=== PATIENT | male | born 1955 | race Hispanic/Latino ===

== ENCOUNTER 2018-05-14 12:26 | Inpatient (IN) | payer OTHER ==
[2018-05-14 12:27] VITALS: PULSE 67
[2018-05-14 12:39] VITALS: BMI 27.2
--- NOTE | 2018-05-14 12:46 | ED PDOC ---
Arrival/HPI - General Time Seen by Provider: 05/14/18 12:32 Historian: Patient - Critical Care Critical Care Minutes: 45 minutes - History of Present Illness Narrative History of Present Illness (Text): 05/14/18 12:46 62 y/o M w/ h/o of schizophrenia, anxiety, GI bleed, diabetes, and esophageal ulcer, presents to the emergency department s/p fall from earlier this morning. He reports his leg gave out and was unable to arise unassisted or ambulate afterwards. He denies head injury, LOC, or neck pain during the incident & denies urinary/bowel incontinence as a result of the incident. He reports his sister calling EMS who found the patient lying on the ground, but is unsure of how long he remained on the ground. Patient denies any fever, chills, shortness of breath, chest pain, diarrhea, nausea, vomiting, urinary symptoms, back pain, neck pain, headache, dizziness, or any other complaints. 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,fall as per pt) Hx Difficulty Chewing: No Hx Epistaxis: No Hx Glaucoma: No Hx Macular Degeneration: No - Renal Hx Renal Disorder: No Hx Kidney Stones: No - Endocrine/Metabolic Hx Hyperthyroidism: No Hx Hypothyroidism: No - Hematological/Oncological Hx Anemia: Yes (07-02-16) - Integumentary Hx Dermatological Disorder: No - Musculoskeletal/Rheumatological Hx Arthritis: No Hx Fractures: No Hx Osteoporosis: No - Gastrointestinal Hx Gastritis: Yes - Genitourinary/Gynecological Hx Sexually Transmitted Diseases: No - Psychiatric Hx Anxiety: Yes Hx Bipolar Disorder: Yes Hx Depression: Yes Hx Paranoia: Yes Hx Schizophrenia: Yes Hx Substance Use: No - Past Surgical History Past Surgical History: Unable to Obtain - Surgical History Hx Coronary Artery Bypass Graft: Yes - Anesthesia Hx Anesthesia: Yes Hx Anesthesia Reactions: No Hx Malignant Hyperthermia: No - Suicidal Assessment Feels Threatened In Home Enviroment: No Family/Social History - Physician Review Nursing Documentation Reviewed: Yes Family/Social History: No Known Family HX Smoking Status: Former Smoker Hx Alcohol Use: No Hx Substance Use: No Hx Substance Use Treatment: No Allergies/Home Meds Allergies/Adverse Reactions: Allergies zoloft Allergy (Uncoded 05/14/18 13:00) RASH Home Medications: Home Meds Medication Instructions Recorded Confirmed Losartan [Cozaar] 50 mg PO DAILY 05/19/18 05/19/18 RX: Metoprolol Succinate [Toprol 25 mg PO DAILY 05/19/18 05/19/18 Xl] metFORMIN [glucOPHAGE] 500 mg PO DAILY 05/19/18 05/19/18 Review of Systems - Review of Systems Constitutional: absent: Fevers, Night Sweats Respiratory: absent: SOB Cardiovascular: absent: Chest Pain Gastrointestinal: Abdominal Pain. absent: Diarrhea, Nausea, Vomiting Genitourinary Male: absent: Urinary Output Changes Musculoskeletal: Other (leg weakness). absent: Back Pain, Neck Pain Neurological: absent: Headache, Dizziness Physical Exam Vital Signs Reviewed: Yes Vital Signs Temp Pulse Resp BP Pulse Ox 05/14/18 12:39 98.4 F 109 H 18 97/54 L 95 Temperature: Afebrile Blood Pressure: Hypertensive Pulse: Tachycardic Appearance: Positive for: Comfortable, Unkept, Other (malodorous scent noted) - Systems Exam Head: Present: Atraumatic, Normocephalic Pupils: Present: PERRL Extroacular Muscles: Present: EOMI Conjunctiva: Present: Normal Mouth: Present: Dry Nose (External): Present: Abrasion (+abrasion to nasal bridge) Respiratory/Chest: Present: Clear to Auscultation, Other (+old healed sternotomy scar noted to midline ) Cardiovascular: Present: Tachycardic Abdomen: Present: Distention (+distended belly soft non-tender) Lower Extremity: Present: NORMAL PULSES, Other (ecchymoses noted to lower extremities with abrasions noted to b/L knees) Neurological: Present: GCS=15, CN II-XII Intact, Speech Normal Skin: Present: Diaphoretic (slightly diaphoretic), Abrasion (+abrasion noted to lower extremities bilaterally on feet) Psychiatric: Present: Alert, Oriented x 3, Normal Insight Medical Decision Making ED Course and Treatment: 05/14/18 12:46 Impression: 62 y/o M presenting to the emergency department s/p fall. Differential Diagnosis included but are not limited to: --Sepsis --Rhabdomyolysis --UTI --pneumonia Plan: -- VBG -- CT of abdomen and pelvis w/o contrast -- CT of cervical spine without contrast -- Head CT without contrast -- Labs --Vancomycin -- Zosyn -- Lactated Ringers -- Chest X-ray -- IV fluids -- Blood culture -- Urine culture -- Urinalysis -- Reassess and disposition Prior Visits: Notes and results from previous visits were reviewed. Progress Notes: 05/14/18 14:00 Labs reviewed with leukocytosis of 23 noted, HONG of 2.2 and lactate of 3.1 noted. Vancomycin and Zosyn ordered. Code SEPSIS activated. 05/14/18 14:26 Elevated troponin of 0.7. ASA ordered. CT imaging pending. Profound elevated CK noted. 05/14/18 15:41 CTH negative for acute intracranial bleeding. CT c-spine negative for fracture and dislocation. Discussed case with Dr. Isabelle Garcia(boat engine mechanic) who will come down and evaluate the patient. Call placed to Dr. Corbin(covering for Dr. Carpenter). 05/14/18 16:[address] Garcia who evaluated patient and accepts onto the ICU service. Spoke to Dr. Corbin who requests hospitalist admission. Spoke to Dr. Perez(hospitalist) who accepts patient onto his service. Will consult Dr. Salcedo(cardiology) & Dr. Elizabeth(nephrology). - RAD Interpretation Narrative RAD Interpretations (Text): 05/14/18 15:40 Procedure: CT of cervical spine without contrast Impression: Unremarkable CT of the cervical spine. Dictator: Jordan Garvin MD Procedure: Head CT without contrast Impression: No acute intracranial findings Dictator: Jordan Garvin MD Procedure: Chest X-ray Impression: No active disease. Dictator: Jordan Garvin MD 05/14/18 16:16 Procedure: CT of abdomen and pelvis with contrast Impression: No acute intra-abdominal findings. Dictator: Jordan Garvin MD Option Trader: Radiologist - EKG Interpretation EKG Interpretation (Text): 05/14/18 12:46 EKG: Ordered, reviewed, and independently interpreted the EKG. Rate : 109 BPM Rhythm : Sinus Tachycardia Interpretation : LVH, No ST-segment elevations or depressions, no T-wave inversions. Interpreted by ED Physician: Yes - Scribe Statement The provider has reviewed the documentation as recorded by the Haseeb Beverly All medical record entries made by the Haseeb were at my direction and personally dictated by me. I have reviewed the chart and agree that the record accurately reflects my personal performance of the history, physical exam, medical decision making, and the department course for this patient. I have also personally directed, reviewed, and agree with the discharge instructions and disposition. Disposition/Present on Arrival - Present on Arrival Any Indicators Present on Arrival: No History of DVT/PE: No History of Uncontrolled Diabetes: No Urinary Catheter: No History Surgical Site Infection Following: None - Disposition Have Diagnosis and Disposition been Completed?: Yes Diagnosis: Sepsis, HONG (acute kidney injury), Rhabdomyolysis Disposition: HOSPITALIZED Disposition Time: 16:00 Patient Plan: Admission Patient Problems: Current Active Problems Problem Status Onset HONG (acute kidney injury) Acute Rhabdomyolysis Acute Sepsis Acute Condition: STABLE
[2018-05-14] MEDS ORDERED: Sodium Chloride 0.9% 1,000 ML IV STA (12:48)
[2018-05-14] MEDS ORDERED: Iohexol 350 MG/100 ML VIAL ONE (13:01)
[2018-05-14] MEDS ORDERED: TDAP Vaccine 0.5 mL Syr IM ONE (13:28)
[2018-05-14 13:54] LABS: BASO # 0.02 K/mm3 (0.0-2.0); BASO % 0.1 % (0.0-3.0); GRAN # 20.86 (1.4-6.5); GRAN % 90.3 % (50.0-68.0); HEMOGLOBIN 10.4 g/dL (14.0-18.0); LYMPH # 0.8 (1.2-3.4); LYMPH % 3.2 % (22.0-35.0); MEAN CORPUSCULAR HEMOGLOBIN 18.6 pg (25.0-35.0); MEAN CORPUSCULAR HGB CONC 29.1 g/dl (31.0-37.0); MEAN PLATELET VOLUME 7.9 fl (7.0-11.0); MONO # 1.5 (0.1-0.6); MONO % 6.4 % (1.0-6.0); PLATELET COUNT 207 10^3/uL (120.0-450.0); RBC 5.59 10^6/uL (3.5-6.1); RED CELL DISTRIBUTION WIDTH 18.7 % (11.5-14.5); WHITE BLOOD COUNT 23.1 10^3/uL (4.5-11.0)
[2018-05-14 13:56] LABS: INR 1.09; PROTHROMBIN TIME 12.6 SECONDS (9.4-12.5); VENOUS BLOOD GAS BASE EXCESS -6.2 mmol/L (0.0-2.0); VENOUS BLOOD GAS PO2 40 mm/Hg (30-55); VENOUS BLOOD PH 7.27 (7.32-7.43)
[2018-05-14 13:58] LABS: ALB/GLOB RATIO 1.2 (1.1-1.8); ALBUMIN 4.2 g/dL (3.0-4.8); CALCIUM 11.2 mg/dL (8.4-10.5)
[2018-05-14] MEDS ORDERED: Piperacill/Tazo 4.5gm in NS 4.5 GM/100 ML BAG IVPB STA (14:01)
[2018-05-14] MEDS ORDERED: Vancomycin 1gm in NS 250ml 1 GM/250 ML BAG IVPB STA (14:01)
[2018-05-14 14:13] LABS: TROPONIN I 0.74 ng/mL
--- NOTE | 2018-05-14 14:13 | RAD ---
Date of service: 05/14/2018 HISTORY: altered mental status COMPARISON: 07/02/2016 FINDINGS: LUNGS: No active pulmonary disease. PLEURA: No significant pleural effusion identified, no pneumothorax apparent. CARDIOVASCULAR: No aortic atherosclerotic calcification present. Normal cardiac size. No pulmonary vascular congestion. OSSEOUS STRUCTURES: Sternal wires VISUALIZED UPPER ABDOMEN: Normal. OTHER FINDINGS: None. IMPRESSION: No active disease.
[2018-05-14 14:40] LABS: BAND 4 % (0-2); LYMPHOCYTE 5 % (22.0-35.0); MONOCYTE 3 % (1.0-6.0); NEUTROPHIL 88 % (50.0-70.0)
[2018-05-14 14:43] LABS: ANISOCYTOSIS SLIGHT; HYPOCHROMIA SLIGHT; MICROCYTOSIS 2+; OVALOCYTES SLIGHT; POIKILOCYTOSIS SLIGHT; POLYCHROMASIA SLIGHT
[2018-05-14 14:44] LABS: SCHISTOCYTES SLIGHT
[2018-05-14 14:55] LABS: CK MB% 0.1 % (2.5-3.0); CK-MB 18.7 ng/mL (0.0-3.6)
[2018-05-14 15:04] LABS: ERYTHROCYTE SEDIMENTATION RATE 16 mm/hr (0.00-15.0)
--- NOTE | 2018-05-14 15:28 | CT ---
Date of service: 05/14/2018 PROCEDURE: CT HEAD WITHOUT CONTRAST. HISTORY: ams COMPARISON: 01/03/2016 TECHNIQUE: Axial computed tomography images were obtained through the head/brain without intravenous contrast. Radiation dose: Total exam DLP = 897.9 mGy-cm. This CT exam was performed using one or more of the following dose reduction techniques: Automated exposure control, adjustment of the mA and/or kV according to patient size, and/or use of iterative reconstruction technique. FINDINGS: HEMORRHAGE: No intracranial hemorrhage. BRAIN: No mass effect or edema. Mild atrophy. No acute intracranial findings VENTRICLES: Unremarkable. No hydrocephalus. CALVARIUM: Unremarkable. PARANASAL SINUSES: Unremarkable as visualized. No significant inflammatory changes. MASTOID AIR CELLS: Unremarkable as visualized. No inflammatory changes. OTHER FINDINGS: None. IMPRESSION: No acute intracranial findings
--- NOTE | 2018-05-14 15:30 | CT ---
Date of service: 05/14/2018 PROCEDURE: CT Cervical Spine without contrast HISTORY: fall COMPARISON: None available. TECHNIQUE: Axial computed tomography images were obtained of the cervical spine without the use of intravenous contrast. Coronal and sagittal reformatted images were created and reviewed. Radiation dose: Total exam DLP = 566.72 mGy-cm. This CT exam was performed using one or more of the following dose reduction techniques: Automated exposure control, adjustment of the mA and/or kV according to patient size, and/or use of iterative reconstruction technique. FINDINGS: VERTEBRAE: No fracture. Normal alignment. No destructive bony lesion. DISCS/SPINAL CANAL/NEURAL FORAMINA: No significant central canal or neural foraminal stenosis. Discs heights are grossly preserved. PARASPINAL SOFT TISSUES: The carotid bifurcations are heavily calcified. OTHER FINDINGS: None. IMPRESSION: Unremarkable CT of the cervical spine.
--- NOTE | 2018-05-14 15:37 | CT ---
Date of service: 05/14/2018 PROCEDURE: CT Abdomen and Pelvis without intravenous contrast HISTORY: fall COMPARISON: 11/19/2015 TECHNIQUE: Without contrast.. Contrast dose: Radiation dose: Total exam DLP = 824.38 mGy-cm. This CT exam was performed using one or more of the following dose reduction techniques: Automated exposure control, adjustment of the mA and/or kV according to patient size, and/or use of iterative reconstruction technique. FINDINGS: LOWER THORAX: There is a small nodule at the left lung base which is unchanged. This measures 10 mm in diameter. LIVER: Unremarkable. No gross lesion or ductal dilatation. GALLBLADDER AND BILE DUCTS: 13 mm gallstone. PANCREAS: Unremarkable. No gross lesion or ductal dilatation. SPLEEN: Unremarkable. ADRENALS: Unremarkable. No mass. KIDNEYS AND URETERS: Unremarkable. No hydronephrosis. No solid mass. VASCULATURE: Unremarkable. No aortic aneurysm. Extensive aortic calcification BOWEL: Unremarkable. No obstruction. No gross mural thickening. APPENDIX: Unremarkable. Normal appendix. PERITONEUM: Unremarkable. No free fluid. No free air. LYMPH NODES: Unremarkable. No enlarged lymph nodes. BLADDER: Unremarkable. REPRODUCTIVE: Unremarkable. BONES: No acute fracture. OTHER FINDINGS: None. IMPRESSION: No acute intra-abdominal findings.
[2018-05-14 15:52] LABS: URINE BILIRUBIN NEGATIVE (NEGATIVE); URINE BLOOD LARGE (NEGATIVE); URINE GLUCOSE (UA) 250 mg/dL (NEGATIVE); URINE LEUKOCYTE ESTERASE NEGATIVE Leu/uL (NEGATIVE); URINE PROTEIN 100 mg/dL (<30 mg/dL); URINE UROBILINOGEN 0.2 E.U./dL (<1 E.U./dL)
[2018-05-14 15:53] LABS: URINE APPEARANCE CLEAR (CLEAR); URINE COLOR YELLOW (YELLOW)
[2018-05-14 16:02] LABS: URINE BACTERIA FEW (NEG); URINE WBC 0 - 2 /hpf (0-6)
--- NOTE | 2018-05-14 16:16 | CARD ---
APPROVED REPORT Date of service: 05/14/2018 EKG Measurement Heart [id number] <Conclusion> Sinus tachycardia Inferior infarct, age undetermined Abnormal ECG
[2018-05-14] MEDS ORDERED: Alum-Mag Hydrox-Simethicone Susp (30 mL) PO STA (16:31)
[2018-05-14] MEDS ORDERED: Atrop/Hyosc/Scopal/PB Elixir (120 ml) PO STA (16:31)
[2018-05-14 17:10] LABS: BARBITURATES, UR NEGATIVE (NEGATIVE); BENZODIAZEPINES, UR NEGATIVE (NEGATIVE); OPIATES, UR NEGATIVE (NEGATIVE); PHENCYCLIDINE, UR NEGATIVE (NEGATIVE)
--- NOTE | 2018-05-14 17:22 | CP.CCUPN ---
CCU Objective - Vital Signs / Intake & Output Vital Signs (Last 4 hours): Vital Signs Temp Pulse Resp BP Pulse Ox 05/14/18 16:54 98.6 F 86 16 112/86 98 05/14/18 16:09 98.6 F 98 H 16 112/76 98 Intake and Output (Last 8hrs): Intake & Output 05/14/18 05/14/18 05/14/18 06:59 14:59 22:59 Weight 86.183 kg - Physical Exam Head: Positive for: Atraumatic, Normocephalic Pupils: Positive for: PERRL Extroacular Muscles: Positive for: EOMI Conjunctiva: Positive for: Normal Mouth: Positive for: Dry Nose (External): Positive for: Abrasion (+abrasion to nasal bridge) Respiratory/Chest: Positive for: Clear to Auscultation, Other (+old healed sternotomy scar noted to midline ) Cardiovascular: Positive for: Tachycardic Abdomen: Positive for: Distention (+distended belly soft non-tender) Lower Extremity: Positive for: NORMAL PULSES, Other (ecchymoses noted to lower extremities with abrasions noted to b/L knees) Neurological: Positive for: GCS=15, CN II-XII Intact, Speech Normal Skin: Positive for: Diaphoretic (slightly diaphoretic), Abrasion (+abrasion noted to lower extremities bilaterally on feet) Psychiatric: Positive for: Alert, Oriented x 3, Normal Insight - Medications Active Medications: Active Medications Generic Name Dose Route Start Last Admin Trade Name Freq PRN Reason Stop Dose Admin Potassium Chloride 10 meq in 100 mls @ 50 mls/hr 05/14/18 16:30 Potassium Chloride 10 Meq/100 Ml IVPB 05/14/18 20:29 Q2H CHANEL Sodium Bicarbonate 150 meq/ 1,150 mls @ 250 mls/hr 05/14/18 16:45 Dextrose IV [id number] CHANEL - Patient Studies Lab Studies: Lab Studies 05/14/18 05/14/18 05/14/18 Range/Units 16:30 16:10 16:00 WBC (4.5-11.0) 10^3/uL RBC (3.5-6.1) 10^6/uL Hgb (14.0-18.0) g/dL Hct (42.0-52.0) % MCV (80.0-105.0) fl MCH (25.0-35.0) pg MCHC (31.0-37.0) g/dl RDW (11.5-14.5) % Plt Count (120.0-450.0) 10^3/uL MPV (7.0-11.0) fl Gran % (50.0-68.0) % Lymph % (Auto) (22.0-35.0) % Evans % (Auto) (1.0-6.0) % Eos % (Auto) (1.5-5.0) % Baso % (Auto) (0.0-3.0) % Gran # (1.4-6.5) Lymph # (Auto) (1.2-3.4) Evans # (Auto) (0.1-0.6) Eos # (Auto) (0.0-0.7) Baso # (Auto) (0.0-2.0) K/mm3 Neutrophils % (Manual) (50.0-70.0) % Band Neutrophils % (0-2) % Lymphocytes % (Manual) (22.0-35.0) % Monocytes % (Manual) (1.0-6.0) % Polychromasia Hypochromasia Poikilocytosis (manual Anisocytosis (manual) Microcytosis (manual) Ovalocytes Schistocytes ESR (0.00-15.0) mm/hr PT (9.4-12.5) SECONDS INR APTT (25.1-36.5) Seconds pO2 (30-55) mm/Hg VBG pH (7.32-7.43) VBG pCO2 (40-60) VBG HCO3 (21-28) mmol/l VBG Total CO2 (22-28) mmol.L VBG O2 Sat (Calc) (40-65) % VBG Base Excess (0.0-2.0) mmol/L VBG Potassium (3.6-5.2) mmol/L Sodium (132-148) mmol/L Chloride (98-107) mmol/L Glucose (75-110) mg/dl Lactate (0.7-2.1) mmol/L FiO2 % Potassium (3.6-5.0) mmol/L Carbon Dioxide (21-33) mmol/L Anion Gap (10-20) BUN (7-21) mg/dL Creatinine (0.8-1.5) mg/dl Est GFR ( Amer) Est GFR (Non-Af Amer) POC Glucose (mg/dL) (65-110) mg/dL Random Glucose (70-110) mg/dL Lactic Acid 1.6 (0.7-2.1) mmol/L Calcium (8.4-10.5) mg/dL Phosphorus (2.5-4.5) mg/dL Magnesium (1.7-2.2) mg/dL Total Bilirubin (0.2-1.3) mg/dL AST (17-59) U/L ALT (7-56) U/L Alkaline Phosphatase (38-126) U/L Ammonia (9-33) umol/L Total Creatine Kinase (35-230) U/L CK-MB (CK-2) (0.0-3.6) ng/mL CK-MB (CK-2) % (2.5-3.0) % Troponin I ng/mL Total Protein (5.8-8.3) g/dL Albumin (3.0-4.8) g/dL Globulin gm/dL Albumin/Globulin Ratio (1.1-1.8) Venous Blood Potassium (3.6-5.2) mmol/L Urine Color (YELLOW) Urine Appearance (CLEAR) Urine pH (4.7-8.0) Ur Specific [place] (1.005-1.035) Urine Protein (<30 mg/dL) mg/dL Urine Glucose (UA) (NEGATIVE) mg/dL Urine Ketones (NEGATIVE) mg/dL Urine Blood (NEGATIVE) Urine Nitrate (NEGATIVE) Urine Bilirubin (NEGATIVE) Urine Urobilinogen (<1 E.U./dL) E.U./dL Ur Leukocyte Esterase (NEGATIVE) Irvin/uL Urine RBC (0-2) /hpf Urine WBC (0-6) /hpf Ur Epithelial Cells (0-5) /hpf Urine Bacteria (NEG) Urine Opiates Screen Negative (NEGATIVE) Urine Methadone Screen Negative (NEGATIVE) Ur Barbiturates Screen Negative (NEGATIVE) Ur Phencyclidine Scrn Negative (NEGATIVE) Ur Amphetamines Screen Negative (NEGATIVE) U Benzodiazepines Scrn Negative (NEGATIVE) U Oth Cocaine Metabols Negative (NEGATIVE) U Cannabinoids Screen Negative (NEGATIVE) Alcohol, Quantitative < 10 (0-10) mg/dL 05/14/18 05/14/18 05/14/18 Range/Units 15:30 13:30 13:30 WBC (4.5-11.0) 10^3/uL RBC (3.5-6.1) 10^6/uL Hgb (14.0-18.0) g/dL Hct (42.0-52.0) % MCV (80.0-105.0) fl MCH (25.0-35.0) pg MCHC (31.0-37.0) g/dl RDW (11.5-14.5) % Plt Count (120.0-450.0) 10^3/uL MPV (7.0-11.0) fl Gran % (50.0-68.0) % Lymph % (Auto) (22.0-35.0) % Evans % (Auto) (1.0-6.0) % Eos % (Auto) (1.5-5.0) % Baso % (Auto) (0.0-3.0) % Gran # (1.4-6.5) Lymph # (Auto) (1.2-3.4) Evans # (Auto) (0.1-0.6) Eos # (Auto) (0.0-0.7) Baso # (Auto) (0.0-2.0) K/mm3 Neutrophils % (Manual) (50.0-70.0) % Band Neutrophils % (0-2) % Lymphocytes % (Manual) (22.0-35.0) % Monocytes % (Manual) (1.0-6.0) % Polychromasia Hypochromasia Poikilocytosis (manual Anisocytosis (manual) Microcytosis (manual) Ovalocytes Schistocytes ESR (0.00-15.0) mm/hr PT (9.4-12.5) SECONDS INR APTT (25.1-36.5) Seconds pO2 40 (30-55) mm/Hg VBG pH 7.27 L (7.32-7.43) VBG pCO2 45.0 (40-60) VBG HCO3 20.7 L (21-28) mmol/l VBG Total CO2 22.1 (22-28) mmol.L VBG O2 Sat (Calc) 72.9 H (40-65) % VBG Base Excess -6.2 L (0.0-2.0) mmol/L VBG Potassium 3.4 L (3.6-5.2) mmol/L Sodium 138.0 (132-148) mmol/L Chloride 101.0 (98-107) mmol/L Glucose 287 H (75-110) mg/dl Lactate 3.1 H (0.7-2.1) mmol/L FiO2 21.0 % Potassium (3.6-5.0) mmol/L Carbon Dioxide (21-33) mmol/L Anion Gap (10-20) BUN (7-21) mg/dL Creatinine (0.8-1.5) mg/dl Est GFR ( Amer) Est GFR (Non-Af Amer) POC Glucose (mg/dL) (65-110) mg/dL Random Glucose (70-110) mg/dL Lactic Acid (0.7-2.1) mmol/L Calcium (8.4-10.5) mg/dL Phosphorus (2.5-4.5) mg/dL Magnesium (1.7-2.2) mg/dL Total Bilirubin (0.2-1.3) mg/dL AST (17-59) U/L ALT (7-56) U/L Alkaline Phosphatase (38-126) U/L Ammonia 44 H (9-33) umol/L Total Creatine Kinase (35-230) U/L CK-MB (CK-2) (0.0-3.6) ng/mL CK-MB (CK-2) % (2.5-3.0) % Troponin I ng/mL Total Protein (5.8-8.3) g/dL Albumin (3.0-4.8) g/dL Globulin gm/dL Albumin/Globulin Ratio (1.1-1.8) Venous Blood Potassium 3.4 L (3.6-5.2) mmol/L Urine Color Yellow (YELLOW) Urine Appearance Clear (CLEAR) Urine pH 6.0 (4.7-8.0) Ur Specific [place] >= 1.030 (1.005-1.035) Urine Protein 100 H (<30 mg/dL) mg/dL Urine Glucose (UA) 250 H (NEGATIVE) mg/dL Urine Ketones Negative (NEGATIVE) mg/dL Urine Blood Large H (NEGATIVE) Urine Nitrate Negative (NEGATIVE) Urine Bilirubin Negative (NEGATIVE) Urine Urobilinogen 0.2 (<1 E.U./dL) E.U./dL Ur Leukocyte Esterase Negative (NEGATIVE) Irvin/uL Urine RBC 2 - 5 (0-2) /hpf Urine WBC 0 - 2 (0-6) /hpf Ur Epithelial Cells None (0-5) /hpf Urine Bacteria Few (NEG) Urine Opiates Screen (NEGATIVE) Urine Methadone Screen (NEGATIVE) Ur Barbiturates Screen (NEGATIVE) Ur Phencyclidine Scrn (NEGATIVE) Ur Amphetamines Screen (NEGATIVE) U Benzodiazepines Scrn (NEGATIVE) U Oth Cocaine Metabols (NEGATIVE) U Cannabinoids Screen (NEGATIVE) Alcohol, Quantitative (0-10) mg/dL 05/14/18 05/14/18 05/14/18 Range/Units 13:30 13:30 13:30 WBC 23.1 H (4.5-11.0) 10^3/uL RBC 5.59 (3.5-6.1) 10^6/uL Hgb 10.4 L (14.0-18.0) g/dL Hct 35.8 L (42.0-52.0) % MCV 64.0 L (80.0-105.0) fl MCH 18.6 L (25.0-35.0) pg MCHC 29.1 L (31.0-37.0) g/dl RDW 18.7 H (11.5-14.5) % Plt Count 207 (120.0-450.0) 10^3/uL MPV 7.9 (7.0-11.0) fl Gran % 90.3 H (50.0-68.0) % Lymph % (Auto) 3.2 L (22.0-35.0) % Evans % (Auto) 6.4 H (1.0-6.0) % Eos % (Auto) 0.0 L (1.5-5.0) % Baso % (Auto) 0.1 (0.0-3.0) % Gran # 20.86 H (1.4-6.5) Lymph # (Auto) 0.8 L (1.2-3.4) Evans # (Auto) 1.5 H (0.1-0.6) Eos # (Auto) 0.0 (0.0-0.7) Baso # (Auto) 0.02 (0.0-2.0) K/mm3 Neutrophils % (Manual) 88 H (50.0-70.0) % Band Neutrophils % 4 H (0-2) % Lymphocytes % (Manual) 5 L (22.0-35.0) % Monocytes % (Manual) 3 (1.0-6.0) % Polychromasia Slight Hypochromasia Slight Poikilocytosis (manual Slight Anisocytosis (manual) Slight Microcytosis (manual) 2+ Ovalocytes Slight Schistocytes Slight ESR 16 H (0.00-15.0) mm/hr PT 12.6 H (9.4-12.5) SECONDS INR 1.09 APTT 27.0 (25.1-36.5) Seconds pO2 (30-55) mm/Hg VBG pH (7.32-7.43) VBG pCO2 (40-60) VBG HCO3 (21-28) mmol/l VBG Total CO2 (22-28) mmol.L VBG O2 Sat (Calc) (40-65) % VBG Base Excess (0.0-2.0) mmol/L VBG Potassium (3.6-5.2) mmol/L Sodium 138 (132-148) mmol/L Chloride 103 (98-107) mmol/L Glucose (75-110) mg/dl Lactate (0.7-2.1) mmol/L FiO2 % Potassium 3.5 L (3.6-5.0) mmol/L Carbon Dioxide 21 (21-33) mmol/L Anion Gap 18 (10-20) BUN 21 (7-21) mg/dL Creatinine 2.2 H (0.8-1.5) mg/dl Est GFR ( Amer) 37 Est GFR (Non-Af Amer) 31 POC Glucose (mg/dL) (65-110) mg/dL Random Glucose 267 H (70-110) mg/dL Lactic Acid (0.7-2.1) mmol/L Calcium 11.2 H (8.4-10.5) mg/dL Phosphorus 3.6 (2.5-4.5) mg/dL Magnesium 3.2 H (1.7-2.2) mg/dL Total Bilirubin 0.7 (0.2-1.3) mg/dL AST 149 H (17-59) U/L ALT 35 (7-56) U/L Alkaline Phosphatase 142 H (38-126) U/L Ammonia (9-33) umol/L Total Creatine Kinase 98777 H (35-230) U/L CK-MB (CK-2) 18.7 H (0.0-3.6) ng/mL CK-MB (CK-2) % 0.1 L (2.5-3.0) % Troponin I 0.74 H* D ng/mL Total Protein 7.7 (5.8-8.3) g/dL Albumin 4.2 (3.0-4.8) g/dL Globulin 3.5 gm/dL Albumin/Globulin Ratio 1.2 (1.1-1.8) Venous Blood Potassium (3.6-5.2) mmol/L Urine Color (YELLOW) Urine Appearance (CLEAR) Urine pH (4.7-8.0) Ur Specific [place] (1.005-1.035) Urine Protein (<30 mg/dL) mg/dL Urine Glucose (UA) (NEGATIVE) mg/dL Urine Ketones (NEGATIVE) mg/dL Urine Blood (NEGATIVE) Urine Nitrate (NEGATIVE) Urine Bilirubin (NEGATIVE) Urine Urobilinogen (<1 E.U./dL) E.U./dL Ur Leukocyte Esterase (NEGATIVE) Irvin/uL Urine RBC (0-2) /hpf Urine WBC (0-6) /hpf Ur Epithelial Cells (0-5) /hpf Urine Bacteria (NEG) Urine Opiates Screen (NEGATIVE) Urine Methadone Screen (NEGATIVE) Ur Barbiturates Screen (NEGATIVE) Ur Phencyclidine Scrn (NEGATIVE) Ur Amphetamines Screen (NEGATIVE) U Benzodiazepines Scrn (NEGATIVE) U Oth Cocaine Metabols (NEGATIVE) U Cannabinoids Screen (NEGATIVE) Alcohol, Quantitative (0-10) mg/dL 05/14/18 Range/Units 12:34 WBC (4.5-11.0) 10^3/uL RBC (3.5-6.1) 10^6/uL Hgb (14.0-18.0) g/dL Hct (42.0-52.0) % MCV (80.0-105.0) fl MCH (25.0-35.0) pg MCHC (31.0-37.0) g/dl RDW (11.5-14.5) % Plt Count (120.0-450.0) 10^3/uL MPV (7.0-11.0) fl Gran % (50.0-68.0) % Lymph % (Auto) (22.0-35.0) % Evans % (Auto) (1.0-6.0) % Eos % (Auto) (1.5-5.0) % Baso % (Auto) (0.0-3.0) % Gran # (1.4-6.5) Lymph # (Auto) (1.2-3.4) Evans # (Auto) (0.1-0.6) Eos # (Auto) (0.0-0.7) Baso # (Auto) (0.0-2.0) K/mm3 Neutrophils % (Manual) (50.0-70.0) % Band Neutrophils % (0-2) % Lymphocytes % (Manual) (22.0-35.0) % Monocytes % (Manual) (1.0-6.0) % Polychromasia Hypochromasia Poikilocytosis (manual Anisocytosis (manual) Microcytosis (manual) Ovalocytes Schistocytes ESR (0.00-15.0) mm/hr PT (9.4-12.5) SECONDS INR APTT (25.1-36.5) Seconds pO2 (30-55) mm/Hg VBG pH (7.32-7.43) VBG pCO2 (40-60) VBG HCO3 (21-28) mmol/l VBG Total CO2 (22-28) mmol.L VBG O2 Sat (Calc) (40-65) % VBG Base Excess (0.0-2.0) mmol/L VBG Potassium (3.6-5.2) mmol/L Sodium (132-148) mmol/L Chloride (98-107) mmol/L Glucose (75-110) mg/dl Lactate (0.7-2.1) mmol/L FiO2 % Potassium (3.6-5.0) mmol/L Carbon Dioxide (21-33) mmol/L Anion Gap (10-20) BUN (7-21) mg/dL Creatinine (0.8-1.5) mg/dl Est GFR ( Amer) Est GFR (Non-Af Amer) POC Glucose (mg/dL) 269 H (65-110) mg/dL Random Glucose (70-110) mg/dL Lactic Acid (0.7-2.1) mmol/L Calcium (8.4-10.5) mg/dL Phosphorus (2.5-4.5) mg/dL Magnesium (1.7-2.2) mg/dL Total Bilirubin (0.2-1.3) mg/dL AST (17-59) U/L ALT (7-56) U/L Alkaline Phosphatase (38-126) U/L Ammonia (9-33) umol/L Total Creatine Kinase (35-230) U/L CK-MB (CK-2) (0.0-3.6) ng/mL CK-MB (CK-2) % (2.5-3.0) % Troponin I ng/mL Total Protein (5.8-8.3) g/dL Albumin (3.0-4.8) g/dL Globulin gm/dL Albumin/Globulin Ratio (1.1-1.8) Venous Blood Potassium (3.6-5.2) mmol/L Urine Color (YELLOW) Urine Appearance (CLEAR) Urine pH (4.7-8.0) Ur Specific [place] (1.005-1.035) Urine Protein (<30 mg/dL) mg/dL Urine Glucose (UA) (NEGATIVE) mg/dL Urine Ketones (NEGATIVE) mg/dL Urine Blood (NEGATIVE) Urine Nitrate (NEGATIVE) Urine Bilirubin (NEGATIVE) Urine Urobilinogen (<1 E.U./dL) E.U./dL Ur Leukocyte Esterase (NEGATIVE) Irvin/uL Urine RBC (0-2) /hpf Urine WBC (0-6) /hpf Ur Epithelial Cells (0-5) /hpf Urine Bacteria (NEG) Urine Opiates Screen (NEGATIVE) Urine Methadone Screen (NEGATIVE) Ur Barbiturates Screen (NEGATIVE) Ur Phencyclidine Scrn (NEGATIVE) Ur Amphetamines Screen (NEGATIVE) U Benzodiazepines Scrn (NEGATIVE) U Oth Cocaine Metabols (NEGATIVE) U Cannabinoids Screen (NEGATIVE) Alcohol, Quantitative (0-10) mg/dL Laboratory Results - last 24 hr 05/14/18 05/14/18 05/14/18 12:34 13:30 13:30 WBC 23.1 H RBC 5.59 Hgb 10.4 L Hct 35.8 L MCV 64.0 L MCH 18.6 L MCHC 29.1 L RDW 18.7 H Plt Count 207 MPV 7.9 Gran % 90.3 H Lymph % (Auto) 3.2 L Evans % (Auto) 6.4 H Eos % (Auto) 0.0 L Baso % (Auto) 0.1 Gran # 20.86 H Lymph # (Auto) 0.8 L Evans # (Auto) 1.5 H Eos # (Auto) 0.0 Baso # (Auto) 0.02 Neutrophils % (Manual) 88 H Band Neutrophils % 4 H Lymphocytes % (Manual) 5 L Monocytes % (Manual) 3 Polychromasia Slight Hypochromasia Slight Poikilocytosis (manual Slight Anisocytosis (manual) Slight Microcytosis (manual) 2+ Ovalocytes Slight Schistocytes Slight ESR 16 H PT 12.6 H INR 1.09 APTT 27.0 pO2 VBG pH VBG pCO2 VBG HCO3 VBG Total CO2 VBG O2 Sat (Calc) VBG Base Excess VBG Potassium Sodium Chloride Glucose Lactate FiO2 Potassium Carbon Dioxide Anion Gap BUN Creatinine Est GFR ( Amer) Est GFR (Non-Af Amer) POC Glucose (mg/dL) 269 H Random Glucose Lactic Acid Calcium Phosphorus Magnesium Total Bilirubin AST ALT Alkaline Phosphatase Ammonia Total Creatine Kinase CK-MB (CK-2) CK-MB (CK-2) % Troponin I Total Protein Albumin Globulin Albumin/Globulin Ratio Venous Blood Potassium Urine Color Urine Appearance Urine pH Ur Specific [place] Urine Protein Urine Glucose (UA) Urine Ketones Urine Blood Urine Nitrate Urine Bilirubin Urine Urobilinogen Ur Leukocyte Esterase Urine RBC Urine WBC Ur Epithelial Cells Urine Bacteria Urine Opiates Screen Urine Methadone Screen Ur Barbiturates Screen Ur Phencyclidine Scrn Ur Amphetamines Screen U Benzodiazepines Scrn U Oth Cocaine Metabols U Cannabinoids Screen Alcohol, Quantitative 05/14/18 05/14/18 05/14/18 13:30 13:30 13:30 WBC RBC Hgb Hct MCV MCH MCHC RDW Plt Count MPV Gran % Lymph % (Auto) Evans % (Auto) Eos % (Auto) Baso % (Auto) Gran # Lymph # (Auto) Evans # (Auto) Eos # (Auto) Baso # (Auto) Neutrophils % (Manual) Band Neutrophils % Lymphocytes % (Manual) Monocytes % (Manual) Polychromasia Hypochromasia Poikilocytosis (manual Anisocytosis (manual) Microcytosis (manual) Ovalocytes Schistocytes ESR PT INR APTT pO2 40 VBG pH 7.27 L VBG pCO2 45.0 VBG HCO3 20.7 L VBG Total CO2 22.1 VBG O2 Sat (Calc) 72.9 H VBG Base Excess -6.2 L VBG Potassium 3.4 L Sodium 138 138.0 Chloride 103 101.0 Glucose 287 H Lactate 3.1 H FiO2 21.0 Potassium 3.5 L Carbon Dioxide 21 Anion Gap 18 BUN 21 Creatinine 2.2 H Est GFR ( Amer) 37 Est GFR (Non-Af Amer) 31 POC Glucose (mg/dL) Random Glucose 267 H Lactic Acid Calcium 11.2 H Phosphorus 3.6 Magnesium 3.2 H Total Bilirubin 0.7 AST 149 H ALT 35 Alkaline Phosphatase 142 H Ammonia 44 H Total Creatine Kinase 04723 H CK-MB (CK-2) 18.7 H CK-MB (CK-2) % 0.1 L Troponin I 0.74 H* D Total Protein 7.7 Albumin 4.2 Globulin 3.5 Albumin/Globulin Ratio 1.2 Venous Blood Potassium 3.4 L Urine Color Urine Appearance Urine pH Ur Specific [place] Urine Protein Urine Glucose (UA) Urine Ketones Urine Blood Urine Nitrate Urine Bilirubin Urine Urobilinogen Ur Leukocyte Esterase Urine RBC Urine WBC Ur Epithelial Cells Urine Bacteria Urine Opiates Screen Urine Methadone Screen Ur Barbiturates Screen Ur Phencyclidine Scrn Ur Amphetamines Screen U Benzodiazepines Scrn U Oth Cocaine Metabols U Cannabinoids Screen Alcohol, Quantitative 05/14/18 05/14/18 05/14/18 15:30 16:00 16:10 WBC RBC Hgb Hct MCV MCH MCHC RDW Plt Count MPV Gran % Lymph % (Auto) Evans % (Auto) Eos % (Auto) Baso % (Auto) Gran # Lymph # (Auto) Evans # (Auto) Eos # (Auto) Baso # (Auto) Neutrophils % (Manual) Band Neutrophils % Lymphocytes % (Manual) Monocytes % (Manual) Polychromasia Hypochromasia Poikilocytosis (manual Anisocytosis (manual) Microcytosis (manual) Ovalocytes Schistocytes ESR PT INR APTT pO2 VBG pH VBG pCO2 VBG HCO3 VBG Total CO2 VBG O2 Sat (Calc) VBG Base Excess VBG Potassium Sodium Chloride Glucose Lactate FiO2 Potassium Carbon Dioxide Anion Gap BUN Creatinine Est GFR ( Amer) Est GFR (Non-Af Amer) POC Glucose (mg/dL) Random Glucose Lactic Acid 1.6 Calcium Phosphorus Magnesium Total Bilirubin AST ALT Alkaline Phosphatase Ammonia Total Creatine Kinase CK-MB (CK-2) CK-MB (CK-2) % Troponin I Total Protein Albumin Globulin Albumin/Globulin Ratio Venous Blood Potassium Urine Color Yellow Urine Appearance Clear Urine pH 6.0 Ur Specific [place] >= 1.030 Urine Protein 100 H Urine Glucose (UA) 250 H Urine Ketones Negative Urine Blood Large H Urine Nitrate Negative Urine Bilirubin Negative Urine Urobilinogen 0.2 Ur Leukocyte Esterase Negative Urine RBC 2 - 5 Urine WBC 0 - 2 Ur Epithelial Cells None Urine Bacteria Few Urine Opiates Screen Urine Methadone Screen Ur Barbiturates Screen Ur Phencyclidine Scrn Ur Amphetamines Screen U Benzodiazepines Scrn U Oth Cocaine Metabols U Cannabinoids Screen Alcohol, Quantitative < 10 05/14/18 16:30 WBC RBC Hgb Hct MCV MCH MCHC RDW Plt Count MPV Gran % Lymph % (Auto) Evans % (Auto) Eos % (Auto) Baso % (Auto) Gran # Lymph # (Auto) Evans # (Auto) Eos # (Auto) Baso # (Auto) Neutrophils % (Manual) Band Neutrophils % Lymphocytes % (Manual) Monocytes % (Manual) Polychromasia Hypochromasia Poikilocytosis (manual Anisocytosis (manual) Microcytosis (manual) Ovalocytes Schistocytes ESR PT INR APTT pO2 VBG pH VBG pCO2 VBG HCO3 VBG Total CO2 VBG O2 Sat (Calc) VBG Base Excess VBG Potassium Sodium Chloride Glucose Lactate FiO2 Potassium Carbon Dioxide Anion Gap BUN Creatinine Est GFR ( Amer) Est GFR (Non-Af Amer) POC Glucose (mg/dL) Random Glucose Lactic Acid Calcium Phosphorus Magnesium Total Bilirubin AST ALT Alkaline Phosphatase Ammonia Total Creatine Kinase CK-MB (CK-2) CK-MB (CK-2) % Troponin I Total Protein Albumin Globulin Albumin/Globulin Ratio Venous Blood Potassium Urine Color Urine Appearance Urine pH Ur Specific [place] Urine Protein Urine Glucose (UA) Urine Ketones Urine Blood Urine Nitrate Urine Bilirubin Urine Urobilinogen Ur Leukocyte Esterase Urine RBC Urine WBC Ur Epithelial Cells Urine Bacteria Urine Opiates Screen Negative Urine Methadone Screen Negative Ur Barbiturates Screen Negative Ur Phencyclidine Scrn Negative Ur Amphetamines Screen Negative U Benzodiazepines Scrn Negative U Oth Cocaine Metabols Negative U Cannabinoids Screen Negative Alcohol, Quantitative EKG/Cardiology Studies: Cardiology / EKG Studies 05/14/18 12:36 EKG [ELECTROCARDIOGRAM] Stat Comment: Reason For Exam: FALL Critical Care Progress Note - Nutrition Nutrition: Nutrition Category Date Time Status Heart Healthy Diet [DIET] Diets 05/14/18 Dinner Active Addendum Addendum: 05/14/18 17:18 MICU Attending Addendum to PGY-1 Jhonny's Consult Note: Patient seen and examined with Dr Barry. Case discussed at bedside rounds. Agree with his note with the following add/exceptions: 62 M with hx of CHF EF 40% (2017) schizophrenia, anxiety, GI bleed, diabetes, and esophageal ulcer being admitted to ICU after presenting for lethargy found to be possibly septic with rhabdo/HONG. CTH negative for acute intracranial bleeding. CT c-spine negative for fracture and dislocation. Exam does not reveal any signs of compartment syndrome. He does have bruises on his knees BL that look fresh with some cuts in his forehead. I suspect his history is questionable and he may have fallen and been down for several hours to days. Will hydrate him with 3-4L for rhabdo including 3 amps biarcb in D5 to alkalanize his urine. Insert reinoso; monitor urine output repeat CMP (also repeating Ca which was elevated and K) Caution for fluids overload given cardiac hx and ef 40% Hold home LEROY-I and statin but will resume BB Given hx of GI B will repeat CBC, check stool guiac doubt cardiac event, trops can be from rhabdo/hong however will trend TNI insulin scale for hyperglycem/DM Broad empiric abx vanc/zosyn repeat Lac Rest of care as per resident note GI ppx: protonix DVT PPX: scds for now until bleeding ruled out Uzma Garcia MD Pulmonary Critical Care and Sleep Medicine Critical Care Time: 33 mins 05/14/18 17:20 05/14/18 17:21
[2018-05-14] MEDS: Sodium Bicarbonate 8.4% 150 MEQ in Dextrose 5% In Water 1,000 ML IV SCH ×2 (17:24→22:52)
--- NOTE | 2018-05-14 17:38 | CP.PCM.CON ---
<Orlin Barry - Last Filed: 05/14/18 18:00> History of Present Illness - History of Present Illness History of Present Illness: Orlin Barry DO, PGY1. ICU consult note for Dr Garcia 62 y/o male with PMHx of HTN, CAD s/p CABG,GI bleed, esophageal ulcer, anemia, schizophrenia, anxiety presents to ED s/p fall this am at home. Patient is mentally challenged and he is a poor historian. He states that his legs gave out. Denied LOC, head trauma, dizziness, visual changes, vertigo, palpitation. Patient also states that he has sharp right sided abdominal pain, chronic, not related to food, no radiation associated with one episode of water diarrhea. Patient denied fever/chills, chest pain, SOB, muscle weakness, hemoptysis, hematemesis ROS reviewed with positives as above In ED, he was found to have HONG with elevated CPK of 20,100 leukocytosis, hypercalcemia and possible sepsis. ICU consulted for evaluation. PMH: as above PSH: CABG Meds: metformin, lopressor, protonix, risperidone, lisinopril, lipitor, magnesium oxide, clonazepam ALL: zoloft SocHx: former smoker, former alcoholic, no drug use. lives alone, has [employer] Fam Hx: non contributory PMD: Dr. 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,fall as per pt) Hx Difficulty Chewing: No Hx Epistaxis: No Hx Glaucoma: No Hx Macular Degeneration: No - RENAL Hx Chronic Kidney Disease: No Hx Kidney Stones: No - ENDOCRINE/METABOLIC Hx Hyperthyroidism: No Hx Hypothyroidism: No - HEMATOLOGICAL/ONCOLOGICAL Hx Anemia: Yes (07-02-16) - INTEGUMENTARY Hx Dermatological Problems: No - MUSCULOSKELETAL/RHEUMATOLOGICAL Hx Arthritis: No Hx Fractures: No Hx Osteoporosis: No - GASTROINTESTINAL Hx Gastritis: Yes - GENITOURINARY/GYNECOLOGICAL Hx Sexually Transmitted Disorders: No - PSYCHIATRIC Hx Anxiety: Yes Hx Bipolar Disorder: Yes Hx Depression: Yes Hx Paranoia: Yes Hx Schizophrenia: Yes Hx Substance Use: No - SURGICAL HISTORY Hx Coronary Artery Bypass Graft: Yes - ANESTHESIA Hx Anesthesia: Yes Hx Anesthesia Reactions: No Hx Malignant Hyperthermia: No Meds Allergies/Adverse Reactions: Allergies Allergy/AdvReac Type Severity Reaction Status Date / Time zoloft Allergy RASH Uncoded 05/14/18 13:00 - Medications Medications: Current Medications Potassium Chloride (Potassium Chloride 10 Meq/100 Ml) 10 meq in 100 mls @ 50 mls/hr IVPB Q2H CHANEL Stop: 05/14/18 20:29 Sodium Bicarbonate 150 meq/ (Dextrose) 1,150 mls @ 250 mls/hr IV .[id number] CHANEL Physical Exam - Constitutional Appears: Well, No Acute Distress, Unkempt - Head Exam Head Exam: NORMOCEPHALIC Additional comments: forehead bruises. no cut wounds, no scalp edema - Eye Exam Eye Exam: EOMI, Normal appearance, PERRL - ENT Exam ENT Exam: Mucous Membranes Dry - Neck Exam Neck exam: Positive for: Full Rom, Normal Inspection - Respiratory Exam Respiratory Exam: Clear to Auscultation Bilateral, NORMAL BREATHING PATTERN. absent: Rales, Rhonchi - Cardiovascular Exam Cardiovascular Exam: Tachycardia, REGULAR RHYTHM, +S1, +S2. absent: JVD - GI/Abdominal Exam GI & Abdominal Exam: Normal Bowel Sounds, Soft, Tenderness (left mid abdomen) - Extremities Exam Extremities exam: Negative for: calf tenderness Additional comments: limited ROM left knee with pain radiating to left hip on ELIEZER test. knee bruises on patella b/l. no open wounds. mild erythema - Back Exam Back exam: NORMAL INSPECTION. absent: CVA tenderness (L), CVA tenderness (R) - Neurological Exam Neurological exam: CN II-XII Intact, Oriented x3 - Psychiatric Exam Psychiatric exam: Anxious - Skin Skin Exam: Abrasion (b/l knee. forehead), Intact, Pallor Results - Vital Signs Recent Vital Signs: Last Vital Signs Temp 98.6 F 05/14/18 16:54 Pulse 86 05/14/18 16:54 Resp 16 05/14/18 16:54 BP 112/86 05/14/18 16:54 Pulse Ox 98 05/14/18 16:54 - Labs Result Diagrams: 05/14/18 13:30 05/14/18 13:30 Labs: Laboratory Results - last 24 hr 05/14/18 05/14/18 05/14/18 12:34 13:30 13:30 WBC 23.1 H RBC 5.59 Hgb 10.4 L Hct 35.8 L MCV 64.0 L MCH 18.6 L MCHC 29.1 L RDW 18.7 H Plt Count 207 MPV 7.9 Gran % 90.3 H Lymph % (Auto) 3.2 L [place] % (Auto) 6.4 H Eos % (Auto) 0.0 L Baso % (Auto) 0.1 Gran # 20.86 H Lymph # (Auto) 0.8 L [place] # (Auto) 1.5 H Eos # (Auto) 0.0 Baso # (Auto) 0.02 Neutrophils % (Manual) 88 H Band Neutrophils % 4 H Lymphocytes % (Manual) 5 L Monocytes % (Manual) 3 Polychromasia Slight Hypochromasia Slight Poikilocytosis (manual Slight Anisocytosis (manual) Slight Microcytosis (manual) 2+ Ovalocytes Slight Schistocytes Slight ESR 16 H PT 12.6 H INR 1.09 APTT 27.0 pO2 VBG pH VBG pCO2 VBG HCO3 VBG Total CO2 VBG O2 Sat (Calc) VBG Base Excess VBG Potassium Sodium Chloride Glucose Lactate FiO2 Potassium Carbon Dioxide Anion Gap BUN Creatinine Est GFR ( Amer) Est GFR (Non-Af Amer) POC Glucose (mg/dL) 269 H Random Glucose Lactic Acid Calcium Phosphorus Magnesium Total Bilirubin AST ALT Alkaline Phosphatase Ammonia Total Creatine Kinase CK-MB (CK-2) CK-MB (CK-2) % Troponin I Total Protein Albumin Globulin Albumin/Globulin Ratio Venous Blood Potassium Urine Color Urine Appearance Urine pH Ur Specific [place] Urine Protein Urine Glucose (UA) Urine Ketones Urine Blood Urine Nitrate Urine Bilirubin Urine Urobilinogen Ur Leukocyte Esterase Urine RBC Urine WBC Ur Epithelial Cells Urine Bacteria Urine Opiates Screen Urine Methadone Screen Ur Barbiturates Screen Ur Phencyclidine Scrn Ur Amphetamines Screen U Benzodiazepines Scrn U Oth Cocaine Metabols U Cannabinoids Screen 05/14/18 05/14/18 05/14/18 13:30 13:30 13:30 WBC RBC Hgb Hct MCV MCH MCHC RDW Plt Count MPV Gran % Lymph % (Auto) [place] % (Auto) Eos % (Auto) Baso % (Auto) Gran # Lymph # (Auto) [place] # (Auto) Eos # (Auto) Baso # (Auto) Neutrophils % (Manual) Band Neutrophils % Lymphocytes % (Manual) Monocytes % (Manual) Polychromasia Hypochromasia Poikilocytosis (manual Anisocytosis (manual) Microcytosis (manual) Ovalocytes Schistocytes ESR PT INR APTT pO2 40 VBG pH 7.27 L VBG pCO2 45.0 VBG HCO3 20.7 L VBG Total CO2 22.1 VBG O2 Sat (Calc) 72.9 H VBG Base Excess -6.2 L VBG Potassium 3.4 L Sodium 138 138.0 Chloride 103 101.0 Glucose 287 H Lactate 3.1 H FiO2 21.0 Potassium 3.5 L Carbon Dioxide 21 Anion Gap 18 BUN 21 Creatinine 2.2 H Est GFR ( Amer) 37 Est GFR (Non-Af Amer) 31 POC Glucose (mg/dL) Random Glucose 267 H Lactic Acid Calcium 11.2 H Phosphorus 3.6 Magnesium 3.2 H Total Bilirubin 0.7 AST 149 H ALT 35 Alkaline Phosphatase 142 H Ammonia 44 H Total Creatine Kinase 95533 H CK-MB (CK-2) 18.7 H CK-MB (CK-2) % 0.1 L Troponin I 0.74 H* D Total Protein 7.7 Albumin 4.2 Globulin 3.5 Albumin/Globulin Ratio 1.2 Venous Blood Potassium 3.4 L Urine Color Urine Appearance Urine pH Ur Specific [place] Urine Protein Urine Glucose (UA) Urine Ketones Urine Blood Urine Nitrate Urine Bilirubin Urine Urobilinogen Ur Leukocyte Esterase Urine RBC Urine WBC Ur Epithelial Cells Urine Bacteria Urine Opiates Screen Urine Methadone Screen Ur Barbiturates Screen Ur Phencyclidine Scrn Ur Amphetamines Screen U Benzodiazepines Scrn U Oth Cocaine Metabols U Cannabinoids Screen 05/14/18 05/14/18 05/14/18 15:30 16:10 16:30 WBC RBC Hgb Hct MCV MCH MCHC RDW Plt Count MPV Gran % Lymph % (Auto) [place] % (Auto) Eos % (Auto) Baso % (Auto) Gran # Lymph # (Auto) [place] # (Auto) Eos # (Auto) Baso # (Auto) Neutrophils % (Manual) Band Neutrophils % Lymphocytes % (Manual) Monocytes % (Manual) Polychromasia Hypochromasia Poikilocytosis (manual Anisocytosis (manual) Microcytosis (manual) Ovalocytes Schistocytes ESR PT INR APTT pO2 VBG pH VBG pCO2 VBG HCO3 VBG Total CO2 VBG O2 Sat (Calc) VBG Base Excess VBG Potassium Sodium Chloride Glucose Lactate FiO2 Potassium Carbon Dioxide Anion Gap BUN Creatinine Est GFR ( Amer) Est GFR (Non-Af Amer) POC Glucose (mg/dL) Random Glucose Lactic Acid 1.6 Calcium Phosphorus Magnesium Total Bilirubin AST ALT Alkaline Phosphatase Ammonia Total Creatine Kinase CK-MB (CK-2) CK-MB (CK-2) % Troponin I Total Protein Albumin Globulin Albumin/Globulin Ratio Venous Blood Potassium Urine Color Yellow Urine Appearance Clear Urine pH 6.0 Ur Specific [place] >= 1.030 Urine Protein 100 H Urine Glucose (UA) 250 H Urine Ketones Negative Urine Blood Large H Urine Nitrate Negative Urine Bilirubin Negative Urine Urobilinogen 0.2 Ur Leukocyte Esterase Negative Urine RBC 2 - 5 Urine WBC 0 - 2 Ur Epithelial Cells None Urine Bacteria Few Urine Opiates Screen Negative Urine Methadone Screen Negative Ur Barbiturates Screen Negative Ur Phencyclidine Scrn Negative Ur Amphetamines Screen Negative U Benzodiazepines Scrn Negative U Oth Cocaine Metabols Negative U Cannabinoids Screen Negative Assessment & Plan - Assessment and Plan (Free Text) Plan: Neuro: -AAOx3. in NAD but poor historian -maintain normothermia -CT head: no ICH CVS: -CAD s/p CABG -cardiac cath (2016) EF 40% -Echo -EKG: sinus tachy @138 -trop 0.74 x1. serial trop q6h x2. likely due to HONG -continue lopressor -hold lipitor, lisinopril for HONG and rhabdo -Maintain MAP>65 Resp: -in NAD -VB.27/45/40/20.7 -maintain O2 sat >90% -O2 NC prn -CXR: no acute finding GI: -CT A/P: no acute finding -h/o GI bleeding -FOBT, repeat CBC -clear liquid diet -AST/ALT 149/35. ALP 142 Renal: -HONG, likely due to rhabdomyolysis -CPK . repeat -BUN/Cr 21/2.1 -hypokalemia. KCL 10meq IVPB x2 given -UA: positive for blood, no RBC (consistent with rhabdo), no WBC, positive for protein and glucose -continue bicarb/D5 @250 cc/hr to alkalinize the urine. -repeat CMP -reinoso placement -monitor UOP ID: -Leukocytosis with bandemia -possible sepsis -afebrile -continue vancomycin, zosyn -panculture: blood, urine -ESR 16, Lactate 3.1 Endo: -hypercalcemia 11.2 -PTH, phos level ordereded -repeat CMP for hypercalcemia -h/o DM2. hold metformin -accucheck q4h -ISS-low -maintain euglycemia Heme: -h/o anemia and GI bleeding -H/H 10.4/35.8. continue monitoring -no signs of bleeding -PT/INR 12.6/1.09 MSK: -s/p fall. bruises on b/l knees, forehead -CT cervical spine: negative for fracture Prophylaxis: -GI ppx: Pantoprazole -DVT ppx SCD Heart healthy diet Dispo: Patient is hemodynamically stable, afebrile. continue IVF,bicarb, abx serial CBC, CMP, calcium, trop. monitor UOP continue ICU monitoring Case reviewed and plan discussed with Dr. Garcia <Uzma Garcia - Last Filed: 05/20/18 15:23> Meds - Medications Medications: Current Medications Acetaminophen (Tylenol 325mg Tab) 325 mg PO Q6H PRN PRN Reason: Fever >100.4 F Last Admin: 05/20/18 09:46 Dose: 325 mg Albuterol/Ipratropium (Duoneb 3 Mg/0.5 Mg (3 Ml) Ud) 3 ml IH [id number] CHANEL Last Admin: 05/20/18 13:10 Dose: 3 ml Calcium Acetate (Phoslo) 667 mg PO WM CHANEL Last Admin: 05/20/18 12:01 Dose: 667 mg Clonazepam (Klonopin) 2 mg PO Q12H CHANEL; Protocol Last Admin: 05/20/18 09:45 Dose: 2 mg Darbepoetin Will (Aranesp) 100 mcg SC QWK CHANEL Last Admin: 05/18/18 09:55 Dose: 100 mcg Diphenhydramine HCl (Benadryl) 25 mg PO HS PRN PRN Reason: Insomnia Last Admin: 05/20/18 01:49 Dose: 25 mg Furosemide (Lasix) 80 mg IVP DAILY [facility] Stop: 05/22/18 10:01 Last Admin: 05/20/18 12:01 Dose: 80 mg Hydralazine HCl (Apresoline) 10 mg PO QID PRN PRN Reason: for sbp >160 Iron Sucrose 200 mg/ Sodium (Chloride) 110 mls @ 110 mls/hr IVPB DAILY [facility] Stop: 05/25/18 14:31 Insulin Detemir (Levemir) 5 unit SC HS [facility] Last Admin: 05/19/18 21:23 Dose: 5 unit Insulin Human Lispro (Humalog) 4 units SC AC [facility] Last Admin: 05/20/18 12:00 Dose: 4 u Insulin Human Regular (Humulin R Low) 0 units SC ACHS [facility]; Protocol Last Admin: 05/20/18 11:56 Dose: Not Given Lorazepam (Ativan) 1 mg IVP Q6H PRN; Protocol PRN Reason: Anxiety Last Admin: 05/19/18 18:22 Dose: 1 mg Metoprolol Tartrate (Lopressor) 50 mg PO BID [facility] Pantoprazole Sodium (Protonix Inj) 40 mg IVP Q12 [facility] Last Admin: 05/20/18 09:47 Dose: 40 mg Vitamin B Complex/Vit C/Folic Acid (Nephro-Lydia) 1 tab PO 0800 [facility] Last Admin: 05/20/18 07:05 Dose: 1 tab Zaleplon (Sonata) 5 mg PO HS PRN PRN Reason: Insomnia Results - Vital Signs Recent Vital Signs: Last Vital Signs Temp 99.0 F 05/20/18 08:49 Pulse 101 H 05/20/18 09:46 Resp 21 05/20/18 08:00 BP 148/64 05/20/18 12:01 Pulse Ox 98 05/20/18 08:49 - Labs Result Diagrams: 05/20/18 05:20 05/20/18 05:20 Labs: Laboratory Results - last 24 hr 05/18/18 05/18/18 05/19/18 22:27 22:27 05:20 WBC RBC Hgb Hct MCV MCH MCHC RDW Plt Count Gran % Lymph % (Auto) [place] % (Auto) Eos % (Auto) Baso % (Auto) Gran # Lymph # (Auto) [place] # (Auto) Eos # (Auto) Baso # (Auto) Sodium Potassium Chloride Carbon Dioxide Anion Gap BUN Creatinine Est GFR ( Amer) Est GFR (Non-Af Amer) Random Glucose Calcium Total Bilirubin AST ALT Alkaline Phosphatase Total Protein Total Protein (PEP) 5.0 L Albumin Globulin Albumin/Globulin Ratio Ur Random Creatinine 39 U Random Total Protein 1359 H Urine Total Volume 2.9 Microalb/Creat Ratio 74 H 05/20/18 05/20/18 05:20 05:20 WBC 4.1 L RBC 4.28 Hgb 7.9 L Hct 27.2 L MCV 63.6 L MCH 18.5 L MCHC 29.0 L RDW 19.4 H Plt Count 124 Gran % 66.9 Lymph % (Auto) 20.6 L [place] % (Auto) 7.1 H Eos % (Auto) 5.2 H Baso % (Auto) 0.2 Gran # 2.72 Lymph # (Auto) 0.8 L [place] # (Auto) 0.3 Eos # (Auto) 0.2 Baso # (Auto) 0.01 Sodium 134 Potassium 3.8 Chloride 101 Carbon Dioxide 22 Anion Gap 15 BUN 61 H Creatinine 8.2 H* Est GFR ( Amer) 8 Est GFR (Non-Af Amer) 7 Random Glucose 133 H Calcium 8.2 L Total Bilirubin 0.5 AST 62 H D ALT 54 Alkaline Phosphatase 80 Total Protein 5.8 Total Protein (PEP) Albumin 3.0 Globulin 2.8 Albumin/Globulin Ratio 1.1 Ur Random Creatinine U Random Total Protein Urine Total Volume Microalb/Creat Ratio Addendum Addendum: 05/20/18 15:22 see my note for ICU attending addendum Uzma Garcia MD
--- NOTE | 2018-05-14 17:48 | PCM.SEPTIC ---
Sepsis Progress Note - Reassessment Type Date of Evaluation: 05/14/18 Time of Evaluation: 17:00 Reassessment Type: Non-invasive reassessment - Non Invasive Reassessment Were the most recent vital sign reviewed: Yes Vital Sign (Latest): Temp Pulse Resp BP Pulse Ox 98.6 F 86 16 112/86 98 05/14/18 16:54 05/14/18 16:54 05/14/18 16:54 05/14/18 16:54 05/14/18 16:54 Cardiovascular: Yes: Regular Rate, Rhythm. No: Bradycardia, Tachycardia Respiratory: Yes: Normal Breath Sounds Capillary Refill: Normal (Less than 2 sec) Skin: Warm, Other (bruises present from fall)
--- NOTE | 2018-05-14 18:20 | CP.PCM.HP ---
<Robin Bernstein - Last Filed: 05/14/18 19:06> History of Present Illness - History of Present Illness History of Present Illness: PGY1 Medicine History and Physical Exam Note for Dr. Becerril Patient is a 62-year-old Male with PMH significant for CAD s/p CABG, EF 40%, Hypertension, Schizophrenia, Anxiety, GI bleed, Diabetes Mellitus Type 2, Esophageal Ulcer, who presents to [facility] ED status-post fall from this AM. Please note: Patient is a poor historian. Patient states that his "leg gave out" and that he was unable to get up after falling. Patient denies hitting his head and/or loss of consciousness. Patient states that his sister called EMS after attempting to reach the Patient over the phone unsuccessfully. Patient was subsequently brought to the ED by EMS. Patient admits to abdominal pain, but otherwise denies lower extremity pain, headache, blurred vision, back pain, dysuria, dizziness, fever, chills, chest pain, and/or shortness of breath. PMH: CAD, Hypertension, Schizophrenia, Anxiety, GI Bleed, Diabetes Mellitus Type 2, Esophageal Ulcer PSH: CABG Allergies: Zoloft (causes rash) Medications: Risperdal 3mg PO HS, Protonix 40mg PO Daily, Lopressor 25mg PO BID, Milk of Magnesia 30mL PO Q24H PRN, Zestril 2.5mg PO Daily, Clonazepam 2mg PO Q12H, Lipitor 80mg PO HS PMD: Russ Carpenter MD Present on Admission - Present on Admission Any Indicators Present on Admission: No History of DVT/PE: No History of Uncontrolled Diabetes: No Urinary Catheter: No Decubitus Ulcer Present: No History Surgical Site Infection Following: None Review of Systems - Review of Systems All systems: reviewed and no additional remarkable complaints except Review of Systems: ROS negative other than mentioned in HPI Past Patient History - Infectious Disease Hx of Infectious Diseases: None - Tetanus Immunizations Tetanus Immunization: Unknown - Past Medical History & Family History Past Medical History?: Yes - Past Social History Smoking Status: Former Smoker - CARDIAC Hx Cardiac Disorders: Yes Hx Hypercholesterolemia: Yes - PULMONARY Hx Pneumonia: Yes - NEUROLOGICAL Hx Dementia: Yes - HEENT Hx HEENT Problems: Yes Hx Blind: No Hx Cataracts: No 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,fall as per pt) Hx Difficulty Chewing: No Hx Epistaxis: No Hx Glaucoma: No Hx Macular Degeneration: No - RENAL Hx Chronic Kidney Disease: No Hx Kidney Stones: No - ENDOCRINE/METABOLIC Hx Hyperthyroidism: No Hx Hypothyroidism: No - HEMATOLOGICAL/ONCOLOGICAL Hx Anemia: Yes (25-17) - INTEGUMENTARY Hx Dermatological Problems: No - MUSCULOSKELETAL/RHEUMATOLOGICAL Hx Arthritis: No Hx Fractures: No Hx Osteoporosis: No - GASTROINTESTINAL Hx Gastritis: Yes - GENITOURINARY/GYNECOLOGICAL Hx Sexually Transmitted Disorders: No - PSYCHIATRIC Hx Anxiety: Yes Hx Bipolar Disorder: Yes Hx Depression: Yes Hx Paranoia: Yes Hx Schizophrenia: Yes Hx Substance Use: No - SURGICAL HISTORY Hx Coronary Artery Bypass Graft: Yes - ANESTHESIA Hx Anesthesia: Yes Hx Anesthesia Reactions: No Hx Malignant Hyperthermia: No Meds Allergies/Adverse Reactions: Allergies Allergy/AdvReac Type Severity Reaction Status Date / Time zoloft Allergy RASH Uncoded 05/14/18 13:00 Physical Exam - Constitutional Appears: No Acute Distress, Unkempt, Confused - Head Exam Head Exam: ATRAUMATIC, NORMAL INSPECTION, NORMOCEPHALIC - Eye Exam Eye Exam: EOMI, Normal appearance, PERRL Pupil Exam: NORMAL ACCOMODATION - ENT Exam ENT Exam: Mucous Membranes Dry - Neck Exam Neck exam: Positive for: Full Rom, Normal Inspection. Negative for: Tenderness, Thyromegaly - Respiratory Exam Respiratory Exam: Clear to Auscultation Bilateral, NORMAL BREATHING PATTERN. absent: Accessory Muscle Use, Chest Wall Tenderness, Rales, Rhonchi, Wheezes, Respiratory Distress, Stridor - Cardiovascular Exam Cardiovascular Exam: REGULAR RHYTHM, RRR, +S1, +S2. absent: Bradycardia, Tachycardia, Clicks, Gallop, JVD, Systolic Murmur - GI/Abdominal Exam GI & Abdominal Exam: Normal Bowel Sounds, Soft. absent: Distended, Firm, Guarding, Tenderness - Extremities Exam Extremities exam: Positive for: full ROM, normal capillary refill. Negative for: calf tenderness, joint swelling, pedal edema, tenderness, pedal pulses present (absent: Left pedal pulse (both to palpation and doppler)) Additional comments: Lower Extremity Skin Exam - bruises on knees bilaterally (reddish) - Patchy sloughed epidermis along knees and toes bilaterally - Back Exam Back exam: NORMAL INSPECTION - Neurological Exam Neurological exam: Alert, Oriented x3, Reflexes Normal Additional comments: Upper extremity muscle strength in abduction and flexion: 3/5 bilaterally Lower extremities: 3/5 bilaterally - Psychiatric Exam Psychiatric exam: Flat Affect - Skin Skin Exam: Warm Results - Vital Signs Recent Vital Signs: Last Vital Signs Temp 98.6 F 05/14/18 16:54 Pulse 86 05/14/18 16:54 Resp 16 05/14/18 16:54 BP 112/86 05/14/18 16:54 Pulse Ox 98 05/14/18 16:54 - Labs Result Diagrams: 05/14/18 13:30 05/14/18 13:30 Labs: Laboratory Results - last 24 hr 05/14/18 05/14/18 05/14/18 12:34 13:30 13:30 WBC 23.1 H RBC 5.59 Hgb 10.4 L Hct 35.8 L MCV 64.0 L MCH 18.6 L MCHC 29.1 L RDW 18.7 H Plt Count 207 MPV 7.9 Gran % 90.3 H Lymph % (Auto) 3.2 L [place] % (Auto) 6.4 H Eos % (Auto) 0.0 L Baso % (Auto) 0.1 Gran # 20.86 H Lymph # (Auto) 0.8 L [place] # (Auto) 1.5 H Eos # (Auto) 0.0 Baso # (Auto) 0.02 Neutrophils % (Manual) 88 H Band Neutrophils % 4 H Lymphocytes % (Manual) 5 L Monocytes % (Manual) 3 Polychromasia Slight Hypochromasia Slight Poikilocytosis (manual Slight Anisocytosis (manual) Slight Microcytosis (manual) 2+ Ovalocytes Slight Schistocytes Slight ESR 16 H PT 12.6 H INR 1.09 APTT 27.0 pO2 VBG pH VBG pCO2 VBG HCO3 VBG Total CO2 VBG O2 Sat (Calc) VBG Base Excess VBG Potassium Sodium Chloride Glucose Lactate FiO2 Potassium Carbon Dioxide Anion Gap BUN Creatinine Est GFR ( Amer) Est GFR (Non-Af Amer) POC Glucose (mg/dL) 269 H Random Glucose Lactic Acid Calcium Phosphorus Magnesium Total Bilirubin AST ALT Alkaline Phosphatase Ammonia Total Creatine Kinase CK-MB (CK-2) CK-MB (CK-2) % Troponin I Total Protein Albumin Globulin Albumin/Globulin Ratio Venous Blood Potassium Urine Color Urine Appearance Urine pH Ur Specific [place] Urine Protein Urine Glucose (UA) Urine Ketones Urine Blood Urine Nitrate Urine Bilirubin Urine Urobilinogen Ur Leukocyte Esterase Urine RBC Urine WBC Ur Epithelial Cells Urine Bacteria Urine Opiates Screen Urine Methadone Screen Ur Barbiturates Screen Ur Phencyclidine Scrn Ur Amphetamines Screen U Benzodiazepines Scrn U Oth Cocaine Metabols U Cannabinoids Screen Alcohol, Quantitative 05/14/18 05/14/18 05/14/18 13:30 13:30 13:30 WBC RBC Hgb Hct MCV MCH MCHC RDW Plt Count MPV Gran % Lymph % (Auto) [place] % (Auto) Eos % (Auto) Baso % (Auto) Gran # Lymph # (Auto) [place] # (Auto) Eos # (Auto) Baso # (Auto) Neutrophils % (Manual) Band Neutrophils % Lymphocytes % (Manual) Monocytes % (Manual) Polychromasia Hypochromasia Poikilocytosis (manual Anisocytosis (manual) Microcytosis (manual) Ovalocytes Schistocytes ESR PT INR APTT pO2 40 VBG pH 7.27 L VBG pCO2 45.0 VBG HCO3 20.7 L VBG Total CO2 22.1 VBG O2 Sat (Calc) 72.9 H VBG Base Excess -6.2 L VBG Potassium 3.4 L Sodium 138 138.0 Chloride 103 101.0 Glucose 287 H Lactate 3.1 H FiO2 21.0 Potassium 3.5 L Carbon Dioxide 21 Anion Gap 18 BUN 21 Creatinine 2.2 H Est GFR ( Amer) 37 Est GFR (Non-Af Amer) 31 POC Glucose (mg/dL) Random Glucose 267 H Lactic Acid Calcium 11.2 H Phosphorus 3.6 Magnesium 3.2 H Total Bilirubin 0.7 AST 149 H ALT 35 Alkaline Phosphatase 142 H Ammonia 44 H Total Creatine Kinase 82194 H CK-MB (CK-2) 18.7 H CK-MB (CK-2) % 0.1 L Troponin I 0.74 H* D Total Protein 7.7 Albumin 4.2 Globulin 3.5 Albumin/Globulin Ratio 1.2 Venous Blood Potassium 3.4 L Urine Color Urine Appearance Urine pH Ur Specific [place] Urine Protein Urine Glucose (UA) Urine Ketones Urine Blood Urine Nitrate Urine Bilirubin Urine Urobilinogen Ur Leukocyte Esterase Urine RBC Urine WBC Ur Epithelial Cells Urine Bacteria Urine Opiates Screen Urine Methadone Screen Ur Barbiturates Screen Ur Phencyclidine Scrn Ur Amphetamines Screen U Benzodiazepines Scrn U Oth Cocaine Metabols U Cannabinoids Screen Alcohol, Quantitative 05/14/18 05/14/18 05/14/18 15:30 16:00 16:10 WBC RBC Hgb Hct MCV MCH MCHC RDW Plt Count MPV Gran % Lymph % (Auto) [place] % (Auto) Eos % (Auto) Baso % (Auto) Gran # Lymph # (Auto) [place] # (Auto) Eos # (Auto) Baso # (Auto) Neutrophils % (Manual) Band Neutrophils % Lymphocytes % (Manual) Monocytes % (Manual) Polychromasia Hypochromasia Poikilocytosis (manual Anisocytosis (manual) Microcytosis (manual) Ovalocytes Schistocytes ESR PT INR APTT pO2 VBG pH VBG pCO2 VBG HCO3 VBG Total CO2 VBG O2 Sat (Calc) VBG Base Excess VBG Potassium Sodium Chloride Glucose Lactate FiO2 Potassium Carbon Dioxide Anion Gap BUN Creatinine Est GFR ( Amer) Est GFR (Non-Af Amer) POC Glucose (mg/dL) Random Glucose Lactic Acid 1.6 Calcium Phosphorus Magnesium Total Bilirubin AST ALT Alkaline Phosphatase Ammonia Total Creatine Kinase CK-MB (CK-2) CK-MB (CK-2) % Troponin I Total Protein Albumin Globulin Albumin/Globulin Ratio Venous Blood Potassium Urine Color Yellow Urine Appearance Clear Urine pH 6.0 Ur Specific [place] >= 1.030 Urine Protein 100 H Urine Glucose (UA) 250 H Urine Ketones Negative Urine Blood Large H Urine Nitrate Negative Urine Bilirubin Negative Urine Urobilinogen 0.2 Ur Leukocyte Esterase Negative Urine RBC 2 - 5 Urine WBC 0 - 2 Ur Epithelial Cells None Urine Bacteria Few Urine Opiates Screen Urine Methadone Screen Ur Barbiturates Screen Ur Phencyclidine Scrn Ur Amphetamines Screen U Benzodiazepines Scrn U Oth Cocaine Metabols U Cannabinoids Screen Alcohol, Quantitative < 10 05/14/18 16:30 WBC RBC Hgb Hct MCV MCH MCHC RDW Plt Count MPV Gran % Lymph % (Auto) [place] % (Auto) Eos % (Auto) Baso % (Auto) Gran # Lymph # (Auto) [place] # (Auto) Eos # (Auto) Baso # (Auto) Neutrophils % (Manual) Band Neutrophils % Lymphocytes % (Manual) Monocytes % (Manual) Polychromasia Hypochromasia Poikilocytosis (manual Anisocytosis (manual) Microcytosis (manual) Ovalocytes Schistocytes ESR PT INR APTT pO2 VBG pH VBG pCO2 VBG HCO3 VBG Total CO2 VBG O2 Sat (Calc) VBG Base Excess VBG Potassium Sodium Chloride Glucose Lactate FiO2 Potassium Carbon Dioxide Anion Gap BUN Creatinine Est GFR ( Amer) Est GFR (Non-Af Amer) POC Glucose (mg/dL) Random Glucose Lactic Acid Calcium Phosphorus Magnesium Total Bilirubin AST ALT Alkaline Phosphatase Ammonia Total Creatine Kinase CK-MB (CK-2) CK-MB (CK-2) % Troponin I Total Protein Albumin Globulin Albumin/Globulin Ratio Venous Blood Potassium Urine Color Urine Appearance Urine pH Ur Specific [place] Urine Protein Urine Glucose (UA) Urine Ketones Urine Blood Urine Nitrate Urine Bilirubin Urine Urobilinogen Ur Leukocyte Esterase Urine RBC Urine WBC Ur Epithelial Cells Urine Bacteria Urine Opiates Screen Negative Urine Methadone Screen Negative Ur Barbiturates Screen Negative Ur Phencyclidine Scrn Negative Ur Amphetamines Screen Negative U Benzodiazepines Scrn Negative U Oth Cocaine Metabols Negative U Cannabinoids Screen Negative Alcohol, Quantitative Assessment & Plan - Assessment and Plan (Free Text) Assessment: Patient is a 62-year-old Male with PMH significant for CAD s/p CABG, EF 40%, Hypertension, Schizophrenia, Anxiety, GI bleed, Diabetes Mellitus Type 2, Esophageal Ulcer, who presents to [facility] ED status-post fall this morning. Please note: Patient is a poor historian. CODE SEPSIS was called in ED for elevated lactic acid and WBC. Patient was subsequently admitted to ICU for evaluation and treatment of Rhabdomyolysis and HONG. Rhabdomyolysis / Elevated Troponins - VBG shock obtained f/u - Troponin x1 elevated @0.74 - F/u Serial troponins Q6H x2 - EKG obtained: Sinus Tachy @ 138 - Repeat EKG f/u - Hold Lipitor for HONG and Rhabdo - Hold Lisinopril for HONG and Rhabdo - Cardiac Cath 2017: EF 40% - Aggressive hydration; Monitor for fluid overload due to decreased EF% - Monitor CMP, Mg, Phos, - Urinalysis consistent with Rhabdo (Positive for blood, protein, glucose; No RBC, No WBC) - Gan ordered - Monitor urine output - PT eval and treat HONG / Hypercalcemia - Likely secondary to rhabdomyolysis - CPK - F/U CPK repeat - BUN/Cr 21/2.1 - Hypokalemia: KCL 10meq IVPB x2 given - Hypercalcemia 11.2: PTH, Phos level ordered - Continue bicarb/D5 @250 cc/hr to alkalinize the urine. - Monitor with repeat CMP - Hold Lipitor for HONG and Rhabdo - Hold Lisinopril for HONG and Rhabdo - Gan placement - Monitor urine output SIRS / Sepsis - SIRS criteria met in ED; CODE SEPSIS was called - Follow-up VBG/Shock - ESR 16, Lactate 3.1, Leukocytosis with bandemia - IVF 30mg/kg/hr (LR) - F/U Panculture (blood, urine) - Patient received 1 dose Vancomycin, Zosyn in ED - Afebrile - ID consulted; Dr. Kendrick; recommendations appreciated History of CAD S/P CABG - EF @ 44% (2017) - Continue home meds: Lopressor - Hold statin, hold ACEI due to rhabdo/HONG - Cardiology consulted; Dr. Esqueda; recommendations appreciated - Serial troponins obtained per above - ASA 324mg given in ED History of Fall - CT Cervical Spine: - CT Head without contrast: no acute intracranial findings - CT Abd/Pelvis: no acute intra-abdominal findings - see full reports for details - X-ray of extremities considered; however will not order at this time, as physical exam of extremities unremarkable for fractures - No pedal pulse (left) palpable on exam, no pedal pulse (left) appreciated with doppler - Arterial duplex ordered History of GI Bleed - F/U occult stool test - No anticoagulation needed at this time - Continue home med: Protonix 40mg PO Daily PPx: GI: Protonix DVT: Contraindicated; SCD Patient seen and case discussed in detail with Dr. Jone Bernstein PGY1 <Alexis Becerril - Last Filed: 05/15/18 07:52> Results - Vital Signs Recent Vital Signs: Last Vital Signs Temp 98 F 05/15/18 07:37 Pulse 91 H 05/15/18 07:37 Resp 20 05/15/18 07:37 BP 133/65 05/15/18 07:37 Pulse Ox 95 05/15/18 07:37 - Labs Result Diagrams: 05/14/18 13:30 05/15/18 06:00 Labs: Laboratory Results - last 24 hr 05/14/18 05/14/18 05/14/18 12:34 13:30 13:30 WBC 23.1 H RBC 5.59 Hgb 10.4 L Hct 35.8 L MCV 64.0 L MCH 18.6 L MCHC 29.1 L RDW 18.7 H Plt Count 207 MPV 7.9 Gran % 90.3 H Lymph % (Auto) 3.2 L [place] % (Auto) 6.4 H Eos % (Auto) 0.0 L Baso % (Auto) 0.1 Gran # 20.86 H Lymph # (Auto) 0.8 L [place] # (Auto) 1.5 H Eos # (Auto) 0.0 Baso # (Auto) 0.02 Neutrophils % (Manual) 88 H Band Neutrophils % 4 H Lymphocytes % (Manual) 5 L Monocytes % (Manual) 3 Polychromasia Slight Hypochromasia Slight Poikilocytosis (manual Slight Anisocytosis (manual) Slight Microcytosis (manual) 2+ Ovalocytes Slight Schistocytes Slight ESR 16 H Retic Count PT 12.6 H INR 1.09 APTT 27.0 pO2 VBG pH VBG pCO2 VBG HCO3 VBG Total CO2 VBG O2 Sat (Calc) VBG Base Excess VBG Potassium Sodium Chloride Glucose Lactate FiO2 Potassium Carbon Dioxide Anion Gap BUN Creatinine Est GFR ( Amer) Est GFR (Non-Af Amer) POC Glucose (mg/dL) 269 H Random Glucose Lactic Acid Calcium Phosphorus Magnesium Iron TIBC % Saturation Total Bilirubin AST ALT Alkaline Phosphatase Ammonia Total Creatine Kinase CK-MB (CK-2) CK-MB (CK-2) % Troponin I Total Protein Albumin Globulin Albumin/Globulin Ratio Venous Blood Potassium Urine Color Urine Appearance Urine pH Ur Specific [place] Urine Protein Urine Glucose (UA) Urine Ketones Urine Blood Urine Nitrate Urine Bilirubin Urine Urobilinogen Ur Leukocyte Esterase Urine RBC Urine WBC Ur Epithelial Cells Urine Bacteria Urine Opiates Screen Urine Methadone Screen Ur Barbiturates Screen Ur Phencyclidine Scrn Ur Amphetamines Screen U Benzodiazepines Scrn U Oth Cocaine Metabols U Cannabinoids Screen Alcohol, Quantitative 05/14/18 05/14/18 05/14/18 13:30 13:30 13:30 WBC RBC Hgb Hct MCV MCH MCHC RDW Plt Count MPV Gran % Lymph % (Auto) [place] % (Auto) Eos % (Auto) Baso % (Auto) Gran # Lymph # (Auto) [place] # (Auto) Eos # (Auto) Baso # (Auto) Neutrophils % (Manual) Band Neutrophils % Lymphocytes % (Manual) Monocytes % (Manual) Polychromasia Hypochromasia Poikilocytosis (manual Anisocytosis (manual) Microcytosis (manual) Ovalocytes Schistocytes ESR Retic Count PT INR APTT pO2 40 VBG pH 7.27 L VBG pCO2 45.0 VBG HCO3 20.7 L VBG Total CO2 22.1 VBG O2 Sat (Calc) 72.9 H VBG Base Excess -6.2 L VBG Potassium 3.4 L Sodium 138 138.0 Chloride 103 101.0 Glucose 287 H Lactate 3.1 H FiO2 21.0 Potassium 3.5 L Carbon Dioxide 21 Anion Gap 18 BUN 21 Creatinine 2.2 H Est GFR ( Amer) 37 Est GFR (Non-Af Amer) 31 POC Glucose (mg/dL) Random Glucose 267 H Lactic Acid Calcium 11.2 H Phosphorus 3.6 Magnesium 3.2 H Iron TIBC % Saturation Total Bilirubin 0.7 AST 149 H ALT 35 Alkaline Phosphatase 142 H Ammonia 44 H Total Creatine Kinase 87576 H CK-MB (CK-2) 18.7 H CK-MB (CK-2) % 0.1 L Troponin I 0.74 H* D Total Protein 7.7 Albumin 4.2 Globulin 3.5 Albumin/Globulin Ratio 1.2 Venous Blood Potassium 3.4 L Urine Color Urine Appearance Urine pH Ur Specific [place] Urine Protein Urine Glucose (UA) Urine Ketones Urine Blood Urine Nitrate Urine Bilirubin Urine Urobilinogen Ur Leukocyte Esterase Urine RBC Urine WBC Ur Epithelial Cells Urine Bacteria Urine Opiates Screen Urine Methadone Screen Ur Barbiturates Screen Ur Phencyclidine Scrn Ur Amphetamines Screen U Benzodiazepines Scrn U Oth Cocaine Metabols U Cannabinoids Screen Alcohol, Quantitative 05/14/18 05/14/18 05/14/18 15:30 16:00 16:10 WBC RBC Hgb Hct MCV MCH MCHC RDW Plt Count MPV Gran % Lymph % (Auto) [place] % (Auto) Eos % (Auto) Baso % (Auto) Gran # Lymph # (Auto) [place] # (Auto) Eos # (Auto) Baso # (Auto) Neutrophils % (Manual) Band Neutrophils % Lymphocytes % (Manual) Monocytes % (Manual) Polychromasia Hypochromasia Poikilocytosis (manual Anisocytosis (manual) Microcytosis (manual) Ovalocytes Schistocytes ESR Retic Count PT INR APTT pO2 VBG pH VBG pCO2 VBG HCO3 VBG Total CO2 VBG O2 Sat (Calc) VBG Base Excess VBG Potassium Sodium Chloride Glucose Lactate FiO2 Potassium Carbon Dioxide Anion Gap BUN Creatinine Est GFR ( Amer) Est GFR (Non-Af Amer) POC Glucose (mg/dL) Random Glucose Lactic Acid 1.6 Calcium Phosphorus Magnesium Iron TIBC % Saturation Total Bilirubin AST ALT Alkaline Phosphatase Ammonia Total Creatine Kinase CK-MB (CK-2) CK-MB (CK-2) % Troponin I Total Protein Albumin Globulin Albumin/Globulin Ratio Venous Blood Potassium Urine Color Yellow Urine Appearance Clear Urine pH 6.0 Ur Specific [place] >= 1.030 Urine Protein 100 H Urine Glucose (UA) 250 H Urine Ketones Negative Urine Blood Large H Urine Nitrate Negative Urine Bilirubin Negative Urine Urobilinogen 0.2 Ur Leukocyte Esterase Negative Urine RBC 2 - 5 Urine WBC 0 - 2 Ur Epithelial Cells None Urine Bacteria Few Urine Opiates Screen Urine Methadone Screen Ur Barbiturates Screen Ur Phencyclidine Scrn Ur Amphetamines Screen U Benzodiazepines Scrn U Oth Cocaine Metabols U Cannabinoids Screen Alcohol, Quantitative < 10 05/14/18 05/14/18 05/14/18 16:30 19:00 19:00 WBC RBC Hgb Hct MCV MCH MCHC RDW Plt Count MPV Gran % Lymph % (Auto) [place] % (Auto) Eos % (Auto) Baso % (Auto) Gran # Lymph # (Auto) [place] # (Auto) Eos # (Auto) Baso # (Auto) Neutrophils % (Manual) Band Neutrophils % Lymphocytes % (Manual) Monocytes % (Manual) Polychromasia Hypochromasia Poikilocytosis (manual Anisocytosis (manual) Microcytosis (manual) Ovalocytes Schistocytes ESR Retic Count PT INR APTT pO2 56 H VBG pH 7.34 VBG pCO2 41.0 VBG HCO3 22.1 VBG Total CO2 23.4 VBG O2 Sat (Calc) 90.1 H VBG Base Excess -3.5 L VBG Potassium 3.2 L Sodium 139.0 Chloride 105.0 Glucose 218 H Lactate 1.9 FiO2 21.0 Potassium Carbon Dioxide Anion Gap BUN Creatinine Est GFR ( Amer) Est GFR (Non-Af Amer) POC Glucose (mg/dL) Random Glucose Lactic Acid Calcium Phosphorus 5.7 H Magnesium 3.0 H Iron TIBC % Saturation Total Bilirubin AST ALT Alkaline Phosphatase Ammonia Total Creatine Kinase CK-MB (CK-2) CK-MB (CK-2) % Troponin I 2.11 H* D Total Protein Albumin Globulin Albumin/Globulin Ratio Venous Blood Potassium 3.2 L Urine Color Urine Appearance Urine pH Ur Specific [place] Urine Protein Urine Glucose (UA) Urine Ketones Urine Blood Urine Nitrate Urine Bilirubin Urine Urobilinogen Ur Leukocyte Esterase Urine RBC Urine WBC Ur Epithelial Cells Urine Bacteria Urine Opiates Screen Negative Urine Methadone Screen Negative Ur Barbiturates Screen Negative Ur Phencyclidine Scrn Negative Ur Amphetamines Screen Negative U Benzodiazepines Scrn Negative U Oth Cocaine Metabols Negative U Cannabinoids Screen Negative Alcohol, Quantitative 05/14/18 05/14/18 05/14/18 19:00 19:00 19:00 WBC RBC Hgb Hct MCV MCH MCHC RDW Plt Count MPV Gran % Lymph % (Auto) [place] % (Auto) Eos % (Auto) Baso % (Auto) Gran # Lymph # (Auto) [place] # (Auto) Eos # (Auto) Baso # (Auto) Neutrophils % (Manual) Band Neutrophils % Lymphocytes % (Manual) Monocytes % (Manual) Polychromasia Hypochromasia Poikilocytosis (manual Anisocytosis (manual) Microcytosis (manual) Ovalocytes Schistocytes ESR Retic Count 2.04 H PT INR APTT pO2 VBG pH VBG pCO2 VBG HCO3 VBG Total CO2 VBG O2 Sat (Calc) VBG Base Excess VBG Potassium Sodium Chloride Glucose Lactate FiO2 Potassium Carbon Dioxide Anion Gap BUN Creatinine Est GFR ( Amer) Est GFR (Non-Af Amer) POC Glucose (mg/dL) Random Glucose Lactic Acid 1.7 Calcium Phosphorus Magnesium Iron 12 L TIBC 380 % Saturation 3 L Total Bilirubin AST ALT Alkaline Phosphatase Ammonia Total Creatine Kinase CK-MB (CK-2) CK-MB (CK-2) % Troponin I Total Protein Albumin Globulin Albumin/Globulin Ratio Venous Blood Potassium Urine Color Urine Appearance Urine pH Ur Specific [place] Urine Protein Urine Glucose (UA) Urine Ketones Urine Blood Urine Nitrate Urine Bilirubin Urine Urobilinogen Ur Leukocyte Esterase Urine RBC Urine WBC Ur Epithelial Cells Urine Bacteria Urine Opiates Screen Urine Methadone Screen Ur Barbiturates Screen Ur Phencyclidine Scrn Ur Amphetamines Screen U Benzodiazepines Scrn U Oth Cocaine Metabols U Cannabinoids Screen Alcohol, Quantitative 05/14/18 05/14/18 05/15/18 21:36 22:09 01:30 WBC RBC Hgb Hct MCV MCH MCHC RDW Plt Count MPV Gran % Lymph % (Auto) [place] % (Auto) Eos % (Auto) Baso % (Auto) Gran # Lymph # (Auto) [place] # (Auto) Eos # (Auto) Baso # (Auto) Neutrophils % (Manual) Band Neutrophils % Lymphocytes % (Manual) Monocytes % (Manual) Polychromasia Hypochromasia Poikilocytosis (manual Anisocytosis (manual) Microcytosis (manual) Ovalocytes Schistocytes ESR Retic Count PT 12.8 H INR 1.11 APTT pO2 VBG pH VBG pCO2 VBG HCO3 VBG Total CO2 VBG O2 Sat (Calc) VBG Base Excess VBG Potassium Sodium 138 Chloride 105 Glucose Lactate FiO2 Potassium 3.2 L Carbon Dioxide 23 Anion Gap 14 BUN 24 H Creatinine 2.2 H Est GFR ( Amer) 37 Est GFR (Non-Af Amer) 31 POC Glucose (mg/dL) 275 H Random Glucose 202 H Lactic Acid Calcium 9.8 Phosphorus Magnesium Iron TIBC % Saturation Total Bilirubin 0.5 AST 367 H D ALT 56 Alkaline Phosphatase 110 Ammonia Total Creatine Kinase CK-MB (CK-2) CK-MB (CK-2) % Troponin I Total Protein 6.6 Albumin 3.5 Globulin 3.1 Albumin/Globulin Ratio 1.1 Venous Blood Potassium Urine Color Urine Appearance Urine pH Ur Specific [place] Urine Protein Urine Glucose (UA) Urine Ketones Urine Blood Urine Nitrate Urine Bilirubin Urine Urobilinogen Ur Leukocyte Esterase Urine RBC Urine WBC Ur Epithelial Cells Urine Bacteria Urine Opiates Screen Urine Methadone Screen Ur Barbiturates Screen Ur Phencyclidine Scrn Ur Amphetamines Screen U Benzodiazepines Scrn U Oth Cocaine Metabols U Cannabinoids Screen Alcohol, Quantitative 05/15/18 05/15/18 05/15/18 01:30 06:00 07:26 WBC RBC Hgb Hct MCV MCH MCHC RDW Plt Count MPV Gran % Lymph % (Auto) [place] % (Auto) Eos % (Auto) Baso % (Auto) Gran # Lymph # (Auto) [place] # (Auto) Eos # (Auto) Baso # (Auto) Neutrophils % (Manual) Band Neutrophils % Lymphocytes % (Manual) Monocytes % (Manual) Polychromasia Hypochromasia Poikilocytosis (manual Anisocytosis (manual) Microcytosis (manual) Ovalocytes Schistocytes ESR Retic Count PT INR APTT pO2 VBG pH VBG pCO2 VBG HCO3 VBG Total CO2 VBG O2 Sat (Calc) VBG Base Excess VBG Potassium Sodium 135 136 Chloride 100 97 L Glucose Lactate FiO2 Potassium 3.5 L 3.2 L Carbon Dioxide 26 31 Anion Gap 12 12 BUN 26 H 27 H Creatinine 2.4 H 2.7 H Est GFR ( Amer) 33 29 Est GFR (Non-Af Amer) 28 24 POC Glucose (mg/dL) 300 H Random Glucose 353 H* D 290 H Lactic Acid Calcium 8.7 8.2 L Phosphorus Magnesium Iron TIBC % Saturation Total Bilirubin 0.6 0.5 AST 474 H D 429 H ALT 64 H 67 H Alkaline Phosphatase 94 91 Ammonia Total Creatine Kinase 32106 H CK-MB (CK-2) CK-MB (CK-2) % Troponin I 1.62 H* D Total Protein 6.1 5.8 Albumin 3.2 3.0 Globulin 2.9 2.8 Albumin/Globulin Ratio 1.1 1.1 Venous Blood Potassium Urine Color Urine Appearance Urine pH Ur Specific [place] Urine Protein Urine Glucose (UA) Urine Ketones Urine Blood Urine Nitrate Urine Bilirubin Urine Urobilinogen Ur Leukocyte Esterase Urine RBC Urine WBC Ur Epithelial Cells Urine Bacteria Urine Opiates Screen Urine Methadone Screen Ur Barbiturates Screen Ur Phencyclidine Scrn Ur Amphetamines Screen U Benzodiazepines Scrn U Oth Cocaine Metabols U Cannabinoids Screen Alcohol, Quantitative Attending/Attestation - Attestation I have personally seen and examined this patient.: Yes I have fully participated in the care of the patient.: Yes I have reviewed all pertinent clinical information: Yes Notes (Text): 05/14/18 62 year old male with past medical history of CAD s/p CABG, hypertension, schizophrenia, anxiety, GIB and diabetes who presents s/p fall this morning at h ome. Reported downtime was 2 hours without loss of consciousness, however patient is overall poor historian. He was found to have significant rhabdomyolysis, leukocytosis, lactic acidosis and HONG with elevated troponin likely in the setting of rhabdo/HONG. CT scans were negative acute findings. He is admitted to the ICU. Continue with aggressive IVF. Repeat CPK in AM. Monitor creatinine, LFTs and electrolytes. Consider nephrology evaluation if renal function does not improve with iv fluids. Trend troponins. He received aspirin and beta dorita but not statin secondary to rhabdo or anticoagulation secondary to recent GIB. FOBT ordered. Will follow up with cardiology recommendations. Continue with broad spectrum antibiotics while awaiting cultures. ID evaluation was requested. Patient will also need PT evaluation. Pulses were faint in left lower extremity so doppler is ordered. Alexis Becerril MD Hospitalist.
[2018-05-14 19:29] LABS: VENOUS BLOOD GAS BASE EXCESS -3.5 mmol/L (0.0-2.0); VENOUS BLOOD GAS PO2 56 mm/Hg (30-55); VENOUS BLOOD PH 7.34 (7.32-7.43)
[2018-05-14 19:42] LABS: IRON 12 ug/dL (45-180)
[2018-05-14 19:51] LABS: % IRON SATURATION 3 % (20-55); TOTAL IRON BINDING CAPACITY 380 ug/dL (261-462)
[2018-05-14 20:15] LABS: TROPONIN I 2.11 ng/mL
[2018-05-14] MEDS: Insulin Reg-LOW-Coverage SC SCH (22:00)
[2018-05-14 22:04] LABS: ALB/GLOB RATIO 1.1 (1.1-1.8); ALBUMIN 3.5 g/dL (3.0-4.8); CALCIUM 9.8 mg/dL (8.4-10.5)
[2018-05-14] MEDS ORDERED: DiphenhydrAMINE 50 mg/ml Inj IVP STA (22:05)
--- NOTE | 2018-05-14 22:29 | CON ---
DATE: 05/14/2018 LOCATION: The patient is in ICU 128, bed 2. REASON FOR CONSULTATION: Elevation of troponin, history of coronary artery disease, history of CABG, cardiomyopathy with ejection fraction of 40%, hypertension, schizophrenia. HISTORY OF PRESENT ILLNESS: The patient is a 62-year-old male, states that he felt weak, especially his legs felt very weak, and he fell down. He denies syncope, and the patient says he could not get up; he was lying on the floor several hours. He has multiple bruises on the head and on the legs including the knees. The patient denied any chest pain, shortness of breath, palpitations associated with this episode. He denies any exertional chest pain. The patient is a known case of coronary artery disease, coronary artery bypass surgery, hypertension, schizophrenia, anxiety, GI bleed, diabetes mellitus, esophageal ulcer. The patient is now lying flat in bed without any chest pain, shortness of breath, or palpitation. PAST MEDICAL HISTORY: Positive for coronary artery disease, history of coronary artery bypass surgery. The patient was in the hospital in 06/2016 and was found to have troponin elevated, suggestive of non-ST elevation myocardial infarction. Following that incident, the patient had a cardiac catheterization. Medical therapy was suggested. The patient also with known hypertension, schizophrenia, anxiety, GI bleeding, diabetes mellitus, esophageal ulcer, coronary artery bypass surgery. PERSONAL HISTORY: The patient denies smoking or drinking. ALLERGIES: THE PATIENT IS ALLERGIC TO ZOLOFT, WHICH CAUSES HIM RASH. HOME MEDICATIONS: Included Risperdal 3 mg at bedtime, Protonix ER 40 mg daily, metoprolol 25 b.i.d., lisinopril 2.5 mg daily, clonazepam 2 mg every 12 hourly, Lipitor 80 mg daily. REVIEW OF SYSTEMS: All the systems reviewed, positive mentioned in the history, others were negative. PHYSICAL EXAMINATION VITAL SIGNS: Blood pressure 112/86, respirations 16, pulse 86, temperature 98.6. HEENT: Head is normocephalic. Eyes, pupils normal. Conjunctivae, slightly pale. NECK: JVP low. Carotid equal. THORAX: AP diameter normal. LUNGS: Clear. CARDIOVASCULAR: S1, S2. ABDOMEN: Soft, nontender. No organomegaly. EXTREMITIES: No clubbing. No cyanosis. SKIN: The patient has multiple bruises on the legs including the knees and also on the face. LABORATORY DATA: WBC 23.1, hemoglobin 10.4, hematocrit 35.8, platelets 207. Sodium 138, potassium 3.5, BUN 21, creatinine 2.2, random glucose 269, another random glucose 267. Lactic acid 1.6. Calcium 11.2. Phosphorus 3.6, magnesium 3.2. AST 149, ALT 35. Total bilirubin 0.7. CPK , MB 18.7. Troponin 0.74, second troponin 2.11. Total protein 7.7, albumin 4.2. Chest x-ray, clear. EKG showed sinus tachycardia, old inferior wall VA. CAT scan of the head, no acute intracranial pathology seen. The patient had echocardiogram on 07/05/2016, which shows LV sizes are normal, LV systolic function mildly decreased with ejection fraction of 40%, mild mitral regurg, moderate tricuspid regurg, RVSP 50, consistent with moderate pulmonary hypertension. The patient had cardiac catheterization on 07/07/2016; it showed patent HDEZ to LAD, patent SVG to RCA with 2 borderline lesions in RCA, subtotally occluded small obtuse marginal branch, which probably caused non-STEMI in 06/2016, LV ejection fraction of 40%. DIAGNOSES: Rhabdomyolysis related to fall due to weakness in the legs, which may be related to sepsis. WBC count is high. Troponin elevation, probably related to marked elevation of CPK and creatinine also elevated. The patient denies any chest pain. Cardiomyopathy with left ventricular ejection fraction of 40%, on previous catheterization and echocardiogram as mentioned above, hypertension, diabetes mellitus type 2, schizophrenia, anxiety, history of gastrointestinal bleeding, esophageal ulcer, anemia, renal dysfunction, hypokalemia. PLAN: The patient is getting metoprolol 25 b.i.d., Protonix 40 daily, dextrose with sodium bicarbonate 150 mEq. The patient is running fluid at 250 mL an hour. The patient will have followup labs, and we will continue present therapy, and we will monitor with you and follow with you. Maurice Stephen MD
[2018-05-14] MEDS: Cefepime 1gm in NS 100ml 1 GM/100 ML BAG IVPB SCH (22:50)
[2018-05-14] MEDS ORDERED: Potassium Chloride 20 mEq ER Tab PO STA (23:19)
[2018-05-15 02:18] LABS: ALB/GLOB RATIO 1.1 (1.1-1.8); ALBUMIN 3.2 g/dL (3.0-4.8); CALCIUM 8.7 mg/dL (8.4-10.5); TROPONIN I 1.62 ng/mL
[2018-05-15 02:20] LABS: INR 1.11; PROTHROMBIN TIME 12.8 SECONDS (9.4-12.5)
[2018-05-15] MEDS ORDERED: Insulin Regular 1 UNITS/0.01 ML ML SC ONE (02:26)
[2018-05-15] MEDS ORDERED: Alum-Mag Hydrox-Simethicone Susp (30 mL) PO STA (02:36)
[2018-05-15] MEDS: Sodium Bicarbonate 8.4% 150 MEQ in Dextrose 5% In Water 1,000 ML IV SCH (03:00)
[2018-05-15] MEDS: Pantoprazole 40 mg EC Tab PO SCH (05:45)
[2018-05-15 06:29] LABS: ALB/GLOB RATIO 1.1 (1.1-1.8); CALCIUM 8.2 mg/dL (8.4-10.5)
[2018-05-15] MEDS ORDERED: POTASSIUM CHL IV SCH ×2 (07:45→08:46)
[2018-05-15] MEDS ORDERED: NS IV SCH ×2 (07:45→08:46)
[2018-05-15] MEDS ORDERED: SODIUM CHLORIDE 0.9% IV SCH ×2 (07:45→08:46)
[2018-05-15 07:51] LABS: CK MB% 0.1 % (2.5-3.0); CK-MB 29.3 ng/mL (0.0-3.6)
[2018-05-15] MEDS: Insulin Reg-LOW-Coverage SC SCH ×4 (08:00→22:09)
[2018-05-15] MEDS ORDERED: Potassium Chloride 40 mEq/30 ml LIQ UD PO ONE (08:02)
[2018-05-15] MEDS: Cefepime 1gm in NS 100ml 1 GM/100 ML BAG IVPB SCH ×3 (08:44→22:45)
--- NOTE | 2018-05-15 10:40 | PN ---
DATE: 05/15/2018 SUBJECTIVE: The patient is awake and alert. Answers questions appropriately. The patient states that he is weak in his legs and cannot stand. Note that the patient has been found at home and had fallen presented to the emergency room with rhabdomyolysis. At this time, he is comfortable in bed with O2 via nasal cannula. No complaints of cough or chest pain, but does seem to have a little congestion and a little wheeze as far as respirations are concerned. No fever, chills, no nausea or vomiting. PHYSICAL EXAMINATION: VITAL SIGNS: His temperature is 98, his pulse is 91, respirations are 20 and BP is 133/65. SKIN: Warm and dry. HEENT: Head is atraumatic, normocephalic. Eyes reactive to light. Ears, nose, and throat seemed to be within normal limits. NECK: Supple. No JVD. No thyroid enlargement or lymph nodes. HEART: Has regular rate and rhythm. Normal S1, S2. LUNGS: Reveal mild rhonchi bilaterally. ABDOMEN: Soft. Decreased bowel sounds. GENITALIA: Deferred. RECTAL: Deferred. MUSCULOSKELETAL: No joint deformities. EXTREMITIES: Reveal ecchymotic areas on both knees and in the lower part of the left lower extremity near the foot. NEUROLOGIC: He seemed to be grossly intact. LABORATORY DATA: As far as his laboratories are concerned; his white count is 23.1, hemoglobin is 10.4, hematocrit 35.8 with platelets of 207,000. The patient's sodium is 138, potassium 3.2, chloride 97, CO2 of 31 with a BUN of 27, creatinine of 2.7 and glucose of 300. The patient does have increased troponins, latest one being 1.62. X-RAY: As far as chest x-ray, reveals no active disease. IMPRESSION: This patient presents with history of falling at home, unable to stand or walk and presents with rhabdomyolysis. He has increased white count and there may be a component of sepsis. The patient also is noted to have increased troponins. Cardiology is case and rule out myocardial infarction. The troponins may be elevated secondary to the rhabdo. He has a history of coronary artery disease, gastrointestinal bleed, diabetes, hypertension, status post coronary artery bypass graft, schizophrenia as well as anemia. PLAN: Note that as far as our plan is concerned, we will continue with bronchodilators of DuoNeb. The patient is getting IV fluids of normal saline with the 20 of K at 150 mL an hour. Note, we are correcting the hypokalemia. The patient is scheduled to get 2 runs of K rider as well. The patient is on Lopressor for his blood pressure as well as cefepime and Protonix. We will continue to follow closely with the other consultants and the primary care doctor and also continue to treat aggressively. Jamal Bruno MD
--- NOTE | 2018-05-15 10:41 | US ---
Date of service: 05/15/2018 HISTORY: elevated LFT COMPARISON: None. TECHNIQUE: Sonographic evaluation of the right upper quadrant of the abdomen. FINDINGS: LIVER: Measures 19.2 cm in length. Normal echogenicity of the liver parenchyma. No mass. No intrahepatic bile duct dilatation. GALLBLADDER: 1.3 cm gallstone. No evidence of cholecystitis COMMON BILE DUCT: Measures 6.4 mm. No stones. No dilatation. PANCREAS: Not visualized due to bowel gas RIGHT KIDNEY: Measures 11.6 x 5.9 x 6.0 cm in length. Normal echogenicity. No calculus, mass, or hydronephrosis. AORTA: Not visualized IVC: Unremarkable. OTHER FINDINGS: None . IMPRESSION: 1.3 cm gallstone. No evidence of cholecystitis
[2018-05-15 10:45] LABS: BASO # 0.01 K/mm3 (0.0-2.0); BASO % 0.1 % (0.0-3.0); EOS # 0.1 (0.0-0.7); EOS % 1.4 % (1.5-5.0); GRAN # 8.52 (1.4-6.5); GRAN % 91.5 % (50.0-68.0); HEMOGLOBIN 8.8 g/dL (14.0-18.0); LYMPH # 0.3 (1.2-3.4); LYMPH % 2.7 % (22.0-35.0); MEAN CELL VOLUME 64.2 fl (80.0-105.0); MEAN CORPUSCULAR HEMOGLOBIN 18.6 pg (25.0-35.0); MEAN PLATELET VOLUME 8.1 fl (7.0-11.0); MONO # 0.4 (0.1-0.6); MONO % 4.3 % (1.0-6.0); RBC 4.72 10^6/uL (3.5-6.1); RED CELL DISTRIBUTION WIDTH 18.8 % (11.5-14.5); WHITE BLOOD COUNT 9.3 10^3/uL (4.5-11.0)
--- NOTE | 2018-05-15 10:55 | RAD ---
Date of service: 05/15/2018 HISTORY: fluid overload COMPARISON: 05/14/2018 FINDINGS: LUNGS: No active pulmonary disease. PLEURA: No significant pleural effusion identified, no pneumothorax apparent. CARDIOVASCULAR: Mild aortic calcification Mild cardiomegaly no pulmonary vascular congestion. OSSEOUS STRUCTURES: Sternal wires VISUALIZED UPPER ABDOMEN: Normal. OTHER FINDINGS: None. IMPRESSION: No active disease.
--- NOTE | 2018-05-15 11:03 | RAD ---
Date of service: 05/15/2018 PROCEDURE: Left Knee Radiographs. HISTORY: Pain. COMPARISON: None. FINDINGS: BONES: Normal. No fracture. JOINTS: Normal. No osteoarthritis. JOINT EFFUSION: None. OTHER FINDINGS: None. IMPRESSION: Normal radiographs of the left knee.
--- NOTE | 2018-05-15 11:03 | RAD ---
Date of service: 05/15/2018 PROCEDURE: Right Knee Radiographs. HISTORY: s/p fall COMPARISON: None. FINDINGS: BONES: Normal. No fracture. JOINTS: Normal. No osteoarthritis. JOINT EFFUSION: None. OTHER FINDINGS: None. IMPRESSION: Normal radiographs of the right knee.
[2018-05-15] MEDS: Sucralfate 1 gm/10 ml Oral Susp UD PO SCH ×2 (11:40→16:18)
--- NOTE | 2018-05-15 11:53 | CON ---
DATE OF CONSULTATION: 05/15/2018 CHIEF COMPLAINT: Weakness from several days. HISTORY OF PRESENT ILLNESS: This is a 62-year-old male with history of schizophrenia, anxiety, dementia, coronary artery disease, GI bleed, history of mentally challenged, diabetes mellitus, history of esophageal ulcer, deafness, and anemia, who was found on the floor and admitted to the hospital with diagnosis of sepsis. The patient found to have white count of 23,000. Infectious disease consultation was requested. The patient denies any fevers, any chills. He overall is a poor historian. PAST MEDICAL HISTORY: Coronary artery disease, mentally challenged, diabetes mellitus, schizophrenia, anxiety, GI bleed, esophageal ulcers, deafness and anemia. PAST SURGICAL HISTORY: Significant for coronary artery bypass graft. MEDICATIONS: Medications at home includes the patient to be on Risperdal, pantoprazole, metoprolol, magnesium, Zestril, and Lipitor. ALLERGIC: THE PATIENT IS ALLERGIC TO ZOLOFT AND DEVELOPS A RASH. REVIEW OF SYSTEMS: A 14-point review of systems is reviewed. PHYSICAL EXAMINATION: GENERAL: The patient is in bed, in no acute distress. VITAL SIGNS: Temperature of 98.4; heart rate of 91, it was up to 96 and in the emergency room was 101 heart rate; blood pressure is 130/60, it was down to 97/54; respiratory rate of 20 and it was up to 40 in the emergency room as stated; and the patient's saturation at O2 saturation of 74% initially. HEENT: Unremarkable. NECK: Supple. LUNGS: Decreased breath sounds. HEART: Normal S1, S2. ABDOMEN: Soft, nontender. No organomegaly. No rebound or guarding. No masses. LABORATORY EXAMINATION: The patient's white count of 23,100, hemoglobin of 10, platelets of 207, and 90% granulocytosis. Sed rate of 16. Count number is noted. The patient's creatinine is 2.2, it was 0.8 in the past in 07/2016. Glucose of 353. Troponin is 1.62. CPK is elevated at 37,000. CK and urinalysis is noted, 0-2 wbc's. Toxicology is negative. Microbiology is pending. The patient had a chest x-ray, which was negative; CAT scan of the abdomen, which was negative; CAT scan of the head, which was negative. He had an ultrasound of gallbladder, the results are pending. ASSESSMENT/PLAN: This is a 62-year-old male with schizophrenia, coronary artery disease, diabetes mellitus, anxiety, GI bleed, mentally challenged, esophageal ulcer, anemia with #1 is rhabdomyolysis with systemic inflammatory response syndrome and acute kidney injury with creatinine that has changed from 0.8 to 2.2. The patient was given a dose of vancomycin and started on Maxipime, pending blood cultures and urine cultures. We will order an HIV, procalcitonin and nasal MRSA screen. X-rays of the knee were ordered. We will make further recommendations upon availability of initial results. Syd Robin MD
[2018-05-15] MEDS: Albuterol-Ipratrop 3 mg / 0.5 (3 ml) UD IH SCH ×3 (13:08→21:00)
--- NOTE | 2018-05-15 15:07 | CP.PCM.PN ---
<LauernWilner - Last Filed: 05/15/18 15:01> Subjective - Date & Time of Evaluation Date of Evaluation: 05/15/18 Time of Evaluation: 15:01 - Subjective Subjective: Medicine progress note: Lauren PGY - 2 Patient seen and examined at bedside. No new complaints, no acute overnight issues. Patient denies LE pain, denies chest pain, shortness of breath. Objective - Vital Signs/Intake and Output Vital Signs (last 24 hours): Temp Pulse Resp BP Pulse Ox 100.3 F H 96 H 39 H 131/68 94 L 05/15/18 11:42 05/15/18 14:10 05/15/18 14:10 05/15/18 14:00 05/15/18 14:10 Intake and Output: 05/15/18 05/15/18 06:59 18:59 Intake Total 4370 Output Total 110 Balance 4260 - Medications Medications: Current Medications Albuterol/Ipratropium (Duoneb 3 Mg/0.5 Mg (3 Ml) Ud) 3 ml IH [id number] [facility] Last Admin: 05/15/18 13:08 Dose: 3 ml Cefepime HCl (Maxipime 1gm) 1 gm in 100 mls @ 25 mls/hr IVPB Q12 [facility]; Protocol Last Admin: 05/15/18 09:35 Dose: Not Given Potassium Chloride 20 meq/ (Sodium Chloride) 1,010 mls @ 150 mls/hr IV .[id number] [facility] Insulin Human Regular (Humulin R Low) 0 units SC ACHS [facility]; Protocol Last Admin: 05/15/18 11:39 Dose: 2 units Metoprolol Tartrate (Lopressor) 25 mg PO BID [facility] Last Admin: 05/15/18 09:35 Dose: Not Given Pantoprazole Sodium (Protonix Ec Tab) 40 mg PO 0600 [facility] Last Admin: 05/15/18 05:45 Dose: 40 mg Sucralfate (Carafate Oral Susp) 1 gm PO 0600,1600 [facility] Last Admin: 05/15/18 11:40 Dose: 1 gm - Labs Labs: 05/15/18 10:41 05/15/18 06:00 PT 12.8 SECONDS (9.4-12.5) H 05/15/18 01:30 INR 1.11 05/15/18 01:30 APTT 27.0 Seconds (25.1-36.5) 05/14/18 13:30 - Constitutional Appears: Well - Head Exam Head Exam: ATRAUMATIC, NORMAL INSPECTION, NORMOCEPHALIC - Eye Exam Eye Exam: EOMI, Normal appearance, PERRL Pupil Exam: NORMAL ACCOMODATION, PERRL - ENT Exam ENT Exam: Mucous Membranes Moist, Normal Exam - Neck Exam Neck Exam: Full ROM, Normal Inspection. absent: Lymphadenopathy - Respiratory Exam Respiratory Exam: Clear to Ausculation Bilateral, NORMAL BREATHING PATTERN - Cardiovascular Exam Cardiovascular Exam: REGULAR RHYTHM, +S1, +S2. absent: Murmur - GI/Abdominal Exam GI & Abdominal Exam: Soft, Normal Bowel Sounds. absent: Tenderness - Extremities Exam Extremities Exam: Full ROM, Normal Capillary Refill, Normal Inspection. absent: Joint Swelling, Pedal Edema - Back Exam Back Exam: NORMAL INSPECTION - Neurological Exam Neurological Exam: Alert, Awake, CN II-XII Intact, Normal Gait, Oriented x3 - Psychiatric Exam Psychiatric exam: Normal Affect, Normal Mood - Skin Skin Exam: Dry, Intact, Normal Color, Warm Assessment and Plan - Assessment and Plan (Free Text) Assessment: Patient is a 62-year-old Male with PMH significant for CAD s/p CABG, EF 40%, Hyp ertension, Schizophrenia, Anxiety, GI bleed, Diabetes Mellitus Type 2, Esophageal Ulcer, who presents to [facility] ED status-post fall this morning. Please note: Patient is a poor historian. CODE SEPSIS was called in ED for elevated lactic acid and WBC. Patient was subsequently admitted to ICU for evaluation and treatment of Rhabdomyolysis and HONG. Plan Rhabdomyolysis - EKG obtained: Sinus Tachy @ 138 - Repeat EKG f/u - Hold Lipitor for HONG and Rhabdo - Hold Lisinopril for HONG and Rhabdo - Aggressive hydration; Monitor for fluid overload due to decreased EF - obtained CXR today - Monitor CMP, Mg, Phos - replete as necessary - Urinalysis consistent with Rhabdo (Positive for blood, protein, glucose; No RBC, No WBC) - Gan ordered - Monitor urine output - PT eval and treat Elevated Troponins, likely 2/2 HONG/Rhabdo - Cardio on consult; trending down HONG, Likely secondary to rhabdomyolysis - CPK continues trending upward - F/U CPK repeat - BUN/Cr 21/2.1 - Continue IVF with potassium at 150/hr (conservative fluid management given low EF) - Monitor with repeat CMP - Hold Lipitor for HONG and Rhabdo - Hold Lisinopril for HONG and Rhabdo - Gan placement - Monitor urine output SIRS Criteria - SIRS criteria met in ED; CODE SEPSIS was called - ESR 16, Lactate 3.1, Leukocytosis with bandemia - IVF 30mg/kg/hr (LR) - F/U Panculture (blood, urine) - Patient received 1 dose Vancomycin, Zosyn in ED - Afebrile - ID consulted; Dr. Kendrick; recommendations appreciated History of CAD S/P CABG - EF @ 44% (2017); no need for ECHO at this time - Continue home meds: Lopressor - Hold statin, hold ACEI due to rhabdo/HONG - Cardiology consulted; Dr. Esqueda; recommendations appreciated - Serial troponins obtained per above - ASA 324mg given in ED History of Fall - CT Cervical Spine: negative - CT Head without contrast: no acute intracranial findings - CT Abd/Pelvis: no acute intra-abdominal findings - see full reports for details - LE Knee XRs ordered today History of GI Bleed - F/U occult stool test - No anticoagulation needed at this time - Continue home med: Protonix 40mg PO Daily PPx: GI: Protonix DVT: Chemical PPX Contraindicated; SCD <Lou Serrano R - Last Filed: 05/15/18 18:52> Objective - Vital Signs/Intake and Output Vital Signs (last 24 hours): Temp Pulse Resp BP Pulse Ox 102.2 F H 97 H 36 H 164/67 H 87 L 05/15/18 16:13 05/15/18 18:22 05/15/18 18:00 05/15/18 18:22 05/15/18 18:00 Intake and Output: 05/15/18 05/15/18 06:59 18:59 Intake Total 5604 Output Total 210 Balance 5394 - Medications Medications: Current Medications Albuterol/Ipratropium (Duoneb 3 Mg/0.5 Mg (3 Ml) Ud) 3 ml IH [id number] [facility] Last Admin: 05/15/18 15:00 Dose: Not Given Cefepime HCl (Maxipime 1gm) 1 gm in 100 mls @ 25 mls/hr IVPB Q12 [facility]; Protocol Last Admin: 05/15/18 09:35 Dose: Not Given Potassium Chloride 20 meq/ (Sodium Chloride) 1,010 mls @ 150 mls/hr IV .[id number] [facility] Last Admin: 05/15/18 10:00 Dose: 150 mls/hr Dexmedetomidine HCl (Precedex 400mcg/100ml) 400 mcg in 100 mls @ 4.309 mls/hr IV .[id number] PRN; Protocol PRN Reason: Anxiety Last Titration: 05/15/18 16:10 Dose: 0 mcg/kg/hr, 0 mls/hr Insulin Detemir (Levemir) 5 unit SC HS [facility] Insulin Human Lispro (Humalog) 4 units SC AC [facility] Insulin Human Regular (Humulin R Low) 0 units SC ACHS [facility]; Protocol Last Admin: 05/15/18 16:18 Dose: 3 units Metoprolol Tartrate (Lopressor) 25 mg PO BID [facility] Last Admin: 05/15/18 18:22 Dose: 25 mg Pantoprazole Sodium (Protonix Ec Tab) 40 mg PO 0600 [facility] Last Admin: 05/15/18 05:45 Dose: 40 mg Sucralfate (Carafate Oral Susp) 1 gm PO 0600,1600 [facility] Last Admin: 05/15/18 16:18 Dose: 1 gm - Labs Labs: 05/15/18 10:41 05/15/18 16:20 PT 12.8 SECONDS (9.4-12.5) H 05/15/18 01:30 INR 1.11 05/15/18 01:30 APTT 27.0 Seconds (25.1-36.5) 05/14/18 13:30 Attending/Attestation - Attestation I have personally seen and examined this patient.: Yes I have fully participated in the care of the patient.: Yes I have reviewed all pertinent clinical information, including history, physical exam and plan: Yes Notes (Text): Patient seen and examined by me with resident at 8:30 AM on 05/15/18. Case including HPI, physical exam, and assessment and plan discussed with resident. Agree with above with following additions/corrections. Patient is a 62-year-old male with past medical history significant for artery disease status post CABG, systolic CHF, hypertension, schizophrenia, anxiety, GI bleed, esophageal ulcer, and type 2 diabetes that presented to the emergency room status post a fall. Patient states that he is feeling a little better today. States he was unable to walk at home and had to "crawl up the stairs." Patient states he hit his head on a tv and is unsure when that happened. Patient denies any chest pain or shortness of breath. No fevers or chills. No headaches or dizziness. No nausea, vomiting, or abdominal pain. No dysuria. Gan catheter in place. No diarrhea or constipation. Physical exam: General: Awake and alert sitting up in bed in no acute distress HEENT: Normocephalic, atraumatic. Extraocular muscles intact, pupils equal and reactive, no scleral icterus. Oropharynx is pink and moist. Neck is supple. Cardiovascular: Regular rhythm. Normal S1 and S2. No murmurs, rubs, or gallops appreciated Pulmonary: Normal respiratory effort. Mild wheezing throughout. No rales or rhonchi appreciated. Gastrointestinal: Soft, nondistended. Nontender. Positive bowel sounds all 4 quadrants. No guarding. Positive globular abdomen Musculoskeletal: Moves all extremities. No calf tenderness. Bilateral lower knee ecchymosis and mild erythema. Central nervous system: Awake and alert Dermatologic: Skin warm and dry. Positive ecchymosis on forehead. Assessment and plan: Patient is a 62-year-old male with past medical history significant for artery disease status post CABG, systolic CHF, hypertension, schizophrenia, anxiety, GI bleed, esophageal ulcer, and type 2 diabetes that presented to the emergency room status post a fall. 1. Sepsis. Patient febrile. Leukocytosis resolved. Patient also tachycardic. Pro-calcitonin elevated at 6.35. Lactic acid was 3.1 improved to 1.9. One blood culture positive for gram-positive cocci. Second blood culture with no growth. Urine culture with no growth. ID following, recommendations appreciated. Continue Maxipime. Continue IV fluids. CT abdomen and pelvis per radiologist showed no acute intra-abdominal findings. Gallbladder ultrasound radiologist showed 1.3 cm gallstone, no evidence of cholecystitis. Chest x-ray per radiologist showed no active disease. 2. Acute renal failure. Likely secondary to rhabdomyolysis and dehydration. Creatinine is up trending. Nephrology consulted, follow-up recommendations. Continue with Gan catheter. Monitor urine output. Continue IV fluids. Follow up renal ultrasound. 3. Rhabdomyolysis. CPK up trended and now downtrending. Continue with IV fluids, was seeing discussed with cardiology. Continue to monitor CPK. 4. Elevated troponins and the patient with a history of coronary artery disease. Patient with no chest pain. Elevated troponins likely secondary to rhabdomyolysis and acute renal failure. Downtrending. Cardiology following, recommendations appreciated. LEROY inhibitor held secondary to acute renal failure. Continue Lopressor. No aspirin secondary to anemia and stool for occult blood being positive. Statin held secondary to transaminitis. 5. Chronic systolic CHF. Not in acute exacerbation. Monitor closely as patient is on IV fluids. LEROY inhibitor held for now secondary to acute renal failure. Continue with Lopressor. Cardiology following, recommendations appreciated. 6. Transaminitis. Secondary to rhabdomyolysis. Downtrending. Continue to monitor. 7. Anemia. History of GI bleed. Stool for occult blood positive. GI consulted, follow-up recommendations. Continue to monitor H&H. Continue Carafate. Continue Protonix. 8. Type 2 diabetes with hyperglycemia. Hyperglycemia may be secondary to infection. Continue with insulin sliding scale. Levemir 5 units subcutaneous at bedtime added. Humalog 4 units before meals added. Continue to monitor Accu- Cheks. 9. Status post fall. Bilateral knee x-rays per radiologist showed normal radiographs of the right and left knee. CT cervical spine per radiologist was unremarkable. Head CT per radiologist showed no acute intracranial findings. Continue fall precautions. PT eval and treat. 10. GI prophylaxis. Continue protonix. 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
[2018-05-15] MEDS: Dexmedetomidine 400mcg/100mL 400 MCG/100 ML BOTTLE IV PRN (15:10)
[2018-05-15 17:10] LABS: ALBUMIN 3.2 g/dL (3.0-4.8); CALCIUM 8.2 mg/dL (8.4-10.5)
[2018-05-15 18:07] LABS: CK-MB 7.4 ng/mL (0.0-3.6)
--- NOTE | 2018-05-15 21:24 | PN ---
DATE: 05/15/2018 LOCATION: The patient is in ICU 128, bed 2. REASON FOR CONSULTATION: Coronary artery disease, history of CABG, elevated troponin, elevated CPK, rhabdomyolysis, cardiomyopathy, ejection fraction 40%, hypertension, schizophrenia, diabetes mellitus, history of GI bleeding, status post fall. HISTORY OF PRESENT ILLNESS: The patient felt weak in the legs and fell on the floor, could not get up. He was lying on the floor for several hours. Denies any chest pain, shortness of breath or palpitation. Brought to the emergency room and was found to have rhabdomyolysis. He has a markedly elevated troponin, also creatinine was elevated, troponin was also elevated. The patient is lying flat in bed without chest pain, shortness of breath or palpitation. PHYSICAL EXAMINATION VITAL SIGNS: Blood pressure 92/75, respirations 20, pulse 97. HEENT: Head is normocephalic. Eyes, pupils normal. Conjunctivae slightly pale. NECK: JVP low. Carotid equal. THORAX: AP diameter normal. LUNGS: Clear. CARDIOVASCULAR: S1 and S2. ABDOMEN: Soft, nontender. No organomegaly. Bowel sounds normal. EXTREMITIES: No clubbing. No cyanosis. LABORATORY DATA: WBC 9.3, hemoglobin 8.8, hematocrit 30.3, platelets 114. Sodium 136, potassium 3.2, BUN 27, creatinine 2.7, random sugar 234. Troponin first one 0.74, second one 2.11, third one 1.62. CPK today is 37,047. DIAGNOSES: Rhabdomyolysis, related to the fall; severe elevation of creatine phosphokinase; troponin elevation, probably related to creatine phosphokinase elevation. Currently, there is no chest pain. Cardiomyopathy with a left ventricular ejection fraction of 40%. Chest x-ray done today is clear. Hypertension, diabetes mellitus, cardiomyopathy with an ejection fraction of 40%, schizophrenia, anxiety, history of gastrointestinal bleeding, esophageal ulcer, anemia, renal dysfunction, hypokalemia, stool occult blood positive. PLAN: The patient is on Carafate 1 g p.o. b.i.d., DuoNeb nebulizer therapy, insulin as ordered, metoprolol tartarate 25 mg b.i.d. The patient is on cefepime 1 g IV every 12 hours, Protonix 40 mg daily, sodium chloride potassium therapy 150 mL an hour. We will repeat blood work in the morning. We will follow with you. Maurice Stephen MD
[2018-05-15] MEDS: Insulin Detemir 100 units/ml Vial (Levemir) SC SCH (22:45)
[2018-05-16] MEDS: Albuterol-Ipratrop 3 mg / 0.5 (3 ml) UD IH SCH ×6 (00:30→20:00)
--- NOTE | 2018-05-16 03:29 | CP.PCM.PN ---
Subjective - Date & Time of Evaluation Date of Evaluation: 05/16/18 Time of Evaluation: 03:29 - Subjective Subjective: # 22 angiocath was inserted in right distal forearm. Objective - Vital Signs/Intake and Output Vital Signs (last 24 hours): Temp Pulse Resp BP Pulse Ox 103.3 F H 69 36 H 164/67 H 87 L 05/15/18 20:20 05/15/18 22:00 05/15/18 18:00 05/15/18 18:22 05/15/18 18:00 Intake and Output: 05/15/18 05/16/18 18:59 06:59 Intake Total 5604 Output Total 210 Balance 5394 - Medications Medications: Current Medications Albuterol/Ipratropium (Duoneb 3 Mg/0.5 Mg (3 Ml) Ud) 3 ml IH [id number] [facility] Last Admin: 05/15/18 21:00 Dose: 3 ml Cefepime HCl (Maxipime 1gm) 1 gm in 100 mls @ 25 mls/hr IVPB Q12 [facility]; Protocol Last Admin: 05/15/18 22:45 Dose: 25 mls/hr Potassium Chloride 20 meq/ (Sodium Chloride) 1,010 mls @ 150 mls/hr IV .[id number] [facility] Last Admin: 05/15/18 10:00 Dose: 150 mls/hr Dexmedetomidine HCl (Precedex 400mcg/100ml) 400 mcg in 100 mls @ 4.309 mls/hr IV .[id number] PRN; Protocol PRN Reason: Anxiety Last Titration: 05/15/18 16:10 Dose: 0 mcg/kg/hr, 0 mls/hr Insulin Detemir (Levemir) 5 unit SC [facility] Last Admin: 05/15/18 22:45 Dose: 5 unit Insulin Human Lispro (Humalog) 4 units SC AC [facility] Insulin Human Regular (Humulin R Low) 0 units SC ACHS [facility]; Protocol Last Admin: 05/15/18 22:09 Dose: Not Given Metoprolol Tartrate (Lopressor) 25 mg PO BID [facility] Last Admin: 05/15/18 18:22 Dose: 25 mg Pantoprazole Sodium (Protonix Ec Tab) 40 mg PO 0600 [facility] Last Admin: 05/15/18 05:45 Dose: 40 mg Sucralfate (Carafate Oral Susp) 1 gm PO 0600,1600 [facility] Last Admin: 05/15/18 16:18 Dose: 1 gm - Labs Labs: 05/15/18 10:41 05/15/18 16:20 PT 12.8 SECONDS (9.4-12.5) H 05/15/18 01:30 INR 1.11 05/15/18 01:30 APTT 27.0 Seconds (25.1-36.5) 05/14/18 13:30
[2018-05-16] MEDS: Pantoprazole 40 mg EC Tab PO SCH (06:07)
[2018-05-16] MEDS: Sucralfate 1 gm/10 ml Oral Susp UD PO SCH ×2 (06:09→16:58)
[2018-05-16 06:24] LABS: EOS # 0.2 (0.0-0.7); EOS % 2.3 % (1.5-5.0); GRAN # 6.45 (1.4-6.5); GRAN % 87.8 % (50.0-68.0); HEMOGLOBIN 7.9 g/dL (14.0-18.0); LYMPH # 0.4 (1.2-3.4); LYMPH % 5.3 % (22.0-35.0); MEAN CELL VOLUME 65.3 fl (80.0-105.0); MEAN CORPUSCULAR HGB CONC 27.6 g/dl (31.0-37.0); MEAN PLATELET VOLUME 8.1 fl (7.0-11.0); MONO # 0.3 (0.1-0.6); MONO % 4.6 % (1.0-6.0); RBC 4.38 10^6/uL (3.5-6.1); RED CELL DISTRIBUTION WIDTH 19.1 % (11.5-14.5); WHITE BLOOD COUNT 7.4 10^3/uL (4.5-11.0)
[2018-05-16 06:50] LABS: ALBUMIN 2.7 g/dL (3.0-4.8); CALCIUM 7.5 mg/dL (8.4-10.5)
[2018-05-16 08:12] LABS: CK-MB 3.3 ng/mL (0.0-3.6)
--- NOTE | 2018-05-16 08:44 | PN ---
DATE: 05/16/2018 SUBJECTIVE: The patient is resting in bed at this time, he is on Precedex and IV fluids. They are being given. The patient does require wrist restraints. O2 via nasal cannula and O2 saturation is stable hemodynamically he is stable as well. PHYSICAL EXAMINATION: VITAL SIGNS: His temperature is 103.3, pulse is 80, BP is 164/67 and respiratory rate is 36. HEENT: As far as his head is atraumatic, normocephalic. Eyes; reactive to light. Ears, nose and throat seemed to be within normal limits. NECK: Supple. No JVD. No thyroid enlargement. No lymph nodes. HEART: Has a regular rate and rhythm. Normal S1, S2. LUNGS: Reveal fairly good breath sounds bilaterally. Mild decrease at the bases. ABDOMEN: Soft. Decreased bowel sounds. GENITALIA: Deferred. RECTAL: Deferred. MUSCULOSKELETAL: No joint deformities. EXTREMITIES: Reveal 1+ lower extremity edema. NEUROLOGIC: The patient is seemed to be intact. Moving all extremities and responds appropriately. LABORATORY DATA: As far as his laboratories; white count is 7.4, hemoglobin is 7.9, hematocrit 28.6 with platelets of 108,000. Sodium is 135, potassium 4.1, chloride 100, CO2 of 28 with a BUN of 37, creatinine of 5.0 and a glucose of 181. The patient's LFTs are improving. AST is 236 and ALT is 65. The patient's total creatinine kinase is improving as well. It is 14,817. IMPRESSION: The patient has a history of falling at home and unable to stand with the diagnosis at this time of rhabdomyolysis. The patient has a fever and white count, there is a component of sepsis and note that the patient's troponins are elevated and there is being evaluated for myocardial infarction. The patient has a history of coronary artery disease, gastrointestinal bleeding, and diabetes as well as hypertension and coronary artery bypass as well as schizophrenia and anemia. Note that the patient's renal failure is worsening, nephrology has been consulted and we are evaluating the etiology of anemia. PLAN: We will continue with Carafate and the Precedex. We will continue with bronchodilators of DuoNeb and the patient is getting cefepime as for antibiotics and Protonix. We will continue with the IV fluids. Continue to monitor the chemistries closely and work closely with the consultants and the primary care doctor. Jamal Bruno MD
[2018-05-16] MEDS ORDERED: Vancomycin 1gm in NS 250ml 1 GM/250 ML BAG IVPB STA (09:04)
[2018-05-16] MEDS: Insulin Lispro 1 UNITS/0.01 ML SC SCH ×3 (09:07→16:58)
[2018-05-16] MEDS: Insulin Reg-LOW-Coverage SC SCH ×4 (09:08→21:41)
[2018-05-16] MEDS: Cefepime 1gm in NS 100ml 1 GM/100 ML BAG IVPB SCH ×2 (09:45→21:40)
--- NOTE | 2018-05-16 09:46 | RAD ---
Date of service: 05/16/2018 HISTORY: monitor fluid ovl COMPARISON: 05/15/2018 FINDINGS: LUNGS: No active pulmonary disease. PLEURA: No significant pleural effusion identified, no pneumothorax apparent. CARDIOVASCULAR: No aortic atherosclerotic calcification present. Moderate cardiomegaly no pulmonary vascular congestion. OSSEOUS STRUCTURES: Sternal wires VISUALIZED UPPER ABDOMEN: Normal. OTHER FINDINGS: None. IMPRESSION: No active disease.
--- NOTE | 2018-05-16 10:34 | CP.PCM.PN ---
Subjective - Date & Time of Evaluation Date of Evaluation: 05/16/18 Time of Evaluation: 10:28 - Subjective Subjective: RENAL HPI Patient is a 62-year-old M w/ pmh of CAD, htn, schizo, dm that presented to ER w/ fall. Unable to get much hx as pt is on mild sedation and unable to answer questions. Per the ICU/Hospitalists - legs gave out and had fall unable to get up. No clear how long he was down. He was admitted to ICU - course complicated by fevers overnight started on abx and HONG w/ oliguric. ros: limited as pt s/p sedation unable to give further hx PMH: CAD, Hypertension, Schizophrenia, Anxiety, GI Bleed, Diabetes Mellitus Type 2, Esophageal Ulcer PSH: CABG Allergies: Zoloft (causes rash) Medications: Risperdal 3mg PO HS, Protonix 40mg PO Daily, Lopressor 25mg PO BID, Milk of Magnesia 30mL PO Q24H PRN, Zestril 2.5mg PO Daily, Clonazepam 2mg PO Q12H, Lipitor 80mg PO HS famhx: no esrd reported sochx: as below pe: vs as below gen: nad sclera: anicteric op: clear, poor dentition neck supple no thyromegaly cv: +S1+s2 no rub abd: soft nt nd no organomegaly lungs wheezing at the b/l bases ext: no edema neuro: mild sedation was give psych: flat skin bruising on b/l knees anad head labs and imaging reviewed: Imp: ARF/ Rhabdomylosis/ Anemia/ ? sepsis/ plan: HONG - likely from combination of rhabdo +/ - developing sirs / sepsis. COntinue supportive care - can continue IVF - can trial a dose of IV lasix to try and convert from oliguria to nonoliguria. if starts developing volume overload d/c IVF. 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 f/u cultures - abx per primary team - dose for reduced eGFR Objective - Vital Signs/Intake and Output Vital Signs (last 24 hours): Temp Pulse Resp BP Pulse Ox 102.4 F H 70 20 107/49 L 100 05/16/18 06:00 05/16/18 10:09 05/16/18 09:40 05/16/18 10:09 05/16/18 09:40 - Medications Medications: Current Medications Acetaminophen (Tylenol 325mg Tab) 325 mg PO Q6H PRN PRN Reason: Fever >100.4 F Albuterol/Ipratropium (Duoneb 3 Mg/0.5 Mg (3 Ml) Ud) 3 ml IH [id number] [facility] Last Admin: 05/16/18 07:22 Dose: 3 ml Cefepime HCl (Maxipime 1gm) 1 gm in 100 mls @ 25 mls/hr IVPB Q12 [facility]; Protocol Last Admin: 05/16/18 09:45 Dose: 25 mls/hr Dexmedetomidine HCl (Precedex 400mcg/100ml) 400 mcg in 100 mls @ 4.309 mls/hr IV .[id number] PRN; Protocol PRN Reason: Anxiety Last Titration: 05/15/18 16:10 Dose: 0 mcg/kg/hr, 0 mls/hr Vancomycin HCl (Vancomycin 1gm) 1 gm in 250 mls @ 167 mls/hr IVPB [facility]; Protocol Stop: 05/16/18 10:33 Last Admin: 05/16/18 09:47 Dose: 167 mls/hr Insulin Detemir (Levemir) 5 unit SC HS [facility] Last Admin: 05/15/18 22:45 Dose: 5 unit Insulin Human Lispro (Humalog) 4 units SC AC [facility] Last Admin: 05/16/18 09:07 Dose: Not Given Insulin Human Regular (Humulin R Low) 0 units SC ACHS [facility]; Protocol Last Admin: 05/16/18 09:08 Dose: Not Given Metoprolol Tartrate (Lopressor) 25 mg PO BID [facility] Last Admin: 05/16/18 10:09 Dose: 25 mg Pantoprazole Sodium (Protonix Inj) 40 mg IVP Q12 [facility] Last Admin: 05/16/18 09:45 Dose: 40 mg Sucralfate (Carafate Oral Susp) 1 gm PO 0600,1600 [facility] Last Admin: 05/16/18 06:09 Dose: 1 gm - Labs Labs: 05/16/18 06:05 05/16/18 06:05 PT 12.8 SECONDS (9.4-12.5) H 05/15/18 01:30 INR 1.11 05/15/18 01:30 APTT 27.0 Seconds (25.1-36.5) 05/14/18 13:30
--- NOTE | 2018-05-16 12:45 | CP.PCM.PN ---
<Jagdeep Porras - Last Filed: 05/16/18 12:41> Subjective - Date & Time of Evaluation Date of Evaluation: 05/16/18 Time of Evaluation: 12:41 - Subjective Subjective: Internal Medicine Progress Note (Hospitalist's Service) Patient seen and assessed at bedside in ICU. Patient was noted to have fevers overnight with a Tmax of 103.3. Patient currently able to answer some ROS questions and reports that he would like his family to be notified of his condition. He also endorses that he is feeling more weak than usual. At this time he denies any further complaints and 12 point ROS is unremarkable outside of what was mentioned above. Objective - Vital Signs/Intake and Output Vital Signs (last 24 hours): Temp Pulse Resp BP Pulse Ox 102.4 F H 70 20 107/49 L 100 05/16/18 06:00 05/16/18 10:09 05/16/18 09:40 05/16/18 10:09 05/16/18 09:40 - Medications Medications: Current Medications Acetaminophen (Tylenol 325mg Tab) 325 mg PO Q6H PRN PRN Reason: Fever >100.4 F Albuterol/Ipratropium (Duoneb 3 Mg/0.5 Mg (3 Ml) Ud) 3 ml IH [id number] [facility]ANEL Last Admin: 05/16/18 11:05 Dose: 3 ml Cefepime HCl (Maxipime 1gm) 1 gm in 100 mls @ 25 mls/hr IVPB Q12 [facility]; Protocol Last Admin: 05/16/18 09:45 Dose: 25 mls/hr Dexmedetomidine HCl (Precedex 400mcg/100ml) 400 mcg in 100 mls @ 4.309 mls/hr IV .[id number] PRN; Protocol PRN Reason: Anxiety Last Titration: 05/15/18 16:10 Dose: 0 mcg/kg/hr, 0 mls/hr Insulin Detemir (Levemir) 5 unit SC HS [facility] Last Admin: 05/15/18 22:45 Dose: 5 unit Insulin Human Lispro (Humalog) 4 units SC AC [facility] Last Admin: 05/16/18 12:27 Dose: 4 u Insulin Human Regular (Humulin R Low) 0 units SC ACHS [facility]; Protocol Last Admin: 05/16/18 12:22 Dose: 2 units Metoprolol Tartrate (Lopressor) 25 mg PO BID [facility] Last Admin: 05/16/18 10:09 Dose: 25 mg Pantoprazole Sodium (Protonix Inj) 40 mg IVP Q12 [facility] Last Admin: 05/16/18 09:45 Dose: 40 mg Sucralfate (Carafate Oral Susp) 1 gm PO 0600,1600 [facility] Last Admin: 05/16/18 06:09 Dose: 1 gm - Labs Labs: 05/16/18 06:05 05/16/18 06:05 PT 12.8 SECONDS (9.4-12.5) H 05/15/18 01:30 INR 1.11 05/15/18 01:30 APTT 27.0 Seconds (25.1-36.5) 05/14/18 13:30 - Constitutional Appears: Non-toxic, No Acute Distress - Head Exam Head Exam: ATRAUMATIC, NORMOCEPHALIC - Eye Exam Eye Exam: EOMI, Normal appearance, PERRL. absent: Periorbital swelling, Periorbital tenderness, Scleral icterus Pupil Exam: NORMAL ACCOMODATION - ENT Exam ENT Exam: Normal Exam - Neck Exam Neck Exam: Full ROM, Normal Inspection. absent: Tenderness - Respiratory Exam Respiratory Exam: Wheezes (Mild expiratory wheezing diffusely), NORMAL BREATHING PATTERN. absent: Accessory Muscle Use, Chest Wall Tenderness, Decreased Breath Sounds, Clear to Ausculation Bilateral, Prolonged Expiratory Phase, Rales, Rhonchi, Respiratory Distress, Stridor - Cardiovascular Exam Cardiovascular Exam: REGULAR RHYTHM, RRR, +S1, +S2. absent: Bradycardia, Tachycardia, Clicks, Diastolic murmur, Gallop, Irregular Rhythm, JVD, Rubs, +S4, Murmur - GI/Abdominal Exam GI & Abdominal Exam: Soft, Normal Bowel Sounds. absent: Tenderness - Extremities Exam Extremities Exam: absent: Calf Tenderness - Neurological Exam Neurological Exam: Alert, Awake - Psychiatric Exam Psychiatric exam: Normal Affect, Normal Mood - Skin Skin Exam: Dry, Intact, Warm Assessment and Plan - Assessment and Plan (Free Text) Assessment: 62 year old male with a past medical history significant for CAD s/p CABG, systolic CHF, HTN, DM2, esophageal ulcer with esophagitis, gastritis, duodenitis, schizophrenia and anxiety who presented after a fall. Plan: 1. Sepsis -Currently unidentified source -Febrile, with tachycardia, without tachypnea and with resolving leukocytosis/lactic acidosis -CT Abdomen/Pelvis, Chest X-Ray and UA negative for sources of infection -1/2 blood cultures positive for gram positive cocci in clusters; Repeat blood cultures s/p fever pending -Urine cultures negative for growth -Procalcitonin elevated at 6.35 -CRP, ESR and Influenza pending -Continue Cefepime (Day 2) -Continue IVF as ordered -Low dose Tylenol Q6 PRN for fevers -2D Echocardiogram pending to r/o vegetations -ID consulted, all recommendations appreciated 2. Acute Renal Failure -Likely secondary to rhabdomyolysis and/or developing sepsis -BUN/Creatinine still uptrending to 37/5.0 (05/16) -s/p Lasix 40mg IVP once -Continue IVF as ordered -Continue Gan with UOP monitoring -Renal US pending -Nephrology consulted, all recommendations appreciated 3. [place] [id number] -Continue Normal Saline at 150mls/hr with -Continue to monitor CPK 4. CAD s/p CABG with Elevated Troponin -Likely secondary to rhabdomyolysis and ARF -Downtrended -Continue Lopressor -Holding ASA (anemia and +FOBT), LEROY inhibitor (ARF) and Statin (elevated LFT's) -Cardiology consulted, all recommendations appreciated 5. Chronic Systolic CHF -2D Echocardiogram pending -Most recent echocardiogram reviewed -Chest X-Ray (05/16) showed no PVC -Continue Lopressor -Continue daily Chest X-Ray's -Holding ASA (anemia and +FOBT), LEROY inhibitor (ARF) and Statin (elevated LFT's) -Cardiology consulted, all recommendations appreciated 6. Elevated LFT's -Continuing to downtrend -Continue to trend with daily CMP's 7. Microcytic Anemia -H/H stable at 8.1/28.3 on most recent CBC -+FOBT -Protonix increased to 40mg IVP Q12 -Continue Carafate as ordered -Continue to monitor with daily CBC's -GI consulted, all recommendations appreciated 8. History of DM2 -Continue SSI-Low and Accuchecks ACHS -Continue Levemir 5u HS -Continue Humalog 4u AC -A1c: 11.2 -Carbohydrate consistent diet 9. s/p Fall -Bilateral Knee X-Ray were unremarkable -CT Head and CT Cervical Spine were unremarkable except showing heavily calcified carotid bifurcation -Continue fall precautions -PT/OT when appropriate 10. Carotid Calcification -See CT Cervical Spine -Carotid/Vertebral Doppler US pending 11. Cholelithiasis -See GB US and CT Abdomen/Pelvis reports -Will recommend general surgery follow up as an outpatient 12. Claudication -Mildly abnormal resting MATTI's and bilateral popliteal, trifurcation and/or tibial disease -Continue to monitor for signs of necrosis GI Prophylaxis: Protonix and Carafate DVT Prophylaxis: SCD's Diet: Heart Healthy Moderate Carbohydrate Consistency Access: PIV with PICC placement pending Disposition: Patient currently on Precedex for agitation and will remain in the ICU until more medically appropriate to transfer to lower acuity level of care. Patient seen and case discussed with attending, Dr. Lou Serrano. Jagdeep Porras, PGY2 <Lou Serrano R - Last Filed: 05/17/18 21:33> Objective - Vital Signs/Intake and Output Vital Signs (last 24 hours): Temp Pulse Resp BP Pulse Ox 100.9 F H 80 43 H 117/50 L 95 05/17/18 20:24 05/17/18 19:20 05/17/18 19:00 05/17/18 19:20 05/17/18 19:00 Intake and Output: 05/17/18 05/18/18 18:59 06:59 Intake Total 1970 Output Total 225 Balance 1745 - Medications Medications: Current Medications Acetaminophen (Tylenol 325mg Tab) 325 mg PO Q6H PRN PRN Reason: Fever >100.4 F Last Admin: 05/17/18 20:24 Dose: 325 mg Albuterol/Ipratropium (Duoneb 3 Mg/0.5 Mg (3 Ml) Ud) 3 ml IH [id number] [facility]ANEL Last Admin: 05/17/18 15:02 Dose: 3 ml Benzonatate (Tessalon Perles) 100 mg PO TID [facility] Last Admin: 05/17/18 19:25 Dose: 100 mg Clonazepam (Klonopin) 2 mg PO Q12H [facility]; Protocol Last Admin: 05/17/18 10:00 Dose: 2 mg Diphenhydramine HCl (Benadryl) 25 mg PO HS PRN PRN Reason: Insomnia Last Admin: 05/17/18 20:25 Dose: 25 mg Guaifenesin/Dextromethorphan (Mucinex-Dm 600-30 Mg) 1 tab PO BID [facility] Last Admin: 05/17/18 19:25 Dose: 1 tab Cefepime HCl (Maxipime 1gm) 1 gm in 100 mls @ 25 mls/hr IVPB Q12 [facility]; Protocol Last Admin: 05/17/18 09:13 Dose: 25 mls/hr Insulin Detemir (Levemir) 5 unit SC HS [facility] Last Admin: 05/16/18 21:40 Dose: 5 unit Insulin Human Lispro (Humalog) 4 units SC AC [facility] Last Admin: 05/17/18 17:22 Dose: Not Given Insulin Human Regular (Humulin R Low) 0 units SC ACHS [facility]; Protocol Last Admin: 05/17/18 17:26 Dose: Not Given Metoprolol Tartrate (Lopressor) 25 mg PO BID [facility] Last Admin: 05/17/18 19:20 Dose: Not Given Pantoprazole Sodium (Protonix Inj) 40 mg IVP Q12 [facility] Last Admin: 05/17/18 09:50 Dose: 40 mg Sucralfate (Carafate Oral Susp) 1 gm PO 0600,1600 [facility] Last Admin: 05/17/18 16:50 Dose: 1 gm - Labs Labs: 05/17/18 05:20 05/17/18 05:20 PT 12.8 SECONDS (9.4-12.5) H 05/15/18 01:30 INR 1.11 05/15/18 01:30 APTT 27.0 Seconds (25.1-36.5) 05/14/18 13:30 Attending/Attestation - Attestation I have personally seen and examined this patient.: Yes I have fully participated in the care of the patient.: Yes I have reviewed all pertinent clinical information, including history, physical exam and plan: Yes Notes (Text): Patient seen and examined by me with resident at 8:40 AM on 05/16/18. Case including HPI, physical exam, and assessment and plan discussed with resident. Agree with above with following additions/corrections. Patient is a 62-year-old male with past medical history significant for artery disease status post CABG, systolic CHF, hypertension, schizophrenia, anxiety, GI bleed, esophageal ulcer, and type 2 diabetes that presented to the emergency room status post a fall. Patient states that he is not feeling well today. However, he cannot explain why he doesnt feel well. Patient denies any chest pain or shortness of breath. Patient is on cooling blanket and denies any chills. Patient has been febrile. No headaches or dizziness. No nausea, vomiting, or abdominal pain. No dysuria. Gan catheter in place. Physical exam: General: Awake and alert sitting up in bed in no acute distress HEENT: Normocephalic, atraumatic. Extraocular muscles intact, pupils equal and reactive, no scleral icterus. Oropharynx is pink and moist. Neck is supple. Cardiovascular: Regular rhythm. Normal S1 and S2. No murmurs, rubs, or gallops appreciated Pulmonary: Normal respiratory effort. No rales, rhonchi, or wheezing appreciated. Gastrointestinal: Soft, nondistended. Nontender. Positive bowel sounds all 4 quadrants. No guarding. Positive globular abdomen Musculoskeletal: Moves all extremities. No calf tenderness. Bilateral knee improving ecchymosis and mild erythema. Central nervous system: AAOx3 Dermatologic: Skin warm and dry. Positive improving ecchymosis on forehead. Assessment and plan: Patient is a 62-year-old male with past medical history significant for artery disease status post CABG, systolic CHF, hypertension, schizophrenia, anxiety, GI bleed, esophageal ulcer, and type 2 diabetes that presented to the emergency room status post a fall. 1. Sepsis. Patient continues to be febrile. Leukocytosis resolved. Tachycardia resolved. On cooling blanket. Pro-calcitonin elevated at 6.35. Lactic acid was 3.1 improved to 1.9. One blood culture positive for coag negative staph, likely contaminant. Second blood culture with no growth. Urine culture with no growth. Rapid flu pending. ID following, recommendations appreciated. Continue Maxipime. One dose of vancomycin given this morning. Continue IV fluids. CT abdomen and pelvis per radiologist showed no acute intra-abdominal findings. Gallbladder ultrasound radiologist showed 1.3 cm gallstone, no evidence of cholecystitis. Chest x-ray per radiologist showed no active disease. 2. Acute renal failure. Likely secondary to rhabdomyolysis and dehydration. Creatinine continues to trend up. Poor urine output. 1 dose of Lasix given this morning. Nephrology following, recommendations appreciated. Continue with Gan catheter. Continue to monitor urine output. Continue IV fluids. Follow up renal ultrasound. 3. Rhabdomyolysis. CPK downtrending. Continue with IV fluids. Monitor for fluid overload.Continue to monitor CPK. 4. Elevated troponins in a patient with a history of coronary artery disease. Patient with no chest pain. Elevated troponins likely secondary to rhabdomyolysis and acute renal failure. Troponins down trended. Cardiology following, recommendations appreciated. LEROY inhibitor held secondary to acute renal failure. Continue Lopressor. No aspirin secondary to anemia and stool for occult blood being positive. Statin held secondary to transaminitis. 5. Chronic systolic CHF. Not in acute exacerbation. Continue to monitor closely as patient is on IV fluids. Follow up chest xray in AM. LEROY inhibitor held for now secondary to acute renal failure. Continue with Lopressor. Cardiology following, recommendations appreciated. 6. Transaminitis. Secondary to rhabdomyolysis. Downtrending. Continue to monitor. 7. Anemia. History of GI bleed. Stool for occult blood positive. Rectal exam today did not show bleeding. H&H stable. GI following, recommendations appreciated. Continue to monitor H&H. Continue Carafate. Continue Protonix. 8. Type 2 diabetes with hyperglycemia. Hyperglycemia may be secondary to infection. Continue with insulin sliding scale. Continue Levemir5 units subcutaneous at bedtime and Humalog 4 units before meals. Continue to monitor Accu-Cheks. HgbA1c 11.2 9. Status post fall. Bilateral knee x-rays per radiologist showed normal radiographs of the right and left knee. CT cervical spine per radiologist was unremarkable. Head CT per radiologist showed no acute intracranial findings. Continue fall precautions. PT eval and treat. 10. GI prophylaxis. Continue protonix. Case was discussed in detail with the patient and insurance sales associate regarding current diagnosis and treatment plan.All questions answered.
--- NOTE | 2018-05-16 12:57 | US ---
PROCEDURE: Lower extremity MATTI exam HISTORY: Peripheral vascular disease with pain and claudication. Diabetes. Previous smoker. PHYSICIAN(S): Guido Hwang MD. FINDINGS: The resting MATTI's are mildly abnormal: Right, 0.71 and left, 0.71 The brachial systolic pressures are symmetric. The high thigh pressures and waveforms are relatively normal. The calf PVR waveforms augment normally. No significant gradients are noted across the thighs. There is a 24 mm gradient across the right knee and a 20 mm gradient across the left knee. The ankle and metatarsal waveforms are mildly blunted, greater on the right than the left. Findings are consistent with bilateral popliteal, trifurcation, and/or tibial disease. IMPRESSION: 1. Mildly abnormal resting ABIs. 2. Bilateral popliteal, trifurcation, and/or tibial disease.
[2018-05-16 13:22] LABS: HEMOGLOBIN 8.1 g/dL (14.0-18.0); MEAN CELL VOLUME 64.6 fl (80.0-105.0); MEAN CORPUSCULAR HEMOGLOBIN 18.5 pg (25.0-35.0); MEAN CORPUSCULAR HGB CONC 28.6 g/dl (31.0-37.0); MEAN PLATELET VOLUME 8.5 fl (7.0-11.0); RBC 4.38 10^6/uL (3.5-6.1); RED CELL DISTRIBUTION WIDTH 19.1 % (11.5-14.5); WHITE BLOOD COUNT 6.7 10^3/uL (4.5-11.0)
--- NOTE | 2018-05-16 14:24 | CP.PCM.CON ---
<Priyanka Curiel - Last Filed: 05/16/18 14:26> History of Present Illness - History of Present Illness History of Present Illness: GI Fellow PGY5 Consult Note This is a 62-year-old Male with PMH significant for CAD s/p CABG, EF 40%, Hypertension, Schizophrenia, Anxiety, GI bleed, Diabetes Mellitus Type 2, Esophageal Ulcer, LAGD esophagitis who presents to ED status-post fall. Patient states that he fell and that he was unable to get up after falling. GI was consulted for anemia and FOBT+. Pt had an EGD 2015 with LAGC esophagitis and esophageal ulcer. Repeat EGD 2016 showed LAGD esphoagtion. Pt was told to take PPI and followup but never did. Pt denies any rectal bleeding at home. 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,fall as per pt) Hx Difficulty Chewing: No Hx Epistaxis: No Hx Glaucoma: No Hx Macular Degeneration: No - RENAL Hx Chronic Kidney Disease: No Hx Kidney Stones: No - ENDOCRINE/METABOLIC Hx Hyperthyroidism: No Hx Hypothyroidism: No - HEMATOLOGICAL/ONCOLOGICAL Hx Anemia: Yes (1-25-17) - INTEGUMENTARY Hx Dermatological Problems: No - MUSCULOSKELETAL/RHEUMATOLOGICAL Hx Arthritis: No Hx Fractures: No Hx Osteoporosis: No - GASTROINTESTINAL Hx Gastritis: Yes - GENITOURINARY/GYNECOLOGICAL Hx Sexually Transmitted Disorders: No - PSYCHIATRIC Hx Anxiety: Yes Hx Bipolar Disorder: Yes Hx Depression: Yes Hx Paranoia: Yes Hx Schizophrenia: Yes Hx Substance Use: No - SURGICAL HISTORY Hx Coronary Artery Bypass Graft: Yes - ANESTHESIA Hx Anesthesia: Yes Hx Anesthesia Reactions: No Hx Malignant Hyperthermia: No Meds Allergies/Adverse Reactions: Allergies Allergy/AdvReac Type Severity Reaction Status Date / Time zoloft Allergy RASH Uncoded 05/14/18 13:00 - Medications Medications: Current Medications Acetaminophen (Tylenol 325mg Tab) 325 mg PO Q6H PRN PRN Reason: Fever >100.4 F Albuterol/Ipratropium (Duoneb 3 Mg/0.5 Mg (3 Ml) Ud) 3 ml IH [id number] [facility] Last Admin: 05/16/18 11:05 Dose: 3 ml Cefepime HCl (Maxipime 1gm) 1 gm in 100 mls @ 25 mls/hr IVPB Q12 [facility]; Protocol Last Admin: 05/16/18 09:45 Dose: 25 mls/hr Dexmedetomidine HCl (Precedex 400mcg/100ml) 400 mcg in 100 mls @ 4.309 mls/hr IV .[id number] PRN; Protocol PRN Reason: Anxiety Last Titration: 05/15/18 16:10 Dose: 0 mcg/kg/hr, 0 mls/hr Potassium Chloride 20 meq/ (Sodium Chloride) 1,010 mls @ 150 mls/hr IV .[id number] [facility] Insulin Detemir (Levemir) 5 unit SC HS [facility] Last Admin: 05/15/18 22:45 Dose: 5 unit Insulin Human Lispro (Humalog) 4 units SC AC [facility] Last Admin: 05/16/18 12:27 Dose: 4 u Insulin Human Regular (Humulin R Low) 0 units SC ACHS [facility]; Protocol Last Admin: 05/16/18 12:22 Dose: 2 units Metoprolol Tartrate (Lopressor) 25 mg PO BID [facility] Last Admin: 05/16/18 10:09 Dose: 25 mg Pantoprazole Sodium (Protonix Inj) 40 mg IVP Q12 [facility] Last Admin: 05/16/18 09:45 Dose: 40 mg Sucralfate (Carafate Oral Susp) 1 gm PO 0600,1600 [facility] Last Admin: 05/16/18 06:09 Dose: 1 gm Physical Exam - Constitutional Appears: Non-toxic, No Acute Distress - Head Exam Head Exam: ATRAUMATIC, NORMAL INSPECTION, NORMOCEPHALIC - Eye Exam Eye Exam: EOMI, Normal appearance, PERRL - ENT Exam ENT Exam: Mucous Membranes Moist - Neck Exam Neck exam: Positive for: Normal Inspection - Respiratory Exam Respiratory Exam: Clear to Auscultation Bilateral, NORMAL BREATHING PATTERN - Cardiovascular Exam Cardiovascular Exam: REGULAR RHYTHM, RRR, +S1, +S2 - GI/Abdominal Exam GI & Abdominal Exam: Normal Bowel Sounds, Soft. absent: Distended, Tenderness - Rectal Exam Rectal Exam: absent: Black Stool, Bloody Stool Additional comments: brown stool - Neurological Exam Neurological exam: Alert - Psychiatric Exam Psychiatric exam: Flat Affect - Skin Skin Exam: Dry, Intact, Normal Color, Warm Results - Vital Signs Recent Vital Signs: Last Vital Signs Temp 102.4 F H 05/16/18 06:00 Pulse 70 05/16/18 10:09 Resp 20 05/16/18 09:40 BP 107/49 L 05/16/18 10:09 Pulse Ox 100 05/16/18 09:40 - Labs Result Diagrams: 05/16/18 13:14 05/16/18 06:05 Labs: Laboratory Results - last 24 hr 05/15/18 05/15/18 05/15/18 06:00 10:33 15:55 WBC RBC Hgb Hct MCV MCH MCHC RDW Plt Count MPV Gran % Lymph % (Auto) [place] % (Auto) Eos % (Auto) Baso % (Auto) Gran # Lymph # (Auto) [place] # (Auto) Eos # (Auto) Baso # (Auto) Sodium Potassium Chloride Carbon Dioxide Anion Gap BUN Creatinine Est GFR ( Amer) Est GFR (Non-Af Amer) POC Glucose (mg/dL) 290 H Random Glucose Hemoglobin A1c 11.2 H D Calcium Phosphorus Magnesium Total Bilirubin AST ALT Alkaline Phosphatase Total Creatine Kinase CK-MB (CK-2) CK-MB (CK-2) % Total Protein Albumin Globulin Albumin/Globulin Ratio Procalcitonin 6.35 H Blood Type Antibody Screen BBK History Checked 05/15/18 05/15/18 05/16/18 16:20 21:54 06:05 WBC RBC Hgb Hct MCV MCH MCHC RDW Plt Count MPV Gran % Lymph % (Auto) [place] % (Auto) Eos % (Auto) Baso % (Auto) Gran # Lymph # (Auto) [place] # (Auto) Eos # (Auto) Baso # (Auto) Sodium 135 135 Potassium 3.9 4.1 Chloride 96 L 100 Carbon Dioxide 30 28 Anion Gap 12 12 BUN 32 H 37 H Creatinine 3.5 H 5.0 H Est GFR ( Amer) 22 14 Est GFR (Non-Af Amer) 18 12 POC Glucose (mg/dL) 229 H Random Glucose 255 H 181 H Hemoglobin A1c Calcium 8.2 L 7.5 L Phosphorus 4.1 Magnesium 2.3 H Total Bilirubin 0.6 0.6 AST 367 H 236 H D ALT 74 H 65 H Alkaline Phosphatase 98 81 Total Creatine Kinase 86254 H [address]50 H CK-MB (CK-2) 7.4 H 3.3 CK-MB (CK-2) % 0.0 L Cancelled Total Protein 6.3 5.6 L Albumin 3.2 2.7 L Globulin 3.1 2.8 Albumin/Globulin Ratio 1.0 L 1.0 L Procalcitonin Blood Type Antibody Screen BBK History Checked 05/16/18 05/16/18 05/16/18 06:05 06:05 07:40 WBC 7.4 D RBC 4.38 Hgb 7.9 L Hct 28.6 L MCV 65.3 L MCH 18.0 L MCHC 27.6 L RDW 19.1 H Plt Count 108 L MPV 8.1 Gran % 87.8 H Lymph % (Auto) 5.3 L [place] % (Auto) 4.6 Eos % (Auto) 2.3 Baso % (Auto) 0.0 Gran # 6.45 Lymph # (Auto) 0.4 L [place] # (Auto) 0.3 Eos # (Auto) 0.2 Baso # (Auto) 0.00 Sodium Potassium Chloride Carbon Dioxide Anion Gap BUN Creatinine Est GFR ( Amer) Est GFR (Non-Af Amer) POC Glucose (mg/dL) 195 H Random Glucose Hemoglobin A1c Calcium Phosphorus Magnesium Total Bilirubin AST ALT Alkaline Phosphatase Total Creatine Kinase CK-MB (CK-2) CK-MB (CK-2) % Total Protein Albumin Globulin Albumin/Globulin Ratio Procalcitonin Blood Type O POSITIVE Antibody Screen Negative BBK History Checked Patient has bt 05/16/18 05/16/18 11:41 13:14 WBC 6.7 RBC 4.38 Hgb 8.1 L Hct 28.3 L MCV 64.6 L MCH 18.5 L MCHC 28.6 L RDW 19.1 H Plt Count 112 L MPV 8.5 Gran % Lymph % (Auto) [place] % (Auto) Eos % (Auto) Baso % (Auto) Gran # Lymph # (Auto) [place] # (Auto) Eos # (Auto) Baso # (Auto) Sodium Potassium Chloride Carbon Dioxide Anion Gap BUN Creatinine Est GFR ( Amer) Est GFR (Non-Af Amer) POC Glucose (mg/dL) 229 H Random Glucose Hemoglobin A1c Calcium Phosphorus Magnesium Total Bilirubin AST ALT Alkaline Phosphatase Total Creatine Kinase CK-MB (CK-2) CK-MB (CK-2) % Total Protein Albumin Globulin Albumin/Globulin Ratio Procalcitonin Blood Type Antibody Screen BBK History Checked Assessment & Plan - Assessment and Plan (Free Text) Assessment: This is a 62 year old male with a past medical history significant for CAD s/p CABG, systolic CHF, HTN, DM2, esophageal ulcer with esophagitis, gastritis, duodenitis, schizophrenia and anxiety who presented after a fall. Anemia LAGD esophagitis 2017 Sepsis Acute Renal Failure Rhabdomyolysis Elevated LFT's CAD s/p CABG with Elevated Troponin Chronic Systolic CHF Cholelithiasis -Continue supportive -H/H stable at 8.1/28.3 on most recent CBC -+FOBT, rectal exam with brown stool, no active GI bleeding -Protonix 40mg IVP Q12 -Continue Carafate as ordered -Will keep NPO in am for possible EGD if GI bleeding -LFTs likely from rhabdomyolysis, continue to monitor -IVF hydration -Abx per ID -Further management by ICU team <Janes Nieves V - Last Filed: 05/16/18 22:35> Meds - Medications Medications: Current Medications Acetaminophen (Tylenol 325mg Tab) 325 mg PO Q6H PRN PRN Reason: Fever >100.4 F Last Admin: 05/16/18 16:59 Dose: 325 mg Albuterol/Ipratropium (Duoneb 3 Mg/0.5 Mg (3 Ml) Ud) 3 ml IH [id number] [facility] Last Admin: 05/16/18 20:00 Dose: 3 ml Diphenhydramine HCl (Benadryl) 25 mg PO HS PRN PRN Reason: Insomnia Last Admin: 05/16/18 20:04 Dose: 25 mg Cefepime HCl (Maxipime 1gm) 1 gm in 100 mls @ 25 mls/hr IVPB Q12 [facility]; Protocol Last Admin: 05/16/18 21:40 Dose: 25 mls/hr Dexmedetomidine HCl (Precedex 400mcg/100ml) 400 mcg in 100 mls @ 4.309 mls/hr IV .[id number] PRN; Protocol PRN Reason: Anxiety Last Admin: 05/16/18 21:49 Dose: 0.2 mcg/kg/hr, 4.309 mls/hr Potassium Chloride 20 meq/ (Sodium Chloride) 1,010 mls @ 150 mls/hr IV .Q6H44M [facility] Last Admin: 05/16/18 21:33 Dose: Not Given Insulin Detemir (Levemir) 5 unit SC HS [facility] Last Admin: 05/16/18 21:40 Dose: 5 unit Insulin Human Lispro (Humalog) 4 units SC AC [facility] Last Admin: 05/16/18 16:58 Dose: 4 u Insulin Human Regular (Humulin R Low) 0 units SC ACHS [facility]; Protocol Last Admin: 05/16/18 21:41 Dose: 1 units Metoprolol Tartrate (Lopressor) 25 mg PO BID [facility] Last Admin: 05/16/18 17:00 Dose: 25 mg Pantoprazole Sodium (Protonix Inj) 40 mg IVP Q12 [facility] Last Admin: 05/16/18 21:40 Dose: 40 mg Sucralfate (Carafate Oral Susp) 1 gm PO 0600,1600 [facility] Last Admin: 05/16/18 16:58 Dose: 1 gm Results - Vital Signs Recent Vital Signs: Last Vital Signs Temp 97.7 F 05/16/18 22:07 Pulse 77 05/16/18 20:21 Resp 26 H 05/16/18 19:30 BP 102/54 L 05/16/18 19:00 Pulse Ox 52 L 05/16/18 19:30 - Labs Result Diagrams: 05/16/18 13:14 05/16/18 06:05 Labs: Laboratory Results - last 24 hr 05/15/18 05/15/18 05/16/18 10:33 21:54 06:05 WBC RBC Hgb Hct MCV MCH MCHC RDW Plt Count MPV Gran % Lymph % (Auto) [place] % (Auto) Eos % (Auto) Baso % (Auto) Gran # Lymph # (Auto) [place] # (Auto) Eos # (Auto) Baso # (Auto) ESR Sodium 135 Potassium 4.1 Chloride 100 Carbon Dioxide 28 Anion Gap 12 BUN 37 H Creatinine 5.0 H Est GFR ( Amer) 14 Est GFR (Non-Af Amer) 12 POC Glucose (mg/dL) 229 H Random Glucose 181 H Hemoglobin A1c 11.2 H D Calcium 7.5 L Phosphorus 4.1 Magnesium 2.3 H Total Bilirubin 0.6 AST 236 H D ALT 65 H Alkaline Phosphatase 81 Total Creatine Kinase 34169 H CK-MB (CK-2) 3.3 CK-MB (CK-2) % Cancelled Total Protein 5.6 L Albumin 2.7 L Globulin 2.8 Albumin/Globulin Ratio 1.0 L Blood Type Antibody Screen BBK History Checked 05/16/18 05/16/18 05/16/18 06:05 06:05 07:40 WBC 7.4 D RBC 4.38 Hgb 7.9 L Hct 28.6 L MCV 65.3 L MCH 18.0 L MCHC 27.6 L RDW 19.1 H Plt Count 108 L MPV 8.1 Gran % 87.8 H Lymph % (Auto) 5.3 L [place] % (Auto) 4.6 Eos % (Auto) 2.3 Baso % (Auto) 0.0 Gran # 6.45 Lymph # (Auto) 0.4 L [place] # (Auto) 0.3 Eos # (Auto) 0.2 Baso # (Auto) 0.00 ESR Sodium Potassium Chloride Carbon Dioxide Anion Gap BUN Creatinine Est GFR ( Amer) Est GFR (Non-Af Amer) POC Glucose (mg/dL) 195 H Random Glucose Hemoglobin A1c Calcium Phosphorus Magnesium Total Bilirubin AST ALT Alkaline Phosphatase Total Creatine Kinase CK-MB (CK-2) CK-MB (CK-2) % Total Protein Albumin Globulin Albumin/Globulin Ratio Blood Type O POSITIVE Antibody Screen Negative BBK History Checked Patient has bt 05/16/18 05/16/18 05/16/18 11:41 13:14 16:38 WBC 6.7 RBC 4.38 Hgb 8.1 L Hct 28.3 L MCV 64.6 L MCH 18.5 L MCHC 28.6 L RDW 19.1 H Plt Count 112 L MPV 8.5 Gran % Lymph % (Auto) [place] % (Auto) Eos % (Auto) Baso % (Auto) Gran # Lymph # (Auto) [place] # (Auto) Eos # (Auto) Baso # (Auto) ESR 39 H Sodium Potassium Chloride Carbon Dioxide Anion Gap BUN Creatinine Est GFR ( Amer) Est GFR (Non-Af Amer) POC Glucose (mg/dL) 229 H 175 H Random Glucose Hemoglobin A1c Calcium Phosphorus Magnesium Total Bilirubin AST ALT Alkaline Phosphatase Total Creatine Kinase CK-MB (CK-2) CK-MB (CK-2) % Total Protein Albumin Globulin Albumin/Globulin Ratio Blood Type Antibody Screen BBK History Checked 05/16/18 21:25 WBC RBC Hgb Hct MCV MCH MCHC RDW Plt Count MPV Gran % Lymph % (Auto) [place] % (Auto) Eos % (Auto) Baso % (Auto) Gran # Lymph # (Auto) [place] # (Auto) Eos # (Auto) Baso # (Auto) ESR Sodium Potassium Chloride Carbon Dioxide Anion Gap BUN Creatinine Est GFR ( Amer) Est GFR (Non-Af Amer) POC Glucose (mg/dL) 183 H Random Glucose Hemoglobin A1c Calcium Phosphorus Magnesium Total Bilirubin AST ALT Alkaline Phosphatase Total Creatine Kinase CK-MB (CK-2) CK-MB (CK-2) % Total Protein Albumin Globulin Albumin/Globulin Ratio Blood Type Antibody Screen BBK History Checked Attending/Attestation - Attestation I have personally seen and examined this patient.: Yes I have fully participated in the care of the patient.: Yes I have reviewed all pertinent clinical information: Yes Notes (Text): This is an addendum to GI consult report dictated by the GI Fellow.The patient was seen and examined earlier. Medical records, lab studies, imagings were reviewed. Last 24 hours events reviewed. Agreed with the above treatment plan as outlined in GI Fellow 's notes with the addition of the following this 62-year-old patient with coronary artery disease admitted with the rhabdomyolysis< acute kidney injury patient was also found to be anemic with a stool for occult blood positive. GI consult was requested to evaluate for anemia This patient's history of esophageal ulcerations in the past. Patient had a colonoscopy in 2016 and had no polyps only diverticulosis and internal hemorrhoids. On exam abdomen was soft nontender recommend to Continue PPI Follow-up hemoglobin EGD to further evaluate. in view of history of esophageal ulcerations Will discuss with the patient's sister regarding this 05/16/18 22:31
--- NOTE | 2018-05-16 14:40 | PN ---
DATE: 05/16/2018 SUBJECTIVE: The patient is in bed, in no acute distress. The patient did have a fever yesterday and appears to be comfortable. PHYSICAL EXAMINATION: VITAL SIGNS: Temperature was 103.3 yesterday. This morning's temperature not recorded at this time and with blood pressure 160/60, respiratory rate of 18, heart rate of 97. HEENT: Unremarkable. NECK: Supple. LUNGS: Have decreased breath sounds. HEART: Normal S1, S2. ABDOMEN: Soft, nontender. LABORATORY DATA: Laboratory examination reveals a white count of 7.4, hemoglobin of 7.9, platelets of 108. BUN of 37, creatinine is 5. Urinalysis is noted and stool for occult blood is positive and microbiology reveals a gram-positive cocci in the blood which is a coag-negative staph by one bottle and urine cultures negative. The other blood culture is no growth. The patient had a chest x-ray today, the results are pending. ASSESSMENT AND PLAN: Is a 62-year-old male who was seen earlier this morning who has a history of schizophrenia, anxiety, dementia, coronary artery disease, gastrointestinal bleed, mentally challenged, diabetes mellitus, history of esophageal ulcers, deafness and an anemia who was found to be at home, admitted, found to have leukocytosis and rhabdomyolysis. 1. Rhabdomyolysis with systemic inflammatory response syndrome with acute kidney injury and a coag-negative staph in one blood culture bacteremia most consistent with contamination. The patient has no intravascular devices. Currently on vancomycin and Maxipime day #2. Awaiting further identification of the gram-positive cocci and we will repeat blood cultures x2. The patient is on intermittent vancomycin and the and we will give another dose of vancomycin and order a sed rate and C-reactive protein and order a vanco random level for a.m... We will also check on the echo. The patient is a poor historian. I do not believe there is any intravascular devices. He did have a open heart surgery but no valves were placed according to the patient. Check on the HIV, echo, repeat blood cultures, identification of gram-positive cocci, sed rate and C-reactive protein. The patient is not behaving like endocarditis, although always in the differential diagnosis.. We will check on the echo results. Syd Robin MD
--- NOTE | 2018-05-16 18:29 | PN ---
DATE: 05/16/2018 LOCATION: The patient in ICU 128, bed 2. REASON FOR CONSULTATION: Followup, coronary artery disease, history of COPD, elevated troponin, elevated CPK, rhabdomyolysis, cardiomyopathy with ejection fraction of 40%, hypertension, schizophrenia, diabetes mellitus, history of GI bleeding, and status post fall. HISTORY OF PRESENT ILLNESS: The patient felt weak in the legs and fell down on the floor, could not get up. He denied any chest pain, shortness of breath, or palpitation, brought to the emergency room where he was found to have rhabdomyolysis with markedly elevated CPK and abnormal renal function. PHYSICAL EXAMINATION: GENERAL: The patient is lying flat in bed without chest pain, shortness of breath, or palpitation. VITAL SIGNS: Blood pressure 107/49, respiratory rate 20, and pulse 70. The patient is afebrile. HEENT: Head is normocephalic. Eyes, pupils normal. Conjunctivae, slightly pale. NECK: JVP low. Carotid equal. THORAX: AP diameter normal. LUNGS: Clear. CARDIOVASCULAR: S1, S2. ABDOMEN: Soft and nontender. No organomegaly. Bowel sounds are normal. EXTREMITIES: No clubbing. No cyanosis. LABORATORY DATA: WBC 7.4, hemoglobin 7.9, hematocrit 28.6, platelets 108. Sodium 135, potassium 4.1, BUN 37, creatinine 5.0, random sugar 229, calcium 7.5, phosphorus 4.1, magnesium 2.3, AST 236, ALT 65. Total CPK now coming down to 14,817, it went up to 26,045. Initial troponin was 0.74, second one was 2.11, and third was 1.62. DIAGNOSES: Rhabdomyolysis related to fall, severe elevation of creatine phosphokinase, troponin elevation is probably reflection of the markedly elevated creatine phosphokinase, also abnormal kidney function, history of coronary artery disease with coronary artery bypass graft in the past, cardiomyopathy with left ventricular ejection fraction of 40%, schizophrenia, anxiety, history of gastrointestinal bleeding, esophageal ulcer, anemia, and stool occult blood positive. PLAN: The patient on sucralfate 1 g p.o. b.i.d. The patient on dexmedetomidine ____. Insulin as ordered. Metoprolol 25 b.i.d., cefepime 1 g IV every 12 hours, and Protonix 40 IV every 12 hours. The patient is to have repeat labs. Chemistry already requested for tomorrow. We will add CBC to be repeated tomorrow. We will follow with you. The patient has already been seen by sheet ironworker. Maurice Stephen MD
[2018-05-16] MEDS: Insulin Detemir 100 units/ml Vial (Levemir) SC SCH (21:40)
[2018-05-16] MEDS: Dexmedetomidine 400mcg/100mL 400 MCG/100 ML BOTTLE IV PRN (21:49)
[2018-05-17] MEDS: Albuterol-Ipratrop 3 mg / 0.5 (3 ml) UD IH SCH ×5 (00:45→15:02)
[2018-05-17] MEDS: Sucralfate 1 gm/10 ml Oral Susp UD PO SCH ×2 (05:20→16:50)
[2018-05-17 06:18] LABS: BASO # 0.01 K/mm3 (0.0-2.0); BASO % 0.2 % (0.0-3.0); EOS # 0.2 (0.0-0.7); EOS % 3.8 % (1.5-5.0); GRAN # 4.63 (1.4-6.5); GRAN % 83.1 % (50.0-68.0); HEMOGLOBIN 8.6 g/dL (14.0-18.0); LYMPH # 0.4 (1.2-3.4); LYMPH % 7.2 % (22.0-35.0); MEAN CELL VOLUME 65.2 fl (80.0-105.0); MEAN CORPUSCULAR HEMOGLOBIN 18.3 pg (25.0-35.0); MEAN CORPUSCULAR HGB CONC 28.1 g/dl (31.0-37.0); MEAN PLATELET VOLUME 8.9 fl (7.0-11.0); MONO # 0.3 (0.1-0.6); MONO % 5.7 % (1.0-6.0); RBC 4.69 10^6/uL (3.5-6.1); RED CELL DISTRIBUTION WIDTH 19.3 % (11.5-14.5); WHITE BLOOD COUNT 5.6 10^3/uL (4.5-11.0)
[2018-05-17 06:42] LABS: ALB/GLOB RATIO 0.9 (1.1-1.8); ALBUMIN 2.7 g/dL (3.0-4.8); CALCIUM 7.2 mg/dL (8.4-10.5)
--- NOTE | 2018-05-17 07:33 | CP.CCUPN ---
<Orlin Barry - Last Filed: 05/17/18 14:49> CCU Subjective - Physician Review Subjective (Free Text): Orlin Barry DO, PGY1. ICU progress note for Dr Miranda Patient seen and examined at bedside. He is AAOx3, in NAD. He reports SOB and chest congestion and inability to expel sputum out. He is anxious and frequently asks for his home med clonezapam but he is is n precedex No acute events overnight. Patient denied CP, fever, palpitations, N/V CCU Objective - Vital Signs / Intake & Output Vital Signs (Last 4 hours): Vital Signs Temp Pulse Resp BP Pulse Ox 05/17/18 06:00 87 05/17/18 04:39 99.4 F 05/17/18 04:30 90 28 H 72 L 05/17/18 04:20 87 22 96 05/17/18 04:10 88 25 H 100 05/17/18 04:09 89 23 05/17/18 04:08 89 25 H 05/17/18 04:07 90 25 H 05/17/18 04:06 90 24 05/17/18 04:05 92 H 24 05/17/18 04:04 94 H 05/17/18 04:03 94 H 05/17/18 04:00 86 25 H 150/65 60 L 05/17/18 03:50 85 23 77 L 05/17/18 03:40 86 24 88 L Intake and Output (Last 8hrs): Intake & Output 05/16/18 05/17/18 05/17/18 22:59 06:59 14:59 Intake Total 2982 1888 Output Total 135 250 Balance 2847 1638 Weight 280 lb Intake: IV 2282 1348 Right Hand 2186 1348 Oral 700 540 Output: Urine 135 250 Urethral (Reinoso) 135 250 Other: # Bowel Movements 1 1 - Physical Exam Head: Positive for: Atraumatic, Normocephalic Pupils: Positive for: PERRL Extroacular Muscles: Positive for: EOMI Conjunctiva: Positive for: Normal Mouth: Positive for: Dry Nose (External): Positive for: Abrasion (+abrasion to nasal bridge) Respiratory/Chest: Positive for: Wheezes (diffuse throughout both lungs), Other (+old healed sternotomy scar noted to midline ). Negative for: Accessory Muscle Use, Rales, Rhonchi Cardiovascular: Positive for: Normal S1, S2, Tachycardic Abdomen: Positive for: Distention (+distended belly soft non-tender), Normal Bowel Sounds Lower Extremity: Positive for: NORMAL PULSES, Other (ecchymoses noted to lower extremities with abrasions noted to b/L knees) Neurological: Positive for: GCS=15, CN II-XII Intact, Speech Normal Skin: Positive for: Abrasion (b/l knee) Psychiatric: Positive for: Alert, Oriented x 3, Normal Insight, Anxious - Medications Active Medications: Active Medications Generic Name Dose Route Start Last Admin Trade Name Freq PRN Reason Stop Dose Admin Acetaminophen 325 mg 05/16/18 07:57 05/16/18 16:59 Tylenol 325mg Tab PO 325 mg Q6H PRN Administration Fever >100.4 F Albuterol/Ipratropium 3 ml 05/15/18 11:30 05/17/18 04:30 Duoneb 3 Mg/0.5 Mg (3 Ml) Ud IH 3 ml [id number] CHANEL Administration Diphenhydramine HCl 25 mg 05/16/18 19:54 05/16/18 20:04 Benadryl PO 25 mg HS PRN Administration Insomnia Cefepime HCl 1 gm in 100 mls @ 25 mls/hr 05/14/18 22:45 05/16/18 21:40 Maxipime 1gm IVPB 25 mls/hr Q12 CHANEL Administration Protocol Dexmedetomidine HCl 400 mcg in 100 mls @ 4.309 mls/hr 05/15/18 15:07 05/16/18 21:49 Precedex 400mcg/100ml IV 0.2 mcg/kg/hr .[id number] PRN 4.309 mls/hr Anxiety Administration Protocol 0.2 MCG/KG/HR Potassium Chloride 20 meq/ 1,010 mls @ 150 mls/hr 05/16/18 14:00 05/17/18 05:18 Sodium Chloride IV Not Given .[id number] CHANEL Insulin Detemir 5 unit 05/15/18 22:00 05/16/18 21:40 Levemir SC 5 unit HS CHANEL Administration Insulin Human Lispro 4 units 05/16/18 07:30 05/16/18 16:58 Humalog SC 4 u AC CHANEL Administration Insulin Human Regular 0 units 12/07/18 22:00 05/16/18 21:41 Humulin R Low SC 1 units ACHS CHANEL Administration Protocol Metoprolol Tartrate 25 mg 05/14/18 18:45 05/16/18 17:00 Lopressor PO 25 mg BID CHANEL Administration Pantoprazole Sodium 40 mg 05/16/18 10:00 05/16/18 21:40 Protonix Inj IVP 40 mg Q12 CHANEL Administration Sucralfate 1 gm 05/15/18 11:15 05/17/18 05:20 Carafate Oral Susp PO 1 gm 0600,1600 CHANEL Administration - Patient Studies Lab Studies: Microbiology Studies 05/14/18 14:00 Blood Culture - Preliminary Blood NO GROWTH AFTER 48 HOURS 05/14/18 19:54 MRSA Culture (Admit) - Final Nose MRSA NOT DETECTED 05/14/18 13:20 S.aureus & Coag-Neg Staph PNA FISH - Final Blood Blood Culture - Preliminary Coagulase Neg Staphylococcus Gram Stain - Final Lab Studies 05/17/18 05/17/18 05/17/18 Range/Units 07:17 05:20 05:20 WBC (4.5-11.0) 10^3/uL RBC (3.5-6.1) 10^6/uL Hgb (14.0-18.0) g/dL Hct (42.0-52.0) % MCV (80.0-105.0) fl MCH (25.0-35.0) pg MCHC (31.0-37.0) g/dl RDW (11.5-14.5) % Plt Count (120.0-450.0) 10^3/uL MPV (7.0-11.0) fl Gran % (50.0-68.0) % Lymph % (Auto) (22.0-35.0) % [place] % (Auto) (1.0-6.0) % Eos % (Auto) (1.5-5.0) % Baso % (Auto) (0.0-3.0) % Gran # (1.4-6.5) Lymph # (Auto) (1.2-3.4) [place] # (Auto) (0.1-0.6) Eos # (Auto) (0.0-0.7) Baso # (Auto) (0.0-2.0) K/mm3 ESR (0.00-15.0) mm/hr Sodium 135 (132-148) mmol/L Potassium 4.5 (3.6-5.0) mmol/L Chloride 103 (98-107) mmol/L Carbon Dioxide 22 (21-33) mmol/L Anion Gap 14 (10-20) BUN 48 H (7-21) mg/dL Creatinine 6.3 H (0.8-1.5) mg/dl Est GFR ( Amer) 11 Est GFR (Non-Af Amer) 9 POC Glucose (mg/dL) 130 H (65-110) mg/dL Random Glucose 136 H (70-110) mg/dL Hemoglobin A1c (4.2-6.5) % Calcium 7.2 L (8.4-10.5) mg/dL Total Bilirubin 0.5 (0.2-1.3) mg/dL AST 142 H D (17-59) U/L ALT 60 H (7-56) U/L Alkaline Phosphatase 85 (38-126) U/L Ammonia (9-33) umol/L CK-MB (CK-2) (0.0-3.6) ng/mL CK-MB (CK-2) % Total Protein 5.8 (5.8-8.3) g/dL Albumin 2.7 L (3.0-4.8) g/dL Globulin 3.1 gm/dL Albumin/Globulin Ratio 0.9 L (1.1-1.8) Random Vancomycin 16.7 L (20-40) ug/mL Blood Type Antibody Screen 05/17/18 05/17/18 05/16/18 Range/Units 05:20 05:20 21:25 WBC 5.6 (4.5-11.0) 10^3/uL RBC 4.69 (3.5-6.1) 10^6/uL Hgb 8.6 L (14.0-18.0) g/dL Hct 30.6 L (42.0-52.0) % MCV 65.2 L (80.0-105.0) fl MCH 18.3 L (25.0-35.0) pg MCHC 28.1 L (31.0-37.0) g/dl RDW 19.3 H (11.5-14.5) % Plt Count 121 (120.0-450.0) 10^3/uL MPV 8.9 (7.0-11.0) fl Gran % 83.1 H (50.0-68.0) % Lymph % (Auto) 7.2 L (22.0-35.0) % [place] % (Auto) 5.7 (1.0-6.0) % Eos % (Auto) 3.8 (1.5-5.0) % Baso % (Auto) 0.2 (0.0-3.0) % Gran # 4.63 (1.4-6.5) Lymph # (Auto) 0.4 L (1.2-3.4) [place] # (Auto) 0.3 (0.1-0.6) Eos # (Auto) 0.2 (0.0-0.7) Baso # (Auto) 0.01 (0.0-2.0) K/mm3 ESR (0.00-15.0) mm/hr Sodium (132-148) mmol/L Potassium (3.6-5.0) mmol/L Chloride (98-107) mmol/L Carbon Dioxide (21-33) mmol/L Anion Gap (10-20) BUN (7-21) mg/dL Creatinine (0.8-1.5) mg/dl Est GFR ( Amer) Est GFR (Non-Af Amer) POC Glucose (mg/dL) 183 H (65-110) mg/dL Random Glucose (70-110) mg/dL Hemoglobin A1c (4.2-6.5) % Calcium (8.4-10.5) mg/dL Total Bilirubin (0.2-1.3) mg/dL AST (17-59) U/L ALT (7-56) U/L Alkaline Phosphatase (38-126) U/L Ammonia < 9 L (9-33) umol/L CK-MB (CK-2) (0.0-3.6) ng/mL CK-MB (CK-2) % Total Protein (5.8-8.3) g/dL Albumin (3.0-4.8) g/dL Globulin gm/dL Albumin/Globulin Ratio (1.1-1.8) Random Vancomycin (20-40) ug/mL Blood Type Antibody Screen 05/16/18 05/16/18 05/16/18 Range/Units 16:38 13:14 11:41 WBC 6.7 (4.5-11.0) 10^3/uL RBC 4.38 (3.5-6.1) 10^6/uL Hgb 8.1 L (14.0-18.0) g/dL Hct 28.3 L (42.0-52.0) % MCV 64.6 L (80.0-105.0) fl MCH 18.5 L (25.0-35.0) pg MCHC 28.6 L (31.0-37.0) g/dl RDW 19.1 H (11.5-14.5) % Plt Count 112 L (120.0-450.0) 10^3/uL MPV 8.5 (7.0-11.0) fl Gran % (50.0-68.0) % Lymph % (Auto) (22.0-35.0) % [place] % (Auto) (1.0-6.0) % Eos % (Auto) (1.5-5.0) % Baso % (Auto) (0.0-3.0) % Gran # (1.4-6.5) Lymph # (Auto) (1.2-3.4) [place] # (Auto) (0.1-0.6) Eos # (Auto) (0.0-0.7) Baso # (Auto) (0.0-2.0) K/mm3 ESR 39 H (0.00-15.0) mm/hr Sodium (132-148) mmol/L Potassium (3.6-5.0) mmol/L Chloride (98-107) mmol/L Carbon Dioxide (21-33) mmol/L Anion Gap (10-20) BUN (7-21) mg/dL Creatinine (0.8-1.5) mg/dl Est GFR ( Amer) Est GFR (Non-Af Amer) POC Glucose (mg/dL) 175 H 229 H (65-110) mg/dL Random Glucose (70-110) mg/dL Hemoglobin A1c (4.2-6.5) % Calcium (8.4-10.5) mg/dL Total Bilirubin (0.2-1.3) mg/dL AST (17-59) U/L ALT (7-56) U/L Alkaline Phosphatase (38-126) U/L Ammonia (9-33) umol/L CK-MB (CK-2) (0.0-3.6) ng/mL CK-MB (CK-2) % Total Protein (5.8-8.3) g/dL Albumin (3.0-4.8) g/dL Globulin gm/dL Albumin/Globulin Ratio (1.1-1.8) Random Vancomycin (20-40) ug/mL Blood Type Antibody Screen 05/16/18 05/16/18 05/16/18 Range/Units 07:40 06:05 06:05 WBC (4.5-11.0) 10^3/uL RBC (3.5-6.1) 10^6/uL Hgb (14.0-18.0) g/dL Hct (42.0-52.0) % MCV (80.0-105.0) fl MCH (25.0-35.0) pg MCHC (31.0-37.0) g/dl RDW (11.5-14.5) % Plt Count (120.0-450.0) 10^3/uL MPV (7.0-11.0) fl Gran % (50.0-68.0) % Lymph % (Auto) (22.0-35.0) % [place] % (Auto) (1.0-6.0) % Eos % (Auto) (1.5-5.0) % Baso % (Auto) (0.0-3.0) % Gran # (1.4-6.5) Lymph # (Auto) (1.2-3.4) [place] # (Auto) (0.1-0.6) Eos # (Auto) (0.0-0.7) Baso # (Auto) (0.0-2.0) K/mm3 ESR (0.00-15.0) mm/hr Sodium (132-148) mmol/L Potassium (3.6-5.0) mmol/L Chloride (98-107) mmol/L Carbon Dioxide (21-33) mmol/L Anion Gap (10-20) BUN (7-21) mg/dL Creatinine (0.8-1.5) mg/dl Est GFR ( Amer) Est GFR (Non-Af Amer) POC Glucose (mg/dL) 195 H (65-110) mg/dL Random Glucose (70-110) mg/dL Hemoglobin A1c (4.2-6.5) % Calcium (8.4-10.5) mg/dL Total Bilirubin (0.2-1.3) mg/dL AST (17-59) U/L ALT (7-56) U/L Alkaline Phosphatase (38-126) U/L Ammonia (9-33) umol/L CK-MB (CK-2) 3.3 (0.0-3.6) ng/mL CK-MB (CK-2) % Cancelled Total Protein (5.8-8.3) g/dL Albumin (3.0-4.8) g/dL Globulin gm/dL Albumin/Globulin Ratio (1.1-1.8) Random Vancomycin (20-40) ug/mL Blood Type O POSITIVE Antibody Screen Negative 05/15/18 Range/Units 10:33 WBC (4.5-11.0) 10^3/uL RBC (3.5-6.1) 10^6/uL Hgb (14.0-18.0) g/dL Hct (42.0-52.0) % MCV (80.0-105.0) fl MCH (25.0-35.0) pg MCHC (31.0-37.0) g/dl RDW (11.5-14.5) % Plt Count (120.0-450.0) 10^3/uL MPV (7.0-11.0) fl Gran % (50.0-68.0) % Lymph % (Auto) (22.0-35.0) % [place] % (Auto) (1.0-6.0) % Eos % (Auto) (1.5-5.0) % Baso % (Auto) (0.0-3.0) % Gran # (1.4-6.5) Lymph # (Auto) (1.2-3.4) [place] # (Auto) (0.1-0.6) Eos # (Auto) (0.0-0.7) Baso # (Auto) (0.0-2.0) K/mm3 ESR (0.00-15.0) mm/hr Sodium (132-148) mmol/L Potassium (3.6-5.0) mmol/L Chloride (98-107) mmol/L Carbon Dioxide (21-33) mmol/L Anion Gap (10-20) BUN (7-21) mg/dL Creatinine (0.8-1.5) mg/dl Est GFR ( Amer) Est GFR (Non-Af Amer) POC Glucose (mg/dL) (65-110) mg/dL Random Glucose (70-110) mg/dL Hemoglobin A1c 11.2 H D (4.2-6.5) % Calcium (8.4-10.5) mg/dL Total Bilirubin (0.2-1.3) mg/dL AST (17-59) U/L ALT (7-56) U/L Alkaline Phosphatase (38-126) U/L Ammonia (9-33) umol/L CK-MB (CK-2) (0.0-3.6) ng/mL CK-MB (CK-2) % Total Protein (5.8-8.3) g/dL Albumin (3.0-4.8) g/dL Globulin gm/dL Albumin/Globulin Ratio (1.1-1.8) Random Vancomycin (20-40) ug/mL Blood Type Antibody Screen Laboratory Results - last 24 hr 05/15/18 05/16/18 05/16/18 10:33 06:05 06:05 WBC RBC Hgb Hct MCV MCH MCHC RDW Plt Count MPV Gran % Lymph % (Auto) [place] % (Auto) Eos % (Auto) Baso % (Auto) Gran # Lymph # (Auto) [place] # (Auto) Eos # (Auto) Baso # (Auto) ESR Sodium Potassium Chloride Carbon Dioxide Anion Gap BUN Creatinine Est GFR ( Amer) Est GFR (Non-Af Amer) POC Glucose (mg/dL) Random Glucose Hemoglobin A1c 11.2 H D Calcium Total Bilirubin AST ALT Alkaline Phosphatase Ammonia CK-MB (CK-2) 3.3 CK-MB (CK-2) % Cancelled Total Protein Albumin Globulin Albumin/Globulin Ratio Random Vancomycin Blood Type O POSITIVE Antibody Screen Negative 05/16/18 05/16/18 05/16/18 07:40 11:41 13:14 WBC 6.7 RBC 4.38 Hgb 8.1 L Hct 28.3 L MCV 64.6 L MCH 18.5 L MCHC 28.6 L RDW 19.1 H Plt Count 112 L MPV 8.5 Gran % Lymph % (Auto) [place] % (Auto) Eos % (Auto) Baso % (Auto) Gran # Lymph # (Auto) [place] # (Auto) Eos # (Auto) Baso # (Auto) ESR 39 H Sodium Potassium Chloride Carbon Dioxide Anion Gap BUN Creatinine Est GFR ( Amer) Est GFR (Non-Af Amer) POC Glucose (mg/dL) 195 H 229 H Random Glucose Hemoglobin A1c Calcium Total Bilirubin AST ALT Alkaline Phosphatase Ammonia CK-MB (CK-2) CK-MB (CK-2) % Total Protein Albumin Globulin Albumin/Globulin Ratio Random Vancomycin Blood Type Antibody Screen 05/16/18 05/16/18 05/17/18 16:38 21:25 05:20 WBC RBC Hgb Hct MCV MCH MCHC RDW Plt Count MPV Gran % Lymph % (Auto) [place] % (Auto) Eos % (Auto) Baso % (Auto) Gran # Lymph # (Auto) [place] # (Auto) Eos # (Auto) Baso # (Auto) ESR Sodium Potassium Chloride Carbon Dioxide Anion Gap BUN Creatinine Est GFR ( Amer) Est GFR (Non-Af Amer) POC Glucose (mg/dL) 175 H 183 H Random Glucose Hemoglobin A1c Calcium Total Bilirubin AST ALT Alkaline Phosphatase Ammonia < 9 L CK-MB (CK-2) CK-MB (CK-2) % Total Protein Albumin Globulin Albumin/Globulin Ratio Random Vancomycin Blood Type Antibody Screen 05/17/18 05/17/18 05/17/18 05:20 05:20 05:20 WBC 5.6 RBC 4.69 Hgb 8.6 L Hct 30.6 L MCV 65.2 L MCH 18.3 L MCHC 28.1 L RDW 19.3 H Plt Count 121 MPV 8.9 Gran % 83.1 H Lymph % (Auto) 7.2 L [place] % (Auto) 5.7 Eos % (Auto) 3.8 Baso % (Auto) 0.2 Gran # 4.63 Lymph # (Auto) 0.4 L [place] # (Auto) 0.3 Eos # (Auto) 0.2 Baso # (Auto) 0.01 ESR Sodium 135 Potassium 4.5 Chloride 103 Carbon Dioxide 22 Anion Gap 14 BUN 48 H Creatinine 6.3 H Est GFR ( Amer) 11 Est GFR (Non-Af Amer) 9 POC Glucose (mg/dL) Random Glucose 136 H Hemoglobin A1c Calcium 7.2 L Total Bilirubin 0.5 AST 142 H D ALT 60 H Alkaline Phosphatase 85 Ammonia CK-MB (CK-2) CK-MB (CK-2) % Total Protein 5.8 Albumin 2.7 L Globulin 3.1 Albumin/Globulin Ratio 0.9 L Random Vancomycin 16.7 L Blood Type Antibody Screen 05/17/18 07:17 WBC RBC Hgb Hct MCV MCH MCHC RDW Plt Count MPV Gran % Lymph % (Auto) [place] % (Auto) Eos % (Auto) Baso % (Auto) Gran # Lymph # (Auto) [place] # (Auto) Eos # (Auto) Baso # (Auto) ESR Sodium Potassium Chloride Carbon Dioxide Anion Gap BUN Creatinine Est GFR ( Amer) Est GFR (Non-Af Amer) POC Glucose (mg/dL) 130 H Random Glucose Hemoglobin A1c Calcium Total Bilirubin AST ALT Alkaline Phosphatase Ammonia CK-MB (CK-2) CK-MB (CK-2) % Total Protein Albumin Globulin Albumin/Globulin Ratio Random Vancomycin Blood Type Antibody Screen Fingerstick Blood Sugar Results: 183 Critical Care Progress Note - Nutrition Nutrition: Nutrition Category Date Time Status NPO Diet [DIET] Diets 05/17/18 Breakfast Ordered Assessment/Plan - Assessment and Plan (Free Text) Assessment: 62 y/o male with PMHx of HTN, CAD s/p CABG,GI bleed, esophageal ulcer, anemia, schizophrenia, anxiety presents to ED s/p fall. He was admitted to ICU for HONG in the setting of rhabdomyolysis . He is improving and hemodynamically stable Plan: Neuro/psych: -AAOx3. in NAD. looks anxious and uncooperative sometimes -resume home med clonazepam. d/c precedex -h/o schezihrenia. not on meds, PCP d/c Respiredone, as per patient and family member -psych consulted, recs appreciated -maintain normothermia CVS: -continue lopressor -hold lipitor, lisinopril for HONG and rhabdo -hold asa for +FOBT -patient receiving IVF, monitor for volume overload -elevated trop likely due to HNOG. now trending down -Echo ordered -CAD s/p CABG. cardiac cath (2017) EF 40% -Maintain MAP>65 Resp: -in NAD -maintain O2 sat >90% -O2 NC prn -duoneb prn -incentive spirometry -mucinex, tessalon perles -CXR: bibasilar atelectasis, vasclar congestion, no acute finding -flu A/B ordered GI: -CT A/P: no acute finding -FOBT positive. no acitve GI bleeding -continue carafate bid, protonix IVP bid -monitor CBC -elevated AST likely due to rhabdomyolysis, trending down -U/S gallbladder: 1.3 gallbladder stone.no cholecystitis -h/o GI bleeding, esophagitis -NPO for possible EGD -ID following (Dr Nieves) Renal: -HONG, likely due to rhabdomyolysis -CPK trending down -BUN/Cr 48/6.3 trending up -midline placed -IVF LR@150 cc/hr -monitor CMP -I/O 4870/385 -monitor UOP, reinoso in place -UA: positive for blood, no RBC (consistent with rhabdo), no WBC, + protein and glucose ID: -improved leukocytosis, afebrile -tylenol prn for fever -continue cefepime -urine cx negative -ESR, procal elevated -blood cx: + coagulase negative staph -repeat blood cx ordered Endo: -accucheck q4h -ISS-low -maintain euglycemia Heme: -H/H 8.6/30.6 continue monitoring -asymptomatic. no signs of bleeding -PT/INR 12.6/1.09 -h/o anemia and GI bleeding MSK: -s/p fall. bruises on b/l knees, forehead -CT cervical spine: negative for fracture -knee XR: negative -PT eval/treat Prophylaxis: -GI ppx: Pantoprazole -DVT ppx SCD NPO Dispo: continue IVF, abx serial CBC, CMP. monitor UOP continue ICU monitoring Case reviewed and plan discussed with Dr. My Barry, DO, PGY1 <Goyo Pepe - Last Filed: 05/17/18 17:40> CCU Objective - Vital Signs / Intake & Output Vital Signs (Last 4 hours): Vital Signs BP Pulse Ox 05/17/18 16:37 117/50 L 05/17/18 15:39 98 Intake and Output (Last 8hrs): Intake & Output 05/17/18 05/17/18 05/17/18 06:59 14:59 22:59 Intake Total 1888 Output Total 250 Balance 1638 Weight 280 lb Intake: IV 1348 Right Hand 1348 Oral 540 Output: Urine 250 Urethral (Reinoso) 250 Other: # Bowel Movements 1 - Medications Active Medications: Active Medications Generic Name Dose Route Start Last Admin Trade Name Freq PRN Reason Stop Dose Admin Acetaminophen 325 mg 05/16/18 07:57 05/17/18 12:29 Tylenol 325mg Tab PO 325 mg Q6H PRN Administration Fever >100.4 F Albuterol/Ipratropium 3 ml 05/15/18 11:30 05/17/18 15:02 Duoneb 3 Mg/0.5 Mg (3 Ml) Ud IH 3 ml [id number] CHANEL Administration Benzonatate 100 mg 05/17/18 10:00 05/17/18 09:13 Tessalon Perles PO 100 mg TID CHANEL Administration Clonazepam 2 mg 05/17/18 09:45 05/17/18 10:00 Klonopin PO 2 mg Q12H CHANEL Administration Protocol Diphenhydramine HCl 25 mg 05/16/18 19:54 05/16/18 20:04 Benadryl PO 25 mg HS PRN Administration Insomnia Guaifenesin/Dextromethorphan 1 tab 05/17/18 10:00 05/17/18 09:13 Mucinex-Dm 600-30 Mg PO 1 tab BID CHANEL Administration Cefepime HCl 1 gm in 100 mls @ 25 mls/hr 05/14/18 22:45 05/17/18 09:13 Maxipime 1gm IVPB 25 mls/hr Q12 CHANEL Administration Protocol Insulin Detemir 5 unit 05/15/18 22:00 05/16/18 21:40 Levemir SC 5 unit HS CHANEL Administration Insulin Human Lispro 4 units 05/16/18 07:30 05/17/18 17:22 Humalog SC Not Given AC CHANEL Insulin Human Regular 0 units 05/14/18 22:00 12/10/18 17:26 Humulin R Low SC Not Given ACHS [facility] Protocol Metoprolol Tartrate 25 mg 05/14/18 18:45 05/17/18 09:13 Lopressor PO 25 mg BID CHANEL Administration Pantoprazole Sodium 40 mg 05/16/18 10:00 05/17/18 09:50 Protonix Inj IVP 40 mg Q12 CHANEL Administration Sucralfate 1 gm 05/15/18 11:15 05/17/18 16:50 Carafate Oral Susp PO 1 gm 0600,1600 CHANEL Administration - Patient Studies Lab Studies: Microbiology Studies 05/14/18 14:00 Blood Culture - Preliminary Blood NO GROWTH AFTER 3 DAYS 05/14/18 13:20 S.aureus & Coag-Neg Staph PNA FISH - Final Blood Blood Culture - Final Coagulase Neg Staphylococcus Gram Stain - Final Lab Studies 05/17/18 05/17/18 05/17/18 Range/Units 16:09 11:23 07:17 WBC (4.5-11.0) 10^3/uL RBC (3.5-6.1) 10^6/uL Hgb (14.0-18.0) g/dL Hct (42.0-52.0) % MCV (80.0-105.0) fl MCH (25.0-35.0) pg MCHC (31.0-37.0) g/dl RDW (11.5-14.5) % Plt Count (120.0-450.0) 10^3/uL MPV (7.0-11.0) fl Gran % (50.0-68.0) % Lymph % (Auto) (22.0-35.0) % [place] % (Auto) (1.0-6.0) % Eos % (Auto) (1.5-5.0) % Baso % (Auto) (0.0-3.0) % Gran # (1.4-6.5) Lymph # (Auto) (1.2-3.4) [place] # (Auto) (0.1-0.6) Eos # (Auto) (0.0-0.7) Baso # (Auto) (0.0-2.0) K/mm3 Sodium (132-148) mmol/L Potassium (3.6-5.0) mmol/L Chloride (98-107) mmol/L Carbon Dioxide (21-33) mmol/L Anion Gap (10-20) BUN (7-21) mg/dL Creatinine (0.8-1.5) mg/dl Est GFR ( Amer) Est GFR (Non-Af Amer) POC Glucose (mg/dL) 159 H 150 H 130 H (65-110) mg/dL Random Glucose (70-110) mg/dL Calcium (8.4-10.5) mg/dL Total Bilirubin (0.2-1.3) mg/dL AST (17-59) U/L ALT (7-56) U/L Alkaline Phosphatase (38-126) U/L Ammonia (9-33) umol/L Total Creatine Kinase (35-230) U/L CK-MB (CK-2) (0.0-3.6) ng/mL CK-MB (CK-2) % Troponin I ng/mL C-React Prot High Sens (1.00-3.00) mg/L Total Protein (5.8-8.3) g/dL Albumin (3.0-4.8) g/dL Globulin gm/dL Albumin/Globulin Ratio (1.1-1.8) PTH Intact Whole Molec (14-64) pg/mL Random Vancomycin (20-40) ug/mL HIV 1&2 Ag/Ab, 4th Gen (Nonreactive) 05/17/18 05/17/18 05/17/18 Range/Units 05:20 05:20 05:20 WBC (4.5-11.0) 10^3/uL RBC (3.5-6.1) 10^6/uL Hgb (14.0-18.0) g/dL Hct (42.0-52.0) % MCV (80.0-105.0) fl MCH (25.0-35.0) pg MCHC (31.0-37.0) g/dl RDW (11.5-14.5) % Plt Count (120.0-450.0) 10^3/uL MPV (7.0-11.0) fl Gran % (50.0-68.0) % Lymph % (Auto) (22.0-35.0) % [place] % (Auto) (1.0-6.0) % Eos % (Auto) (1.5-5.0) % Baso % (Auto) (0.0-3.0) % Gran # (1.4-6.5) Lymph # (Auto) (1.2-3.4) [place] # (Auto) (0.1-0.6) Eos # (Auto) (0.0-0.7) Baso # (Auto) (0.0-2.0) K/mm3 Sodium 135 (132-148) mmol/L Potassium 4.5 (3.6-5.0) mmol/L Chloride 103 (98-107) mmol/L Carbon Dioxide 22 (21-33) mmol/L Anion Gap 14 (10-20) BUN 48 H (7-21) mg/dL Creatinine 6.3 H (0.8-1.5) mg/dl Est GFR ( Amer) 11 Est GFR (Non-Af Amer) 9 POC Glucose (mg/dL) (65-110) mg/dL Random Glucose 136 H (70-110) mg/dL Calcium 7.2 L (8.4-10.5) mg/dL Total Bilirubin 0.5 (0.2-1.3) mg/dL AST 142 H D (17-59) U/L ALT 60 H (7-56) U/L Alkaline Phosphatase 85 (38-126) U/L Ammonia (9-33) umol/L Total Creatine Kinase 7778 H (35-230) U/L CK-MB (CK-2) 2.7 (0.0-3.6) ng/mL CK-MB (CK-2) % Cancelled Troponin I 0.41 H* D ng/mL C-React Prot High Sens (1.00-3.00) mg/L Total Protein 5.8 (5.8-8.3) g/dL Albumin 2.7 L (3.0-4.8) g/dL Globulin 3.1 gm/dL Albumin/Globulin Ratio 0.9 L (1.1-1.8) PTH Intact Whole Molec (14-64) pg/mL Random Vancomycin 16.7 L (20-40) ug/mL HIV 1&2 Ag/Ab, 4th Gen (Nonreactive) 05/17/18 05/17/18 05/16/18 Range/Units 05:20 05:20 21:25 WBC 5.6 (4.5-11.0) 10^3/uL RBC 4.69 (3.5-6.1) 10^6/uL Hgb 8.6 L (14.0-18.0) g/dL Hct 30.6 L (42.0-52.0) % MCV 65.2 L (80.0-105.0) fl MCH 18.3 L (25.0-35.0) pg MCHC 28.1 L (31.0-37.0) g/dl RDW 19.3 H (11.5-14.5) % Plt Count 121 (120.0-450.0) 10^3/uL MPV 8.9 (7.0-11.0) fl Gran % 83.1 H (50.0-68.0) % Lymph % (Auto) 7.2 L (22.0-35.0) % [place] % (Auto) 5.7 (1.0-6.0) % Eos % (Auto) 3.8 (1.5-5.0) % Baso % (Auto) 0.2 (0.0-3.0) % Gran # 4.63 (1.4-6.5) Lymph # (Auto) 0.4 L (1.2-3.4) [place] # (Auto) 0.3 (0.1-0.6) Eos # (Auto) 0.2 (0.0-0.7) Baso # (Auto) 0.01 (0.0-2.0) K/mm3 Sodium (132-148) mmol/L Potassium (3.6-5.0) mmol/L Chloride (98-107) mmol/L Carbon Dioxide (21-33) mmol/L Anion Gap (10-20) BUN (7-21) mg/dL Creatinine (0.8-1.5) mg/dl Est GFR ( Amer) Est GFR (Non-Af Amer) POC Glucose (mg/dL) 183 H (65-110) mg/dL Random Glucose (70-110) mg/dL Calcium (8.4-10.5) mg/dL Total Bilirubin (0.2-1.3) mg/dL AST (17-59) U/L ALT (7-56) U/L Alkaline Phosphatase (38-126) U/L Ammonia < 9 L (9-33) umol/L Total Creatine Kinase (35-230) U/L CK-MB (CK-2) (0.0-3.6) ng/mL CK-MB (CK-2) % Troponin I ng/mL C-React Prot High Sens (1.00-3.00) mg/L Total Protein (5.8-8.3) g/dL Albumin (3.0-4.8) g/dL Globulin gm/dL Albumin/Globulin Ratio (1.1-1.8) PTH Intact Whole Molec (14-64) pg/mL Random Vancomycin (20-40) ug/mL HIV 1&2 Ag/Ab, 4th Gen (Nonreactive) 05/16/18 05/15/18 05/14/18 Range/Units 13:14 12:00 19:00 WBC (4.5-11.0) 10^3/uL RBC (3.5-6.1) 10^6/uL Hgb (14.0-18.0) g/dL Hct (42.0-52.0) % MCV (80.0-105.0) fl MCH (25.0-35.0) pg MCHC (31.0-37.0) g/dl RDW (11.5-14.5) % Plt Count (120.0-450.0) 10^3/uL MPV (7.0-11.0) fl Gran % (50.0-68.0) % Lymph % (Auto) (22.0-35.0) % [place] % (Auto) (1.0-6.0) % Eos % (Auto) (1.5-5.0) % Baso % (Auto) (0.0-3.0) % Gran # (1.4-6.5) Lymph # (Auto) (1.2-3.4) [place] # (Auto) (0.1-0.6) Eos # (Auto) (0.0-0.7) Baso # (Auto) (0.0-2.0) K/mm3 Sodium (132-148) mmol/L Potassium (3.6-5.0) mmol/L Chloride (98-107) mmol/L Carbon Dioxide (21-33) mmol/L Anion Gap (10-20) BUN (7-21) mg/dL Creatinine (0.8-1.5) mg/dl Est GFR ( Amer) Est GFR (Non-Af Amer) POC Glucose (mg/dL) (65-110) mg/dL Random Glucose (70-110) mg/dL Calcium (8.4-10.5) mg/dL Total Bilirubin (0.2-1.3) mg/dL AST (17-59) U/L ALT (7-56) U/L Alkaline Phosphatase (38-126) U/L Ammonia (9-33) umol/L Total Creatine Kinase (35-230) U/L CK-MB (CK-2) (0.0-3.6) ng/mL CK-MB (CK-2) % Troponin I ng/mL C-React Prot High Sens > 15.00 H (1.00-3.00) mg/L Total Protein (5.8-8.3) g/dL Albumin (3.0-4.8) g/dL Globulin gm/dL Albumin/Globulin Ratio (1.1-1.8) PTH Intact Whole Molec 15 (14-64) pg/mL Random Vancomycin (20-40) ug/mL HIV 1&2 Ag/Ab, 4th Gen Nonreactive (Nonreactive) Laboratory Results - last 24 hr 05/14/18 05/15/18 05/16/18 19:00 12:00 13:14 WBC RBC Hgb Hct MCV MCH MCHC RDW Plt Count MPV Gran % Lymph % (Auto) [place] % (Auto) Eos % (Auto) Baso % (Auto) Gran # Lymph # (Auto) [place] # (Auto) Eos # (Auto) Baso # (Auto) Sodium Potassium Chloride Carbon Dioxide Anion Gap BUN Creatinine Est GFR ( Amer) Est GFR (Non-Af Amer) POC Glucose (mg/dL) Random Glucose Calcium Total Bilirubin AST ALT Alkaline Phosphatase Ammonia Total Creatine Kinase CK-MB (CK-2) CK-MB (CK-2) % Troponin I C-React Prot High Sens > 15.00 H Total Protein Albumin Globulin Albumin/Globulin Ratio PTH Intact Whole Molec 15 Random Vancomycin HIV 1&2 Ag/Ab, 4th Gen Nonreactive 05/16/18 05/17/18 05/17/18 21:25 05:20 05:20 WBC 5.6 RBC 4.69 Hgb 8.6 L Hct 30.6 L MCV 65.2 L MCH 18.3 L MCHC 28.1 L RDW 19.3 H Plt Count 121 MPV 8.9 Gran % 83.1 H Lymph % (Auto) 7.2 L [place] % (Auto) 5.7 Eos % (Auto) 3.8 Baso % (Auto) 0.2 Gran # 4.63 Lymph # (Auto) 0.4 L [place] # (Auto) 0.3 Eos # (Auto) 0.2 Baso # (Auto) 0.01 Sodium Potassium Chloride Carbon Dioxide Anion Gap BUN Creatinine Est GFR ( Amer) Est GFR (Non-Af Amer) POC Glucose (mg/dL) 183 H Random Glucose Calcium Total Bilirubin AST ALT Alkaline Phosphatase Ammonia < 9 L Total Creatine Kinase CK-MB (CK-2) CK-MB (CK-2) % Troponin I C-React Prot High Sens Total Protein Albumin Globulin Albumin/Globulin Ratio PTH Intact Whole Molec Random Vancomycin HIV 1&2 Ag/Ab, 4th Gen 05/17/18 05/17/18 05/17/18 05:20 05:20 05:20 WBC RBC Hgb Hct MCV MCH MCHC RDW Plt Count MPV Gran % Lymph % (Auto) Cid[place] % (Auto) Eos % (Auto) Baso % (Auto) Gran # Lymph # (Auto) [place]id[place] # (Auto) Eos # (Auto) Baso # (Auto) Sodium 135 Potassium 4.5 Chloride 103 Carbon Dioxide 22 Anion Gap 14 BUN 48 H Creatinine 6.3 H Est GFR ( Amer) 11 Est GFR (Non-Af Amer) 9 POC Glucose (mg/dL) Random Glucose 136 H Calcium 7.2 L Total Bilirubin 0.5 AST 142 H D ALT 60 H Alkaline Phosphatase 85 Ammonia Total Creatine Kinase 7778 H CK-MB (CK-2) 2.7 CK-MB (CK-2) % Cancelled Troponin I 0.41 H* D C-React Prot High Sens Total Protein 5.8 Albumin 2.7 L Globulin 3.1 Albumin/Globulin Ratio 0.9 L PTH Intact Whole Molec Random Vancomycin 16.7 L HIV 1&2 Ag/Ab, 4th Gen 05/17/18 05/17/18 05/17/18 07:17 11:23 16:09 WBC RBC Hgb Hct MCV MCH MCHC RDW Plt Count MPV Gran % Lymph % (Auto) [place] % (Auto) Eos % (Auto) Baso % (Auto) Gran # Lymph # (Auto) [place] # (Auto) Eos # (Auto) Baso # (Auto) Sodium Potassium Chloride Carbon Dioxide Anion Gap BUN Creatinine Est GFR ( Amer) Est GFR (Non-Af Amer) POC Glucose (mg/dL) 130 H 150 H 159 H Random Glucose Calcium Total Bilirubin AST ALT Alkaline Phosphatase Ammonia Total Creatine Kinase CK-MB (CK-2) CK-MB (CK-2) % Troponin I C-React Prot High Sens Total Protein Albumin Globulin Albumin/Globulin Ratio PTH Intact Whole Molec Random Vancomycin HIV 1&2 Ag/Ab, 4th Gen Critical Care Progress Note - Nutrition Nutrition: Nutrition Category Date Time Status Liquid Diet [DIET] Diets 05/17/18 Dinner Ordered Attending/Attestation - Attestation I have personally seen and examined this patient.: Yes I have fully participated in the care of the patient.: Yes I have reviewed all pertinent clinical information: Yes Notes (Text): 05/17/18 17:[address] pepe note
[2018-05-17] MEDS: Insulin Lispro 1 UNITS/0.01 ML SC SCH ×3 (09:08→17:22)
[2018-05-17] MEDS: Insulin Reg-LOW-Coverage SC SCH ×4 (09:08→23:18)
[2018-05-17] MEDS: guaiFENesin-DM 600-30 mg ER Tab PO SCH ×2 (09:13→19:25)
[2018-05-17] MEDS: Cefepime 1gm in NS 100ml 1 GM/100 ML BAG IVPB SCH ×2 (09:13→23:16)
--- NOTE | 2018-05-17 09:35 | CP.PCM.PN ---
<Robin Bernstein - Last Filed: 05/17/18 16:29> Subjective - Date & Time of Evaluation Date of Evaluation: 05/17/18 Time of Evaluation: 07:50 - Subjective Subjective: PGY1 Medicine Progress Note for Dr. Caruso Patient was seen and evaluated at bedside this morning. Patient A&Ox3. Patient complains of cough, and he states that he cannot cough anything up, however feels as though he is very congested. No new events overnight. Patient reports difficulty sleeping. Patient continues to have dysphagia. Patient admits to headache (unchanged from admission), but otherwise denies fever, chills, chest pain, nausea, vomiting, abdominal pain, rash, blurred vision, diarrhea and/or constipation. Objective - Vital Signs/Intake and Output Vital Signs (last 24 hours): Temp Pulse Resp BP Pulse Ox 99.4 F 98 H 24 125/61 100 05/17/18 04:39 05/17/18 09:13 05/17/18 08:10 05/17/18 09:13 05/17/18 08:10 Intake and Output: 05/17/18 05/17/18 06:59 18:59 Intake Total 1984 Output Total 250 Balance 1734 - Medications Medications: Current Medications Acetaminophen (Tylenol 325mg Tab) 325 mg PO Q6H PRN PRN Reason: Fever >100.4 F Last Admin: 05/16/18 16:59 Dose: 325 mg Albuterol/Ipratropium (Duoneb 3 Mg/0.5 Mg (3 Ml) Ud) 3 ml IH [id number] CHANEL Last Admin: 05/17/18 08:04 Dose: 3 ml Benzonatate (Tessalon Perles) 100 mg PO TID [facility] Last Admin: 05/17/18 09:13 Dose: 100 mg Diphenhydramine HCl (Benadryl) 25 mg PO HS PRN PRN Reason: Insomnia Last Admin: 05/16/18 20:04 Dose: 25 mg Guaifenesin/Dextromethorphan (Mucinex-Dm 600-30 Mg) 1 tab PO BID [facility]ANEL Last Admin: 05/17/18 09:13 Dose: 1 tab Cefepime HCl (Maxipime 1gm) 1 gm in 100 mls @ 25 mls/hr IVPB Q12 [facility]ANEL; Protocol Last Admin: 05/17/18 09:13 Dose: 25 mls/hr Dexmedetomidine HCl (Precedex 400mcg/100ml) 400 mcg in 100 mls @ 4.309 mls/hr IV .[id number] PRN; Protocol PRN Reason: Anxiety Last Admin: 05/16/18 21:49 Dose: 0.2 mcg/kg/hr, 4.309 mls/hr Potassium Chloride 20 meq/ (Sodium Chloride) 1,010 mls @ 200 mls/hr IV .Q5H3M [facility] Insulin Detemir (Levemir) 5 unit SC HS [facility] Last Admin: 05/16/18 21:40 Dose: 5 unit Insulin Human Lispro (Humalog) 4 units SC AC [facility] Last Admin: 05/17/18 09:08 Dose: Not Given Insulin Human Regular (Humulin R Low) 0 units SC ACHS [facility]; Protocol Last Admin: 05/17/18 09:08 Dose: Not Given Metoprolol Tartrate (Lopressor) 25 mg PO BID [facility] Last Admin: 05/17/18 09:13 Dose: 25 mg Pantoprazole Sodium (Protonix Inj) 40 mg IVP Q12 [facility] Last Admin: 05/16/18 21:40 Dose: 40 mg Sucralfate (Carafate Oral Susp) 1 gm PO 0600,1600 [facility] Last Admin: 05/17/18 05:20 Dose: 1 gm - Labs Labs: 05/17/18 05:20 05/17/18 05:20 PT 12.8 SECONDS (9.4-12.5) H 05/15/18 01:30 INR 1.11 05/15/18 01:30 APTT 27.0 Seconds (25.1-36.5) 05/14/18 13:30 - Additional Findings Additional findings: - Constitutional Appears: Non-toxic, No Acute Distress - Head Exam Head Exam: ATRAUMATIC, NORMOCEPHALIC - Eye Exam Eye Exam: EOMI, Normal appearance, PERRL. absent: Periorbital swelling, Periorbital tenderness, Scleral icterus Pupil Exam: NORMAL ACCOMODATION - ENT Exam ENT Exam: Normal Exam - Neck Exam Neck Exam: Full ROM, Normal Inspection. absent: Tenderness - Respiratory Exam Respiratory Exam: Wheezes (Mild expiratory wheezing diffusely), NORMAL BREATHING PATTERN. absent: Accessory Muscle Use, Chest Wall Tenderness, Decreased Breath Sounds, Clear to Ausculation Bilateral, Prolonged Expiratory Phase, Rales, Rhonchi, Respiratory Distress, Stridor - Cardiovascular Exam Cardiovascular Exam: REGULAR RHYTHM, RRR, +S1, +S2. absent: Bradycardia, Tachycardia, Clicks, Diastolic murmur, Gallop, Irregular Rhythm, JVD, Rubs, +S4, Murmur - GI/Abdominal Exam GI & Abdominal Exam: Soft, Normal Bowel Sounds. absent: Tenderness - Extremities Exam Extremities Exam: absent: Calf Tenderness - Neurological Exam Neurological Exam: Alert, Awake - Psychiatric Exam Psychiatric exam: Normal Affect, Normal Mood - Skin Skin Exam: Dry, Intact, Warm Assessment and Plan - Assessment and Plan (Free Text) Assessment: 62 year old male with a past medical history significant for CAD s/p CABG, systolic CHF, HTN, DM2, esophageal ulcer with esophagitis, gastritis, duodenitis, schizophrenia and anxiety who presented after a fall. Patient was admitted to ICU for closer monitoring and for further evaluation. Plan: Sepsis - Patient met SIRS criteria in ED: - Today: Patient with low-grade fever at 99.4, without tachycardia, without tachypnea and with resolving leukocytosis/lactic acidosis - Currently unidentified source - CT Abdomen/Pelvis, Chest X-Ray and UA negative for sources of infection - 1/2 blood cultures positive for gram positive cocci in clusters; Repeat blood cultures s/p fever pending - Urine cultures negative for growth - Procalcitonin elevated at 6.35 - CRP, ESR and Influenza pending - Continue Cefepime (Day 3) - Continue IVF as ordered - Low dose Tylenol Q6 PRN for fevers - Echocardiogram 05/17: LV normal size, borderline to mild concentric LVH, systolic function mildly impaired, LV diastolic function is normal. Mitral regurgitation is mild. Mild tricuspid regurg. There is mild pulmonary HTN. No vegetation seen. (Please see complete report for details). - ID consulted, all recommendations appreciated Dysphagia - GI (Dr. Nieves) consulted; recommendations appreciated - Endoscopy planned for today Acute Renal Failure, Improving - Likely secondary to rhabdomyolysis - BUN/Creatinine still up-trending to 48/6.3 (05/17) - Patient was administered Lasix 40mg IVP once 05/16, however Patient did not respond. - Lasix 60mg IVP once administered today 05/17 - Continue IVF as ordered - Continue Gan with urine output monitoring: improved from yesterday (350cc output in past 12 hours) - Renal US pending - Nephrology consulted; (Dr. Elizabeth) Recommendations appreciated Rhabdomyolysis, [place] [id number] - Continue Normal Saline at 150mls/hr with - Continue to monitor CPK Hypoalbuminemia - Albumin= - Nephrology consulted (Dr. Elizabeth); recommends 25% albumin if albumin < 3 - Lasix 60mg IVP given ONCE - Monitor daily CMP CAD s/p CABG with Elevated Troponin - Likely secondary to rhabdomyolysis and ARF - Downtrended - Continue Lopressor - Holding ASA (anemia and +FOBT), LEROY inhibitor (ARF) and Statin (elevated LFT's) - Cardiology consulted, all recommendations appreciated Chronic Systolic CHF - Echocardiogram 05/17: LV normal size, borderline to mild concentric LVH, systolic function mildly impaired, LV diastolic function is normal. Mitral regurgitation is mild. Mild tricuspid regurg. There is mild pulmonary HTN. No vegetation seen. (Please see complete report for details). - Chest X-Ray (05/16) showed no PVC - Continue Lopressor - Continue daily Chest X-Ray's - Holding ASA (anemia and +FOBT), LEROY inhibitor (ARF) and Statin (elevated LFT's) - Cardiology consulted (Dr. King); Recommendations appreciated Transaminitis, improved - Continuing to downtrend - Continue to trend with daily CMP's Microcytic Anemia - H/H stable at 8.1/28.3 on most recent CBC - +FOBT - Protonix increased to 40mg IVP Q12 - Continue Carafate as ordered - Continue to monitor with daily CBC's - GI consulted, all recommendations appreciated History of DM2 - Continue SSI-Low and Accuchecks ACHS - Continue Levemir 5u HS - Continue Humalog 4u AC - A1c: 11.2 - Carbohydrate consistent diet Status-Post Fall - Bilateral Knee X-Ray were unremarkable - CT Head and CT Cervical Spine were unremarkable except showing heavily calcified carotid bifurcation - Continue fall precautions - PT/OT when appropriate Carotid Calcification - See CT Cervical Spine - Carotid/Vertebral Doppler US pending Cholelithiasis - See GB US and CT Abdomen/Pelvis reports - Will recommend general surgery follow up as an outpatient Claudication - Mildly abnormal resting MATTI's and bilateral popliteal, trifurcation and/or tibial disease - Continue to monitor for signs of necrosis PPx: - GI: Protonix 40IVP Q12 and Carafate - DVT: SCD's Diet: Heart Healthy Moderate Carbohydrate Consistency Access: PIV with PICC placement pending Disposition: Patient will remain in the ICU until more medically appropriate to transfer to lower acuity level of care. Patient seen and case discussed with Attending Physician Dr. Zuly Bernstein PGY1 <Merlyn Caruso - Last Filed: 05/18/18 15:54> Objective - Vital Signs/Intake and Output Vital Signs (last 24 hours): Temp Pulse Resp BP Pulse Ox 98.8 F 103 H 20 148/61 98 05/18/18 09:20 05/18/18 09:53 05/18/18 09:20 05/18/18 13:01 05/18/18 09:20 Intake and Output: 05/18/18 05/18/18 06:59 18:59 Intake Total 2310 Output Total 625 Balance 1685 - Medications Medications: Current Medications Acetaminophen (Tylenol 325mg Tab) 325 mg PO Q6H PRN PRN Reason: Fever >100.4 F Last Admin: 05/18/18 09:52 Dose: 325 mg Albuterol/Ipratropium (Duoneb 3 Mg/0.5 Mg (3 Ml) Ud) 3 ml IH [id number] [facility] Last Admin: 05/18/18 14:00 Dose: 3 ml Benzonatate (Tessalon Perles) 100 mg PO TID [facility] Last Admin: 05/18/18 13:01 Dose: 100 mg Calcium Acetate (Phoslo) 667 mg PO WM [facility] Last Admin: 05/18/18 13:01 Dose: 667 mg Clonazepam (Klonopin) 2 mg PO Q12H [facility]; Protocol Last Admin: 05/18/18 09:53 Dose: 2 mg Darbepoetin Will (Aranesp) 100 mcg SC QWK [facility] Last Admin: 05/18/18 09:55 Dose: 100 mcg Diphenhydramine HCl (Benadryl) 25 mg PO HS PRN PRN Reason: Insomnia Last Admin: 05/17/18 20:25 Dose: 25 mg Ferrous Gluconate (Fergon) 324 mg PO TID [facility] Last Admin: 05/18/18 13:01 Dose: 324 mg Guaifenesin/Dextromethorphan (Mucinex-Dm 600-30 Mg) 1 tab PO BID [facility] Last Admin: 05/18/18 09:49 Dose: 1 tab Insulin Detemir (Levemir) 5 unit SC HS [facility] Last Admin: 05/17/18 23:17 Dose: 5 unit Insulin Human Lispro (Humalog) 4 units SC AC [facility] Last Admin: 05/18/18 12:56 Dose: 4 u Insulin Human Regular (Humulin R Low) 0 units SC ACHS [facility]; Protocol Last Admin: 05/18/18 12:57 Dose: 1 units Lorazepam (Ativan) 1 mg IVP Q6H PRN; Protocol PRN Reason: Anxiety Metoprolol Tartrate (Lopressor) 25 mg PO BID [facility] Last Admin: 05/18/18 09:53 Dose: 25 mg Pantoprazole Sodium (Protonix Inj) 40 mg IVP Q12 [facility] Last Admin: 05/18/18 10:01 Dose: 40 mg Vitamin B Complex/Vit C/Folic Acid (Nephro-Lydia) 1 tab PO 0800 [facility] - Labs Labs: 05/18/18 06:25 05/18/18 08:00 PT 12.8 SECONDS (9.4-12.5) H 05/15/18 01:30 INR 1.11 05/15/18 01:30 APTT 27.0 Seconds (25.1-36.5) 05/14/18 13:30 Attending/Attestation - Attestation I have personally seen and examined this patient.: Yes I have fully participated in the care of the patient.: Yes I have reviewed all pertinent clinical information, including history, physical exam and plan: Yes Notes (Text): 05/18/18 15:37 Attending note; Patient seen and examined with the resident in ICU. Patient is alert and awake. Denies any chest pain, shortness of breath. Denies any nausea, vomiting. Patient is nothing by mouth for EGD today. Patient is a 62-year-old male with past medical history significant for artery disease status post CABG, systolic CHF, hypertension, schizophrenia, anxiety, GI bleed, esophageal ulcer, and type 2 diabetes that presented to the emergency room status post a fall. 1. Sepsis. resolved. Patient is currently afebrile and nontoxic. Leukocytosis resolved. Tachycardia resolved. One blood culture positive for coag negative staph, likely contaminant. Second blood culture with no growth. Urine culture with no growth. ID evaluation appreciated. Continue Maxipime. Continue IV fluids. CT abdomen and pelvis showed no acute intra-abdominal findings. Gallbladder ultrasound radiologist showed 1.3 cm gallstone, no evidence of cholecystitis. 2. Acute renal failure. Likely secondary to rhabdomyolysis and dehydration. Creatinine continues to trend up. Poor urine output. Continue IV fluids and Lasix. Case discussed with sign painter in detail. Give IV albumen. 3. Rhabdomyolysis. CPK down trending. 4. Elevated troponins; mostly secondary to rhabdomyolysis. Patient with no chest pain. Cardiology recommendations appreciated. LEROY inhibitor held secondary to acute renal failure. Continue Lopressor. No aspirin secondary to anemia and stool for occult blood being positive. Statin held secondary to transaminitis. 5. Chronic systolic CHF. Chest x-ray did not show any sign of heart failure today. Continue with Lopressor. Cardiology following, recommendations appreciat ed. 6. Transaminitis. Secondary to rhabdomyolysis. Down trending. Continue to monitor. 7. Anemia. History of GI bleed. Stool for occult blood positive. Plan for endoscopy today. Continue Carafate. Continue Protonix. 8. Type 2 diabetes; Continue with insulin sliding scale. Continue Levemir5 units subcutaneous at bedtime and Humalog 4 units before meals. Monitor urine output closely. Upon discharge the patient will follow up with PMD Dr. Carpenter. 05/18/18 15:54
[2018-05-17] MEDS ORDERED: Lactated Ringer's 1,000 ML IV SCH ×2 (10:00→14:45)
--- NOTE | 2018-05-17 10:01 | RAD ---
Date of service: 05/17/2018 HISTORY: history of CHF, rule out pleural effusion COMPARISON: Comparison is made with 05/16/2018 FINDINGS: LUNGS: Small bibasilar opacities are noted likely represent atelectasis. Mild pulmonary vascular congestion is noted. PLEURA: No significant pleural effusion identified, no pneumothorax apparent. CARDIOVASCULAR: No aortic atherosclerotic calcification present. Normal cardiac size. No pulmonary vascular congestion. OSSEOUS STRUCTURES: No significant abnormalities. Status post sternotomy. VISUALIZED UPPER ABDOMEN: Normal. OTHER FINDINGS: None. IMPRESSION: No significant interval changes noted
[2018-05-17 10:08] LABS: TROPONIN I 0.41 ng/mL
[2018-05-17 10:18] LABS: CK-MB 2.7 ng/mL (0.0-3.6)
--- NOTE | 2018-05-17 10:59 | PN ---
DATE: 05/17/2018 SUBJECTIVE: The patient is seen and examined at bedside. He is comfortable. He talks full sentences. He is not in respiratory or otherwise distress. He is protecting his airways. PHYSICAL EXAMINATION: VITAL SIGNS: Blood pressure 125/61, oxygen saturation 99 percent on 2 liters nasal cannula, heart rate 95, respiratory rate 20. ENT: Head and neck atraumatic. LUNGS: Clear to auscultation bilaterally. HEART: Regular rate and rhythm. S1, S2 normal. ABDOMEN: Soft, nontender, nondistended. MUSCULOSKELETAL: No C/C/E. NEUROLOGIC: The patient moves all extremities spontaneously. SKIN: Moist. PSYCHIATRIC: The patient is alert, awake and oriented x3. Of note, the patient does carry a diagnosis of schizophrenia for which he is on risperidone and Klonopin. Consult for psychiatrist was put on to evaluate safety of restarting risperidone in the setting of rhabdomiolysis.. Meanwhile, the patient was restarted on Klonopin 2 mg orally every 12 hours and Precedex will be stopped. LABORATORY DATA: WBC 5.6, hemoglobin 8.6 (relatively stable), platelet count 121. Sodium 135, potassium 4.5, chloride 103, carbon dioxide 22, BUN 48, creatinine 6.3 (the patient made 350 mL of urine over the last 12 hours, overnight). Over the last 2 hours, the patient made about 25 mL of urine. IV fluids were switched from D5 half normal saline with potassium unit to lactated Ringer's 200 mL/hour. Glucose 130. Total bilirubin 0.5, AST 142, ALT is 16. Ammonia less than 9. MEDICATIONS: Tylenol as needed, DuoNeb every 4 hours, Tessalon, Klonopin, Mucinex, Levemir 5 units subcutaneously at bedtime and lispro 4 units subcutaneously before meals, lactated Ringer's 200 mL/hour, cefepime, Lopressor, Protonix 40 mg IV every 12, sucralfate and vancomycin. ASSESSMENT AND PLAN: This is a 62-year-old gentleman who presented with acute kidney injury and rhabdomyolysis after fall. His rhabdomyolysis substantially improved with aggressive IV fluid resuscitation. He was also febrile and initially had leukocytosis which gave rise to concern for severe sepsis as a source of rhabdomyolysis. The patient was started on broad-spectrum antibiotics and septic workup was initiated. Of note, chest x-ray was negative for infiltrate and urine negative for nitrites and leukocyte esterase as well. His leukocytosis by now resolved. ID service is following him and will make decision whether to stop empiric antibiotics. At present time, the patient is hemodynamically and respiratory winters stable. His IV fluids were switched from D5 half normal saline with potassium to lactated Ringer's. Nephrology service is on board as well, as of yesterday no need for renal replacement therapy. He definitely does not appear fluid overloaded. He maintains his gas exchange adequately, he does not have significant acidosis and electrolyte abnormalities. I would agree with Nephrology service that there is no need for a renal replacement therapy at present time. I would continue with aggressive IV fluids and monitor creatinine level as well. Initial drop of hemoglobin level most likely attributed to aggressive fluid resuscitation and is dilutional in nature; however, cannot rule out occult gastrointestinal bleed, especially in the setting of positive FOBT. Whether or not to take the patient to upper endoscopy now will be up to GI service. I would hold insulin therapy until n.p.o. status lifted. Would continue with DVT and GI prophylaxis. We would would maintain euvolemia, euglycemia, normothermia and oxygen saturation more than 90 percent. Addendum: later in a day, patient appeared a bit more labored breathing, with some crackles on lung ausculttion, even though maintain adequate gas exchange and CXR didnt show worsened congestion, while hourly urine output remained suboptimal. spoke with Dr. Mccabe-->will hold LR, will give lasix and hyperoncotic albumin. Addendum: patient tolerated upper endoscopy well, however procedure did not reveal active bleeding. ccm time 40 min Goyo Pepe MD SAVANA[facility]
[2018-05-17] MEDS ORDERED: Albumin Human 25% (25 gm/100 ml) IV ONE (14:13)
[2018-05-17] MEDS ORDERED: Albumin Human 25% (12.5 gm/50 ml) IV ONE (15:29)
[2018-05-17] MEDS ORDERED: Propofol 10 mg/ml Inj (20 ML) ONE (15:31)
--- NOTE | 2018-05-17 15:46 | CARD ---
APPROVED REPORT Date of service: 05/17/2018 EXAM: Two-dimensional and M-mode echocardiogram with Doppler and color Doppler. INDICATION Infection:Rule out subacute bacterial endocarditis 2D DIMENSIONS Left Atrium (2D)4.0 (1.6-4.0cm)IVSd1.3 (0.7-1.1cm) LVDd5.7 (3.9-5.9cm)PWd0.9 (0.7-1.1cm) LVDs4.5 (2.5-4.0cm)FS (%) 21.1 % LVEF (%)42.5 (>50%) M-Mode DIMENSIONS Aortic Root2.90 (2.2-3.7cm)Aortic Cusp Exc.1.80 (1.5-2.0cm) Aortic Valve AoV Peak Ioqivyru578.0cm/Emily Peak GR.8mmHg Mitral Valve E/A ratio0.0 TDI E/Lateral E'0.0E/Medial E'0.0 Tricuspid Valve TR Peak [id number] [id number] Peak Gr.32mmHg [id number] LEFT VENTRICLE The left ventricle is normal size. There is borderline to mild concentric left ventricular hypertrophy. The systolic function is mildly impaired. The left ventricular diastolic function is normal. RIGHT VENTRICLE The right ventricle is normal size. There is normal right ventricular wall thickness. The right ventricular systolic function is normal. ATRIA The left atrium size is normal. The right atrium size is normal. AORTIC VALVE The aortic valve is mildly thickened. There is trace aortic regurgitation. MITRAL VALVE The mitral valve is mildly thickened. Mitral regurgitation is mild. There is no mitral valve stenosis. TRICUSPID VALVE There is mild tricuspid regurgitation. There is mild pulmonary hypertension. GREAT VESSELS The aortic root is normal in size. <Conclusion> The left ventricle is normal size. There is borderline to mild concentric left ventricular hypertrophy. The systolic function is mildly impaired. The left ventricular diastolic function is normal. Mitral regurgitation is mild. There is mild tricuspid regurgitation. There is mild pulmonary hypertension. No vegitation seen
--- NOTE | 2018-05-17 17:07 | RAD ---
Date of service: 05/17/2018 HISTORY: SOB COMPARISON: May 17, 2018 study performed 05:52 FINDINGS: LUNGS: No active pulmonary disease. PLEURA: No significant pleural effusion identified, no pneumothorax apparent. CARDIOVASCULAR: No atherosclerotic calcification present No radiographic findings to suggest acute or significant cardiovascular disease. Incidental Finding(s): Postoperative changes related to sternotomy. OSSEOUS STRUCTURES: No significant abnormalities. VISUALIZED UPPER ABDOMEN: Normal. OTHER FINDINGS: None. IMPRESSION: No active disease. No significant interval change compared to the prior examination(s).
--- NOTE | 2018-05-17 19:22 | PN ---
DATE: 05/17/2018 REASON FOR CONSULTATION: Followup, history of coronary artery disease, COPD, elevated troponin, elevated CPK, rhabdomyolysis, cardiomyopathy, cardiac evaluation, diabetes, history of GI bleed, status post fall. SUBJECTIVE: The patient denies any chest pain, shortness of breath, or any palpitation. PHYSICAL EXAMINATION: As follows: VITAL SIGNS: He is afebrile, temperature 101, heart rate 78, blood pressure 122/52. HEENT: PERRLA. Extraocular muscles intact. NECK: Supple. No carotid bruit or thyromegaly. CHEST: Clear to auscultation. HEART: S1 and S2, regular. ABDOMEN: Soft. EXTREMITIES: Clubbing and cyanosis negative. LABORATORY DATA: Blood workup as follows: WBC 5.6, hemoglobin 8.6, hematocrit 30.6, and platelet count 121. Chemistry shows sodium 135, potassium 4.1, chloride 103, carbon dioxide 25, anion gap of 14, BUN 48, creatinine 6.3. Total CPK 26,045, MB fraction 0.1%, troponin 2.11. IMPRESSION AND PLAN: A 62-year-old male with past medical history significant for schizophrenia, cardiomyopathy, chronic obstructive pulmonary disease, admitted after a fall, acute kidney injury and chronic renal insufficiency, chronic kidney disease, admitted with acute kidney injury, after a fall, and rhabdomyolysis. Troponin is positive, most likely secondary to rhabdomyolysis because MB fraction was low. The patient had a cardiac catheterization in 2017 and medical treatment was recommended. The patient had a prior bypass and at that time the cardiac picture revealed left internal mammary artery to left anterior descending artery was patent. Good flow left anterior descending artery distally. Saphenous venous graft to right coronary artery, two borderline lesions. Ejection fraction was 40%. Medical treatment recommended. The patient is also not a candidate to go for cath because the patient has an acute kidney injury with ____, so we will treat medically. Continue hydration, monitor electrolyte. Continue beta dorita. We will follow with you. Continue antibiotic. Thank you Dr. Serrano for providing us the opportunity in taking care of the patient, Jose Carty. Maurice King MD [facility] # [id number]
--- NOTE | 2018-05-17 20:03 | CP.PCM.PN ---
Subjective - Date & Time of Evaluation Date of Evaluation: 05/17/18 Time of Evaluation: 11:20 - Subjective Subjective: Comfortable in bed, no fevers. Objective - Vital Signs/Intake and Output Vital Signs (last 24 hours): Temp Pulse Resp BP Pulse Ox 100.8 F H 77 26 H 102/54 L 52 L 05/16/18 09:19 05/16/18 19:30 05/16/18 19:30 05/16/18 19:00 05/16/18 19:30 Intake and Output: 05/16/18 05/17/18 18:59 06:59 Intake Total 2886 Output Total 135 Balance 2751 - Medications Medications: Current Medications Acetaminophen (Tylenol 325mg Tab) 325 mg PO Q6H PRN PRN Reason: Fever >100.4 F Last Admin: 05/16/18 16:59 Dose: 325 mg Albuterol/Ipratropium (Duoneb 3 Mg/0.5 Mg (3 Ml) Ud) 3 ml IH [id number] [facility] Last Admin: 05/16/18 14:31 Dose: 3 ml Diphenhydramine HCl (Benadryl) 25 mg PO HS PRN PRN Reason: Insomnia Last Admin: 05/16/18 20:04 Dose: 25 mg Cefepime HCl (Maxipime 1gm) 1 gm in 100 mls @ 25 mls/hr IVPB Q12 [facility]; Protocol Last Admin: 05/16/18 09:45 Dose: 25 mls/hr Dexmedetomidine HCl (Precedex 400mcg/100ml) 400 mcg in 100 mls @ 4.309 mls/hr IV .[id number] PRN; Protocol PRN Reason: Anxiety Last Titration: 05/15/18 16:10 Dose: 0 mcg/kg/hr, 0 mls/hr Potassium Chloride 20 meq/ (Sodium Chloride) 1,010 mls @ 150 mls/hr IV .[id number] [facility] Last Admin: 05/16/18 17:59 Dose: 150 mls/hr Insulin Detemir (Levemir) 5 unit SC HS [facility] Last Admin: 05/15/18 22:45 Dose: 5 unit Insulin Human Lispro (Humalog) 4 units SC AC [facility] Last Admin: 05/16/18 16:58 Dose: 4 u Insulin Human Regular (Humulin R Low) 0 units SC ACHS [facility]; Protocol Last Admin: 05/16/18 16:59 Dose: 1 units Metoprolol Tartrate (Lopressor) 25 mg PO BID [facility] Last Admin: 05/16/18 17:00 Dose: 25 mg Pantoprazole Sodium (Protonix Inj) 40 mg IVP Q12 [facility] Last Admin: 05/16/18 09:45 Dose: 40 mg Sucralfate (Carafate Oral Susp) 1 gm PO 0600,1600 [facility] Last Admin: 05/16/18 16:58 Dose: 1 gm - Labs Labs: 05/16/18 13:14 05/16/18 06:05 PT 12.8 SECONDS (9.4-12.5) H 05/15/18 01:30 INR 1.11 05/15/18 01:30 APTT 27.0 Seconds (25.1-36.5) 05/14/18 13:30 - Constitutional Appears: Chronically Ill - Head Exam Head Exam: NORMAL INSPECTION - Respiratory Exam Respiratory Exam: Decreased Breath Sounds - Cardiovascular Exam Cardiovascular Exam: +S1, +S2 - GI/Abdominal Exam GI & Abdominal Exam: Soft. absent: Tenderness Assessment and Plan - Assessment and Plan (Free Text) Plan: Assessment systemic inflammatory response syndrome with rhabdomyolysis on top of coagulase negative staph in blood cx, R/O contamination, R/O endocarditis schizophrenia anxiety dementia CAD DM history of esophageal ulcers chronic anemia deafness mental disability Plan Continue Vancomycin and Cefepime pending final cx results; follow up repeat blood cx results, 2D echo results will monitor clinically
--- NOTE | 2018-05-17 21:09 | CP.PCM.PN ---
Subjective - Date & Time of Evaluation Date of Evaluation: 05/17/18 Time of Evaluation: 21:14 - Subjective Subjective: UOP borderline pe: vs reviewed gen: nad sclera: anicteric op: clear, poor dentition neck supple no thyromegaly cv: +S1+s2 no rub abd: soft nt nd no organomegaly lungs wbilateral air entry equal ext: no edema neuro: AO times 3 psych: flat skin bruising on b/l knees labs and imaging reviewed Imp: ARF/ Rhabdomylosis/ Anemia/ ? sepsis plan: HONG - likely from combination of rhabdo +/ - developing sirs / sepsis. UOP slightly better but still not good, recommend stopping iv fluids can attempt to use lasix iv 40-60 with salt poor albumin for diuresis trend CPK - trending down electrolytes are ok at this point no emergent indications for [employer]ISH[employer] will monitor closely for any developments. f/u cultures - abx per primary team - dose for reduced eGFR d/w team Objective - Vital Signs/Intake and Output Vital Signs (last 24 hours): Temp Pulse Resp BP Pulse Ox 100.9 F H 80 43 H 117/50 L 95 05/17/18 20:24 05/17/18 19:20 05/17/18 19:00 05/17/18 19:20 05/17/18 19:00 Intake and Output: 05/17/18 05/18/18 18:59 06:59 Intake Total 1970 Output Total 225 Balance 1745 - Medications Medications: Current Medications Acetaminophen (Tylenol 325mg Tab) 325 mg PO Q6H PRN PRN Reason: Fever >100.4 F Last Admin: 05/17/18 20:24 Dose: 325 mg Albuterol/Ipratropium (Duoneb 3 Mg/0.5 Mg (3 Ml) Ud) 3 ml IH [id number] [facility] Last Admin: 05/17/18 15:02 Dose: 3 ml Benzonatate (Tessalon Perles) 100 mg PO TID [facility] Last Admin: 05/17/18 19:25 Dose: 100 mg Clonazepam (Klonopin) 2 mg PO Q12H [facility]; Protocol Last Admin: 05/17/18 10:00 Dose: 2 mg Diphenhydramine HCl (Benadryl) 25 mg PO HS PRN PRN Reason: Insomnia Last Admin: 05/17/18 20:25 Dose: 25 mg Guaifenesin/Dextromethorphan (Mucinex-Dm 600-30 Mg) 1 tab PO BID [facility] Last Admin: 05/17/18 19:25 Dose: 1 tab Cefepime HCl (Maxipime 1gm) 1 gm in 100 mls @ 25 mls/hr IVPB Q12 [facility]; Protocol Last Admin: 05/17/18 09:13 Dose: 25 mls/hr Insulin Detemir (Levemir) 5 unit SC HS [facility] Last Admin: 05/16/18 21:40 Dose: 5 unit Insulin Human Lispro (Humalog) 4 units SC AC [facility] Last Admin: 05/17/18 17:22 Dose: Not Given Insulin Human Regular (Humulin R Low) 0 units SC ACHS [facility]; Protocol Last Admin: 05/17/18 17:26 Dose: Not Given Metoprolol Tartrate (Lopressor) 25 mg PO BID [facility] Last Admin: 05/17/18 19:20 Dose: Not Given Pantoprazole Sodium (Protonix Inj) 40 mg IVP Q12 [facility] Last Admin: 05/17/18 09:50 Dose: 40 mg Sucralfate (Carafate Oral Susp) 1 gm PO 0600,1600 [facility] Last Admin: 05/17/18 16:50 Dose: 1 gm - Labs Labs: 05/17/18 05:20 05/17/18 05:20 PT 12.8 SECONDS (9.4-12.5) H 05/15/18 01:30 INR 1.11 05/15/18 01:30 APTT 27.0 Seconds (25.1-36.5) 05/14/18 13:30
[2018-05-17] MEDS: Insulin Detemir 100 units/ml Vial (Levemir) SC SCH (23:17)
[2018-05-18] MEDS: Albuterol-Ipratrop 3 mg / 0.5 (3 ml) UD IH SCH ×5 (00:40→23:32)
[2018-05-18] MEDS: Sucralfate 1 gm/10 ml Oral Susp UD PO SCH (06:40)
[2018-05-18 07:03] LABS: BASO # 0.01 K/mm3 (0.0-2.0); BASO % 0.2 % (0.0-3.0); EOS # 0.2 (0.0-0.7); EOS % 4.7 % (1.5-5.0); GRAN # 3.46 (1.4-6.5); GRAN % 78.2 % (50.0-68.0); HEMOGLOBIN 7.9 g/dL (14.0-18.0); LYMPH # 0.5 (1.2-3.4); LYMPH % 11.3 % (22.0-35.0); MEAN CELL VOLUME 64.3 fl (80.0-105.0); MEAN CORPUSCULAR HEMOGLOBIN 18.5 pg (25.0-35.0); MEAN CORPUSCULAR HGB CONC 28.8 g/dl (31.0-37.0); MONO # 0.3 (0.1-0.6); MONO % 5.6 % (1.0-6.0); PLATELET COUNT 120 10^3/uL (120.0-450.0); RBC 4.26 10^6/uL (3.5-6.1); RED CELL DISTRIBUTION WIDTH 19.5 % (11.5-14.5); WHITE BLOOD COUNT 4.4 10^3/uL (4.5-11.0)
[2018-05-18 08:26] LABS: ALB/GLOB RATIO 0.9 (1.1-1.8); ALBUMIN 2.7 g/dL (3.0-4.8); CALCIUM 7.1 mg/dL (8.4-10.5)
[2018-05-18] MEDS ORDERED: Albumin Human 5% (12.5 gm/250 ml) IV ONE ×3 (09:01→09:13)
--- NOTE | 2018-05-18 09:21 | CP.CCUPN ---
<Orlin Barry - Last Filed: 05/18/18 11:48> CCU Subjective - Physician Review Subjective (Free Text): Orlin Barry DO, PGY1. ICU progress note for Dr Miranda Patient seen and examined at bedside. He is AAOx3, in NAD. He reported not sleeping well. He is off precedex and on clonazepam. No acute events overnight. Patient denied CP,SOB, fever, palpitations, N/V CCU Objective - Vital Signs / Intake & Output Intake and Output (Last 8hrs): Intake & Output 05/17/18 05/18/18 05/18/18 22:59 06:59 14:59 Intake Total 1970 340 Output Total 225 400 Balance 1745 -60 Weight 216 lb 12.8 oz Intake: IV 1650 100 Right Wrist 1650 100 Oral 320 240 Output: Urine 225 400 Urethral (Gan) 225 400 Other: # Bowel Movements 0 1 - Physical Exam Head: Positive for: Atraumatic, Normocephalic Pupils: Positive for: PERRL Extroacular Muscles: Positive for: EOMI Conjunctiva: Positive for: Normal Mouth: Positive for: Dry Nose (External): Positive for: Abrasion (+abrasion to nasal bridge) Respiratory/Chest: Positive for: Wheezes (diffuse throughout both lungs), Other (+old healed sternotomy scar noted to midline ). Negative for: Accessory Muscle Use, Rales, Rhonchi Cardiovascular: Positive for: Normal S1, S2, Tachycardic Abdomen: Positive for: Distention (+distended belly soft non-tender), Normal Bowel Sounds Lower Extremity: Positive for: Other (ecchymoses noted to lower extremities with abrasions noted to b/L knees. decreased LL pulses) Neurological: Positive for: GCS=15, CN II-XII Intact, Speech Normal Skin: Positive for: Abrasion (b/l knee) Psychiatric: Positive for: Alert, Oriented x 3, Anxious, Depressed Mood - Medications Active Medications: Active Medications Generic Name Dose Route Start Last Admin Trade Name Freq PRN Reason Stop Dose Admin Acetaminophen 325 mg 05/16/18 07:57 05/17/18 20:24 Tylenol 325mg Tab PO 325 mg Q6H PRN Administration Fever >100.4 F Albumin Human 12.5 gm 05/18/18 09:13 Albumin Human 5% (12.5 Gm/250 Ml) IV 05/18/18 09:14 ONCE ONE Albuterol/Ipratropium 3 ml 05/15/18 11:30 05/18/18 07:31 Duoneb 3 Mg/0.5 Mg (3 Ml) Ud IH 3 ml [id number] CHANEL Administration Benzonatate 100 mg 05/17/18 10:00 05/17/18 19:25 Tessalon Perles PO 100 mg TID CHANEL Administration Clonazepam 2 mg 05/17/18 09:45 05/17/18 23:16 Klonopin PO 2 mg Q12H CHANEL Administration Protocol Diphenhydramine HCl 25 mg 05/16/18 19:54 05/17/18 20:25 Benadryl PO 25 mg HS PRN Administration Insomnia Guaifenesin/Dextromethorphan 1 tab 05/17/18 10:00 05/17/18 19:25 Mucinex-Dm 600-30 Mg PO 1 tab BID CHANEL Administration Insulin Detemir 5 unit 05/15/18 22:00 05/17/18 23:17 Levemir SC 5 unit HS CHANEL Administration Insulin Human Lispro 4 units 05/16/18 07:30 05/17/18 17:22 Humalog SC Not Given AC CHANEL Insulin Human Regular 0 units 05/14/18 22:00 05/17/18 23:18 Humulin R Low SC Not Given ACHS [facility] Protocol Metoprolol Tartrate 25 mg 05/14/18 18:45 05/17/18 19:20 Lopressor PO Not Given BID CHANEL Pantoprazole Sodium 40 mg 05/16/18 10:00 05/17/18 23:17 Protonix Inj IVP 40 mg Q12 CHANEL Administration Sucralfate 1 gm 05/15/18 11:15 05/18/18 06:40 Carafate Oral Susp PO 1 gm 0600,1600 [facility] Administration - Patient Studies Lab Studies: Microbiology Studies 05/17/18 05:40 Blood Culture - Preliminary Blood NO GROWTH AFTER 24 HOURS 05/17/18 05:20 Blood Culture - Preliminary Blood NO GROWTH AFTER 24 HOURS 05/14/18 14:00 Blood Culture - Preliminary Blood NO GROWTH AFTER 3 DAYS 05/14/18 13:20 S.aureus & Coag-Neg Staph PNA FISH - Final Blood Blood Culture - Final Coagulase Neg Staphylococcus Gram Stain - Final Lab Studies 05/18/18 05/18/18 05/17/18 Range/Units 08:00 06:25 16:09 WBC 4.4 L D (4.5-11.0) 10^3/uL RBC 4.26 (3.5-6.1) 10^6/uL Hgb 7.9 L (14.0-18.0) g/dL Hct 27.4 L (42.0-52.0) % MCV 64.3 L (80.0-105.0) fl MCH 18.5 L (25.0-35.0) pg MCHC 28.8 L (31.0-37.0) g/dl RDW 19.5 H (11.5-14.5) % Plt Count 120 (120.0-450.0) 10^3/uL Gran % 78.2 H (50.0-68.0) % Lymph % (Auto) 11.3 L (22.0-35.0) % Jack % (Auto) 5.6 (1.0-6.0) % Eos % (Auto) 4.7 (1.5-5.0) % Baso % (Auto) 0.2 (0.0-3.0) % Gran # 3.46 (1.4-6.5) Lymph # (Auto) 0.5 L (1.2-3.4) Jack # (Auto) 0.3 (0.1-0.6) Eos # (Auto) 0.2 (0.0-0.7) Baso # (Auto) 0.01 (0.0-2.0) K/mm3 Sodium 134 (132-148) mmol/L Potassium 4.1 (3.6-5.0) mmol/L Chloride 101 (98-107) mmol/L Carbon Dioxide 21 (21-33) mmol/L Anion Gap 16 (10-20) BUN 56 H (7-21) mg/dL Creatinine 7.7 H* D (0.8-1.5) mg/dl Est GFR ( Amer) 9 Est GFR (Non-Af Amer) 7 POC Glucose (mg/dL) 159 H (65-110) mg/dL Random Glucose 162 H (70-110) mg/dL Calcium 7.1 L (8.4-10.5) mg/dL Phosphorus 6.0 H (2.5-4.5) mg/dL Magnesium 1.8 (1.7-2.2) mg/dL Total Bilirubin 0.8 (0.2-1.3) mg/dL AST 91 H D (17-59) U/L ALT 54 (7-56) U/L Alkaline Phosphatase 76 (38-126) U/L Total Creatine Kinase 2934 H (35-230) U/L CK-MB (CK-2) (0.0-3.6) ng/mL CK-MB (CK-2) % Troponin I ng/mL Total Protein 5.6 L (5.8-8.3) g/dL Albumin 2.7 L (3.0-4.8) g/dL Globulin 2.9 gm/dL Albumin/Globulin Ratio 0.9 L (1.1-1.8) 25-OH Vitamin D Total (30-100) ng/mL PTH Intact Whole Molec (14-64) pg/mL HIV 1&2 Ag/Ab, 4th Gen (Nonreactive) 05/17/18 05/17/18 05/17/18 Range/Units 11:23 05:20 05:20 WBC (4.5-11.0) 10^3/uL RBC (3.5-6.1) 10^6/uL Hgb (14.0-18.0) g/dL Hct (42.0-52.0) % MCV (80.0-105.0) fl MCH (25.0-35.0) pg MCHC (31.0-37.0) g/dl RDW (11.5-14.5) % Plt Count (120.0-450.0) 10^3/uL Gran % (50.0-68.0) % Lymph % (Auto) (22.0-35.0) % Jack % (Auto) (1.0-6.0) % Eos % (Auto) (1.5-5.0) % Baso % (Auto) (0.0-3.0) % Gran # (1.4-6.5) Lymph # (Auto) (1.2-3.4) Jack # (Auto) (0.1-0.6) Eos # (Auto) (0.0-0.7) Baso # (Auto) (0.0-2.0) K/mm3 Sodium (132-148) mmol/L Potassium (3.6-5.0) mmol/L Chloride (98-107) mmol/L Carbon Dioxide (21-33) mmol/L Anion Gap (10-20) BUN (7-21) mg/dL Creatinine (0.8-1.5) mg/dl Est GFR ( Amer) Est GFR (Non-Af Amer) POC Glucose (mg/dL) 150 H (65-110) mg/dL Random Glucose (70-110) mg/dL Calcium (8.4-10.5) mg/dL Phosphorus (2.5-4.5) mg/dL Magnesium (1.7-2.2) mg/dL Total Bilirubin (0.2-1.3) mg/dL AST (17-59) U/L ALT (7-56) U/L Alkaline Phosphatase (38-126) U/L Total Creatine Kinase 7778 H (35-230) U/L CK-MB (CK-2) 2.7 (0.0-3.6) ng/mL CK-MB (CK-2) % Cancelled Troponin I 0.41 H* D ng/mL Total Protein (5.8-8.3) g/dL Albumin (3.0-4.8) g/dL Globulin gm/dL Albumin/Globulin Ratio (1.1-1.8) 25-OH Vitamin D Total 30 (30-100) ng/mL PTH Intact Whole Molec (14-64) pg/mL HIV 1&2 Ag/Ab, 4th Gen (Nonreactive) 05/15/18 05/14/18 Range/Units 12:00 19:00 WBC (4.5-11.0) 10^3/uL RBC (3.5-6.1) 10^6/uL Hgb (14.0-18.0) g/dL Hct (42.0-52.0) % MCV (80.0-105.0) fl MCH (25.0-35.0) pg MCHC (31.0-37.0) g/dl RDW (11.5-14.5) % Plt Count (120.0-450.0) 10^3/uL Gran % (50.0-68.0) % Lymph % (Auto) (22.0-35.0) % Jack % (Auto) (1.0-6.0) % Eos % (Auto) (1.5-5.0) % Baso % (Auto) (0.0-3.0) % Gran # (1.4-6.5) Lymph # (Auto) (1.2-3.4) Jack # (Auto) (0.1-0.6) Eos # (Auto) (0.0-0.7) Baso # (Auto) (0.0-2.0) K/mm3 Sodium (132-148) mmol/L Potassium (3.6-5.0) mmol/L Chloride (98-107) mmol/L Carbon Dioxide (21-33) mmol/L Anion Gap (10-20) BUN (7-21) mg/dL Creatinine (0.8-1.5) mg/dl Est GFR ( Amer) Est GFR (Non-Af Amer) POC Glucose (mg/dL) (65-110) mg/dL Random Glucose (70-110) mg/dL Calcium (8.4-10.5) mg/dL Phosphorus (2.5-4.5) mg/dL Magnesium (1.7-2.2) mg/dL Total Bilirubin (0.2-1.3) mg/dL AST (17-59) U/L ALT (7-56) U/L Alkaline Phosphatase (38-126) U/L Total Creatine Kinase (35-230) U/L CK-MB (CK-2) (0.0-3.6) ng/mL CK-MB (CK-2) % Troponin I ng/mL Total Protein (5.8-8.3) g/dL Albumin (3.0-4.8) g/dL Globulin gm/dL Albumin/Globulin Ratio (1.1-1.8) 25-OH Vitamin D Total (30-100) ng/mL PTH Intact Whole Molec 15 (14-64) pg/mL HIV 1&2 Ag/Ab, 4th Gen Nonreactive (Nonreactive) Laboratory Results - last 24 hr 05/14/18 05/15/18 05/17/18 19:00 12:00 05:20 WBC RBC Hgb Hct MCV MCH MCHC RDW Plt Count Gran % Lymph % (Auto) Jack % (Auto) Eos % (Auto) Baso % (Auto) Gran # Lymph # (Auto) Jack # (Auto) Eos # (Auto) Baso # (Auto) Sodium Potassium Chloride Carbon Dioxide Anion Gap BUN Creatinine Est GFR ( Amer) Est GFR (Non-Af Amer) POC Glucose (mg/dL) Random Glucose Calcium Phosphorus Magnesium Total Bilirubin AST ALT Alkaline Phosphatase Total Creatine Kinase CK-MB (CK-2) CK-MB (CK-2) % Troponin I Total Protein Albumin Globulin Albumin/Globulin Ratio 25-OH Vitamin D Total 30 PTH Intact Whole Molec 15 HIV 1&2 Ag/Ab, 4th Gen Nonreactive 05/17/18 05/17/18 05/17/18 05:20 11:23 16:09 WBC RBC Hgb Hct MCV MCH MCHC RDW Plt Count Gran % Lymph % (Auto) Jack % (Auto) Eos % (Auto) Baso % (Auto) Gran # Lymph # (Auto) Jack # (Auto) Eos # (Auto) Baso # (Auto) Sodium Potassium Chloride Carbon Dioxide Anion Gap BUN Creatinine Est GFR ( Amer) Est GFR (Non-Af Amer) POC Glucose (mg/dL) 150 H 159 H Random Glucose Calcium Phosphorus Magnesium Total Bilirubin AST ALT Alkaline Phosphatase Total Creatine Kinase 7778 H CK-MB (CK-2) 2.7 CK-MB (CK-2) % Cancelled Troponin I 0.41 H* D Total Protein Albumin Globulin Albumin/Globulin Ratio 25-OH Vitamin D Total PTH Intact Whole Molec HIV 1&2 Ag/Ab, 4th Gen 05/18/18 05/18/18 06:25 08:00 WBC 4.4 L D RBC 4.26 Hgb 7.9 L Hct 27.4 L MCV 64.3 L MCH 18.5 L MCHC 28.8 L RDW 19.5 H Plt Count 120 Gran % 78.2 H Lymph % (Auto) 11.3 L Jack % (Auto) 5.6 Eos % (Auto) 4.7 Baso % (Auto) 0.2 Gran # 3.46 Lymph # (Auto) 0.5 L Jack # (Auto) 0.3 Eos # (Auto) 0.2 Baso # (Auto) 0.01 Sodium 134 Potassium 4.1 Chloride 101 Carbon Dioxide 21 Anion Gap 16 BUN 56 H Creatinine 7.7 H* D Est GFR ( Amer) 9 Est GFR (Non-Af Amer) 7 POC Glucose (mg/dL) Random Glucose 162 H Calcium 7.1 L Phosphorus 6.0 H Magnesium 1.8 Total Bilirubin 0.8 AST 91 H D ALT 54 Alkaline Phosphatase 76 Total Creatine Kinase 2934 H CK-MB (CK-2) CK-MB (CK-2) % Troponin I Total Protein 5.6 L Albumin 2.7 L Globulin 2.9 Albumin/Globulin Ratio 0.9 L 25-OH Vitamin D Total PTH Intact Whole Molec HIV 1&2 Ag/Ab, 4th Gen Fingerstick Blood Sugar Results: 180 Critical Care Progress Note - Nutrition Nutrition: Nutrition Category Date Time Status Heart Healthy Diet [DIET] Diets 05/18/18 Breakfast Active Assessment/Plan - Assessment and Plan (Free Text) Assessment: 62 y/o male with PMHx of HTN, CAD s/p CABG,GI bleed, esophageal ulcer, anemia, schizophrenia, anxiety presents to ED s/p fall. He was admitted to ICU for HONG in the setting of rhabdomyolysis . He is improving and hemodynamically stable Plan: Neuro/psych: -AAOx3. in NAD. looks anxious and uncooperative sometimes -resume home med clonazepam. d/c precedex -h/o schezihrenia. not on meds, PCP d/c Respiredone, as per patient and family member -psych consulted, recs appreciated -maintain normothermia CVS: -continue lopressor -hold lipitor, lisinopril for HONG and rhabdo -hold asa for +FOBT -elevated trop likely due to HONG. now trending down -Echo ordered -CAD s/p CABG. cardiac cath (2017) EF 40% -Maintain MAP>65 Resp: -in NAD -maintain O2 sat >90% -O2 NC prn -duoneb prn -incentive spirometry -mucinex, tessalon perles -CXR: bibasilar atelectasis, vascular congestion, no acute finding -flu A/B ordered GI: -s/p EGD (05/17): easophagitis, gastritis -FOBT positive. no acitve GI bleeding -continue protonix IVP bid -monitor CBC -CT A/P: no acute finding -elevated AST likely due to rhabdomyolysis, trending down -U/S gallbladder: 1.3 gallbladder stone. no cholecystitis -h/o GI bleeding, esophagitis -ID following (Dr Nieves) Renal: -HONG, likely due to rhabdomyolysis -CPK trending down -BUN/Cr 56/7.7 trending up -d/c IVF -one dose of lasix 60mg IVP and albumin 25% given yesterday as per Nephro. UOP was 25cc/hr after lasix administration -2 bolus doses of albumin 5% given today -UOP 50cc/hr today -1 dose of lasix 60mg IVP will be given and continue monitoring UOP -patient might go for dialysis if kidney function continues to deteriorate. -consent for dialysis obtained from sister on the phone by fast food services manager Dr Pearce -monitor CMP -I/O 2310/625 -UA: positive for blood, no RBC (consistent with rhabdo), no WBC, + protein and glucose ID: -improved leukocytosis, afebrile -tylenol prn for fever -continue cefepime -ESR, procal elevated -blood cx: + coagulase negative staph. repeat blood cx negative -urine cx negative Endo: -accucheck q4h -ISS-low -maintain euglycemia Heme: -H/H 7.9// continue monitoring -asymptomatic. no signs of bleeding -PT/INR 12.6/1.09 -h/o anemia and GI bleeding MSK: -s/p fall. bruises on b/l knees, forehead -CT cervical spine: negative for fracture -knee XR: negative -PT eval: RAUL Prophylaxis: -GI ppx: Pantoprazole -DVT ppx SCD Heart healthy diet Dispo: monitor UOP, BUN/Cr after lasix trial. d/c IVF, BP control, maintain euvolemia Case reviewed and plan discussed with Dr. My Barry, DO, PGY1 <Goyo Pepe - Last Filed: 05/18/18 16:07> CCU Objective - Vital Signs / Intake & Output Vital Signs (Last 4 hours): Vital Signs BP 05/18/18 13:01 148/61 Intake and Output (Last 8hrs): Intake & Output 05/18/18 05/18/18 05/18/18 06:59 14:59 22:59 Intake Total 340 Output Total 400 Balance -60 Weight 216 lb 12.8 oz Intake: IV 100 Right Wrist 100 Oral 240 Output: Urine 400 Urethral (Gan) 400 Other: # Bowel Movements 1 - Medications Active Medications: Active Medications Generic Name Dose Route Start Last Admin Trade Name Freq PRN Reason Stop Dose Admin Acetaminophen 325 mg 05/16/18 07:57 05/18/18 09:52 Tylenol 325mg Tab PO 325 mg Q6H PRN Administration Fever >100.4 F Albuterol/Ipratropium 3 ml 05/15/18 11:30 05/18/18 14:00 Duoneb 3 Mg/0.5 Mg (3 Ml) Ud IH 3 ml [id number] CHANEL Administration Benzonatate 100 mg 05/17/18 10:00 05/18/18 13:01 Tessalon Perles PO 100 mg TID CHANEL Administration Calcium Acetate 667 mg 05/18/18 12:00 05/18/18 13:01 Phoslo PO 667 mg WM CHANEL Administration Clonazepam 2 mg 05/17/18 09:45 05/18/18 09:53 Klonopin PO 2 mg Q12H CHANEL Administration Protocol Darbepoetin Will 100 mcg 05/18/18 10:00 05/18/18 09:55 Aranesp SC 100 mcg QWK CHANEL Administration Diphenhydramine HCl 25 mg 05/16/18 19:54 05/17/18 20:25 Benadryl PO 25 mg HS PRN Administration Insomnia Ferrous Gluconate 324 mg 05/18/18 10:00 05/18/18 13:01 Fergon PO 324 mg TID CHANEL Administration Guaifenesin/Dextromethorphan 1 tab 05/17/18 10:00 05/18/18 09:49 Mucinex-Dm 600-30 Mg PO 1 tab BID CHANEL Administration Insulin Detemir 5 unit 05/15/18 22:00 05/17/18 23:17 Levemir SC 5 unit HS CHANEL Administration Insulin Human Lispro 4 units 05/16/18 07:30 05/18/18 12:56 Humalog SC 4 u AC CHANEL Administration Insulin Human Regular 0 units 05/14/18 22:00 05/18/18 12:57 Humulin R Low SC 1 units ACHS CHANEL Administration Protocol Lorazepam 1 mg 05/18/18 13:51 Ativan IVP Q6H PRN Anxiety Protocol Metoprolol Tartrate 25 mg 05/14/18 18:45 05/18/18 09:53 Lopressor PO 25 mg BID CHANEL Administration Pantoprazole Sodium 40 mg 05/16/18 10:00 05/18/18 10:01 Protonix Inj IVP 40 mg Q12 CHANEL Administration Vitamin B Complex/Vit C/Folic Acid 1 tab 05/19/18 08:00 Nephro-Lydia PO 0800 CHANEL - Patient Studies Lab Studies: Microbiology Studies 05/14/18 14:00 Blood Culture - Preliminary Blood NO GROWTH AFTER 4 DAYS 05/17/18 05:40 Blood Culture - Preliminary Blood NO GROWTH AFTER 24 HOURS 05/17/18 05:20 Blood Culture - Preliminary Blood NO GROWTH AFTER 24 HOURS Lab Studies 05/18/18 05/18/18 05/18/18 Range/Units 11:04 08:00 06:25 WBC 4.4 L D (4.5-11.0) 10^3/uL RBC 4.26 (3.5-6.1) 10^6/uL Hgb 7.9 L (14.0-18.0) g/dL Hct 27.4 L (42.0-52.0) % MCV 64.3 L (80.0-105.0) fl MCH 18.5 L (25.0-35.0) pg MCHC 28.8 L (31.0-37.0) g/dl RDW 19.5 H (11.5-14.5) % Plt Count 120 (120.0-450.0) 10^3/uL Gran % 78.2 H (50.0-68.0) % Lymph % (Auto) 11.3 L (22.0-35.0) % Jack % (Auto) 5.6 (1.0-6.0) % Eos % (Auto) 4.7 (1.5-5.0) % Baso % (Auto) 0.2 (0.0-3.0) % Gran # 3.46 (1.4-6.5) Lymph # (Auto) 0.5 L (1.2-3.4) Jack # (Auto) 0.3 (0.1-0.6) Eos # (Auto) 0.2 (0.0-0.7) Baso # (Auto) 0.01 (0.0-2.0) K/mm3 pO2 44 (30-55) mm/Hg VBG pH 7.34 (7.32-7.43) VBG pCO2 39.0 L (40-60) VBG HCO3 21.0 (21-28) mmol/l VBG Total CO2 22.2 (22-28) mmol.L VBG O2 Sat (Calc) 81.8 H (40-65) % VBG Base Excess -4.4 L (0.0-2.0) mmol/L VBG Potassium 4.2 (3.6-5.2) mmol/L Glucose 216 H (75-110) mg/dl Lactate 1.7 (0.7-2.1) mmol/L FiO2 21.0 % Sodium 131.0 L 134 (132-148) mmol/L Potassium 4.1 (3.6-5.0) mmol/L Chloride 101.0 101 (98-107) mmol/L Carbon Dioxide 21 (21-33) mmol/L Anion Gap 16 (10-20) BUN 56 H (7-21) mg/dL Creatinine 7.7 H* D (0.8-1.5) mg/dl Est GFR ( Amer) 9 Est GFR (Non-Af Amer) 7 POC Glucose (mg/dL) (65-110) mg/dL Random Glucose 162 H (70-110) mg/dL Calcium 7.1 L (8.4-10.5) mg/dL Phosphorus 6.0 H (2.5-4.5) mg/dL Magnesium 1.8 (1.7-2.2) mg/dL Total Bilirubin 0.8 (0.2-1.3) mg/dL AST 91 H D (17-59) U/L ALT 54 (7-56) U/L Alkaline Phosphatase 76 (38-126) U/L Total Creatine Kinase 2934 H (35-230) U/L CK-MB (CK-2) 2.2 (0.0-3.6) ng/mL CK-MB (CK-2) % Cancelled Troponin I 0.20 H* D ng/mL Total Protein 5.6 L (5.8-8.3) g/dL Albumin 2.7 L (3.0-4.8) g/dL Globulin 2.9 gm/dL Albumin/Globulin Ratio 0.9 L (1.1-1.8) 25-OH Vitamin D Total (30-100) ng/mL PTH Intact Whole Molec (14-64) pg/mL Venous Blood Potassium 4.2 (3.6-5.2) mmol/L 05/17/18 05/17/18 05/14/18 Range/Units 16:09 05:20 19:00 WBC (4.5-11.0) 10^3/uL RBC (3.5-6.1) 10^6/uL Hgb (14.0-18.0) g/dL Hct (42.0-52.0) % MCV (80.0-105.0) fl MCH (25.0-35.0) pg MCHC (31.0-37.0) g/dl RDW (11.5-14.5) % Plt Count (120.0-450.0) 10^3/uL Gran % (50.0-68.0) % Lymph % (Auto) (22.0-35.0) % Jack % (Auto) (1.0-6.0) % Eos % (Auto) (1.5-5.0) % Baso % (Auto) (0.0-3.0) % Gran # (1.4-6.5) Lymph # (Auto) (1.2-3.4) Jack # (Auto) (0.1-0.6) Eos # (Auto) (0.0-0.7) Baso # (Auto) (0.0-2.0) K/mm3 pO2 (30-55) mm/Hg VBG pH (7.32-7.43) VBG pCO2 (40-60) VBG HCO3 (21-28) mmol/l VBG Total CO2 (22-28) mmol.L VBG O2 Sat (Calc) (40-65) % VBG Base Excess (0.0-2.0) mmol/L VBG Potassium (3.6-5.2) mmol/L Glucose (75-110) mg/dl Lactate (0.7-2.1) mmol/L FiO2 % Sodium (132-148) mmol/L Potassium (3.6-5.0) mmol/L Chloride (98-107) mmol/L Carbon Dioxide (21-33) mmol/L Anion Gap (10-20) BUN (7-21) mg/dL Creatinine (0.8-1.5) mg/dl Est GFR ( Amer) Est GFR (Non-Af Amer) POC Glucose (mg/dL) 159 H (65-110) mg/dL Random Glucose (70-110) mg/dL Calcium (8.4-10.5) mg/dL Phosphorus (2.5-4.5) mg/dL Magnesium (1.7-2.2) mg/dL Total Bilirubin (0.2-1.3) mg/dL AST (17-59) U/L ALT (7-56) U/L Alkaline Phosphatase (38-126) U/L Total Creatine Kinase (35-230) U/L CK-MB (CK-2) (0.0-3.6) ng/mL CK-MB (CK-2) % Troponin I ng/mL Total Protein (5.8-8.3) g/dL Albumin (3.0-4.8) g/dL Globulin gm/dL Albumin/Globulin Ratio (1.1-1.8) 25-OH Vitamin D Total 30 (30-100) ng/mL PTH Intact Whole Molec 15 (14-64) pg/mL Venous Blood Potassium (3.6-5.2) mmol/L Laboratory Results - last 24 hr 05/14/18 05/17/18 05/17/18 19:00 05:20 16:09 WBC RBC Hgb Hct MCV MCH MCHC RDW Plt Count Gran % Lymph % (Auto) Jack % (Auto) Eos % (Auto) Baso % (Auto) Gran # Lymph # (Auto) Jack # (Auto) Eos # (Auto) Baso # (Auto) pO2 VBG pH VBG pCO2 VBG HCO3 VBG Total CO2 VBG O2 Sat (Calc) VBG Base Excess VBG Potassium Glucose Lactate FiO2 Sodium Potassium Chloride Carbon Dioxide Anion Gap BUN Creatinine Est GFR ( Amer) Est GFR (Non-Af Amer) POC Glucose (mg/dL) 159 H Random Glucose Calcium Phosphorus Magnesium Total Bilirubin AST ALT Alkaline Phosphatase Total Creatine Kinase CK-MB (CK-2) CK-MB (CK-2) % Troponin I Total Protein Albumin Globulin Albumin/Globulin Ratio 25-OH Vitamin D Total 30 PTH Intact Whole Molec 15 Venous Blood Potassium 05/18/18 05/18/18 05/18/18 06:25 08:00 11:04 WBC 4.4 L D RBC 4.26 Hgb 7.9 L Hct 27.4 L MCV 64.3 L MCH 18.5 L MCHC 28.8 L RDW 19.5 H Plt Count 120 Gran % 78.2 H Lymph % (Auto) 11.3 L Jack % (Auto) 5.6 Eos % (Auto) 4.7 Baso % (Auto) 0.2 Gran # 3.46 Lymph # (Auto) 0.5 L Jack # (Auto) 0.3 Eos # (Auto) 0.2 Baso # (Auto) 0.01 pO2 44 VBG pH 7.34 VBG pCO2 39.0 L VBG HCO3 21.0 VBG Total CO2 22.2 VBG O2 Sat (Calc) 81.8 H VBG Base Excess -4.4 L VBG Potassium 4.2 Glucose 216 H Lactate 1.7 FiO2 21.0 Sodium 134 131.0 L Potassium 4.1 Chloride 101 101.0 Carbon Dioxide 21 Anion Gap 16 BUN 56 H Creatinine 7.7 H* D Est GFR ( Amer) 9 Est GFR (Non-Af Amer) 7 POC Glucose (mg/dL) Random Glucose 162 H Calcium 7.1 L Phosphorus 6.0 H Magnesium 1.8 Total Bilirubin 0.8 AST 91 H D ALT 54 Alkaline Phosphatase 76 Total Creatine Kinase 2934 H CK-MB (CK-2) 2.2 CK-MB (CK-2) % Cancelled Troponin I 0.20 H* D Total Protein 5.6 L Albumin 2.7 L Globulin 2.9 Albumin/Globulin Ratio 0.9 L 25-OH Vitamin D Total PTH Intact Whole [place] Venous Blood Potassium 4.2 Critical Care Progress Note - Nutrition Nutrition: Nutrition Category Date Time Status Heart Healthy Diet [DIET] Diets 05/18/18 Breakfast Active Attending/Attestation - Attestation I have personally seen and examined this patient.: Yes I have fully participated in the care of the patient.: Yes I have reviewed all pertinent clinical information: Yes Notes (Text): 05/18/18 16:[address] Pepe note
[2018-05-18 09:36] LABS: CK-MB 2.2 ng/mL (0.0-3.6)
[2018-05-18 09:37] LABS: TROPONIN I 0.2 ng/mL
[2018-05-18] MEDS: Insulin Reg-LOW-Coverage SC SCH ×4 (09:49→22:17)
[2018-05-18] MEDS: guaiFENesin-DM 600-30 mg ER Tab PO SCH ×2 (09:49→17:07)
[2018-05-18] MEDS: Insulin Lispro 1 UNITS/0.01 ML SC SCH ×3 (09:49→16:56)
[2018-05-18] MEDS: Darbepoetin Alfa 100 mcg/ml Inj SC SCH (09:55)
--- NOTE | 2018-05-18 10:05 | US ---
PROCEDURE: Bilateral carotid artery duplex ultrasound HISTORY: Carotid stenosis PHYSICIAN(S): Guido Hwang MD. TECHNIQUE: Duplex sonography and color-flow Doppler were used to evaluate the carotid bifurcations and limited segments of the vertebral arteries bilaterally. FINDINGS: There is moderate to extensive focal heterogeneous smooth plaque with calcification noted at the carotid bifurcations bilaterally. The peak systolic velocity in the proximal right internal carotid artery is 161 cm/sec. This corresponds to a 60-79 percent proximal right ICA stenosis. Mildly elevated systolic velocities are noted in the proximal right external carotid artery. There is antegrade flow in the right vertebral artery. The peak systolic velocity in the proximal left internal carotid artery is 138 cm/sec. This corresponds to a 40-59 percent proximal left ICA stenosis. Severely elevated systolic velocities are noted in the proximal left external carotid artery. There is antegrade flow in the left vertebral artery. IMPRESSION: 1. 60-79 percent proximal right ICA stenosis 2. 40-59 percent proximal left ICA stenosis 3. Antegrade flow in both vertebral arteries.
--- NOTE | 2018-05-18 11:22 | CP.PCM.PN ---
<Johnie Bryson - Last Filed: 05/18/18 16:18> Subjective - Date & Time of Evaluation Date of Evaluation: 05/18/18 Time of Evaluation: 07:00 - Subjective Subjective: PGY6 GI Fellow Progress Note Patient seen and examined bedside this morning. The patient states that he slept poorly last night. No significant pain in the abdomen reported. No events overnight 12 system ROS performed and negative except where stated Objective - Vital Signs/Intake and Output Vital Signs (last 24 hours): Temp Pulse Resp BP Pulse Ox 98.8 F 103 H 20 155/70 H 98 05/18/18 09:20 05/18/18 09:53 05/18/18 09:20 05/18/18 09:53 05/18/18 09:20 Intake and Output: 05/18/18 05/18/18 06:59 18:59 Intake Total 2310 Output Total 625 Balance 1685 - Medications Medications: Current Medications Acetaminophen (Tylenol 325mg Tab) 325 mg PO Q6H PRN PRN Reason: Fever >100.4 F Last Admin: 05/18/18 09:52 Dose: 325 mg Albuterol/Ipratropium (Duoneb 3 Mg/0.5 Mg (3 Ml) Ud) 3 ml IH [id number] [facility] Last Admin: 05/18/18 07:31 Dose: 3 ml Benzonatate (Tessalon Perles) 100 mg PO TID [facility] Last Admin: 05/18/18 09:52 Dose: 100 mg Calcium Acetate (Phoslo) 667 mg PO WM CHANEL Clonazepam (Klonopin) 2 mg PO Q12H [facility]; Protocol Last Admin: 05/18/18 09:53 Dose: 2 mg Darbepoetin Will (Aranesp) 100 mcg SC QWK [facility] Last Admin: 05/18/18 09:55 Dose: 100 mcg Diphenhydramine HCl (Benadryl) 25 mg PO HS PRN PRN Reason: Insomnia Last Admin: 05/17/18 20:25 Dose: 25 mg Ferrous Gluconate (Fergon) 324 mg PO TID [facility] Last Admin: 05/18/18 09:52 Dose: 324 mg Guaifenesin/Dextromethorphan (Mucinex-Dm 600-30 Mg) 1 tab PO BID [facility] Last Admin: 12/11/18 09:49 Dose: 1 tab Insulin Detemir (Levemir) 5 unit SC HS [facility] Last Admin: 05/17/18 23:17 Dose: 5 unit Insulin Human Lispro (Humalog) 4 units SC AC [facility] Last Admin: 05/18/18 09:49 Dose: 4 u Insulin Human Regular (Humulin R Low) 0 units SC ACHS [facility]; Protocol Last Admin: 05/18/18 09:49 Dose: 1 units Metoprolol Tartrate (Lopressor) 25 mg PO BID [facility] Last Admin: 05/18/18 09:53 Dose: 25 mg Pantoprazole Sodium (Protonix Inj) 40 mg IVP Q12 [facility] Last Admin: 05/18/18 10:01 Dose: 40 mg Sucralfate (Carafate Oral Susp) 1 gm PO 0600,1600 [facility] Last Admin: 05/18/18 06:40 Dose: 1 gm Vitamin B Complex/Vit C/Folic Acid (Nephro-Lydia) 1 tab PO 0800 [facility] - Labs Labs: 05/18/18 06:25 05/18/18 08:00 PT 12.8 SECONDS (9.4-12.5) H 05/15/18 01:30 INR 1.11 05/15/18 01:30 APTT 27.0 Seconds (25.1-36.5) 05/14/18 13:30 - Constitutional Appears: Non-toxic, No Acute Distress - Eye Exam Eye Exam: EOMI, PERRL - ENT Exam ENT Exam: Mucous Membranes Dry - Respiratory Exam Respiratory Exam: Rales, Wheezes. absent: Clear to Ausculation Bilateral, Rhonchi - Cardiovascular Exam Cardiovascular Exam: RRR, +S1, +S2 - GI/Abdominal Exam GI & Abdominal Exam: Soft, Normal Bowel Sounds. absent: Distended, Firm, Guarding, Rigid, Tenderness, Organomegaly - Extremities Exam Extremities Exam: Normal Inspection. absent: Pedal Edema - Neurological Exam Neurological Exam: Alert, Awake, Oriented x3 - Psychiatric Exam Psychiatric exam: Flat Affect - Skin Skin Exam: Dry, Warm Additional comments: multiple abrasions and ecchymoses Assessment and Plan - Assessment and Plan (Free Text) Assessment: Patient is a 62yo male with PMHx significant for CAD s/p CABG, CHF, HTN, DM2 and schizophrenia/anxiety who presented following a fall. Our service was consulted for anemia -Microcytic anemia -Rhabdomyolysis -HONG 2/2 above -Elevated troponin Plan: -S/P EGD yesterday with finding of LA Grade C esophagitis -Colonoscopy performed in 2016 without significant findings - consider repeating electively -No active bleeding noted during endoscopy and no active hematochezia or melena noted per staff -Consider hematology consultation -PPI daily with close monitoring of kidney function <Lizbeth,Kovil V - Last Filed: 05/18/18 22:56> Objective - Vital Signs/Intake and Output Vital Signs (last 24 hours): Temp Pulse Resp BP Pulse Ox 99.7 F H 88 21 154/71 H 99 05/18/18 19:27 05/18/18 18:20 05/18/18 18:20 05/18/18 18:00 05/18/18 18:20 Intake and Output: 05/18/18 05/19/18 18:59 06:59 Intake Total 860 Output Total 800 Balance 60 - Medications Medications: Current Medications Acetaminophen (Tylenol 325mg Tab) 325 mg PO Q6H PRN PRN Reason: Fever >100.4 F Last Admin: 05/18/18 19:27 Dose: 325 mg Albuterol/Ipratropium (Duoneb 3 Mg/0.5 Mg (3 Ml) Ud) 3 ml IH [id number] [facility] Last Admin: 05/18/18 19:24 Dose: 3 ml Benzonatate (Tessalon Perles) 100 mg PO TID [facility] Last Admin: 05/18/18 17:07 Dose: 100 mg Calcium Acetate (Phoslo) 667 mg PO WM [facility] Last Admin: 05/18/18 16:58 Dose: 667 mg Clonazepam (Klonopin) 2 mg PO Q12H [facility]; Protocol Last Admin: 05/18/18 21:03 Dose: 2 mg Darbepoetin Will (Aranesp) 100 mcg SC QWK [facility] Last Admin: 05/18/18 09:55 Dose: 100 mcg Diphenhydramine HCl (Benadryl) 25 mg PO HS PRN PRN Reason: Insomnia Last Admin: 05/18/18 21:03 Dose: 25 mg Ferrous Gluconate (Fergon) 324 mg PO TID [facility] Last Admin: 05/18/18 17:14 Dose: 324 mg Guaifenesin/Dextromethorphan (Mucinex-Dm 600-30 Mg) 1 tab PO BID [facility] Last Admin: 05/18/18 17:07 Dose: 1 tab Cefepime HCl (Maxipime 1gm) 1 gm in 100 mls @ 100 mls/hr IVPB Q24H [facility]; Protocol Insulin Detemir (Levemir) 5 unit SC HS [facility] Last Admin: 05/18/18 22:18 Dose: 5 unit Insulin Human Lispro (Humalog) 4 units SC AC [facility] Last Admin: 05/18/18 16:56 Dose: 4 u Insulin Human Regular (Humulin R Low) 0 units SC ACHS [facility]; Protocol Last Admin: 05/18/18 22:17 Dose: Not Given Lorazepam (Ativan) 1 mg IVP Q6H PRN; Protocol PRN Reason: Anxiety Metoprolol Tartrate (Lopressor) 25 mg PO BID [facility] Last Admin: 05/18/18 17:10 Dose: 25 mg Pantoprazole Sodium (Protonix Inj) 40 mg IVP Q12 [facility] Last Admin: 05/18/18 21:03 Dose: 40 mg Vitamin B Complex/Vit C/Folic Acid (Nephro-Lydia) 1 tab PO 0800 [facility] - Labs Labs: 05/18/18 06:25 05/18/18 08:00 PT 12.8 SECONDS (9.4-12.5) H 05/15/18 01:30 INR 1.11 05/15/18 01:30 APTT 27.0 Seconds (25.1-36.5) 05/14/18 13:30 Attending/Attestation - Attestation I have personally seen and examined this patient.: Yes I have fully participated in the care of the patient.: Yes I have reviewed all pertinent clinical information, including history, physical exam and plan: Yes Notes (Text): This is an addendum to GI progress report dictated by the GI Fellow.The patient was seen and examined earlier. Medical records, lab studies, imagings were reviewed. Last 24 hours events reviewed. Agreed with the above treatment plan as outlined in GI Fellow 's notes with the addition of the following 05/18/18 22:55
[2018-05-18 11:30] LABS: VENOUS BLOOD GAS BASE EXCESS -4.4 mmol/L (0.0-2.0); VENOUS BLOOD GAS PO2 44 mm/Hg (30-55); VENOUS BLOOD PH 7.34 (7.32-7.43)
--- NOTE | 2018-05-18 11:50 | PN ---
DATE: 05/18/2018 SERVICE: Cardiology Service, Dr. King. REASON FOR CONSULTATION: Followup, history of coronary artery disease, COPD, elevated troponin, admitted with rhabdomyolysis, status post fall, cardiac evaluation, history of GI bleed, and elevated troponin. SUBJECTIVE: The patient denied any chest pain or shortness of breath. No palpitations. PHYSICAL EXAMINATION: GENERAL: Not in apparent distress. VITAL SIGNS: Temperature afebrile, heart rate 88, blood pressure 134/56. HEENT: PERRLA. Extraocular muscles intact. NECK: Supple. No carotid bruit or thyromegaly. CHEST: Clear to auscultation. HEART: S1 and S2, regular. ABDOMEN: Soft. EXTREMITIES: Clubbing and cyanosis negative. LABORATORY DATA: Blood workup as follows: WBC 4.4, hemoglobin 7.9, hematocrit 27.4, and platelet count 120. Chemistry showed sodium 134, potassium 4, chloride 101, carbon dioxide 21, anion gap of 16, BUN 56, creatinine 7.7. Chest x-ray: No active disease. No any significant interval change. IMPRESSION: A 62-year-old male with a past medical history significant for schizophrenia, cardiomyopathy, chronic obstructive pulmonary disease, admitted for acute kidney injury, chronic renal insufficiency, chronic kidney disease, rhabdomyolysis, positive troponins most likely secondary to rhabdomyolysis, MB fraction is low. The patient had a cardiac catheterization in 2017. Medical treatment was recommended. The patient has a prior bypass history, recent cardiac catheterization last year after that medical treatment recommended ejection fraction 40%. RECOMMENDATION: Aggressive medical treatment. It looks like that the patient may need dialysis, avoid nephrotoxic medication. Continue Lasix as per supervisor asbestos textile. We will continue low-dose beta-dorita. Continue antibiotic as per ID. Monitor closely renal function possibly. The patient may need dialysis. Follow up with supervisor asbestos textile. The patient did an echo dated 05/17/2018, yesterday, that revealed normal LV size, LV function mildly impaired, diastolic functions are normal, [id number] regurgitation, mild tricuspid regurgitation, mild pulmonary hypertension, no vegetation noted. We will put low dose of beta dorita as blood pressure and heart rate is tolerated. Thank you Dr. Caruso for providing us the opportunity in taking care of Jose Carty. Maurice King MD [facility] # [id number]
--- NOTE | 2018-05-18 12:12 | CP.PCM.PN ---
Subjective - Date & Time of Evaluation Date of Evaluation: 05/18/18 Time of Evaluation: 12:09 - Subjective Subjective: UOP better today pt feels lousy. says breathing better but not normal no nausea/vomittin pe: vs reviewed gen: nad sclera: anicteric op: clear, poor dentition neck supple no thyromegaly cv: +S1+s2 no rub abd: soft nt nd no organomegaly lungs wbilateral air entry equal, few basal rale ext: trace edema neuro: AO times 3 psych: flat. limited insight skin bruising on b/l knees labs and imaging reviewed Imp: ARF/ Rhabdomylosis/ Anemia/ ? sepsis/hyperphos/ATN/PUD plan: HONG - likely from combination of rhabdo +/ - developing sirs / sepsis. lasix 80 mg IV today and monitor UOP. if in oliguric range then will plan for dialysis initiation. d/w sister at pt request and consent for HD obtained. pt close to need for dialysis initiation trend CPK - trending down electrolytes are ok at this point f/u cultures - abx per primary team - dose for reduced eGFR started weekly aransep, iron, MVI and phos binders work up as ordered continue with PPI. but avoid carafate/al and mag based laxatives/antacid. no fleet enemas d/w team Objective - Vital Signs/Intake and Output Vital Signs (last 24 hours): Temp Pulse Resp BP Pulse Ox 98.8 F 103 H 20 155/70 H 98 05/18/18 09:20 05/18/18 09:53 05/18/18 09:20 05/18/18 09:53 05/18/18 09:20 Intake and Output: 05/18/18 05/18/18 06:59 18:59 Intake Total 2310 Output Total 625 Balance 1685 - Medications Medications: Current Medications Acetaminophen (Tylenol 325mg Tab) 325 mg PO Q6H PRN PRN Reason: Fever >100.4 F Last Admin: 05/18/18 09:52 Dose: 325 mg Albuterol/Ipratropium (Duoneb 3 Mg/0.5 Mg (3 Ml) Ud) 3 ml IH [id number] [facility] Last Admin: 05/18/18 07:31 Dose: 3 ml Benzonatate (Tessalon Perles) 100 mg PO TID [facility] Last Admin: 05/18/18 09:52 Dose: 100 mg Calcium Acetate (Phoslo) 667 mg PO WM CHANEL Clonazepam (Klonopin) 2 mg PO Q12H [facility]; Protocol Last Admin: 05/18/18 09:53 Dose: 2 mg Darbepoetin Will (Aranesp) 100 mcg SC QWK [facility] Last Admin: 05/18/18 09:55 Dose: 100 mcg Diphenhydramine HCl (Benadryl) 25 mg PO HS PRN PRN Reason: Insomnia Last Admin: 05/17/18 20:25 Dose: 25 mg Ferrous Gluconate (Fergon) 324 mg PO TID [facility] Last Admin: 05/18/18 09:52 Dose: 324 mg Guaifenesin/Dextromethorphan (Mucinex-Dm 600-30 Mg) 1 tab PO BID [facility] Last Admin: 05/18/18 09:49 Dose: 1 tab Insulin Detemir (Levemir) 5 unit SC HS [facility] Last Admin: 05/17/18 23:17 Dose: 5 unit Insulin Human Lispro (Humalog) 4 units SC AC [facility] Last Admin: 05/18/18 09:49 Dose: 4 u Insulin Human Regular (Humulin R Low) 0 units SC ACHS [facility]; Protocol Last Admin: 05/18/18 09:49 Dose: 1 units Metoprolol Tartrate (Lopressor) 25 mg PO BID [facility] Last Admin: 05/18/18 09:53 Dose: 25 mg Pantoprazole Sodium (Protonix Inj) 40 mg IVP Q12 [facility] Last Admin: 05/18/18 10:01 Dose: 40 mg Vitamin B Complex/Vit C/Folic Acid (Nephro-Lydia) 1 tab PO 0800 [facility] - Labs Labs: 05/18/18 06:25 05/18/18 08:00 PT 12.8 SECONDS (9.4-12.5) H 05/15/18 01:30 INR 1.11 05/15/18 01:30 APTT 27.0 Seconds (25.1-36.5) 05/14/18 13:30
--- NOTE | 2018-05-18 12:49 | CP.PCM.PN ---
<Robin Bernstein - Last Filed: 05/18/18 14:19> Subjective - Date & Time of Evaluation Date of Evaluation: 05/18/18 Time of Evaluation: 09:22 - Subjective Subjective: PGY1 Medicine Progress Note for Dr. Caruso Patient was seen and evaluated at bedside this morning. No acute events overnight. Patient A&Ox3. Patient is status-post Endoscopy on 05/17; tolerated well. Patient admits to headache (unchanged from admission), but otherwise denies fever, chills, chest pain, nausea, vomiting, abdominal pain, rash, blurred vision, diarrhea and/or constipation. Objective - Vital Signs/Intake and Output Vital Signs (last 24 hours): Temp Pulse Resp BP Pulse Ox 98.8 F 103 H 20 155/70 H 98 05/18/18 09:20 05/18/18 09:53 05/18/18 09:20 05/18/18 09:53 05/18/18 09:20 Intake and Output: 05/18/18 05/18/18 06:59 18:59 Intake Total 2310 Output Total 625 Balance 1685 - Medications Medications: Current Medications Acetaminophen (Tylenol 325mg Tab) 325 mg PO Q6H PRN PRN Reason: Fever >100.4 F Last Admin: 05/18/18 09:52 Dose: 325 mg Albuterol/Ipratropium (Duoneb 3 Mg/0.5 Mg (3 Ml) Ud) 3 ml IH [id number] [facility] Last Admin: 05/18/18 07:31 Dose: 3 ml Benzonatate (Tessalon Perles) 100 mg PO TID [facility] Last Admin: 05/18/18 09:52 Dose: 100 mg Calcium Acetate (Phoslo) 667 mg PO WM [facility] Clonazepam (Klonopin) 2 mg PO Q12H [facility]; Protocol Last Admin: 05/18/18 09:53 Dose: 2 mg Darbepoetin Will (Aranesp) 100 mcg SC QWK [facility] Last Admin: 05/18/18 09:55 Dose: 100 mcg Diphenhydramine HCl (Benadryl) 25 mg PO HS PRN PRN Reason: Insomnia Last Admin: 05/17/18 20:25 Dose: 25 mg Ferrous Gluconate (Fergon) 324 mg PO TID [facility] Last Admin: 05/18/18 09:52 Dose: 324 mg Guaifenesin/Dextromethorphan (Mucinex-Dm 600-30 Mg) 1 tab PO BID [facility] Last Admin: 05/18/18 09:49 Dose: 1 tab Insulin Detemir (Levemir) 5 unit SC HS [facility] Last Admin: 05/17/18 23:17 Dose: 5 unit Insulin Human Lispro (Humalog) 4 units SC AC [facility] Last Admin: 05/18/18 09:49 Dose: 4 u Insulin Human Regular (Humulin R Low) 0 units SC ACHS [facility]; Protocol Last Admin: 05/18/18 09:49 Dose: 1 units Metoprolol Tartrate (Lopressor) 25 mg PO BID [facility] Last Admin: 05/18/18 09:53 Dose: 25 mg Pantoprazole Sodium (Protonix Inj) 40 mg IVP Q12 [facility] Last Admin: 05/18/18 10:01 Dose: 40 mg Vitamin B Complex/Vit C/Folic Acid (Nephro-Lydia) 1 tab PO 0800 [facility] - Labs Labs: 05/18/18 06:25 05/18/18 08:00 PT 12.8 SECONDS (9.4-12.5) H 05/15/18 01:30 INR 1.11 05/15/18 01:30 APTT 27.0 Seconds (25.1-36.5) 05/14/18 13:30 - Additional Findings Additional findings: - Constitutional Appears: Non-toxic, No Acute Distress - Head Exam Head Exam: ATRAUMATIC, NORMOCEPHALIC - Eye Exam Eye Exam: EOMI, Normal appearance, PERRL. absent: Periorbital swelling, Periorbital tenderness, Scleral icterus Pupil Exam: NORMAL ACCOMODATION - ENT Exam ENT Exam: Normal Exam - Neck Exam Neck Exam: Full ROM, Normal Inspection. absent: Tenderness - Respiratory Exam Respiratory Exam: Wheezes (Mild expiratory wheezing diffusely), NORMAL BREATHING PATTERN. absent: Accessory Muscle Use, Chest Wall Tenderness, Decreased Breath Sounds, Clear to Ausculation Bilateral, Prolonged Expiratory Phase, Rales, Rhonchi, Respiratory Distress, Stridor - Cardiovascular Exam Cardiovascular Exam: REGULAR RHYTHM, RRR, +S1, +S2. absent: Bradycardia, Tachy cardia, Clicks, Diastolic murmur, Gallop, Irregular Rhythm, JVD, Rubs, +S4, Murmur - GI/Abdominal Exam GI & Abdominal Exam: Soft, Normal Bowel Sounds. absent: Tenderness - Extremities Exam Extremities Exam: absent: Calf Tenderness - Neurological Exam Neurological Exam: Alert, Awake - Psychiatric Exam Psychiatric exam: Normal Affect, Normal Mood - Skin Skin Exam: Dry, Intact, Warm Assessment and Plan - Assessment and Plan (Free Text) Assessment: 62 year old male with a past medical history significant for CAD s/p CABG, systolic CHF, HTN, DM2, esophageal ulcer with esophagitis, gastritis, duodenitis, schizophrenia and anxiety who presented after a fall. Patient was admitted to ICU for closer monitoring and for further evaluation. Plan: Sepsis; with gram negative staph in blood - Patient met SIRS criteria in ED: - Today: Patient with low-grade fever at 99.4, without tachycardia, without tachypnea and with resolving leukocytosis/lactic acidosis - CT Abdomen/Pelvis, Chest X-Ray and UA negative for sources of infection - 1/2 blood cultures positive for gram positive cocci in clusters; Repeat blood cultures s/p fever pending - Urine cultures negative for growth - Procalcitonin elevated at 6.35 - CRP, ESR and Influenza pending - Continue Cefepime (Day 4) - Continue IVF as ordered - Low dose Tylenol Q6 PRN for fevers - Echocardiogram 05/17: LV normal size, borderline to mild concentric LVH, systolic function mildly impaired, LV diastolic function is normal. Mitral regurgitation is mild. Mild tricuspid regurg. There is mild pulmonary HTN. No vegetation seen. (Please see complete report for details). - ID consulted, all recommendations appreciated - Continue Cefepime and Vancomycin - Monitor Dysphagia - GI (Dr. Nieves) consulted; recommendations appreciated - Endoscopy completed 05/17: gastritis and esophagitis (see full report for details) Acute Renal Failure, Improving - Likely secondary to rhabdomyolysis - BUN/Creatinine still up-trending to 48/6.3 (05/17) - Lasix 80mg IVP once administered today 05/17 - Continue IVF as ordered - Monitor urine output - Continue Gan with urine output monitoring: improved from yesterday 400cc output in past 12 hours) - Renal US pending - Nephrology consulted; (Dr. Elizabeth) Recommendations appreciated Rhabdomyolysis, Improving - CPK downtrending at 7778 --> 2934 today - Troponins downtrending at 0.41 --> 0.20 today - Continue Normal Saline at 150mls/hr with - Continue to monitor CPK Hypoalbuminemia - Albumin=2.7 - Nephrology consulted (Dr. Elizabeth); recommends 25% albumin if albumin < 3 - Lasix 60mg IVP given ONCE - Monitor daily CMP CAD s/p CABG with Elevated Troponin - Likely secondary to rhabdomyolysis and ARF - Downtrended - Continue Lopressor - Holding ASA (anemia and +FOBT), LEROY inhibitor (ARF) and Statin (elevated LFT's) - Cardiology consulted, all recommendations appreciated Chronic Systolic CHF - Echocardiogram 05/17: LV normal size, borderline to mild concentric LVH, systolic function mildly impaired, LV diastolic function is normal. Mitral regurgitation is mild. Mild tricuspid regurg. There is mild pulmonary HTN. No vegetation seen. (Please see complete report for details). - Chest X-Ray (05/16) showed no PVC - Continue Lopressor - Continue daily Chest X-Ray's - Holding ASA (anemia and +FOBT), LEROY inhibitor (ARF) and Statin (elevated LFT's) - Cardiology consulted (Dr. King); Recommendations appreciated Transaminitis, improved - Continuing to downtrend - Continue to trend with daily CMP's Microcytic Anemia - H/H stable at 8.1/28.3 on most recent CBC - +FOBT - Protonix increased to 40mg IVP Q12 - Continue Carafate as ordered - Continue to monitor with daily CBC's - GI consulted, all recommendations appreciated History of DM2 - Continue SSI-Low and Accuchecks ACHS - Continue Levemir 5u HS - Continue Humalog 4u AC - A1c: 11.2 - Carbohydrate consistent diet Status-Post Fall - Bilateral Knee X-Ray were unremarkable - CT Head and CT Cervical Spine were unremarkable except showing heavily calc ified carotid bifurcation - Continue fall precautions - PT/OT when appropriate Carotid Calcification - See CT Cervical Spine - Carotid/Vertebral Doppler US: 60-79 % prox R ICA stenosis; 40-59 % prox L ICA stenosis; Antegrade flow in both vertebral arties. Cholelithiasis - See GB US and CT Abdomen/Pelvis reports - Will recommend general surgery follow up as an outpatient Claudication - Mildly abnormal resting MATTI's and bilateral popliteal, trifurcation and/or tibial disease - Continue to monitor for signs of necrosis PPx: - GI: Protonix 40IVP Q12 and Carafate - DVT: SCD's Diet: Heart Healthy Moderate Carbohydrate Consistency Access: PIV with PICC placement pending Disposition: Patient will remain in the ICU until more medically appropriate to transfer to lower acuity level of care. Patient seen and case discussed with Attending Physician Dr. Zuly Bernstein PGY1 <Merlyn Caruso - Last Filed: 05/18/18 16:14> Objective - Vital Signs/Intake and Output Vital Signs (last 24 hours): Temp Pulse Resp BP Pulse Ox 98.8 F 103 H 20 148/61 98 05/18/18 09:20 05/18/18 09:53 05/18/18 09:20 05/18/18 13:01 05/18/18 09:20 Intake and Output: 05/18/18 05/18/18 06:59 18:59 Intake Total 2310 Output Total 625 Balance 1685 - Medications Medications: Current Medications Acetaminophen (Tylenol 325mg Tab) 325 mg PO Q6H PRN PRN Reason: Fever >100.4 F Last Admin: 05/18/18 09:52 Dose: 325 mg Albuterol/Ipratropium (Duoneb 3 Mg/0.5 Mg (3 Ml) Ud) 3 ml IH [id number] [facility] Last Admin: 05/18/18 14:00 Dose: 3 ml Benzonatate (Tessalon Perles) 100 mg PO TID [facility] Last Admin: 05/18/18 13:01 Dose: 100 mg Calcium Acetate (Phoslo) 667 mg PO WM [facility] Last Admin: 05/18/18 13:01 Dose: 667 mg Clonazepam (Klonopin) 2 mg PO Q12H [facility]; Protocol Last Admin: 05/18/18 09:53 Dose: 2 mg Darbepoetin Will (Aranesp) 100 mcg SC QWK [facility] Last Admin: 05/18/18 09:55 Dose: 100 mcg Diphenhydramine HCl (Benadryl) 25 mg PO HS PRN PRN Reason: Insomnia Last Admin: 05/17/18 20:25 Dose: 25 mg Ferrous Gluconate (Fergon) 324 mg PO TID [facility] Last Admin: 05/18/18 13:01 Dose: 324 mg Guaifenesin/Dextromethorphan (Mucinex-Dm 600-30 Mg) 1 tab PO BID [facility] Last Admin: 05/18/18 09:49 Dose: 1 tab Insulin Detemir (Levemir) 5 unit SC HS [facility] Last Admin: 05/17/18 23:17 Dose: 5 unit Insulin Human Lispro (Humalog) 4 units SC AC [facility] Last Admin: 05/18/18 12:56 Dose: 4 u Insulin Human Regular (Humulin R Low) 0 units SC ACHS [facility]; Protocol Last Admin: 05/18/18 12:57 Dose: 1 units Lorazepam (Ativan) 1 mg IVP Q6H PRN; Protocol PRN Reason: Anxiety Metoprolol Tartrate (Lopressor) 25 mg PO BID [facility] Last Admin: 05/18/18 09:53 Dose: 25 mg Pantoprazole Sodium (Protonix Inj) 40 mg IVP Q12 [facility] Last Admin: 05/18/18 10:01 Dose: 40 mg Vitamin B Complex/Vit C/Folic Acid (Nephro-Lydia) 1 tab PO 0800 [facility] - Labs Labs: 05/18/18 06:25 05/18/18 08:00 PT 12.8 SECONDS (9.4-12.5) H 05/15/18 01:30 INR 1.11 05/15/18 01:30 APTT 27.0 Seconds (25.1-36.5) 05/14/18 13:30 Attending/Attestation - Attestation I have personally seen and examined this patient.: Yes I have fully participated in the care of the patient.: Yes I have reviewed all pertinent clinical information, including history, physical exam and plan: Yes Notes (Text): 05/18/18 16:04 Attending note; Patient seen and examined with the resident in ICU. Patient is alert and awake. oriented to place and time. not in any acute distress. Denies any chest pain, shortness of breath. Denies any nausea, vomiting. tolerating liquid diet. Patient is a 62-year-old male with past medical history significant for artery disease status post CABG, systolic CHF, hypertension, schizophrenia, anxiety, GI bleed, esophageal ulcer, and type 2 diabetes that presented to the emergency room status post a fall. 1. Status post fall; CT head is negative. CT cervical spine is negative. Sepsis is resolved. Patient is currently afebrile and nontoxic. Leukocytosis re solved. One blood culture positive for coag negative staph, likely contaminant. Second blood culture with no growth. Urine culture with no growth. ID evaluation appreciated. Echocardiogram is negative for vegetations. CT abdomen and pelvis showed no acute intra-abdominal findings. Gallbladder ultrasound radiologist showed 1.3 cm gallstone, no evidence of cholecystitis. 2. Acute renal failure. Likely secondary to rhabdomyolysis and dehydration. Creatinine is 7.7 today. Urine output is increasing. Continue IV Lasix and albumin. 3. Rhabdomyolysis. CPK down trending. 4. Elevated troponins; mostly secondary to rhabdomyolysis. trending down. Cardiology recommendations appreciated. LEROY inhibitor held secondary to acute renal failure. Continue Lopressor. 5. Chronic systolic CHF. Chest x-ray did not show any congestion. Continue with Lopressor. 6. Transaminitis. Secondary to rhabdomyolysis. Down trending. 7. Anemia. History of GI bleed. Stool for occult blood positive. s/p endoscopy yesterday. Endoscopy showed esophagitis and gastritis. Continue Protonix. 8. Type 2 diabetes; Continue with insulin sliding scale. Continue Levemir5 units subcutaneous at bedtime and Humalog 4 units before meals. 9. Schizophrenia; psychiatric evaluation appreciated. Continue clonazepam. Monitor urine output closely. If urine output and creatinine does not improve possibility of dialysis explained to the patient. Monitor the patient closely in ICU. Upon discharge the patient will follow up with PMD Dr. Carpenter.
--- NOTE | 2018-05-18 14:32 | US ---
Date of service: 05/17/2018 PROCEDURE: Ultrasound of the Kidneys HISTORY: Sepsis, worsening renal function. Rhabdomyolysis. COMPARISON: 05/15/2018 abdominal ultrasound including the right kidney.. TECHNIQUE: Sonogram of the kidneys. FINDINGS: RIGHT KIDNEY: Measures: 6.4 x 6.7 x 11.0 cm. Normal in size, contour and echogenicity. No stone, solid mass lesion or hydronephrosis visualized. LEFT KIDNEY: Measures: 5.8 x 6 x 11.2 cm. Normal in size, contour and echogenicity. No stone, solid mass lesion or hydronephrosis visualized. OTHER FINDINGS: None. IMPRESSION: Unremarkable renal sonogram.
[2018-05-18] MEDS ORDERED: Cefepime 1gm in NS 100ml 1 GM/100 ML BAG IVPB SCH (16:45)
--- NOTE | 2018-05-18 17:07 | CP.PCM.PN ---
Subjective - Date & Time of Evaluation Date of Evaluation: 05/18/18 Time of Evaluation: 09:50 - Subjective Subjective: Comfortable in bed, no fevers. Objective - Vital Signs/Intake and Output Vital Signs (last 24 hours): Temp Pulse Resp BP Pulse Ox 100.8 F H 80 43 H 117/50 L 95 05/17/18 19:00 05/17/18 19:20 05/17/18 19:00 05/17/18 19:20 05/17/18 19:00 Intake and Output: 05/17/18 05/18/18 18:59 06:59 Intake Total 1970 Output Total 225 Balance 1745 - Medications Medications: Current Medications Acetaminophen (Tylenol 325mg Tab) 325 mg PO Q6H PRN PRN Reason: Fever >100.4 F Last Admin: 05/17/18 12:29 Dose: 325 mg Albuterol/Ipratropium (Duoneb 3 Mg/0.5 Mg (3 Ml) Ud) 3 ml IH [id number] [facility] Last Admin: 05/17/18 15:02 Dose: 3 ml Benzonatate (Tessalon Perles) 100 mg PO TID [facility] Last Admin: 05/17/18 19:25 Dose: 100 mg Clonazepam (Klonopin) 2 mg PO Q12H [facility]; Protocol Last Admin: 05/17/18 10:00 Dose: 2 mg Diphenhydramine HCl (Benadryl) 25 mg PO HS PRN PRN Reason: Insomnia Last Admin: 05/16/18 20:04 Dose: 25 mg Guaifenesin/Dextromethorphan (Mucinex-Dm 600-30 Mg) 1 tab PO BID [facility] Last Admin: 05/17/18 19:25 Dose: 1 tab Cefepime HCl (Maxipime 1gm) 1 gm in 100 mls @ 25 mls/hr IVPB Q12 [facility]; Protocol Last Admin: 05/17/18 09:13 Dose: 25 mls/hr Insulin Detemir (Levemir) 5 unit SC HS [facility] Last Admin: 05/16/18 21:40 Dose: 5 unit Insulin Human Lispro (Humalog) 4 units SC AC [facility] Last Admin: 05/17/18 17:22 Dose: Not Given Insulin Human Regular (Humulin R Low) 0 units SC ACHS [facility]; Protocol Last Admin: 05/17/18 17:26 Dose: Not Given Metoprolol Tartrate (Lopressor) 25 mg PO BID [facility] Last Admin: 05/17/18 19:20 Dose: Not Given Pantoprazole Sodium (Protonix Inj) 40 mg IVP Q12 [facility] Last Admin: 05/17/18 09:50 Dose: 40 mg Sucralfate (Carafate Oral Susp) 1 gm PO 0600,1600 [facility] Last Admin: 05/17/18 16:50 Dose: 1 gm - Labs Labs: 05/17/18 05:20 05/17/18 05:20 PT 12.8 SECONDS (9.4-12.5) H 05/15/18 01:30 INR 1.11 05/15/18 01:30 APTT 27.0 Seconds (25.1-36.5) 05/14/18 13:30 - Constitutional Appears: Chronically Ill - Head Exam Head Exam: NORMAL INSPECTION - Respiratory Exam Respiratory Exam: Decreased Breath Sounds - Cardiovascular Exam Cardiovascular Exam: +S1, +S2 - GI/Abdominal Exam GI & Abdominal Exam: Soft. absent: Tenderness Assessment and Plan - Assessment and Plan (Free Text) Plan: Assessment systemic inflammatory response syndrome with rhabdomyolysis o coagulase negative staph in blood cx, probably contamination schizophrenia anxiety dementia CAD DM history of esophageal ulcers chronic anemia deafness mental disability Plan Continue Cefepime pending final cx results; if all negative, may d/c antibiotics will continue to monitor clinically
[2018-05-18 17:54] LABS: HEPATITIS B SURFACE AG Negative (NEGATIVE)
[2018-05-18 17:59] LABS: FERRITIN 50.7 ng/mL; HEPATITIS B CORE AB NEGATIVE (NEGATIVE)
[2018-05-18 18:11] LABS: HEPATITIS C ANTIBODY NEGATIVE (NEGATIVE)
--- NOTE | 2018-05-18 20:16 | PN ---
DATE: 05/18/2018 SUBJECTIVE: The patient is seen and examined at bedside. He appears to be comfortable. He is not in respiratory or otherwise distress. He is on nasal cannula, and his oxygen saturation is 98% to 99%. He is clearly not labored breathing. His blood pressure is stable at 140/60, sometimes it goes to 160/75. Questionable trace bilateral pedal edema if any. PHYSICAL EXAMINATION: VITAL SIGNS: Temperature 98.8, heart rate 103, blood pressure 148/61, respiratory rate 20, oxygen saturation 98% on 2 L nasal cannula. ENT: Head and neck atraumatic. LUNGS: Faint wheezes, right side. Maybe a few crackles bibasilarly, however, no rhonchi, no rales and definitely no diffuse crackles. HEART: Regular rate and rhythm. S1 and S2 are normal. ABDOMEN: Soft, nontender, nondistended. NEUROLOGIC: The patient moves all extremities spontaneously. SKIN: Moist. MUSCULOSKELETAL: Trace if any bilateral pedal and ankle edema. PSYCHIATRIC: The patient is alert, awake, oriented x3, off of Precedex. LABORATORY DATA: WBC 4.4, hemoglobin 7.9, platelet count 120. Sodium 134, potassium 4.1, chloride 101, carbon dioxide 21, BUN 56, creatinine 7.7, glucose 162, calcium 7.1, magnesium 1.8. Troponin 0.2, down from 0.41. CPK is 2934, down from 7778. ABG showed 7.34/44. Lactic acid 1.7. Glucose 216. HIV is negative. Vancomycin level 16.7. MEDICATIONS: Tylenol p.r.n. The patient received 500 mL of 5% albumin, DuoNeb every 4 hours, Tessalon 100 mg p.o. t.i.d., PhosLo, Klonopin 2 mg p.o. every 12 hours, Aranesp 100 mcg subcu every week, Benadryl, Fergon, Mucinex DM, Lasix 80 mg IV once, Levemir 5 units subcu at bedtime, sliding scale low protocol, insulin lispro 4 units subcu before meals, Ativan p.r.n., metoprolol 25 mg p.o. b.i.d., Protonix, and vitamin B and C complex. IMAGING: Chest x-ray as of yesterday did not show any worsening of vascular congestion. ASSESSMENT AND PLAN: This is a 62-year-old gentleman with HONG due to rhabdomyolysis, without signs of significant fluid overload, electrolyte abnormality, acidosis. It appears that his urine output picked up to date and has been about 500-100 mL per hour earlier today. With Lasix, urine output increased to up to 150 mL per hour. Even though creatinine trending up, it may lag behind clinical resolution of the acute kidney injury. The patient's CPK is going down and troponin level trending down as well. The patient is not in respiratory distress subjectively and objectively and doing somewhat better. We are waiting psychiatry input as to restarting/clarification on antipsychotic medication. Dr. Griffin consult will be appreciated. We will continue to target euvolemia, euglycemia, normothermia and saturation more than 90%. Nephrology service followup is appreciated-->c/w with Lasix and albumin. Hopefully, renal function shows further signs of improvement, and the patient would not require dialysis. We will continue ICU monitoring. ccm time 40 min Goyo Pepe MD [facility]
[2018-05-18] MEDS: Insulin Detemir 100 units/ml Vial (Levemir) SC SCH (22:18)
[2018-05-18 22:46] LABS: URINE BILIRUBIN NEGATIVE (NEGATIVE); URINE BLOOD LARGE (NEGATIVE); URINE GLUCOSE (UA) NEGATIVE (NEGATIVE); URINE LEUKOCYTE ESTERASE TRACE Leu/uL (NEGATIVE); URINE PROTEIN TRACE mg/dL (<30 mg/dL); URINE UROBILINOGEN 0.2 E.U./dL (<1 E.U./dL)
[2018-05-18 22:47] LABS: URINE APPEARANCE TURBID (CLEAR); URINE COLOR YELLOW (YELLOW)
[2018-05-18 22:48] LABS: URINE RBC 25 - 30 /hpf (0-2)
--- NOTE | 2018-05-19 00:23 | CON ---
DATE: 05/18/2018 HISTORY OF PRESENT ILLNESS: In short, the patient is a 62-year-old male with reported history of schizophrenia, anxiety, history of GI bleed. The patient presented to the emergency room status post fall earlier this morning. Psych consult was called for evaluation of medications. The patient was seen and examined, discussed with Dr. Pepe as well as Dr. Caruso and medical residents students. The patient presented to be alert. The patient reported that he fell. He reported that he did not have any lightheadedness or dizziness, but his legs gave out, and he fell on the stairs. The patient reported that right now he has back pain. The patient reported that he has a history of mental illness, and currently, he is followed up by [facility] PACT Team, gave permission to contact PACT Team today. I had phone conversation with Teetee nurse from the PACT Team. As per Teetee, the patient was diagnosed with schizophrenia, has a history of state hospitalization, and the patient was followed by PACT Team since 02/2014. The patient has a history of schizophrenia, alcohol use disorder, multiple medical issues. The patient also has a history of abusing pain medication out of counter. The patient was last seen on , 05/13/2018, the patient presented well. The patient is on following medications. The patient is on Klonopin 1 mg twice a day, Haldol decanoate 100 mg monthly. The patient is on Haldol decanoate since 2013, never had any complications for that and the patient is due for medication decanoate is 05/18/2018, which is today. The patient was on Lipitor 40 mg at the nighttime, vitamin D 5000 units daily, amantadine 100 mg twice a day, metformin 500 mg twice a day, Cozaar 50 mg daily. The patient was not agitated or aggressive. The patient did not verbalize any thoughts of killing himself or others on prior admission. PHYSICAL EXAMINATION: VITAL SIGNS: Seemed to be stable. Temperature 98.8, pulse is 90, blood pressure 155/85, respirations 20-22, oxygen saturation is 98. MEDICATIONS: Reviewed. The patient is on Tylenol, DuoNeb, PhosLo, Maxipime, Klonopin 2 mg twice a day, Benadryl, Fergon, Mucinex, Levemir, Humalog, Humulin, Ativan 1 mg IV push q.6 hours as needed, Lopressor, Protonix, vitamin B complex. LABORATORY DATA: Labs reviewed. Most recent was from today. Chemistry reviewed. Troponin was elevated 0.2, creatinine is 7.7. Urinalysis showed blood large. Stool occult, blood is positive. Toxicology, vancomycin 16.7, which is low. Negative for any benzodiazepines. Blood culture was drawn and was positive for coagulase-negative Staphylococcus, and it was on 05/14/2018. Reports reviewed. Discussed with Dr. Caruso as well as with Dr. Pepe. The patient was diagnosed with sepsis, dysphagia, acute renal failure which is improving, rhabdomyolysis is improving, hypoalbuminemia, coronary artery disease, chronic systolic congestive heart failure, transaminitis, microcytic anemia, history of diabetes, status post fall, carotid calcifications, cholelithiasis, claudication. MENTAL STATUS EXAMINATION: The patient presented to be alert, somewhat withdrawn. Poor eye contact. Mood described as okay. Affect was constricted. Thought process concrete, at times disorganized. Thought content, the patient denied visual, auditory or tactile hallucinations. Denied paranoid ideation. The patient denied thoughts of harming himself or others, denied intent or plan. Insight and judgment seemed to be limited but improving. Impulses are well controlled. IMPRESSION: As per history, the patient has schizoaffective disorder versus schizophrenia. The patient was admitted on the medical side status post fall and has multiple medical issues. Please see detailed note from medical team. PLAN: Medication list was confirmed. Please see above. We will hold off on Haldol decanoate, which was due today. We will consider to resume amantadine. Collaterals were obtained from family as well as the patient's sister. We will follow up and advise accordingly. If the patient needs to be medicated or sedated, benzodiazepines seem to be a treatment of choice. We will hold for Haldol decanoate for now. We will follow up and advise accordingly. Thank you very much for letting me participate in the care of your patient. Overall care for that the patient took more than 45 minutes of this publicity writer's time. Rosalva Abduakhadov, MD [facility] # [id number] [email or web address]
[2018-05-19] MEDS: Albuterol-Ipratrop 3 mg / 0.5 (3 ml) UD IH SCH ×6 (04:13→23:34)
[2018-05-19 06:52] LABS: BASO # 0.01 K/mm3 (0.0-2.0); BASO % 0.2 % (0.0-3.0); EOS # 0.3 (0.0-0.7); EOS % 6.9 % (1.5-5.0); GRAN # 2.82 (1.4-6.5); GRAN % 69.5 % (50.0-68.0); HEMOGLOBIN 7.9 g/dL (14.0-18.0); LYMPH # 0.6 (1.2-3.4); LYMPH % 14.8 % (22.0-35.0); MEAN CELL VOLUME 63.7 fl (80.0-105.0); MEAN CORPUSCULAR HEMOGLOBIN 18.4 pg (25.0-35.0); MEAN CORPUSCULAR HGB CONC 28.8 g/dl (31.0-37.0); MONO # 0.4 (0.1-0.6); MONO % 8.6 % (1.0-6.0); PLATELET COUNT 126 10^3/uL (120.0-450.0); RED CELL DISTRIBUTION WIDTH 19.5 % (11.5-14.5); WHITE BLOOD COUNT 4.1 10^3/uL (4.5-11.0)
[2018-05-19 07:04] LABS: ALBUMIN 2.8 g/dL (3.0-4.8); CALCIUM 7.8 mg/dL (8.4-10.5); TROPONIN I 0.14 ng/mL
--- NOTE | 2018-05-19 07:35 | CP.PCM.PN ---
<Robin Bernstein - Last Filed: 05/19/18 11:07> Subjective - Date & Time of Evaluation Date of Evaluation: 05/19/18 Time of Evaluation: 07:35 - Subjective Subjective: PGY1 Medicine Progress Note for Dr. Caruso Patient was seen and evaluated at bedside this morning. No acute events overnight. Patient A&Ox3. Patient is status-post Endoscopy on 05/08. Patient denies fever, chills, chest pain, nausea, vomiting, abdominal pain, rash, blurred vision, diarrhea and/or constipation. Of note, Patient is downgraded to Medical/Surgical floor at this time. Objective - Vital Signs/Intake and Output Vital Signs (last 24 hours): Temp Pulse Resp BP Pulse Ox 98.8 F 84 23 154/71 H 79 L 05/19/18 04:00 05/19/18 05:21 05/19/18 04:00 05/19/18 04:00 05/19/18 04:00 - Medications Medications: Current Medications Acetaminophen (Tylenol 325mg Tab) 325 mg PO Q6H PRN PRN Reason: Fever >100.4 F Last Admin: 05/19/18 07:12 Dose: 325 mg Albuterol/Ipratropium (Duoneb 3 Mg/0.5 Mg (3 Ml) Ud) 3 ml IH [id number] [facility] Last Admin: 05/19/18 04:13 Dose: Not Given Benzonatate (Tessalon Perles) 100 mg PO TID [facility] Last Admin: 05/18/18 17:07 Dose: 100 mg Calcium Acetate (Phoslo) 667 mg PO WM [facility] Last Admin: 05/18/18 16:58 Dose: 667 mg Clonazepam (Klonopin) 2 mg PO Q12H [facility]; Protocol Last Admin: 05/18/18 21:03 Dose: 2 mg Darbepoetin Will (Aranesp) 100 mcg SC QWK [facility] Last Admin: 05/18/18 09:55 Dose: 100 mcg Diphenhydramine HCl (Benadryl) 25 mg PO HS PRN PRN Reason: Insomnia Last Admin: 05/18/18 21:03 Dose: 25 mg Ferrous Gluconate (Fergon) 324 mg PO TID [facility] Last Admin: 05/18/18 17:14 Dose: 324 mg Guaifenesin/Dextromethorphan (Mucinex-Dm 600-30 Mg) 1 tab PO BID [facility] Last Admin: 05/18/18 17:07 Dose: 1 tab Cefepime HCl (Maxipime 1gm) 1 gm in 100 mls @ 100 mls/hr IVPB Q24H [facility]; Protocol Insulin Detemir (Levemir) 5 unit SC HS [facility] Last Admin: 05/18/18 22:18 Dose: 5 unit Insulin Human Lispro (Humalog) 4 units SC AC [facility] Last Admin: 05/18/18 16:56 Dose: 4 u Insulin Human Regular (Humulin R Low) 0 units SC ACHS [facility]; Protocol Last Admin: 05/18/18 22:17 Dose: Not Given Lorazepam (Ativan) 1 mg IVP Q6H PRN; Protocol PRN Reason: Anxiety Metoprolol Tartrate (Lopressor) 25 mg PO BID [facility] Last Admin: 05/18/18 17:10 Dose: 25 mg Pantoprazole Sodium (Protonix Inj) 40 mg IVP Q12 [facility] Last Admin: 05/18/18 21:03 Dose: 40 mg Vitamin B Complex/Vit C/Folic Acid (Nephro-Lydia) 1 tab PO 0800 [facility] - Labs Labs: 05/19/18 05:20 05/19/18 05:20 PT 12.8 SECONDS (9.4-12.5) H 05/15/18 01:30 INR 1.11 05/15/18 01:30 APTT 27.0 Seconds (25.1-36.5) 05/14/18 13:30 - Additional Findings Additional findings: - Constitutional Appears: Non-toxic, No Acute Distress - Head Exam Head Exam: ATRAUMATIC, NORMOCEPHALIC - Eye Exam Eye Exam: EOMI, Normal appearance, PERRL. absent: Periorbital swelling, Perior bital tenderness, Scleral icterus Pupil Exam: NORMAL ACCOMODATION - ENT Exam ENT Exam: Normal Exam - Neck Exam Neck Exam: Full ROM, Normal Inspection. absent: Tenderness - Respiratory Exam Respiratory Exam: Wheezes (Mild expiratory wheezing diffusely), NORMAL BREATHING PATTERN. absent: Accessory Muscle Use, Chest Wall Tenderness, Decreased Breath Sounds, Clear to Ausculation Bilateral, Prolonged Expiratory Phase, Rales, Rhonchi, Respiratory Distress, Stridor - Cardiovascular Exam Cardiovascular Exam: REGULAR RHYTHM, RRR, +S1, +S2. absent: Bradycardia, Tachycardia, Clicks, Diastolic murmur, Gallop, Irregular Rhythm, JVD, Rubs, +S4, Murmur - GI/Abdominal Exam GI & Abdominal Exam: Soft, Normal Bowel Sounds. absent: Tenderness - Extremities Exam Extremities Exam: absent: Calf Tenderness - Neurological Exam Neurological Exam: Alert, Awake - Psychiatric Exam Psychiatric exam: Normal Affect, Normal Mood - Skin Skin Exam: Dry, Intact, Warm Assessment and Plan - Assessment and Plan (Free Text) Assessment: 62 year old male with a past medical history significant for CAD s/p CABG, systolic CHF, HTN, DM2, esophageal ulcer with esophagitis, gastritis, duodenitis, schizophrenia and anxiety who presented after a fall. Patient was originally admitted to ICU for closer monitoring. Today, Patient is hemodynamically stable. Thus, Patient no longer requires ICU level of care, and is currently transferred to Medical/Surgical floor. Plan: Sepsis; with gram negative staph in blood - Patient met SIRS criteria in ED: - Today: Patient afebrile without tachycardia, without tachypnea and with reso lving leukocytosis/lactic acidosis - CT Abdomen/Pelvis, Chest X-Ray and UA negative for sources of infection - 1/2 blood cultures positive for gram positive cocci in clusters; Repeat blood cultures s/p fever pending - Urine cultures negative for growth - Procalcitonin elevated at 6.35 - CRP, ESR and Influenza pending - Continue Cefepime (Day 4) - Continue IVF as ordered - Low dose Tylenol Q6 PRN for fevers - Echocardiogram 05/17: LV normal size, borderline to mild concentric LVH, systolic function mildly impaired, LV diastolic function is normal. Mitral regurgitation is mild. Mild tricuspid regurg. There is mild pulmonary HTN. No vegetation seen. (Please see complete report for details). - ID consulted, all recommendations appreciated - Continue Cefepime - Monitor Dysphagia - GI (Dr. Nieves) consulted; recommendations appreciated - Endoscopy completed 05/17: gastritis and esophagitis (see full report for details) Acute Renal Failure, Improving - Likely secondary to rhabdomyolysis - BUN/Creatinine still up-trending to 59/8.1 (05/19) - Continue IVF as ordered - Monitor urine output - Continue Gan with urine output monitoring: improved from yesterday 1200cc output in past 12 hours) - Renal US pending - Nephrology consulted; (Dr. Elizabeth) Recommendations appreciated Rhabdomyolysis, Improving - CPK downtrending: today 1179 - Troponins downtrending: today 0.14 - Continue Normal Saline - Continue to monitor CPK Hypoalbuminemia, improving - Albumin=2.8 - Nephrology consulted (Dr. Elizabeth); recommends 25% albumin if albumin < 3 - Lasix 60mg IVP given ONCE - Monitor daily CMP History of CAD s/p CABG - Likely secondary to rhabdomyolysis and ARF - Downtrended - Continue Lopressor - Holding ASA (anemia and +FOBT), LEROY inhibitor (ARF) and Statin (elevated LFT's) - Cardiology consulted, all recommendations appreciated Chronic Systolic CHF - Echocardiogram 05/17: LV normal size, borderline to mild concentric LVH, systolic function mildly impaired, LV diastolic function is normal. Mitral regurgitation is mild. Mild tricuspid regurg. There is mild pulmonary HTN. No vegetation seen. (Please see complete report for details). - Chest X-Ray (05/16) showed no PVC - Continue Lopressor - Continue daily Chest X-Ray's - Holding ASA (anemia and +FOBT), LEROY inhibitor (ARF) and Statin (elevated LFT's) - Cardiology consulted (Dr. King); Recommendations appreciated Transaminitis, improved - Continuing to downtrend - Continue to trend with daily CMP's Microcytic Anemia - H/H stable at 8.1/28.3 on most recent CBC - +FOBT - Protonix increased to 40mg IVP Q12 - Continue Carafate as ordered - Continue to monitor with daily CBC's - GI consulted, all recommendations appreciated History of DM2 - Continue SSI-Low and Accuchecks ACHS - Continue Levemir 5u HS - Continue Humalog 4u AC - A1c: 11.2 - Carbohydrate consistent diet Status-Post Fall - Bilateral Knee X-Ray were unremarkable - CT Head and CT Cervical Spine were unremarkable except showing heavily calcified carotid bifurcation - Continue fall precautions - PT/OT when appropriate Carotid Calcification - See CT Cervical Spine - Carotid/Vertebral Doppler US: 60-79 % prox R ICA stenosis; 40-59 % prox L ICA stenosis; Antegrade flow in both vertebral arties. Cholelithiasis - See GB US and CT Abdomen/Pelvis reports - Will recommend general surgery follow up as an outpatient Claudication - Mildly abnormal resting MATTI's and bilateral popliteal, trifurcation and/or tibial disease - Continue to monitor for signs of necrosis PPx: - GI: Protonix 40IVP Q12 and Carafate - DVT: SCD's Diet: Heart Healthy Moderate Carbohydrate Consistency Access: PIV with PICC placement pending Patient seen and case discussed with Attending Physician Dr. Zuly Bernstein PGY1 <Merlyn Caruso - Last Filed: 05/23/18 12:23> Objective - Vital Signs/Intake and Output Vital Signs (last 24 hours): Temp Pulse Resp BP Pulse Ox 99.4 F 84 19 138/70 91 L 05/23/18 07:00 05/23/18 07:00 05/23/18 07:00 05/23/18 09:22 05/23/18 07:00 Intake and Output: 05/23/18 05/23/18 06:59 18:59 Intake Total 720 Output Total 0 Balance 720 - Medications Medications: Current Medications Acetaminophen (Tylenol 325mg Tab) 325 mg PO Q6H PRN PRN Reason: Fever >100.4 F Last Admin: 05/23/18 11:46 Dose: 325 mg Albuterol/Ipratropium (Duoneb 3 Mg/0.5 Mg (3 Ml) Ud) 3 ml IH [id number] [facility] Last Admin: 05/23/18 07:26 Dose: 3 ml Calcium Acetate (Phoslo) 667 mg PO WM [facility] Last Admin: 05/23/18 11:46 Dose: 667 mg Clonazepam (Klonopin) 2 mg PO BID [facility]; Protocol Last Admin: 05/23/18 09:20 Dose: 2 mg Darbepoetin Will (Aranesp) 100 mcg SC QWK [facility] Last Admin: 05/18/18 09:55 Dose: 100 mcg Diphenhydramine HCl (Benadryl) 25 mg PO HS PRN PRN Reason: Insomnia Last Admin: 05/22/18 21:27 Dose: 25 mg Haloperidol (Haldol) 5 mg PO HS PRN; Protocol PRN Reason: hallucinations/agitation/insom Last Admin: 05/22/18 21:30 Dose: 5 mg Hydralazine HCl (Apresoline) 10 mg PO QID PRN PRN Reason: for sbp >160 Iron Sucrose 200 mg/ Sodium (Chloride) 110 mls @ 110 mls/hr IVPB DAILY [facility] Stop: 05/25/18 14:31 Last Admin: 05/23/18 09:22 Dose: 110 mls/hr Insulin Detemir (Levemir) 5 unit SC HS [facility] Last Admin: 05/22/18 21:22 Dose: 5 unit Insulin Human Lispro (Humalog) 4 units SC AC [facility] Last Admin: 05/23/18 11:44 Dose: 4 units Insulin Human Regular (Humulin R Low) 0 units SC ACHS [facility]; Protocol Last Admin: 05/23/18 11:44 Dose: Not Given Lorazepam (Ativan) 1 mg IVP Q6H PRN; Protocol PRN Reason: Anxiety Last Admin: 05/23/18 11:06 Dose: 1 mg Metoprolol Tartrate (Lopressor) 50 mg PO BID [facility] Last Admin: 05/23/18 09:22 Dose: 50 mg Pantoprazole Sodium (Protonix Inj) 40 mg IVP Q12 [facility] Last Admin: 05/23/18 09:22 Dose: 40 mg Vitamin B Complex/Vit C/Folic Acid (Nephro-Lydia) 1 tab PO 0800 [facility] Last Admin: 05/23/18 09:20 Dose: 1 tab Zaleplon (Sonata) 5 mg PO HS PRN PRN Reason: Insomnia - Labs Labs: 05/23/18 08:00 05/23/18 08:00 PT 12.8 SECONDS (9.4-12.5) H 05/15/18 01:30 INR 1.11 05/15/18 01:30 APTT 27.0 Seconds (25.1-36.5) 05/14/18 13:30 Attending/Attestation - Attestation I have personally seen and examined this patient.: Yes I have fully participated in the care of the patient.: Yes I have reviewed all pertinent clinical information, including history, physical exam and plan: Yes Notes (Text): 05/23/18 12:16 Attending note; Patient seen and examined with the resident in ICU. Patient is alert and awake. oriented to place and time. not in any acute distress. Denies any chest pain, shortness of breath. Denies any nausea, vomiting. tolerating liquid diet. Patient is a 62-year-old male with past medical history significant for artery disease status post CABG, systolic CHF, hypertension, schizophrenia, anxiety, GI bleed, esophageal ulcer, and type 2 diabetes that presented to the emergency room status post a fall. 1. Status post fall; CT head is negative. CT cervical spine is negative. Sepsis is resolved. Patient is currently afebrile and nontoxic. Leukocytosis resolved. One blood culture positive for coag negative staph, likely contaminant. Second blood culture with no growth. Urine culture with no growth. on IV cefepime. ID evaluation appreciated. Echocardiogram is negative for vegetations. CT abdomen and pelvis showed no acute intra-abdominal findings. Gallbladder ultrasound radiologist showed 1.3 cm gallstone, no evidence of cholecystitis. 2. Acute renal failure. Likely secondary to rhabdomyolysis and dehydration. Creatinine is 8.1 today. Urine output is increasing. Continue IV Lasix and albumin. 3. Rhabdomyolysis. CPK down trending. 4. Elevated troponins; mostly secondary to rhabdomyolysis. trending down. Cardiology recommendations appreciated. LEROY inhibitor held secondary to acute renal failure. Continue Lopressor. 5. Chronic systolic CHF. Chest x-ray did not show any congestion. Continue with Lopressor. 6. Transaminitis. Secondary to rhabdomyolysis. Down trending. 7. Anemia. History of GI bleed. Stool for occult blood positive. s/p endoscopy. continue protonix. Endoscopy showed esophagitis and gastritis. 8. Type 2 diabetes; Continue with insulin sliding scale. Continue Levemir5 units subcutaneous at bedtime and Humalog 4 units before meals. 9. Schizophrenia; psychiatric evaluation appreciated. Continue clonazepam. Monitor urine output closely. Monitor the patient closely in ICU. Upon discharge the patient will follow up with PMD Dr. Carpenter. 05/23/18 12:22
[2018-05-19] MEDS: Insulin Reg-LOW-Coverage SC SCH ×4 (08:53→21:24)
[2018-05-19] MEDS: Multivitamin Vitamin B Complex (Nephro-Vite) Tab PO SCH (08:56)
[2018-05-19] MEDS: Insulin Lispro 1 UNITS/0.01 ML SC SCH ×3 (08:56→16:45)
[2018-05-19] MEDS ORDERED: Ergocalciferol 50,000 Intl Units Cap PO ONE (09:00)
--- NOTE | 2018-05-19 09:10 | CP.CCUPN ---
<Orlin Barry - Last Filed: 05/19/18 13:44> CCU Subjective - Physician Review Subjective (Free Text): Orlin Barry DO, PGY1. ICU progress note for Dr Miranda Patient seen and examined at bedside. He is AAOx3, in NAD. Slept well last night, breathing is improving. No acute events overnight. Patient denied CP,SOB, fever, palpitations, N/V 05/19/18 13:44 CCU Objective - Vital Signs / Intake & Output Vital Signs (Last 4 hours): Vital Signs Pulse 05/19/18 05:21 84 Intake and Output (Last 8hrs): Intake & Output 05/18/18 05/19/18 05/19/18 22:59 06:59 14:59 Intake Total 860 250 Output Total 800 1200 Balance 60 -950 Weight 215 lb 6.4 oz Intake: IV 500 10 Right Upper arm 10 Right Wrist 500 Oral 360 240 Output: Urine 800 1200 Urethral (Gan) 800 1200 Other: # Bowel Movements 1 - Physical Exam Head: Positive for: Atraumatic, Normocephalic Pupils: Positive for: PERRL Extroacular Muscles: Positive for: EOMI Conjunctiva: Positive for: Normal Mouth: Positive for: Dry Nose (External): Positive for: Abrasion (+abrasion to nasal bridge) Respiratory/Chest: Positive for: Wheezes (diffuse throughout both lungs), Other (+old healed sternotomy scar noted to midline ). Negative for: Accessory Muscle Use, Rales, Rhonchi Cardiovascular: Positive for: Normal S1, S2, Tachycardic Abdomen: Positive for: Distention (+distended belly soft non-tender), Normal Bowel Sounds Lower Extremity: Positive for: Other (ecchymoses noted to lower extremities with abrasions noted to b/L knees. decreased LL pulses) Neurological: Positive for: GCS=15, CN II-XII Intact, Speech Normal Skin: Positive for: Abrasion (b/l knee) Psychiatric: Positive for: Alert, Oriented x 3, Anxious, Depressed Mood - Medications Active Medications: Active Medications Generic Name Dose Route Start Last Admin Trade Name Freq PRN Reason Stop Dose Admin Acetaminophen 325 mg 05/16/18 07:57 05/19/18 07:12 Tylenol 325mg Tab PO 325 mg Q6H PRN Administration Fever >100.4 F Albuterol/Ipratropium 3 ml 05/15/18 11:30 05/19/18 07:39 Duoneb 3 Mg/0.5 Mg (3 Ml) Ud IH 3 ml [id number] CHANEL Administration Benzonatate 100 mg 05/17/18 10:00 05/18/18 17:07 Tessalon Perles PO 100 mg TID CHANEL Administration Calcium Acetate 667 mg 05/18/18 12:00 05/19/18 08:56 Phoslo PO 667 mg WM CHANEL Administration Clonazepam 2 mg 05/17/18 09:45 05/18/18 21:03 Klonopin PO 2 mg Q12H CHANEL Administration Protocol Darbepoetin Will 100 mcg 05/18/18 10:00 05/18/18 09:55 Aranesp SC 100 mcg QWK CHANEL Administration Diphenhydramine HCl 25 mg 05/16/18 19:54 05/18/18 21:03 Benadryl PO 25 mg HS PRN Administration Insomnia Ferrous Gluconate 324 mg 05/18/18 10:00 05/18/18 17:14 Fergon PO 324 mg TID CHANEL Administration Guaifenesin/Dextromethorphan 1 tab 05/17/18 10:00 05/18/18 17:07 Mucinex-Dm 600-30 Mg PO 1 tab BID CHANEL Administration Hydralazine HCl 10 mg 05/19/18 08:41 Apresoline PO QID PRN for sbp >160 Cefepime HCl 1 gm in 100 mls @ 100 mls/hr 05/19/18 10:00 Maxipime 1gm IVPB Q24H COUNT INCLUDES THE [facility] Protocol Insulin Detemir 5 unit 05/15/18 22:00 05/18/18 22:18 Levemir SC 5 unit HS CHANEL Administration Insulin Human Lispro 4 units 05/16/18 07:30 05/19/18 08:56 Humalog SC 4 u AC CHANEL Administration Insulin Human Regular 0 units 05/14/18 22:00 05/19/18 08:53 Humulin R Low SC Not Given ACHS COUNT INCLUDES THE [facility] Protocol Lorazepam 1 mg 05/18/18 13:51 Ativan IVP Q6H PRN Anxiety Protocol Metoprolol Tartrate 25 mg 05/14/18 18:45 05/18/18 17:10 Lopressor PO 25 mg BID CHANEL Administration Pantoprazole Sodium 40 mg 05/16/18 10:00 05/18/18 21:03 Protonix Inj IVP 40 mg Q12 CHANEL Administration Vitamin B Complex/Vit C/Folic Acid 1 tab 05/19/18 08:00 05/19/18 08:56 Nephro-Lydia PO 1 tab 0800 CHANEL Administration - Patient Studies Lab Studies: Microbiology Studies 05/17/18 05:40 Blood Culture - Preliminary Blood NO GROWTH AFTER 48 HOURS 05/17/18 05:20 Blood Culture - Preliminary Blood NO GROWTH AFTER 48 HOURS 05/14/18 14:00 Blood Culture - Preliminary Blood NO GROWTH AFTER 4 DAYS Lab Studies 05/19/18 05/19/18 05/18/18 Range/Units 05:20 05:20 22:43 WBC 4.1 L (4.5-11.0) 10^3/uL RBC 4.30 (3.5-6.1) 10^6/uL Hgb 7.9 L (14.0-18.0) g/dL Hct 27.4 L (42.0-52.0) % MCV 63.7 L (80.0-105.0) fl MCH 18.4 L (25.0-35.0) pg MCHC 28.8 L (31.0-37.0) g/dl RDW 19.5 H (11.5-14.5) % Plt Count 126 (120.0-450.0) 10^3/uL Gran % 69.5 H (50.0-68.0) % Lymph % (Auto) 14.8 L (22.0-35.0) % Wolfe % (Auto) 8.6 H (1.0-6.0) % Eos % (Auto) 6.9 H (1.5-5.0) % Baso % (Auto) 0.2 (0.0-3.0) % Gran # 2.82 (1.4-6.5) Lymph # (Auto) 0.6 L (1.2-3.4) Wolfe # (Auto) 0.4 (0.1-0.6) Eos # (Auto) 0.3 (0.0-0.7) Baso # (Auto) 0.01 (0.0-2.0) K/mm3 pO2 (30-55) mm/Hg VBG pH (7.32-7.43) VBG pCO2 (40-60) VBG HCO3 (21-28) mmol/l VBG Total CO2 (22-28) mmol.L VBG O2 Sat (Calc) (40-65) % VBG Base Excess (0.0-2.0) mmol/L VBG Potassium (3.6-5.2) mmol/L Sodium 133 (132-148) mmol/L Chloride 101 (98-107) mmol/L Glucose (75-110) mg/dl Lactate (0.7-2.1) mmol/L FiO2 % Potassium 4.0 (3.6-5.0) mmol/L Carbon Dioxide 21 (21-33) mmol/L Anion Gap 14 (10-20) BUN 59 H (7-21) mg/dL Creatinine 8.1 H* (0.8-1.5) mg/dl Est GFR ( Amer) 8 Est GFR (Non-Af Amer) 7 Random Glucose 132 H (70-110) mg/dL Calcium 7.8 L (8.4-10.5) mg/dL Ferritin ng/mL Total Bilirubin 0.4 (0.2-1.3) mg/dL AST 85 H (17-59) U/L ALT 55 (7-56) U/L Alkaline Phosphatase 89 (38-126) U/L Total Creatine Kinase 1179 H (35-230) U/L CK-MB (CK-2) Cancelled (0.0-3.6) ng/mL CK-MB (CK-2) % Troponin I 0.14 H* D ng/mL Total Protein 5.7 L (5.8-8.3) g/dL Albumin 2.8 L (3.0-4.8) g/dL Globulin 2.9 gm/dL Albumin/Globulin Ratio 1.0 L (1.1-1.8) Vitamin B12 (239-931) pg/mL 25-OH Vitamin D Total (30-100) ng/mL Venous Blood Potassium (3.6-5.2) mmol/L Urine Color Yellow (YELLOW) Urine Appearance Turbid (CLEAR) Urine pH 6.0 (4.7-8.0) Ur Specific [place] <= 1.005 (1.005-1.035) Urine Protein Trace H (<30 mg/dL) mg/dL Urine Glucose (UA) Negative (NEGATIVE) mg/dL Urine Ketones Negative (NEGATIVE) mg/dL Urine Blood Large H (NEGATIVE) Urine Nitrate Negative (NEGATIVE) Urine Bilirubin Negative (NEGATIVE) Urine Urobilinogen 0.2 (<1 E.U./dL) E.U./dL Ur Leukocyte Esterase Trace H (NEGATIVE) Irvin/uL Urine RBC 25 - 30 (0-2) /hpf Urine WBC 1 - 3 (0-6) /hpf Hep Bs Antigen (NEGATIVE) Hep Bs Antibody (NEGATIVE) Hep B Core IgM Ab (NEGATIVE) Hepatitis C Antibody (NEGATIVE) Influenza Typ A,B (EIA) (NEGATIVE) 05/18/18 05/18/18 05/18/18 Range/Units 22:27 11:04 09:39 WBC (4.5-11.0) 10^3/uL RBC (3.5-6.1) 10^6/uL Hgb (14.0-18.0) g/dL Hct (42.0-52.0) % MCV (80.0-105.0) fl MCH (25.0-35.0) pg MCHC (31.0-37.0) g/dl RDW (11.5-14.5) % Plt Count (120.0-450.0) 10^3/uL Gran % (50.0-68.0) % Lymph % (Auto) (22.0-35.0) % Wolfe % (Auto) (1.0-6.0) % Eos % (Auto) (1.5-5.0) % Baso % (Auto) (0.0-3.0) % Gran # (1.4-6.5) Lymph # (Auto) (1.2-3.4) Wolfe # (Auto) (0.1-0.6) Eos # (Auto) (0.0-0.7) Baso # (Auto) (0.0-2.0) K/mm3 pO2 44 (30-55) mm/Hg VBG pH 7.34 (7.32-7.43) VBG pCO2 39.0 L (40-60) VBG HCO3 21.0 (21-28) mmol/l VBG Total CO2 22.2 (22-28) mmol.L VBG O2 Sat (Calc) 81.8 H (40-65) % VBG Base Excess -4.4 L (0.0-2.0) mmol/L VBG Potassium 4.2 (3.6-5.2) mmol/L Sodium 131.0 L (132-148) mmol/L Chloride 101.0 (98-107) mmol/L Glucose 216 H (75-110) mg/dl Lactate 1.7 (0.7-2.1) mmol/L FiO2 21.0 % Potassium (3.6-5.0) mmol/L Carbon Dioxide (21-33) mmol/L Anion Gap (10-20) BUN (7-21) mg/dL Creatinine (0.8-1.5) mg/dl Est GFR ( Amer) Est GFR (Non-Af Amer) Random Glucose (70-110) mg/dL Calcium (8.4-10.5) mg/dL Ferritin ng/mL Total Bilirubin (0.2-1.3) mg/dL AST (17-59) U/L ALT (7-56) U/L Alkaline Phosphatase (38-126) U/L Total Creatine Kinase (35-230) U/L CK-MB (CK-2) (0.0-3.6) ng/mL CK-MB (CK-2) % Troponin I ng/mL Total Protein (5.8-8.3) g/dL Albumin (3.0-4.8) g/dL Globulin gm/dL Albumin/Globulin Ratio (1.1-1.8) Vitamin B12 (239-931) pg/mL 25-OH Vitamin D Total (30-100) ng/mL Venous Blood Potassium 4.2 (3.6-5.2) mmol/L Urine Color (YELLOW) Urine Appearance (CLEAR) Urine pH (4.7-8.0) Ur Specific [place] (1.005-1.035) Urine Protein (<30 mg/dL) mg/dL Urine Glucose (UA) (NEGATIVE) mg/dL Urine Ketones (NEGATIVE) mg/dL Urine Blood (NEGATIVE) Urine Nitrate (NEGATIVE) Urine Bilirubin (NEGATIVE) Urine Urobilinogen (<1 E.U./dL) E.U./dL Ur Leukocyte Esterase (NEGATIVE) Irvin/uL Urine RBC (0-2) /hpf Urine WBC (0-6) /hpf Hep Bs Antigen (NEGATIVE) Hep Bs Antibody Negative (NEGATIVE) Hep B Core IgM Ab (NEGATIVE) Hepatitis C Antibody (NEGATIVE) Influenza Typ A,B (EIA) Negative for flu a/b (NEGATIVE) 05/18/18 05/18/18 05/17/18 Range/Units 09:39 08:00 05:20 WBC (4.5-11.0) 10^3/uL RBC (3.5-6.1) 10^6/uL Hgb (14.0-18.0) g/dL Hct (42.0-52.0) % MCV (80.0-105.0) fl MCH (25.0-35.0) pg MCHC (31.0-37.0) g/dl RDW (11.5-14.5) % Plt Count (120.0-450.0) 10^3/uL Gran % (50.0-68.0) % Lymph % (Auto) (22.0-35.0) % Wolfe % (Auto) (1.0-6.0) % Eos % (Auto) (1.5-5.0) % Baso % (Auto) (0.0-3.0) % Gran # (1.4-6.5) Lymph # (Auto) (1.2-3.4) Wolfe # (Auto) (0.1-0.6) Eos # (Auto) (0.0-0.7) Baso # (Auto) (0.0-2.0) K/mm3 pO2 (30-55) mm/Hg VBG pH (7.32-7.43) VBG pCO2 (40-60) VBG HCO3 (21-28) mmol/l VBG Total CO2 (22-28) mmol.L VBG O2 Sat (Calc) (40-65) % VBG Base Excess (0.0-2.0) mmol/L VBG Potassium (3.6-5.2) mmol/L Sodium (132-148) mmol/L Chloride (98-107) mmol/L Glucose (75-110) mg/dl Lactate (0.7-2.1) mmol/L FiO2 % Potassium (3.6-5.0) mmol/L Carbon Dioxide (21-33) mmol/L Anion Gap (10-20) BUN (7-21) mg/dL Creatinine (0.8-1.5) mg/dl Est GFR ( Amer) Est GFR (Non-Af Amer) Random Glucose (70-110) mg/dL Calcium (8.4-10.5) mg/dL Ferritin 50.7 ng/mL Total Bilirubin (0.2-1.3) mg/dL AST (17-59) U/L ALT (7-56) U/L Alkaline Phosphatase (38-126) U/L Total Creatine Kinase (35-230) U/L CK-MB (CK-2) 2.2 (0.0-3.6) ng/mL CK-MB (CK-2) % Cancelled Troponin I 0.20 H* D ng/mL Total Protein (5.8-8.3) g/dL Albumin (3.0-4.8) g/dL Globulin gm/dL Albumin/Globulin Ratio (1.1-1.8) Vitamin B12 455 (239-931) pg/mL 25-OH Vitamin D Total 30 (30-100) ng/mL Venous Blood Potassium (3.6-5.2) mmol/L Urine Color (YELLOW) Urine Appearance (CLEAR) Urine pH (4.7-8.0) Ur Specific [place] (1.005-1.035) Urine Protein (<30 mg/dL) mg/dL Urine Glucose (UA) (NEGATIVE) mg/dL Urine Ketones (NEGATIVE) mg/dL Urine Blood (NEGATIVE) Urine Nitrate (NEGATIVE) Urine Bilirubin (NEGATIVE) Urine Urobilinogen (<1 E.U./dL) E.U./dL Ur Leukocyte Esterase (NEGATIVE) Irvin/uL Urine RBC (0-2) /hpf Urine WBC (0-6) /hpf Hep Bs Antigen Negative (NEGATIVE) Hep Bs Antibody (NEGATIVE) Hep B Core IgM Ab Negative (NEGATIVE) Hepatitis C Antibody Negative (NEGATIVE) Influenza Typ A,B (EIA) (NEGATIVE) Laboratory Results - last 24 hr 05/17/18 05/18/18 05/18/18 05:20 08:00 09:39 WBC RBC Hgb Hct MCV MCH MCHC RDW Plt Count Gran % Lymph % (Auto) Wolfe % (Auto) Eos % (Auto) Baso % (Auto) Gran # Lymph # (Auto) Wolfe # (Auto) Eos # (Auto) Baso # (Auto) pO2 VBG pH VBG pCO2 VBG HCO3 VBG Total CO2 VBG O2 Sat (Calc) VBG Base Excess VBG Potassium Sodium Chloride Glucose Lactate FiO2 Potassium Carbon Dioxide Anion Gap BUN Creatinine Est GFR ( Amer) Est GFR (Non-Af Amer) Random Glucose Calcium Ferritin 50.7 Total Bilirubin AST ALT Alkaline Phosphatase Total Creatine Kinase CK-MB (CK-2) 2.2 CK-MB (CK-2) % Cancelled Troponin I 0.20 H* D Total Protein Albumin Globulin Albumin/Globulin Ratio Vitamin B12 455 25-OH Vitamin D Total 30 Venous Blood Potassium Urine Color Urine Appearance Urine pH Ur Specific [place] Urine Protein Urine Glucose (UA) Urine Ketones Urine Blood Urine Nitrate Urine Bilirubin Urine Urobilinogen Ur Leukocyte Esterase Urine RBC Urine WBC Hep Bs Antigen Negative Hep Bs Antibody Hep B Core IgM Ab Negative Hepatitis C Antibody Negative Influenza Typ A,B (EIA) 05/18/18 05/18/18 05/18/18 09:39 11:04 22:27 WBC RBC Hgb Hct MCV MCH MCHC RDW Plt Count Gran % Lymph % (Auto) Wolfe % (Auto) Eos % (Auto) Baso % (Auto) Gran # Lymph # (Auto) Wolfe # (Auto) Eos # (Auto) Baso # (Auto) pO2 44 VBG pH 7.34 VBG pCO2 39.0 L VBG HCO3 21.0 VBG Total CO2 22.2 VBG O2 Sat (Calc) 81.8 H VBG Base Excess -4.4 L VBG Potassium 4.2 Sodium 131.0 L Chloride 101.0 Glucose 216 H Lactate 1.7 FiO2 21.0 Potassium Carbon Dioxide Anion Gap BUN Creatinine Est GFR ( Amer) Est GFR (Non-Af Amer) Random Glucose Calcium Ferritin Total Bilirubin AST ALT Alkaline Phosphatase Total Creatine Kinase CK-MB (CK-2) CK-MB (CK-2) % Troponin I Total Protein Albumin Globulin Albumin/Globulin Ratio Vitamin B12 25-OH Vitamin D Total Venous Blood Potassium 4.2 Urine Color Urine Appearance Urine pH Ur Specific [place] Urine Protein Urine Glucose (UA) Urine Ketones Urine Blood Urine Nitrate Urine Bilirubin Urine Urobilinogen Ur Leukocyte Esterase Urine RBC Urine WBC Hep Bs Antigen Hep Bs Antibody Negative Hep B Core IgM Ab Hepatitis C Antibody Influenza Typ A,B (EIA) Negative for flu a/b 05/18/18 05/19/18 05/19/18 22:43 05:20 05:20 WBC 4.1 L RBC 4.30 Hgb 7.9 L Hct 27.4 L MCV 63.7 L MCH 18.4 L MCHC 28.8 L RDW 19.5 H Plt Count 126 Gran % 69.5 H Lymph % (Auto) 14.8 L Wolfe % (Auto) 8.6 H Eos % (Auto) 6.9 H Baso % (Auto) 0.2 Gran # 2.82 Lymph # (Auto) 0.6 L Wolfe # (Auto) 0.4 Eos # (Auto) 0.3 Baso # (Auto) 0.01 pO2 VBG pH VBG pCO2 VBG HCO3 VBG Total CO2 VBG O2 Sat (Calc) VBG Base Excess VBG Potassium Sodium 133 Chloride 101 Glucose Lactate FiO2 Potassium 4.0 Carbon Dioxide 21 Anion Gap 14 BUN 59 H Creatinine 8.1 H* Est GFR ( Amer) 8 Est GFR (Non-Af Amer) 7 Random Glucose 132 H Calcium 7.8 L Ferritin Total Bilirubin 0.4 AST 85 H ALT 55 Alkaline Phosphatase 89 Total Creatine Kinase 1179 H CK-MB (CK-2) Cancelled CK-MB (CK-2) % Troponin I 0.14 H* D Total Protein 5.7 L Albumin 2.8 L Globulin 2.9 Albumin/Globulin Ratio 1.0 L Vitamin B12 25-OH Vitamin D Total Venous Blood Potassium Urine Color Yellow Urine Appearance Turbid Urine pH 6.0 Ur Specific [place] <= 1.005 Urine Protein Trace H Urine Glucose (UA) Negative Urine Ketones Negative Urine Blood Large H Urine Nitrate Negative Urine Bilirubin Negative Urine Urobilinogen 0.2 Ur Leukocyte Esterase Trace H Urine RBC 25 - 30 Urine WBC 1 - 3 Hep Bs Antigen Hep Bs Antibody Hep B Core IgM Ab Hepatitis C Antibody Influenza Typ A,B (EIA) Fingerstick Blood Sugar Results: 150 Critical Care Progress Note - Nutrition Nutrition: Nutrition Category Date Time Status Heart Healthy Diet [DIET] Diets 05/18/18 Breakfast Active Assessment/Plan - Assessment and Plan (Free Text) Assessment: 62 y/o male with PMHx of HTN, CAD s/p CABG,GI bleed, esophageal ulcer, anemia, schizophrenia, anxiety presents to ED s/p fall. He was admitted to ICU for HONG in the setting of rhabdomyolysis . He is hemodynamically stable, monitoring UOP Plan: Neuro/psych: -AAOx3. in NAD -continue home med clonazepam -h/o schizophrenia. not on meds, PCP d/c Respiredone, as per patient and family member -psych consulted. give benzo for agitation, no anti-psychotic meds -maintain normothermia CVS: -continue lopressor -hold lipitor, lisinopril for HONG and rhabdo -hold asa for +FOBT -elevated trop likely due to HONG. now trending down -Echo (05/17): EF 42.5% RVSP 42 mmHg -CAD s/p CABG. cardiac cath (2016) EF 40% -Maintain MAP>65 Resp: -in NAD -maintain O2 sat >90% -O2 NC prn -duoneb prn -incentive spirometry -mucinex, tessalon perles -CXR (05/17): right basilar opacity could represent atelectasis vs PNA -flu A/B negative GI: -s/p EGD (05/17): easophagitis, gastritis -FOBT positive. no acitve GI bleeding. GI following -continue protonix IVP bid -monitor CBC -CT A/P: no acute finding -elevated AST likely due to rhabdomyolysis, trending down -U/S gallbladder: 1.3 gallbladder stone. no cholecystitis -h/o GI bleeding, esophagitis -ID following (Dr Nieves) Renal: -HONG, likely due to rhabdomyolysis -CPK trending down -BUN/Cr 59/8.1 trending up -I/O 1110/2000 negative balance of 890 -patient responded to daily lasix trials with good UOP. no lasix will be given today. 2 doses of albumin 5% given and continue monitoring UOP -encouraged oral hydration -d/c IVF -monitor CMP -UA: positive for blood, no RBC (consistent with rhabdo), no WBC, + protein and glucose ID: -improved leukocytosis, afebrile -tylenol prn for fever -d/c cefepime as per Dr Kendrick -ESR, procal elevated -blood cx: + coagulase negative staph. repeat blood cx negative. possible contamination -urine cx negative Endo: -accucheck q4h -ISS-low -maintain euglycemia Heme: -H/H 7.9/27.4 continue monitoring -asymptomatic. no signs of bleeding -PT/INR 12.6/1.09 -h/o anemia and GI bleeding MSK: -s/p fall. bruises on b/l knees, forehead -CT cervical spine: negative for fracture -knee XR: negative -PT eval: RAUL Prophylaxis: -GI ppx: Pantoprazole -DVT ppx SCD Heart healthy diet Dispo: Patient is hemodynamically stable, afebrile, normotensive, with satisfactory UOP and will be transferred to med/surg Case reviewed and plan discussed with Dr. My Barry, DO, PGY1 <Goyo Pepe - Last Filed: 05/19/18 16:12> CCU Objective - Vital Signs / Intake & Output Intake and Output (Last 8hrs): Intake & Output 05/19/18 05/19/18 05/19/18 06:59 14:59 22:59 Intake Total 250 Output Total 1200 Balance -950 Weight 215 lb 6.4 oz Intake: IV 10 Right Upper arm 10 Oral 240 Output: Urine 1200 Urethral (Gan) 1200 - Medications Active Medications: Active Medications Generic Name Dose Route Start Last Admin Trade Name Freq PRN Reason Stop Dose Admin Acetaminophen 325 mg 05/16/18 07:57 05/19/18 07:12 Tylenol 325mg Tab PO 325 mg Q6H PRN Administration Fever >100.4 F Albuterol/Ipratropium 3 ml 05/15/18 11:30 05/19/18 14:11 Duoneb 3 Mg/0.5 Mg (3 Ml) Ud IH 3 ml [id number] CHANEL Administration Benzonatate 100 mg 05/17/18 10:00 05/19/18 09:40 Tessalon Perles PO 100 mg TID CHANEL Administration Calcium Acetate 667 mg 05/18/18 12:00 05/19/18 12:45 Phoslo PO 667 mg WM CHANEL Administration Clonazepam 2 mg 05/17/18 09:45 05/19/18 09:38 Klonopin PO 2 mg Q12H CHANEL Administration Protocol Darbepoetin Will 100 mcg 05/18/18 10:00 05/18/18 09:55 Aranesp SC 100 mcg QWK CHANEL Administration Diphenhydramine HCl 25 mg 05/16/18 19:54 05/18/18 21:03 Benadryl PO 25 mg HS PRN Administration Insomnia Ferrous Gluconate 324 mg 05/18/18 10:00 05/19/18 09:40 Fergon PO 324 mg TID CHANEL Administration Guaifenesin/Dextromethorphan 1 tab 05/17/18 10:00 05/19/18 09:39 Mucinex-Dm 600-30 Mg PO 1 tab BID CHANEL Administration Hydralazine HCl 10 mg 05/19/18 08:41 Apresoline PO QID PRN for sbp >160 Insulin Detemir 5 unit 05/15/18 22:00 05/18/18 22:18 Levemir SC 5 unit HS CHANEL Administration Insulin Human Lispro 4 units 05/16/18 07:30 05/19/18 12:44 Humalog SC 4 u AC CHANEL Administration Insulin Human Regular 0 units 05/14/18 22:00 05/19/18 12:43 Humulin R Low SC 2 units ACHS CHANEL Administration Protocol Lorazepam 1 mg 05/18/18 13:51 05/19/18 10:53 Ativan IVP 1 mg Q6H PRN Administration Anxiety Protocol Metoprolol Tartrate 25 mg 05/14/18 18:45 05/19/18 09:39 Lopressor PO 25 mg BID CHANEL Administration Pantoprazole Sodium 40 mg 05/16/18 10:00 05/19/18 09:39 Protonix Inj IVP 40 mg Q12 CHANEL Administration Vitamin B Complex/Vit C/Folic Acid 1 tab 05/19/18 08:00 05/19/18 08:56 Nephro-Lydia PO 1 tab 0800 CHANEL Administration - Patient Studies Lab Studies: Microbiology Studies 05/14/18 14:00 Blood Culture - Final Blood NO GROWTH AFTER 5 DAYS Gram Stain - Final TEST NOT PERFORMED 05/17/18 05:40 Blood Culture - Preliminary Blood NO GROWTH AFTER 48 HOURS 05/17/18 05:20 Blood Culture - Preliminary Blood NO GROWTH AFTER 48 HOURS Lab Studies 05/19/18 05/19/18 05/19/18 Range/Units 12:40 05:20 05:20 WBC (4.5-11.0) 10^3/uL RBC (3.5-6.1) 10^6/uL Hgb (14.0-18.0) g/dL Hct (42.0-52.0) % MCV (80.0-105.0) fl MCH (25.0-35.0) pg MCHC (31.0-37.0) g/dl RDW (11.5-14.5) % Plt Count (120.0-450.0) 10^3/uL Gran % (50.0-68.0) % Lymph % (Auto) (22.0-35.0) % Wolfe % (Auto) (1.0-6.0) % Eos % (Auto) (1.5-5.0) % Baso % (Auto) (0.0-3.0) % Gran # (1.4-6.5) Lymph # (Auto) (1.2-3.4) Wolfe # (Auto) (0.1-0.6) Eos # (Auto) (0.0-0.7) Baso # (Auto) (0.0-2.0) K/mm3 pO2 62 H (30-55) mm/Hg VBG pH 7.32 (7.32-7.43) VBG pCO2 43.0 (40-60) VBG HCO3 22.2 (21-28) mmol/l VBG O2 Sat (Calc) 94.1 H (40-65) % VBG Base Excess -3.9 L (0.0-2.0) mmol/L Sodium (132-148) mmol/L Potassium (3.6-5.0) mmol/L Chloride (98-107) mmol/L Carbon Dioxide (21-33) mmol/L Anion Gap (10-20) BUN (7-21) mg/dL Creatinine (0.8-1.5) mg/dl Est GFR ( Amer) Est GFR (Non-Af Amer) Random Glucose (70-110) mg/dL Calcium (8.4-10.5) mg/dL Magnesium 1.8 Ferritin ng/mL Total Bilirubin (0.2-1.3) mg/dL AST (17-59) U/L ALT (7-56) U/L Alkaline Phosphatase (38-126) U/L Total Creatine Kinase (35-230) U/L CK-MB (CK-2) CK-MB (CK-2) % Troponin I ng/mL Total Protein (5.8-8.3) g/dL Albumin (3.0-4.8) g/dL Globulin gm/dL Albumin/Globulin Ratio (1.1-1.8) Vitamin B12 (239-931) pg/mL 25-OH Vitamin D Total 30.7 (30.0-100.0) NG/ML Urine Color (YELLOW) Urine Appearance (CLEAR) Urine pH (4.7-8.0) Ur Specific [place] (1.005-1.035) Urine Protein (<30 mg/dL) mg/dL Urine Glucose (UA) (NEGATIVE) mg/dL Urine Ketones (NEGATIVE) mg/dL Urine Blood (NEGATIVE) Urine Nitrate (NEGATIVE) Urine Bilirubin (NEGATIVE) Urine Urobilinogen (<1 E.U./dL) E.U./dL Ur Leukocyte Esterase (NEGATIVE) Irvin/uL Urine RBC (0-2) /hpf Urine WBC (0-6) /hpf Hep Bs Antigen (NEGATIVE) Hep Bs Antibody (NEGATIVE) Hep B Core IgM Ab (NEGATIVE) Hepatitis C Antibody (NEGATIVE) Influenza Typ A,B (EIA) (NEGATIVE) 05/19/18 05/19/18 05/18/18 Range/Units 05:20 05:20 22:43 WBC 4.1 L (4.5-11.0) 10^3/uL RBC 4.30 (3.5-6.1) 10^6/uL Hgb 7.9 L (14.0-18.0) g/dL Hct 27.4 L (42.0-52.0) % MCV 63.7 L (80.0-105.0) fl MCH 18.4 L (25.0-35.0) pg MCHC 28.8 L (31.0-37.0) g/dl RDW 19.5 H (11.5-14.5) % Plt Count 126 (120.0-450.0) 10^3/uL Gran % 69.5 H (50.0-68.0) % Lymph % (Auto) 14.8 L (22.0-35.0) % Wolfe % (Auto) 8.6 H (1.0-6.0) % Eos % (Auto) 6.9 H (1.5-5.0) % Baso % (Auto) 0.2 (0.0-3.0) % Gran # 2.82 (1.4-6.5) Lymph # (Auto) 0.6 L (1.2-3.4) Wolfe # (Auto) 0.4 (0.1-0.6) Eos # (Auto) 0.3 (0.0-0.7) Baso # (Auto) 0.01 (0.0-2.0) K/mm3 pO2 (30-55) mm/Hg VBG pH (7.32-7.43) VBG pCO2 (40-60) VBG HCO3 (21-28) mmol/l VBG O2 Sat (Calc) (40-65) % VBG Base Excess (0.0-2.0) mmol/L Sodium 133 (132-148) mmol/L Potassium 4.0 (3.6-5.0) mmol/L Chloride 101 (98-107) mmol/L Carbon Dioxide 21 (21-33) mmol/L Anion Gap 14 (10-20) BUN 59 H (7-21) mg/dL Creatinine 8.1 H* (0.8-1.5) mg/dl Est GFR ( Amer) 8 Est GFR (Non-Af Amer) 7 Random Glucose 132 H (70-110) mg/dL Calcium 7.8 L (8.4-10.5) mg/dL Magnesium Cancelled Ferritin ng/mL Total Bilirubin 0.4 (0.2-1.3) mg/dL AST 85 H (17-59) U/L ALT 55 (7-56) U/L Alkaline Phosphatase 89 (38-126) U/L Total Creatine Kinase 1179 H (35-230) U/L CK-MB (CK-2) Cancelled CK-MB (CK-2) % Cancelled Troponin I 0.14 H* D ng/mL Total Protein 5.7 L (5.8-8.3) g/dL Albumin 2.8 L (3.0-4.8) g/dL Globulin 2.9 gm/dL Albumin/Globulin Ratio 1.0 L (1.1-1.8) Vitamin B12 (239-931) pg/mL 25-OH Vitamin D Total (30.0-100.0) NG/ML Urine Color Yellow (YELLOW) Urine Appearance Turbid (CLEAR) Urine pH 6.0 (4.7-8.0) Ur Specific [place] <= 1.005 (1.005-1.035) Urine Protein Trace H (<30 mg/dL) mg/dL Urine Glucose (UA) Negative (NEGATIVE) mg/dL Urine Ketones Negative (NEGATIVE) mg/dL Urine Blood Large H (NEGATIVE) Urine Nitrate Negative (NEGATIVE) Urine Bilirubin Negative (NEGATIVE) Urine Urobilinogen 0.2 (<1 E.U./dL) E.U./dL Ur Leukocyte Esterase Trace H (NEGATIVE) Irvin/uL Urine RBC 25 - 30 (0-2) /hpf Urine WBC 1 - 3 (0-6) /hpf Hep Bs Antigen (NEGATIVE) Hep Bs Antibody (NEGATIVE) Hep B Core IgM Ab (NEGATIVE) Hepatitis C Antibody (NEGATIVE) Influenza Typ A,B (EIA) (NEGATIVE) 05/18/18 05/18/18 05/18/18 Range/Units 22:27 09:39 09:39 WBC (4.5-11.0) 10^3/uL RBC (3.5-6.1) 10^6/uL Hgb (14.0-18.0) g/dL Hct (42.0-52.0) % MCV (80.0-105.0) fl MCH (25.0-35.0) pg MCHC (31.0-37.0) g/dl RDW (11.5-14.5) % Plt Count (120.0-450.0) 10^3/uL Gran % (50.0-68.0) % Lymph % (Auto) (22.0-35.0) % Wolfe % (Auto) (1.0-6.0) % Eos % (Auto) (1.5-5.0) % Baso % (Auto) (0.0-3.0) % Gran # (1.4-6.5) Lymph # (Auto) (1.2-3.4) Wolfe # (Auto) (0.1-0.6) Eos # (Auto) (0.0-0.7) Baso # (Auto) (0.0-2.0) K/mm3 pO2 (30-55) mm/Hg VBG pH (7.32-7.43) VBG pCO2 (40-60) VBG HCO3 (21-28) mmol/l VBG O2 Sat (Calc) (40-65) % VBG Base Excess (0.0-2.0) mmol/L Sodium (132-148) mmol/L Potassium (3.6-5.0) mmol/L Chloride (98-107) mmol/L Carbon Dioxide (21-33) mmol/L Anion Gap (10-20) BUN (7-21) mg/dL Creatinine (0.8-1.5) mg/dl Est GFR ( Amer) Est GFR (Non-Af Amer) Random Glucose (70-110) mg/dL Calcium (8.4-10.5) mg/dL Magnesium Ferritin 50.7 ng/mL Total Bilirubin (0.2-1.3) mg/dL AST (17-59) U/L ALT (7-56) U/L Alkaline Phosphatase (38-126) U/L Total Creatine Kinase (35-230) U/L CK-MB (CK-2) CK-MB (CK-2) % Troponin I ng/mL Total Protein (5.8-8.3) g/dL Albumin (3.0-4.8) g/dL Globulin gm/dL Albumin/Globulin Ratio (1.1-1.8) Vitamin B12 455 (239-931) pg/mL 25-OH Vitamin D Total (30.0-100.0) NG/ML Urine Color (YELLOW) Urine Appearance (CLEAR) Urine pH (4.7-8.0) Ur Specific [place] (1.005-1.035) Urine Protein (<30 mg/dL) mg/dL Urine Glucose (UA) (NEGATIVE) mg/dL Urine Ketones (NEGATIVE) mg/dL Urine Blood (NEGATIVE) Urine Nitrate (NEGATIVE) Urine Bilirubin (NEGATIVE) Urine Urobilinogen (<1 E.U./dL) E.U./dL Ur Leukocyte Esterase (NEGATIVE) Irvin/uL Urine RBC (0-2) /hpf Urine WBC (0-6) /hpf Hep Bs Antigen Negative (NEGATIVE) Hep Bs Antibody Negative (NEGATIVE) Hep B Core IgM Ab Negative (NEGATIVE) Hepatitis C Antibody Negative (NEGATIVE) Influenza Typ A,B (EIA) Negative for flu a/b (NEGATIVE) Laboratory Results - last 24 hr 05/18/18 05/18/18 05/18/18 09:39 09:39 22:27 WBC RBC Hgb Hct MCV MCH MCHC RDW Plt Count Gran % Lymph % (Auto) Wolfe % (Auto) Eos % (Auto) Baso % (Auto) Gran # Lymph # (Auto) Wolfe # (Auto) Eos # (Auto) Baso # (Auto) pO2 VBG pH VBG pCO2 VBG HCO3 VBG O2 Sat (Calc) VBG Base Excess Sodium Potassium Chloride Carbon Dioxide Anion Gap BUN Creatinine Est GFR ( Amer) Est GFR (Non-Af Amer) Random Glucose Calcium Magnesium Ferritin 50.7 Total Bilirubin AST ALT Alkaline Phosphatase Total Creatine Kinase CK-MB (CK-2) CK-MB (CK-2) % Troponin I Total Protein Albumin Globulin Albumin/Globulin Ratio Vitamin B12 455 25-OH Vitamin D Total Urine Color Urine Appearance Urine pH Ur Specific [place] Urine Protein Urine Glucose (UA) Urine Ketones Urine Blood Urine Nitrate Urine Bilirubin Urine Urobilinogen Ur Leukocyte Esterase Urine RBC Urine WBC Hep Bs Antigen Negative Hep Bs Antibody Negative Hep B Core IgM Ab Negative Hepatitis C Antibody Negative Influenza Typ A,B (EIA) Negative for flu a/b 05/18/18 05/19/18 05/19/18 22:43 05:20 05:20 WBC 4.1 L RBC 4.30 Hgb 7.9 L Hct 27.4 L MCV 63.7 L MCH 18.4 L MCHC 28.8 L RDW 19.5 H Plt Count 126 Gran % 69.5 H Lymph % (Auto) 14.8 L Wolfe % (Auto) 8.6 H Eos % (Auto) 6.9 H Baso % (Auto) 0.2 Gran # 2.82 Lymph # (Auto) 0.6 L Wolfe # (Auto) 0.4 Eos # (Auto) 0.3 Baso # (Auto) 0.01 pO2 VBG pH VBG pCO2 VBG HCO3 VBG O2 Sat (Calc) VBG Base Excess Sodium 133 Potassium 4.0 Chloride 101 Carbon Dioxide 21 Anion Gap 14 BUN 59 H Creatinine 8.1 H* Est GFR ( Amer) 8 Est GFR (Non-Af Amer) 7 Random Glucose 132 H Calcium 7.8 L Magnesium Cancelled Ferritin Total Bilirubin 0.4 AST 85 H ALT 55 Alkaline Phosphatase 89 Total Creatine Kinase 1179 H CK-MB (CK-2) Cancelled CK-MB (CK-2) % Cancelled Troponin I 0.14 H* D Total Protein 5.7 L Albumin 2.8 L Globulin 2.9 Albumin/Globulin Ratio 1.0 L Vitamin B12 25-OH Vitamin D Total Urine Color Yellow Urine Appearance Turbid Urine pH 6.0 Ur Specific [place] <= 1.005 Urine Protein Trace H Urine Glucose (UA) Negative Urine Ketones Negative Urine Blood Large H Urine Nitrate Negative Urine Bilirubin Negative Urine Urobilinogen 0.2 Ur Leukocyte Esterase Trace H Urine RBC 25 - 30 Urine WBC 1 - 3 Hep Bs Antigen Hep Bs Antibody Hep B Core IgM Ab Hepatitis C Antibody Influenza Typ A,B (EIA) 05/19/18 05/19/18 05/19/18 05:20 05:20 12:40 WBC RBC Hgb Hct MCV MCH MCHC RDW Plt Count Gran % Lymph % (Auto) Wolfe % (Auto) Eos % (Auto) Baso % (Auto) Gran # Lymph # (Auto) Wolfe # (Auto) Eos # (Auto) Baso # (Auto) pO2 62 H VBG pH 7.32 VBG pCO2 43.0 VBG HCO3 22.2 VBG O2 Sat (Calc) 94.1 H VBG Base Excess -3.9 L Sodium Potassium Chloride Carbon Dioxide Anion Gap BUN Creatinine Est GFR ( Amer) Est GFR (Non-Af Amer) Random Glucose Calcium Magnesium 1.8 Ferritin Total Bilirubin AST ALT Alkaline Phosphatase Total Creatine Kinase CK-MB (CK-2) CK-MB (CK-2) % Troponin I Total Protein Albumin Globulin Albumin/Globulin Ratio Vitamin B12 25-OH Vitamin D Total 30.7 Urine Color Urine Appearance Urine pH Ur Specific [place] Urine Protein Urine Glucose (UA) Urine Ketones Urine Blood Urine Nitrate Urine Bilirubin Urine Urobilinogen Ur Leukocyte Esterase Urine RBC Urine WBC Hep Bs Antigen Hep Bs Antibody Hep B Core IgM Ab Hepatitis C Antibody Influenza Typ A,B (EIA) Radiology Impressions: Radiology Impressions Chest X-Ray 05/19/18 10:15 IMPRESSION: Mild congestive heart failure. Confluent airspace disease in the right lower lobe may represent subsegmental atelectasis however superimposed pneumonia cannot be excluded. Follow-up after medical management is recommended to ensure complete resolution. Critical Care Progress Note - Nutrition Nutrition: Nutrition Category Date Time Status Heart Healthy Diet [DIET] Diets 05/18/18 Breakfast Active Attending/Attestation - Attestation I have personally seen and examined this patient.: Yes I have fully participated in the care of the patient.: Yes I have reviewed all pertinent clinical information: Yes Notes (Text): 05/19/18 16:07 62 yo male with now improving rhabdo c/with HONG. while creatinine is rising, u/o has picked up substantially. patient is not acidotic, not fluid overload and without significant electrolites abnormalities. discussed with Dr. Pearce-->no need for FISH CONSERVATIONIST. ok to downgrade to medr ccm time 40 min
[2018-05-19] MEDS: guaiFENesin-DM 600-30 mg ER Tab PO SCH ×2 (09:39→17:00)
[2018-05-19] MEDS ORDERED: Cefepime 1gm in NS 100ml 1 GM/100 ML BAG IVPB SCH (10:00)
[2018-05-19] MEDS ORDERED: Albumin Human 5% (12.5 gm/250 ml) IV ONE ×2 (11:38→12:41)
--- NOTE | 2018-05-19 11:38 | RAD ---
Date of service: 05/19/2018 HISTORY: chf COMPARISON: 05/17/2018 FINDINGS: LUNGS: The lungs are well inflated. There is redemonstration of mild pulmonary venous congestion and interstitial pulmonary edema. There is confluent airspace disease in the right lower lobe. PLEURA: No pleural effusions or pneumothorax. CARDIOVASCULAR: Mild cardiomegaly and prominent central vasculature. Status post CABG. Atherosclerotic aortic arch calcifications are present. OSSEOUS STRUCTURES: Within normal limits for the patient's age. VISUALIZED UPPER ABDOMEN: Normal. OTHER FINDINGS: None. IMPRESSION: Mild congestive heart failure. Confluent airspace disease in the right lower lobe may represent subsegmental atelectasis however superimposed pneumonia cannot be excluded. Follow-up after medical management is recommended to ensure complete resolution.
--- NOTE | 2018-05-19 12:10 | PN ---
DATE: 05/19/2018 REASON FOR CONSULTATION AND FOLLOWUP: Coronary artery disease, COPD, elevated troponin, admitted with rhabdomyolysis status post fall, cardiac evaluation, history of GI bleed and borderline troponin positive secondary to rhabdomyolysis. SUBJECTIVE: The patient denies any chest pain, shortness of breath or any palpitation. OBJECTIVE: GENERAL: Not in apparent distress. VITAL SIGNS: Temperature afebrile, heart rate 84, blood pressure /71. HEENT: PERRLA, intact. NECK: Supple. No carotid bruit or thyromegaly. CHEST: Clear to auscultation. HEART: S1 and S2, regular. ABDOMEN: Soft. EXTREMITIES: Clubbing and cyanosis negative. LABORATORY DATA: Blood workup as follows: WBC 4.8, hemoglobin 7.9, hematocrit 27.4 and platelet count 126. Chemistry shows sodium 130, potassium 4, chloride 101, carbon dioxide 21, anion gap of 14, BUN 59, creatinine 8.1. Troponin 0.1, CPK 179, MB fraction low. IMPRESSION: A 62-year-old male with past medical history significant for schizophrenia, cardiomyopathy, chronic obstructive pulmonary disease, admitted with acute kidney injury on top of chronic renal insufficiency status post fall and rhabdomyolysis, it causes acute kidney injury. Creatinine is climbing up to 8.1. Troponin borderline is positive, but CPK-MB was low that represents myocardial infarction. He has a history of cardiac catheterization in 2017, medical treatment recommended. History of coronary artery bypass graft in the past, patent left internal mammary artery to left anterior descending artery. Decreased left ventricular function 40 percent. RECOMMENDATIONS: Aggressive medical treatment. Apparently, the patient may need dialysis, follow up closely with christian counselor. Recent echo, 05/17/2018, yesterday shows normal LV size, function mildly impaired, diastolic functions are also normal, [id number] mitral regurgitation, mild tricuspid regurgitation, mild pulmonary hypertension, no vegetation noted, read by Dr. Esqueda. Ejection fraction calculated at 42 percent, RV systolic pressure of 42. Continue cautious hydration as per Nephrology, follow closely. Continue Lasix as per Nephrology. Continue beta-dorita. Avoid nephrotoxic medication. It looks that the patient may need dialysis. We will follow with you. We will put as needed hydralazine for pressure more than 160. The borderline troponin is positive most likely secondary to acute rhabdomyolysis, and also since in phase of acute kidney injury, not a candidate to go for cardiac catheterization. A year ago, cardiac catheterization and medical treatment recommended. Thank you Dr. Caruso for providing us the opportunity in taking care of the patient, Jose Carty. Maurice King MD
[2018-05-19 12:54] LABS: VENOUS BLOOD GAS BASE EXCESS -3.9 mmol/L (0.0-2.0); VENOUS BLOOD GAS PO2 62 mm/Hg (30-55); VENOUS BLOOD PH 7.32 (7.32-7.43)
--- NOTE | 2018-05-19 13:40 | CP.PCM.PN ---
Subjective - Date & Time of Evaluation Date of Evaluation: 05/19/18 Time of Evaluation: 11:00 - Subjective Subjective: Comfortable on a chair, no fevers, no nausea. No headaches currently. Objective - Vital Signs/Intake and Output Vital Signs (last 24 hours): Temp Pulse Resp BP Pulse Ox 98.8 F 103 H 20 148/61 98 05/18/18 09:20 05/18/18 09:53 05/18/18 09:20 05/18/18 13:01 05/18/18 09:20 Intake and Output: 05/18/18 05/18/18 06:59 18:59 Intake Total 2310 Output Total 625 Balance 1685 - Medications Medications: Current Medications Acetaminophen (Tylenol 325mg Tab) 325 mg PO Q6H PRN PRN Reason: Fever >100.4 F Last Admin: 05/18/18 09:52 Dose: 325 mg Albuterol/Ipratropium (Duoneb 3 Mg/0.5 Mg (3 Ml) Ud) 3 ml IH [id number] [facility] Last Admin: 05/18/18 14:00 Dose: 3 ml Benzonatate (Tessalon Perles) 100 mg PO TID [facility] Last Admin: 05/18/18 13:01 Dose: 100 mg Calcium Acetate (Phoslo) 667 mg PO WM [facility] Last Admin: 05/18/18 13:01 Dose: 667 mg Clonazepam (Klonopin) 2 mg PO Q12H [facility]; Protocol Last Admin: 05/18/18 09:53 Dose: 2 mg Darbepoetin Will (Aranesp) 100 mcg SC QWK [facility] Last Admin: 05/18/18 09:55 Dose: 100 mcg Diphenhydramine HCl (Benadryl) 25 mg PO HS PRN PRN Reason: Insomnia Last Admin: 05/17/18 20:25 Dose: 25 mg Ferrous Gluconate (Fergon) 324 mg PO TID [facility] Last Admin: 05/18/18 13:01 Dose: 324 mg Guaifenesin/Dextromethorphan (Mucinex-Dm 600-30 Mg) 1 tab PO BID [facility] Last Admin: 05/18/18 09:49 Dose: 1 tab Cefepime HCl (Maxipime 1gm) 1 gm in 100 mls @ 100 mls/hr IVPB Q24H [facility]; Protocol Insulin Detemir (Levemir) 5 unit SC HS [facility] Last Admin: 05/17/18 23:17 Dose: 5 unit Insulin Human Lispro (Humalog) 4 units SC AC [facility] Last Admin: 05/18/18 12:56 Dose: 4 u Insulin Human Regular (Humulin R Low) 0 units SC ACHS [facility]; Protocol Last Admin: 05/18/18 12:57 Dose: 1 units Lorazepam (Ativan) 1 mg IVP Q6H PRN; Protocol PRN Reason: Anxiety Metoprolol Tartrate (Lopressor) 25 mg PO BID [facility] Last Admin: 05/18/18 09:53 Dose: 25 mg Pantoprazole Sodium (Protonix Inj) 40 mg IVP Q12 [facility] Last Admin: 05/18/18 10:01 Dose: 40 mg Vitamin B Complex/Vit C/Folic Acid (Nephro-Lydia) 1 tab PO 0800 [facility] - Labs Labs: 05/18/18 06:25 05/18/18 08:00 PT 12.8 SECONDS (9.4-12.5) H 05/15/18 01:30 INR 1.11 05/15/18 01:30 APTT 27.0 Seconds (25.1-36.5) 05/14/18 13:30 - Constitutional Appears: No Acute Distress, Chronically Ill - Head Exam Head Exam: NORMAL INSPECTION - Respiratory Exam Respiratory Exam: Decreased Breath Sounds - Cardiovascular Exam Cardiovascular Exam: +S1, +S2 - GI/Abdominal Exam GI & Abdominal Exam: Soft. absent: Tenderness Assessment and Plan - Assessment and Plan (Free Text) Plan: Assessment systemic inflammatory response syndrome with rhabdomyolysis R/O NSTEMI, no clear source or evidence of bacterial infection coagulase negative staph in blood cx, probably contamination schizophrenia anxiety dementia CAD DM history of esophageal ulcers chronic anemia deafness mental disability Plan Cultures have been negative; will d/c Cefepime and observe will continue to monitor clinically
--- NOTE | 2018-05-19 15:36 | CP.PCM.PN ---
Subjective - Date & Time of Evaluation Date of Evaluation: 05/19/18 Time of Evaluation: 15:35 - Subjective Subjective: UOP better pt feels better. denies SOB no nausea/vomittin pe: vs reviewed gen: nad sclera: anicteric op: clear, poor dentition neck supple no thyromegaly cv: +S1+s2 no rub abd: soft nt nd no organomegaly lungs wbilateral air entry equal, few basal rale ext: trace edema neuro: AO times 3 psych: flat. limited insight skin bruising on b/l knees labs and imaging reviewed Imp: ARF/ Rhabdomylosis/ Anemia/ ? sepsis/hyperphos/ATN/PUD plan: HONG - likely from combination of rhabdo +/ - developing sirs / sepsis. lasix PRN and monitor UOP which is better hence will defer dialysis initiation unless cr continue to rise. had d/w sister at pt request and consent for HD obtained. pt close to need for dialysis initiation but hopefully can avoid as anticipate spontaenous renal recovery electrolytes are ok at this point f/u cultures - abx per primary team - dose for reduced eGFR started weekly aransep, iron, MVI and phos binders. gave one dose of Vit D work up as ordered continue with PPI. but avoid carafate/al and mag based laxatives/antacid. no fleet enemas d/w team Objective - Vital Signs/Intake and Output Vital Signs (last 24 hours): Temp Pulse Resp BP Pulse Ox 99.1 F 80 14 157/80 H 100 05/19/18 11:38 05/19/18 11:38 05/19/18 11:00 05/19/18 11:00 05/19/18 11:38 Intake and Output: 05/19/18 05/19/18 06:59 18:59 Intake Total 250 Output Total 1200 Balance -950 - Medications Medications: Current Medications Acetaminophen (Tylenol 325mg Tab) 325 mg PO Q6H PRN PRN Reason: Fever >100.4 F Last Admin: 05/19/18 07:12 Dose: 325 mg Albuterol/Ipratropium (Duoneb 3 Mg/0.5 Mg (3 Ml) Ud) 3 ml IH [id number] [facility] Last Admin: 05/19/18 14:11 Dose: 3 ml Benzonatate (Tessalon Perles) 100 mg PO TID [facility] Last Admin: 05/19/18 09:40 Dose: 100 mg Calcium Acetate (Phoslo) 667 mg PO WM [facility] Last Admin: 05/19/18 12:45 Dose: 667 mg Clonazepam (Klonopin) 2 mg PO Q12H [facility]; Protocol Last Admin: 05/19/18 09:38 Dose: 2 mg Darbepoetin Will (Aranesp) 100 mcg SC QWK [facility] Last Admin: 05/18/18 09:55 Dose: 100 mcg Diphenhydramine HCl (Benadryl) 25 mg PO HS PRN PRN Reason: Insomnia Last Admin: 05/18/18 21:03 Dose: 25 mg Ferrous Gluconate (Fergon) 324 mg PO TID [facility] Last Admin: 05/19/18 09:40 Dose: 324 mg Guaifenesin/Dextromethorphan (Mucinex-Dm 600-30 Mg) 1 tab PO BID [facility] Last Admin: 05/19/18 09:39 Dose: 1 tab Hydralazine HCl (Apresoline) 10 mg PO QID PRN PRN Reason: for sbp >160 Insulin Detemir (Levemir) 5 unit SC HS [facility] Last Admin: 05/18/18 22:18 Dose: 5 unit Insulin Human Lispro (Humalog) 4 units SC AC [facility] Last Admin: 05/19/18 12:44 Dose: 4 u Insulin Human Regular (Humulin R Low) 0 units SC ACHS [facility]; Protocol Last Admin: 05/19/18 12:43 Dose: 2 units Lorazepam (Ativan) 1 mg IVP Q6H PRN; Protocol PRN Reason: Anxiety Last Admin: 05/19/18 10:53 Dose: 1 mg Metoprolol Tartrate (Lopressor) 25 mg PO BID [facility] Last Admin: 05/19/18 09:39 Dose: 25 mg Pantoprazole Sodium (Protonix Inj) 40 mg IVP Q12 [facility] Last Admin: 05/19/18 09:39 Dose: 40 mg Vitamin B Complex/Vit C/Folic Acid (Nephro-Lydia) 1 tab PO 0800 [facility] Last Admin: 05/19/18 08:56 Dose: 1 tab - Labs Labs: 05/19/18 05:20 05/19/18 05:20 PT 12.8 SECONDS (9.4-12.5) H 05/15/18 01:30 INR 1.11 05/15/18 01:30 APTT 27.0 Seconds (25.1-36.5) 05/14/18 13:30
--- NOTE | 2018-05-19 18:54 | PN ---
DATE: 05/19/2018 SUBJECTIVE: The patient was followed up today in ICU. No acute event overnight. The patient is doing well from the medical standpoint, will be downgraded to the medical surgical floor. Going back to the presentation, the patient was on haloperidol decanoate, which dose was confirmed yesterday. Please see yesterday's note for more detailed information. The patient complained of some insomnia, but denied hearing voices, denied seeing things. Denied paranoid ideation. There is no agitation or aggression as per medical team report. VITAL SIGNS: Reviewed. Temperature 99.1, pulse is 80, oxygen saturation is 100. MEDICATIONS: Reviewed. The patient is on Tylenol, DuoNeb, PhosLo, Maxipime, Klonopin 2 mg every 12 hours, Benadryl for insomnia, Fergon, Mucinex, Apresoline, Levemir, Humalog, Ativan, Lopressor, Protonix, and vitamin B complex. LABORATORY DATA: Labs reviewed. Most recent was from today. There are no signs of granulocytosis. Coagulation reviewed. Chemistry reviewed. Creatinine is 8.1. Urinalysis, leukocyte esterase trace. Toxicology reviewed. Serology reviewed. MENTAL STATUS EXAMINATION: The patient presented to be alert, somewhat withdrawn. Mood described as okay. Affect was constricted. Thought process, concrete. Thought content, the patient denied visual, auditory, tactile hallucinations. Denied paranoid ideation. The patient denied thoughts of harming himself or others. Denied intent or plan. Insight and judgment seem to be improving. Impulses are well controlled. IMPRESSION: As per history, schizophrenia, history of alcohol use disorder. The patient was admitted on the medical side status post fall and altered mental status. PLAN: We will hold Haldol decanoate for now. We will follow up on the patient on the medical side. There is no aggression or agitation. For insomnia, small dose of Sonata could be given, 5 mg. Risks, benefits, and alternatives discussed with the patient. We will follow up and advise accordingly. Thank you very much for letting me participate in care of your patient. Rosalva Griffin MD [facility] # [id number]
[2018-05-19] MEDS: Insulin Detemir 100 units/ml Vial (Levemir) SC SCH (21:23)
[2018-05-20] MEDS: Albuterol-Ipratrop 3 mg / 0.5 (3 ml) UD IH SCH ×5 (03:53→20:14)
[2018-05-20 06:59] LABS: BASO # 0.01 K/mm3 (0.0-2.0); BASO % 0.2 % (0.0-3.0); EOS # 0.2 (0.0-0.7); EOS % 5.2 % (1.5-5.0); GRAN # 2.72 (1.4-6.5); GRAN % 66.9 % (50.0-68.0); HEMOGLOBIN 7.9 g/dL (14.0-18.0); LYMPH # 0.8 (1.2-3.4); LYMPH % 20.6 % (22.0-35.0); MEAN CELL VOLUME 63.6 fl (80.0-105.0); MEAN CORPUSCULAR HEMOGLOBIN 18.5 pg (25.0-35.0); MONO # 0.3 (0.1-0.6); MONO % 7.1 % (1.0-6.0); PLATELET COUNT 124 10^3/uL (120.0-450.0); RBC 4.28 10^6/uL (3.5-6.1); RED CELL DISTRIBUTION WIDTH 19.4 % (11.5-14.5); WHITE BLOOD COUNT 4.1 10^3/uL (4.5-11.0)
[2018-05-20] MEDS: Multivitamin Vitamin B Complex (Nephro-Vite) Tab PO SCH (07:05)
[2018-05-20 07:11] LABS: ALB/GLOB RATIO 1.1 (1.1-1.8); CALCIUM 8.2 mg/dL (8.4-10.5)
[2018-05-20] MEDS: Insulin Reg-LOW-Coverage SC SCH ×4 (08:01→21:27)
[2018-05-20] MEDS: Insulin Lispro 1 UNITS/0.01 ML SC SCH ×3 (08:01→16:48)
--- NOTE | 2018-05-20 08:21 | PN ---
DATE: 05/20/2018 SUBJECTIVE: The patient is in bed, in no acute distress. He is seen today in 128, bed 2. PHYSICAL EXAMINATION: VITAL SIGNS: Temperature is 99, heart rate of 91, blood pressure is 140/70, and respiratory rate of 21. HEENT: Unremarkable. NECK: Supple. LUNGS: Have decreased breath sounds. HEART: Normal S1, S2. ABDOMEN: Soft, nontender. LABORATORY EXAMINATION: Reveals white count to be 4.1. Chemistries reveal the patient's BUN is 61, creatinine of 8.2. Troponins are noted. Urinalysis is noted. Microbiology reveals the blood cultures are negative. Repeat cultures. ASSESSMENT AND PLAN: This is a 62-year-old male with systemic inflammatory response syndrome, rhabdomyolysis. with rule out [id number] myocardial infarction, no clear source of evidence of bacterial infection, coagulase-negative staphylococcus in the blood contamination, schizophrenia, anxiety, dementia, coronary artery disease, diabetes, history of esophageal ulcers, chronic anemia, deafness, mental disability. The patient is currently off of antibiotics and is afebrile. Normal white count. No evidence of infection, however, the patient is at risk for developing nosocomial infections. We will follow closely with you. Syd Robin MD
[2018-05-20] MEDS: guaiFENesin-DM 600-30 mg ER Tab PO SCH (09:46)
--- NOTE | 2018-05-20 14:45 | CP.PCM.PN ---
<Marito Saldana - Last Filed: 05/20/18 22:39> Subjective - Date & Time of Evaluation Date of Evaluation: 05/20/18 Time of Evaluation: 08:00 - Subjective Subjective: Marito Saldana, PGY1 Medicine Progress Note for Dr. Caruso Pt was seen and examined this AM at bedside. No acute events overnight. He states that he had difficulty falling asleep last night, not due to pain or discomfort. Pt currently denies fever, chills, chest pain, nausea, vomiting, abdominal pain, rash, blurred vision, diarrhea and/or constipation. Objective - Vital Signs/Intake and Output Vital Signs (last 24 hours): Temp Pulse Resp BP Pulse Ox 99.0 F 101 H 21 148/64 98 05/20/18 08:49 05/20/18 09:46 05/20/18 08:00 05/20/18 12:01 05/20/18 08:49 Intake and Output: 05/20/18 05/20/18 06:59 18:59 Intake Total 1520 Output Total 1250 Balance 270 - Medications Medications: Current Medications Acetaminophen (Tylenol 325mg Tab) 325 mg PO Q6H PRN PRN Reason: Fever >100.4 F Last Admin: 05/20/18 09:46 Dose: 325 mg Albuterol/Ipratropium (Duoneb 3 Mg/0.5 Mg (3 Ml) Ud) 3 ml IH [id number] [facility] Last Admin: 05/20/18 13:10 Dose: 3 ml Benzonatate (Tessalon Perles) 100 mg PO TID [facility] Last Admin: 05/20/18 09:46 Dose: 100 mg Calcium Acetate (Phoslo) 667 mg PO WM [facility] Last Admin: 05/20/18 12:01 Dose: 667 mg Clonazepam (Klonopin) 2 mg PO Q12H [facility]; Protocol Last Admin: 05/20/18 09:45 Dose: 2 mg Darbepoetin Will (Aranesp) 100 mcg SC QWK [facility] Last Admin: 05/18/18 09:55 Dose: 100 mcg Diphenhydramine HCl (Benadryl) 25 mg PO HS PRN PRN Reason: Insomnia Last Admin: 05/20/18 01:49 Dose: 25 mg Ferrous Gluconate (Fergon) 324 mg PO TID [facility] Last Admin: 05/20/18 09:47 Dose: 324 mg Furosemide (Lasix) 80 mg IVP DAILY [facility] Stop: 05/22/18 10:01 Last Admin: 05/20/18 12:01 Dose: 80 mg Guaifenesin/Dextromethorphan (Mucinex-Dm 600-30 Mg) 1 tab PO BID [facility] Last Admin: 05/20/18 09:46 Dose: 1 tab Hydralazine HCl (Apresoline) 10 mg PO QID PRN PRN Reason: for sbp >160 Insulin Detemir (Levemir) 5 unit SC HS [facility] Last Admin: 05/19/18 21:23 Dose: 5 unit Insulin Human Lispro (Humalog) 4 units SC AC [facility] Last Admin: 05/20/18 12:00 Dose: 4 u Insulin Human Regular (Humulin R Low) 0 units SC [facility]; Protocol Last Admin: 05/20/18 11:56 Dose: Not Given Lorazepam (Ativan) 1 mg IVP Q6H PRN; Protocol PRN Reason: Anxiety Last Admin: 05/19/18 18:22 Dose: 1 mg Metoprolol Tartrate (Lopressor) 50 mg PO BID [facility] Pantoprazole Sodium (Protonix Inj) 40 mg IVP Q12 [facility] Last Admin: 05/20/18 09:47 Dose: 40 mg Vitamin B Complex/Vit C/Folic Acid (Nephro-Lydia) 1 tab PO 0800 [facility] Last Admin: 05/20/18 07:05 Dose: 1 tab Zaleplon (Sonata) 5 mg PO HS PRN PRN Reason: Insomnia - Labs Labs: 05/20/18 05:20 05/20/18 05:20 PT 12.8 SECONDS (9.4-12.5) H 05/15/18 01:30 INR 1.11 05/15/18 01:30 APTT 27.0 Seconds (25.1-36.5) 05/14/18 13:30 - Constitutional Appears: Non-toxic, No Acute Distress - Head Exam Head Exam: ATRAUMATIC, NORMAL INSPECTION, NORMOCEPHALIC - Eye Exam Eye Exam: EOMI, Normal appearance, PERRL - Respiratory Exam Respiratory Exam: Decreased Breath Sounds, Wheezes (present in majority of lung valentin b/l), NORMAL BREATHING PATTERN. absent: Accessory Muscle Use, Prolonged Expiratory Phase, Rales, Rhonchi, Respiratory Distress, Stridor - Cardiovascular Exam Cardiovascular Exam: RRR, +S1, +S2. absent: Gallop, Rubs - GI/Abdominal Exam GI & Abdominal Exam: Soft, Normal Bowel Sounds. absent: Firm, Guarding, Rigid, Tenderness - Extremities Exam Extremities Exam: Full ROM. absent: Calf Tenderness, Tenderness - Back Exam Back Exam: NORMAL INSPECTION. absent: CVA tenderness (L), CVA tenderness (R) - Neurological Exam Neurological Exam: Alert, Awake, Oriented x3 - Psychiatric Exam Psychiatric exam: Anxious - Skin Skin Exam: Dry, Warm Assessment and Plan - Assessment and Plan (Free Text) Assessment: 62 year old male with a past medical history significant for CAD s/p CABG, systolic CHF, HTN, DM2, esophageal ulcer with esophagitis, gastritis, duodenitis, schizophrenia and anxiety who presented after a fall. Patient was originally admitted to ICU for closer monitoring. Today, Patient is hemodynamically stable. Thus, Patient no longer requires ICU level of care, and is currently transferred to Medical/Surgical floor. Plan: Sepsis; with gram negative staph in blood - Patient met SIRS criteria in ED: - Today: Patient afebrile and resolved leukocytosis, lactic acidosis - CT Abdomen/Pelvis, Chest X-Ray and UA negative for sources of infection - 1/2 blood cultures positive for gram positive cocci in clusters; Repeat blood cultures (-) after 3 days - Urine cultures negative for growth - ESR elevated at 39 - Flu (-) - Low dose Tylenol Q6 PRN for fevers - Echocardiogram 05/17: LV normal size, borderline to mild concentric LVH, systolic function mildly impaired, LV diastolic function is normal. Mitral regurgitation is mild. Mild tricuspid regurg. There is mild pulmonary HTN. No vegetation seen. - ID consulted, all recommendations appreciated - abx d/juan per ID - Monitor Dysphagia - GI (Dr. Nieves) consulted; recommendations appreciated - Endoscopy completed 05/17: gastritis and esophagitis Acute Renal Failure, Improving - Likely secondary to rhabdomyolysis - BUN/Creatinine still up-trending to 61/8.2 (05/20) - Monitor urine output - Continue Gan with urine output monitoring: improved from yesterday 1250cc output in past 24 hours) - Renal US - unremarkable - Nephrology consulted; (Dr. Pearce) Recommendations appreciated Rhabdomyolysis, Improving - CPK downtrendin - 05/19 - Troponins downtrendin.14 - 05/19 - Continue Normal Saline - Continue to monitor CPK Hypoalbuminemia, improving - Albumin=2.8 - Nephrology consulted (Dr. Elizabeth); recommends 25% albumin if albumin < 3 - Lasix 60mg IVP given ONCE - Monitor daily CMP History of CAD s/p CABG - Continue Lopressor - Holding ASA (anemia and +FOBT), LEROY inhibitor (ARF) and Statin (elevated LFT's) - Cardiology consulted, all recommendations appreciated Chronic Systolic CHF - Echocardiogram 05/17: LV normal size, borderline to mild concentric LVH, systolic function mildly impaired, LV diastolic function is normal. Mitral regurgitation is mild. Mild tricuspid regurg. There is mild pulmonary HTN. No vegetation seen. - Chest X-Ray (05/19) showed mild CHF, subsegmental atelectasis with possible s uperimposed PNA - Continue Lopressor - Continue daily Chest X-Ray's - Cardiology consulted (Dr. King); Recommendations appreciated Transaminitis, improving - Continuing to downtrend - Continue to monitor Microcytic Anemia - H/H stable at 7.9/27.2 on most recent CBC - +FOBT - Protonix 40mg IVP Q12 - Continue Carafate as ordered - Continue to monitor with daily CBC's - GI consulted, all recommendations appreciated History of DM2 - Continue SSI-Low and Accuchecks ACHS - Continue Levemir 5u HS - Continue Humalog 4u AC - A1c: 11.2 - Carbohydrate consistent diet Status-Post Fall - Bilateral Knee X-Ray were unremarkable - CT Head and CT Cervical Spine were unremarkable except showing heavily calcified carotid bifurcation - Continue fall precautions - PT/OT when appropriate Carotid Calcification - See CT Cervical Spine - Carotid/Vertebral Doppler US: 60-79 % prox R ICA stenosis; 40-59 % prox L ICA stenosis; Antegrade flow in both vertebral arties. Cholelithiasis - See GB US and CT Abdomen/Pelvis reports - Will recommend general surgery follow up as an outpatient Claudication - Mildly abnormal resting MATTI's and bilateral popliteal, trifurcation and/or tibial disease - Continue to monitor for signs of necrosis PPx: - GI: Protonix 40IVP Q12 and Carafate - DVT: SCD's Diet: Heart Healthy Moderate Carbohydrate Consistency Access: PIV with PICC placement pending Patient seen and case discussed with Attending Physician Dr. Zuly Saldana, PGY-1 <Merlyn Caruso - Last Filed: 05/23/18 12:26> Objective - Vital Signs/Intake and Output Vital Signs (last 24 hours): Temp Pulse Resp BP Pulse Ox 99.4 F 84 19 138/70 91 L 05/23/18 07:00 05/23/18 07:00 05/23/18 07:00 05/23/18 09:22 05/23/18 07:00 Intake and Output: 05/23/18 05/23/18 06:59 18:59 Intake Total 720 Output Total 0 Balance 720 - Medications Medications: Current Medications Acetaminophen (Tylenol 325mg Tab) 325 mg PO Q6H PRN PRN Reason: Fever >100.4 F Last Admin: 05/23/18 11:46 Dose: 325 mg Albuterol/Ipratropium (Duoneb 3 Mg/0.5 Mg (3 Ml) Ud) 3 ml IH [id number] [facility] Last Admin: 05/23/18 07:26 Dose: 3 ml Calcium Acetate (Phoslo) 667 mg PO WM [facility] Last Admin: 05/23/18 11:46 Dose: 667 mg Clonazepam (Klonopin) 2 mg PO BID [facility]; Protocol Last Admin: 05/23/18 09:20 Dose: 2 mg Darbepoetin Will (Aranesp) 100 mcg SC QWK [facility] Last Admin: 05/18/18 09:55 Dose: 100 mcg Diphenhydramine HCl (Benadryl) 25 mg PO HS PRN PRN Reason: Insomnia Last Admin: 05/22/18 21:27 Dose: 25 mg Haloperidol (Haldol) 5 mg PO HS PRN; Protocol PRN Reason: hallucinations/agitation/insom Last Admin: 05/22/18 21:30 Dose: 5 mg Hydralazine HCl (Apresoline) 10 mg PO QID PRN PRN Reason: for sbp >160 Iron Sucrose 200 mg/ Sodium (Chloride) 110 mls @ 110 mls/hr IVPB DAILY [facility] Stop: 05/25/18 14:31 Last Admin: 12/16/18 09:22 Dose: 110 mls/hr Insulin Detemir (Levemir) 5 unit SC HS [facility] Last Admin: 05/22/18 21:22 Dose: 5 unit Insulin Human Lispro (Humalog) 4 units SC AC [facility] Last Admin: 05/23/18 11:44 Dose: 4 units Insulin Human Regular (Humulin R Low) 0 units SC ACHS [facility]; Protocol Last Admin: 05/23/18 11:44 Dose: Not Given Lorazepam (Ativan) 1 mg IVP Q6H PRN; Protocol PRN Reason: Anxiety Last Admin: 05/23/18 11:06 Dose: 1 mg Metoprolol Tartrate (Lopressor) 50 mg PO BID [facility] Last Admin: 05/23/18 09:22 Dose: 50 mg Pantoprazole Sodium (Protonix Inj) 40 mg IVP Q12 [facility] Last Admin: 05/23/18 09:22 Dose: 40 mg Vitamin B Complex/Vit C/Folic Acid (Nephro-Lydia) 1 tab PO 0800 [facility] Last Admin: 05/23/18 09:20 Dose: 1 tab Zaleplon (Sonata) 5 mg PO HS PRN PRN Reason: Insomnia - Labs Labs: 05/23/18 08:00 05/23/18 08:00 PT 12.8 SECONDS (9.4-12.5) H 05/15/18 01:30 INR 1.11 05/15/18 01:30 APTT 27.0 Seconds (25.1-36.5) 05/14/18 13:30 Attending/Attestation - Attestation I have personally seen and examined this patient.: Yes I have fully participated in the care of the patient.: Yes I have reviewed all pertinent clinical information, including history, physical exam and plan: Yes Notes (Text): 05/23/18 12:24 Attending note; Patient seen and examined with the resident in ICU. Patient is alert and awake. oriented to place and time. not in any acute distress. Denies any chest pain, shortness of breath. Denies any nausea, vomiting. tolerating liquid diet. Patient is a 62-year-old male with past medical history significant for artery disease status post CABG, systolic CHF, hypertension, schizophrenia, anxiety, GI bleed, esophageal ulcer, and type 2 diabetes that presented to the emergency room status post a fall. 1. Status post fall; CT head is negative. CT cervical spine is negative. Sepsis is resolved. Patient is currently afebrile and nontoxic. Leukocytosis resolved. One blood culture positive for coag negative staph, likely contaminant. Second blood culture with no growth. Urine culture with no growth. on IV cefepime. ID evaluation appreciated. Echocardiogram is negative for vegetations. CT abdomen and pelvis showed no acute intra-abdominal findings. Gallbladder ultrasound radiologist showed 1.3 cm gallstone, no evidence of cholecystitis. 2. Acute renal failure. Likely secondary to rhabdomyolysis and dehydration. Creatinine is 8.2 today. Urine output is increasing. Continue IV Lasix and albumin. 3. Rhabdomyolysis. CPK down trending. 4. Elevated troponins; mostly secondary to rhabdomyolysis. trending down. Cardiology recommendations appreciated. LEROY inhibitor held secondary to acute renal failure. Continue Lopressor. 5. Chronic systolic CHF. Chest x-ray did not show any congestion. Continue with Lopressor. 6. Transaminitis. Secondary to rhabdomyolysis. Down trending. 7. Anemia. History of GI bleed. Stool for occult blood positive. s/p endoscopy. continue protonix. Endoscopy showed esophagitis and gastritis. monitor hemoglobin. Iron deficiency anemia. Will start IV iron. We will get hematology evaluation. 8. Type 2 diabetes; Continue with insulin sliding scale. Continue Levemirand Humalog before meals. 9. Schizophrenia; psychiatric evaluation appreciated. Continue clonazepam. Monitor urine output closely. Monitor the patient closely in ICU. Upon discharge the patient will follow up with PMD Dr. Carpenter. 05/23/18 12:25 05/23/18 12:25
--- NOTE | 2018-05-20 14:49 | CP.PCM.PN ---
Subjective - Date & Time of Evaluation Date of Evaluation: 05/20/18 Time of Evaluation: 14:48 - Subjective Subjective: RENAL NOTE UOP >1 L/day pt not much communicating at present noted overnight events pe: vs reviewed gen: nad sclera: anicteric op: clear, poor dentition neck supple no thyromegaly cv: +S1+s2 no rub abd: soft nt nd no organomegaly lungs wbilateral air entry equal, few basal rale ext: trace edema neuro: sleepy psych: flat. limited insight skin bruising on b/l knees labs and imaging reviewed Imp: ARF/ Rhabdomylosis/ Anemia/ ? sepsis/hyperphos/ATN/PUD plan: HONG - likely from combination of rhabdo +/ - developing sirs / sepsis. lasix 80 mg/day and monitor UOP which is better hence will defer dialysis initiation unless cr continue to rise. had d/w sister at pt request and consent for HD obtained. pt close to need for dialysis initiation but hopefully can avoid as anticipate spontaneous renal recovery electrolytes are ok at this point f/u cultures - abx per primary team - dose for reduced eGFR started weekly aransep, iron, MVI and phos binders. gave one dose of Vit D work up as ordered continue with PPI. but avoid carafate/al and mag based laxatives/antacid. no fleet enemas d/w team Objective - Vital Signs/Intake and Output Vital Signs (last 24 hours): Temp Pulse Resp BP Pulse Ox 99.0 F 101 H 21 148/64 98 05/20/18 08:49 05/20/18 09:46 05/20/18 08:00 05/20/18 12:01 05/20/18 08:49 Intake and Output: 05/20/18 05/20/18 06:59 18:59 Intake Total 1520 Output Total 1250 Balance 270 - Medications Medications: Current Medications Acetaminophen (Tylenol 325mg Tab) 325 mg PO Q6H PRN PRN Reason: Fever >100.4 F Last Admin: 05/20/18 09:46 Dose: 325 mg Albuterol/Ipratropium (Duoneb 3 Mg/0.5 Mg (3 Ml) Ud) 3 ml IH [id number] [facility] Last Admin: 05/20/18 13:10 Dose: 3 ml Calcium Acetate (Phoslo) 667 mg PO WM [facility] Last Admin: 05/20/18 12:01 Dose: 667 mg Clonazepam (Klonopin) 2 mg PO Q12H [facility]; Protocol Last Admin: 05/20/18 09:45 Dose: 2 mg Darbepoetin Will (Aranesp) 100 mcg SC QWK [facility] Last Admin: 05/18/18 09:55 Dose: 100 mcg Diphenhydramine HCl (Benadryl) 25 mg PO HS PRN PRN Reason: Insomnia Last Admin: 05/20/18 01:49 Dose: 25 mg Furosemide (Lasix) 80 mg IVP DAILY [facility] Stop: 05/22/18 10:01 Last Admin: 05/20/18 12:01 Dose: 80 mg Hydralazine HCl (Apresoline) 10 mg PO QID PRN PRN Reason: for sbp >160 Iron Sucrose 200 mg/ Sodium (Chloride) 110 mls @ 110 mls/hr IVPB DAILY [facility] Stop: 05/25/18 14:31 Insulin Detemir (Levemir) 5 unit SC HS [facility] Last Admin: 05/19/18 21:23 Dose: 5 unit Insulin Human Lispro (Humalog) 4 units SC AC [facility] Last Admin: 05/20/18 12:00 Dose: 4 u Insulin Human Regular (Humulin R Low) 0 units SC [facility]; Protocol Last Admin: 05/20/18 11:56 Dose: Not Given Lorazepam (Ativan) 1 mg IVP Q6H PRN; Protocol PRN Reason: Anxiety Last Admin: 05/19/18 18:22 Dose: 1 mg Metoprolol Tartrate (Lopressor) 50 mg PO BID [facility] Pantoprazole Sodium (Protonix Inj) 40 mg IVP Q12 [facility] Last Admin: 05/20/18 09:47 Dose: 40 mg Vitamin B Complex/Vit C/Folic Acid (Nephro-Lydia) 1 tab PO 0800 [facility] Last Admin: 05/20/18 07:05 Dose: 1 tab Zaleplon (Sonata) 5 mg PO HS PRN PRN Reason: Insomnia - Labs Labs: 05/20/18 05:20 05/20/18 05:20 PT 12.8 SECONDS (9.4-12.5) H 05/15/18 01:30 INR 1.11 05/15/18 01:30 APTT 27.0 Seconds (25.1-36.5) 05/14/18 13:30
--- NOTE | 2018-05-20 18:04 | PN ---
DATE: 05/20/2018 LOCATION: The patient in ICU, 128 bed. REASON FOR CONSULTATION: Followup, coronary artery disease , COPD, elevated troponin, rhabdomyolysis, status post fall, borderline troponin positive secondary to rhabdomyolysis. SUBJECTIVE: The patient is sitting in chair without any chest pain, shortness of breath or palpitation. PHYSICAL EXAMINATION: VITAL SIGNS: Blood pressure 147/83, respirations 18, pulse is 101, temperature 99. HEENT: Head: Normocephalic. Eyes: Pupils normal. Conjunctivae pale. NECK: JVP low. Carotid equal. THORAX: AP diameter normal. LUNGS: Clear. CARDIOVASCULAR: S1 and S2. ABDOMEN: Soft, nontender. No organomegaly. EXTREMITIES: No clubbing. No cyanosis. LABORATORY DATA: WBC 4.1, hemoglobin 7.9, hematocrit 27.2, platelet 124. Sodium 134, potassium 3.8, BUN 61, creatinine 8.2, random glucose 133. AST 62, ALT 54. Troponin yesterday was 0.14, total protein 5.8, albumin 3. Echo on 05/17/2018, showed normal LV size. LV function mildly impaired, [id number] mitral regurgitation, mild tricuspid regurgitation, mild pulmonary hypertension, ejection fraction calculated at 42%. RV systolic pressure also 42 mmHg. DIAGNOSES: Troponin elevation probably related to rhabdomyolysis, renal failure due to rhabdomyolysis, schizophrenia, cardiomyopathy, chronic obstructive pulmonary disease. The patient had cardiac catheterization in 2017 and medical treatment was recommended. The patient has history of bypass surgery in the past and patent left internal mammary artery to left anterior descending and left ventricular ejection fraction was 40%. PLAN: The patient is very close to getting dialysis. Nephrology being followed and they will make him see him patient's dialysis. In the meantime, cardiac winters, the patient denied any chest pain, shortness of breath, or palpitation. We will continue to follow with you. We will monitor with you and we will continue DuoNeb nebulizer therapy, ferrous gluconate 324 mg p.o. t.i.d., insulin as ordered, Klonopin 2 mg p.o. every 12 hours, flecainide 80 mg IV daily for 3 doses, metoprolol tartrate 50 b.i.d. We will follow with you. Maurice Stephen MD [facility] # [id number]
--- NOTE | 2018-05-20 18:37 | CP.PCM.CON ---
History of Present Illness - History of Present Illness History of Present Illness: 62 year old male with a schizophrenia, HTN, CAD s/p CABG, admitted with rhabdomyolysis, HONG, anemia. The patient denies abnormal bleeding and bruising. He was found to have FOBT positivity and underwent endoscopy which revealed esophagitis and gastritis but no active bleeding. Past medical history: schizophrenia, HTN, CAD s/p CABG Past surgical history: Denies Family history: Denies hematologic and oncologic problems Social history: Denies tobacco, alcohol, and illicit drug use. Allergies: Zoloft Review of systems: All remaining review of systems including HEENT, cardiovascular, respiratory, gastrointestinal, genitourinary, musculoskeletal, dermatologic, neurologic, and psychiatric are negative unless mentioned in the HPI. 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,fall as per pt) Hx Difficulty Chewing: No Hx Epistaxis: No Hx Glaucoma: No Hx Macular Degeneration: No - RENAL Hx Chronic Kidney Disease: No Hx Kidney Stones: No - ENDOCRINE/METABOLIC Hx Hyperthyroidism: No Hx Hypothyroidism: No - HEMATOLOGICAL/ONCOLOGICAL Hx Anemia: Yes (07-02-16) - INTEGUMENTARY Hx Dermatological Problems: No - MUSCULOSKELETAL/RHEUMATOLOGICAL Hx Arthritis: No Hx Fractures: No Hx Osteoporosis: No - GASTROINTESTINAL Hx Gastritis: Yes - GENITOURINARY/GYNECOLOGICAL Hx Sexually Transmitted Disorders: No - PSYCHIATRIC Hx Anxiety: Yes Hx Bipolar Disorder: Yes Hx Depression: Yes Hx Paranoia: Yes Hx Schizophrenia: Yes Hx Substance Use: No - SURGICAL HISTORY Hx Coronary Artery Bypass Graft: Yes - ANESTHESIA Hx Anesthesia: Yes Hx Anesthesia Reactions: No Hx Malignant Hyperthermia: No Meds Allergies/Adverse Reactions: Allergies Allergy/AdvReac Type Severity Reaction Status Date / Time zoloft Allergy RASH Uncoded 05/14/18 13:00 - Medications Medications: Current Medications Acetaminophen (Tylenol 325mg Tab) 325 mg PO Q6H PRN PRN Reason: Fever >100.4 F Last Admin: 05/20/18 09:46 Dose: 325 mg Albuterol/Ipratropium (Duoneb 3 Mg/0.5 Mg (3 Ml) Ud) 3 ml IH [id number] [facility] Last Admin: 05/20/18 13:10 Dose: 3 ml Calcium Acetate (Phoslo) 667 mg PO WM [facility] Last Admin: 05/20/18 16:10 Dose: 667 mg Clonazepam (Klonopin) 2 mg PO Q12H [facility]; Protocol Last Admin: 05/20/18 09:45 Dose: 2 mg Darbepoetin Will (Aranesp) 100 mcg SC QWK [facility] Last Admin: 05/18/18 09:55 Dose: 100 mcg Diphenhydramine HCl (Benadryl) 25 mg PO HS PRN PRN Reason: Insomnia Last Admin: 05/20/18 01:49 Dose: 25 mg Furosemide (Lasix) 80 mg IVP DAILY [facility] Stop: 05/22/18 10:01 Last Admin: 05/20/18 12:01 Dose: 80 mg Hydralazine HCl (Apresoline) 10 mg PO QID PRN PRN Reason: for sbp >160 Iron Sucrose 200 mg/ Sodium (Chloride) 110 mls @ 110 mls/hr IVPB DAILY [facility] Stop: 05/25/18 14:31 Last Admin: 05/20/18 16:08 Dose: 110 mls/hr Insulin Detemir (Levemir) 5 unit SC HS [facility] Last Admin: 05/19/18 21:23 Dose: 5 unit Insulin Human Lispro (Humalog) 4 units SC AC [facility] Last Admin: 05/20/18 16:48 Dose: 4 u Insulin Human Regular (Humulin R Low) 0 units SC ACHS [facility]; Protocol Last Admin: 05/20/18 16:48 Dose: 2 units Lorazepam (Ativan) 1 mg IVP Q6H PRN; Protocol PRN Reason: Anxiety Last Admin: 05/20/18 18:12 Dose: 1 mg Metoprolol Tartrate (Lopressor) 50 mg PO BID [facility] Last Admin: 05/20/18 17:00 Dose: 50 mg Pantoprazole Sodium (Protonix Inj) 40 mg IVP Q12 [facility] Last Admin: 05/20/18 09:47 Dose: 40 mg Vitamin B Complex/Vit C/Folic Acid (Nephro-Lydia) 1 tab PO 0800 [facility] Last Admin: 05/20/18 07:05 Dose: 1 tab Zaleplon (Sonata) 5 mg PO HS PRN PRN Reason: Insomnia Physical Exam - Head Exam Head Exam: ATRAUMATIC - Eye Exam Eye Exam: Normal appearance - ENT Exam ENT Exam: Mucous Membranes Dry - Respiratory Exam Respiratory Exam: NORMAL BREATHING PATTERN - Cardiovascular Exam Cardiovascular Exam: +S1, +S2 - GI/Abdominal Exam GI & Abdominal Exam: Normal Bowel Sounds - Extremities Exam Extremities exam: Positive for: normal inspection - Neurological Exam Neurological exam: Oriented x3 Results - Vital Signs Recent Vital Signs: Last Vital Signs Temp 98.4 F 05/20/18 16:00 Pulse 95 H 05/20/18 17:00 Resp 26 H 05/20/18 17:00 BP 161/93 H 05/20/18 17:00 Pulse Ox 98 05/20/18 08:49 - Labs Result Diagrams: 05/20/18 05:20 05/20/18 05:20 Labs: Laboratory Results - last 24 hr 05/18/18 05/18/18 05/19/18 22:27 22:27 05:20 WBC RBC Hgb Hct MCV MCH MCHC RDW Plt Count Gran % Lymph % (Auto) Stephens % (Auto) Eos % (Auto) Baso % (Auto) Gran # Lymph # (Auto) Stephens # (Auto) Eos # (Auto) Baso # (Auto) Sodium Potassium Chloride Carbon Dioxide Anion Gap BUN Creatinine Est GFR ( Amer) Est GFR (Non-Af Amer) Random Glucose Calcium Total Bilirubin AST ALT Alkaline Phosphatase Total Protein Total Protein (PEP) 5.0 L Albumin Globulin Albumin/Globulin Ratio Ur Random Creatinine 39 U Random Total Protein 1359 H Urine Total Volume 2.9 Microalb/Creat Ratio 74 H 05/20/18 05/20/18 05:20 05:20 WBC 4.1 L RBC 4.28 Hgb 7.9 L Hct 27.2 L MCV 63.6 L MCH 18.5 L MCHC 29.0 L RDW 19.4 H Plt Count 124 Gran % 66.9 Lymph % (Auto) 20.6 L Stephens % (Auto) 7.1 H Eos % (Auto) 5.2 H Baso % (Auto) 0.2 Gran # 2.72 Lymph # (Auto) 0.8 L Stephens # (Auto) 0.3 Eos # (Auto) 0.2 Baso # (Auto) 0.01 Sodium 134 Potassium 3.8 Chloride 101 Carbon Dioxide 22 Anion Gap 15 BUN 61 H Creatinine 8.2 H* Est GFR ( Amer) 8 Est GFR (Non-Af Amer) 7 Random Glucose 133 H Calcium 8.2 L Total Bilirubin 0.5 AST 62 H D ALT 54 Alkaline Phosphatase 80 Total Protein 5.8 Total Protein (PEP) Albumin 3.0 Globulin 2.8 Albumin/Globulin Ratio 1.1 Ur Random Creatinine U Random Total Protein Urine Total Volume Microalb/Creat Ratio Assessment & Plan (1) Anemia Assessment and Plan: hypoproliferative erythroid response secondary to renal disease and iron deficiency chronic GI blood loss - esophagitis and gastritis recommend starting IV iron on HECTOR per renal monolconal protein w/u sent Status: Acute (2) Leukopenia Assessment and Plan: mild no neutropenia Thank you for this interesting consult. Status: Acute
--- NOTE | 2018-05-20 18:48 | PN ---
DATE: 05/20/2018 SUBJECTIVE: The patient was followed up today. The patient presented in catatonic stage, slow motion, flat affect, the patient reported that he did not sleep last night, this senior mortgage underwriter educated about insomnia, and started with Sonata. Risks, benefits and alternatives discussed with the patient. The patient verbalized understanding. As per collateral from the staff, the patient is not agitated or aggressive. The patient is not psychotic. OBJECTIVE: VITAL SIGNS: The patient vital seems to be stable, but the patient is tachycardic. MENTAL STATUS EXAM: The patient presented with flat affect, seems to be in catatonic stage. Mood described as okay. Affect was flat. Thought process concrete. Thought content, the patient denied any hallucinations. The patient does not appear to be paranoid. Denied thoughts of harming himself or others. Insight and judgment seems to be improving. Impulses are well controlled. MEDICATIONS: Reviewed. Tylenol, DuoNeb, PhosLo, Klonopin 2 mg twice a day, Benadryl, Lasix, hydralazine, Levemir, Humalog, Lopressor, Protonix, and Sonata 5 mg at the nighttime as needed for insomnia. LABORATORY DATA: Reviewed. IMPRESSION: As per history of bipolar disorder versus schizoaffective disorder and history of alcohol use disorder. PLAN: Medications resumed. The patient was on Haldol Decanoate 100 mg monthly. At this point, there is no urgency to give that medication. PACT team was contacted. We will follow up and advise accordingly. Sonata was started as needed for insomnia. Thank you very much for letting me to participate in the care of your patient. Rosalva Griffin MD [facility]
[2018-05-20] MEDS: Insulin Detemir 100 units/ml Vial (Levemir) SC SCH (21:28)
[2018-05-21] MEDS: Albuterol-Ipratrop 3 mg / 0.5 (3 ml) UD IH SCH ×5 (01:15→19:13)
[2018-05-21 06:39] LABS: BASO # 0.01 K/mm3 (0.0-2.0); BASO % 0.2 % (0.0-3.0); EOS # 0.2 (0.0-0.7); EOS % 5.3 % (1.5-5.0); GRAN # 2.57 (1.4-6.5); GRAN % 61.5 % (50.0-68.0); HEMOGLOBIN 7.7 g/dL (14.0-18.0); LYMPH % 23.7 % (22.0-35.0); MEAN CELL VOLUME 63.5 fl (80.0-105.0); MEAN CORPUSCULAR HEMOGLOBIN 18.4 pg (25.0-35.0); MEAN CORPUSCULAR HGB CONC 28.9 g/dl (31.0-37.0); MEAN PLATELET VOLUME 8.5 fl (7.0-11.0); MONO # 0.4 (0.1-0.6); MONO % 9.3 % (1.0-6.0); RBC 4.19 10^6/uL (3.5-6.1); RED CELL DISTRIBUTION WIDTH 19.4 % (11.5-14.5); WHITE BLOOD COUNT 4.2 10^3/uL (4.5-11.0)
[2018-05-21 07:05] LABS: ALBUMIN 2.9 g/dL (3.0-4.8); CALCIUM 8.5 mg/dL (8.4-10.5)
[2018-05-21] MEDS: Insulin Reg-LOW-Coverage SC SCH ×3 (07:30→17:05)
[2018-05-21] MEDS ORDERED: Potassium Chloride 20 mEq/15 ml LIQ UD PO STA (07:46)
[2018-05-21] MEDS: Insulin Lispro 1 UNITS/0.01 ML SC SCH ×3 (08:07→17:34)
[2018-05-21] MEDS: Multivitamin Vitamin B Complex (Nephro-Vite) Tab PO SCH (08:07)
--- NOTE | 2018-05-21 11:48 | CP.PCM.PN ---
Subjective - Date & Time of Evaluation Date of Evaluation: 05/21/18 Time of Evaluation: 11:50 - Subjective Subjective: No fevers, non-toxic. Objective - Vital Signs/Intake and Output Vital Signs (last 24 hours): Temp Pulse Resp BP Pulse Ox 99.1 F 80 14 157/80 H 100 05/19/18 11:38 05/19/18 11:38 05/19/18 11:00 05/19/18 11:00 05/19/18 11:38 Intake and Output: 05/19/18 05/19/18 06:59 18:59 Intake Total 250 Output Total 1200 Balance -950 - Medications Medications: Current Medications Acetaminophen (Tylenol 325mg Tab) 325 mg PO Q6H PRN PRN Reason: Fever >100.4 F Last Admin: 05/19/18 07:12 Dose: 325 mg Albuterol/Ipratropium (Duoneb 3 Mg/0.5 Mg (3 Ml) Ud) 3 ml IH [id number] [facility] Last Admin: 05/19/18 07:39 Dose: 3 ml Benzonatate (Tessalon Perles) 100 mg PO TID [facility] Last Admin: 05/19/18 09:40 Dose: 100 mg Calcium Acetate (Phoslo) 667 mg PO WM [facility] Last Admin: 05/19/18 12:45 Dose: 667 mg Clonazepam (Klonopin) 2 mg PO Q12H [facility]; Protocol Last Admin: 05/19/18 09:38 Dose: 2 mg Darbepoetin Will (Aranesp) 100 mcg SC QWK [facility] Last Admin: 05/18/18 09:55 Dose: 100 mcg Diphenhydramine HCl (Benadryl) 25 mg PO HS PRN PRN Reason: Insomnia Last Admin: 05/18/18 21:03 Dose: 25 mg Ferrous Gluconate (Fergon) 324 mg PO TID [facility] Last Admin: 05/19/18 09:40 Dose: 324 mg Guaifenesin/Dextromethorphan (Mucinex-Dm 600-30 Mg) 1 tab PO BID [facility] Last Admin: 05/19/18 09:39 Dose: 1 tab Hydralazine HCl (Apresoline) 10 mg PO QID PRN PRN Reason: for sbp >160 Insulin Detemir (Levemir) 5 unit SC HS [facility] Last Admin: 05/18/18 22:18 Dose: 5 unit Insulin Human Lispro (Humalog) 4 units SC AC [facility] Last Admin: 05/19/18 12:44 Dose: 4 u Insulin Human Regular (Humulin R Low) 0 units SC ACHS [facility]; Protocol Last Admin: 05/19/18 12:43 Dose: 2 units Lorazepam (Ativan) 1 mg IVP Q6H PRN; Protocol PRN Reason: Anxiety Last Admin: 05/19/18 10:53 Dose: 1 mg Metoprolol Tartrate (Lopressor) 25 mg PO BID [facility] Last Admin: 05/19/18 09:39 Dose: 25 mg Pantoprazole Sodium (Protonix Inj) 40 mg IVP Q12 [facility] Last Admin: 05/19/18 09:39 Dose: 40 mg Vitamin B Complex/Vit C/Folic Acid (Nephro-Lydia) 1 tab PO 0800 [facility] Last Admin: 05/19/18 08:56 Dose: 1 tab - Labs Labs: 05/19/18 05:20 05/19/18 05:20 PT 12.8 SECONDS (9.4-12.5) H 05/15/18 01:30 INR 1.11 05/15/18 01:30 APTT 27.0 Seconds (25.1-36.5) 05/14/18 13:30 - Constitutional Appears: Chronically Ill - Head Exam Head Exam: NORMAL INSPECTION - Respiratory Exam Respiratory Exam: Decreased Breath Sounds - Cardiovascular Exam Cardiovascular Exam: +S1, +S2 - GI/Abdominal Exam GI & Abdominal Exam: Soft. absent: Tenderness Assessment and Plan - Assessment and Plan (Free Text) Plan: Assessment systemic inflammatory response syndrome with rhabdomyolysis R/O NSTEMI, no clear source or evidence of bacterial infection coagulase negative staph in blood cx, probably contamination schizophrenia anxiety dementia CAD DM history of esophageal ulcers chronic anemia deafness mental disability Plan Cultures have been negative; will continue to monitor off antibiotics and obse rve
--- NOTE | 2018-05-21 11:51 | RAD ---
Date of service: 05/20/2018 HISTORY: R/O Aspiration COMPARISON: 05/19/2018 FINDINGS: LUNGS: No active pulmonary disease. Improved aeration of the lungs compared to the prior study. PLEURA: No significant pleural effusion identified, no pneumothorax apparent. CARDIOVASCULAR: Atherosclerotic calcifications identified primarily aortic arch. No radiographic findings to suggest acute or significant cardiovascular disease. Incidental Finding(s): Postoperative changes related to sternotomy. OSSEOUS STRUCTURES: No significant abnormalities. VISUALIZED UPPER ABDOMEN: Normal. OTHER FINDINGS: None. IMPRESSION: Resolution right lower lobe infiltrate.
--- NOTE | 2018-05-21 11:52 | RAD ---
Date of service: 05/21/2018 HISTORY: R/O Aspiration/PVC COMPARISON: May 20, 2018. Time of the most recent examination: 18:53. FINDINGS: LUNGS: No active pulmonary disease. PLEURA: No significant pleural effusion identified, no pneumothorax apparent. CARDIOVASCULAR: Atherosclerotic calcifications identified primarily aortic arch. No radiographic findings to suggest acute or significant cardiovascular disease. Incidental Finding(s): Postoperative changes related to sternotomy. OSSEOUS STRUCTURES: No significant abnormalities. VISUALIZED UPPER ABDOMEN: Normal. OTHER FINDINGS: None. IMPRESSION: No active disease. No significant interval change compared to the prior examination(s).
--- NOTE | 2018-05-21 13:21 | CP.PCM.PN ---
<Robin Bernstein - Last Filed: 05/21/18 12:54> Subjective - Date & Time of Evaluation Date of Evaluation: 05/21/18 Time of Evaluation: 09:00 - Subjective Subjective: PGY1 Medicine Progress Note for Dr. Caruso Patient was seen and evaluated at bedside this morning. No acute events overnight. Patient A&Ox3. Patient denies fever, chills, chest pain, nausea, vomiting, abdominal pain, rash, blurred vision, diarrhea and/or constipation. Objective - Vital Signs/Intake and Output Vital Signs (last 24 hours): Temp Pulse Resp BP Pulse Ox 98.6 F 82 26 H 144/75 98 05/20/18 21:00 05/21/18 10:00 05/20/18 17:00 05/21/18 09:15 05/20/18 08:49 - Medications Medications: Current Medications Acetaminophen (Tylenol 325mg Tab) 325 mg PO Q6H PRN PRN Reason: Fever >100.4 F Last Admin: 05/21/18 05:54 Dose: 325 mg Albuterol/Ipratropium (Duoneb 3 Mg/0.5 Mg (3 Ml) Ud) 3 ml IH [id number] [facility] Last Admin: 05/21/18 07:01 Dose: 3 ml Calcium Acetate (Phoslo) 667 mg PO WM [facility] Last Admin: 05/21/18 08:07 Dose: 667 mg Clonazepam (Klonopin) 2 mg PO Q12H [facility]; Protocol Last Admin: 05/21/18 09:15 Dose: 2 mg Darbepoetin Will (Aranesp) 100 mcg SC QWK [facility] Last Admin: 05/18/18 09:55 Dose: 100 mcg Diphenhydramine HCl (Benadryl) 25 mg PO HS PRN PRN Reason: Insomnia Last Admin: 05/20/18 21:27 Dose: 25 mg Furosemide (Lasix) 80 mg IVP DAILY [facility] Stop: 05/22/18 10:01 Last Admin: 05/21/18 09:14 Dose: 80 mg Hydralazine HCl (Apresoline) 10 mg PO QID PRN PRN Reason: for sbp >160 Iron Sucrose 200 mg/ Sodium (Chloride) 110 mls @ 110 mls/hr IVPB DAILY [facility] Stop: 05/25/18 14:31 Last Admin: 05/21/18 09:13 Dose: 110 mls/hr Insulin Detemir (Levemir) 5 unit SC HS [facility] Last Admin: 05/20/18 21:28 Dose: 5 unit Insulin Human Lispro (Humalog) 4 units SC AC [facility] Last Admin: 05/21/18 08:07 Dose: 4 u Insulin Human Regular (Humulin R Low) 0 units SC ACHS [facility]; Protocol Last Admin: 05/21/18 07:30 Dose: Not Given Lorazepam (Ativan) 1 mg IVP Q6H PRN; Protocol PRN Reason: Anxiety Last Admin: 05/21/18 05:53 Dose: 1 mg Metoprolol Tartrate (Lopressor) 50 mg PO BID [facility] Last Admin: 05/21/18 09:15 Dose: 50 mg Pantoprazole Sodium (Protonix Inj) 40 mg IVP Q12 [facility] Last Admin: 05/21/18 09:15 Dose: 40 mg Vitamin B Complex/Vit C/Folic Acid (Nephro-Lydia) 1 tab PO 0800 [facility] Last Admin: 05/21/18 08:07 Dose: 1 tab Zaleplon (Sonata) 5 mg PO HS PRN PRN Reason: Insomnia - Labs Labs: 05/21/18 05:30 05/21/18 05:30 PT 12.8 SECONDS (9.4-12.5) H 05/15/18 01:30 INR 1.11 05/15/18 01:30 APTT 27.0 Seconds (25.1-36.5) 05/14/18 13:30 - Additional Findings Additional findings: - Constitutional Appears: Non-toxic, No Acute Distress - Head Exam Head Exam: ATRAUMATIC, NORMAL INSPECTION, NORMOCEPHALIC - Eye Exam Eye Exam: EOMI, Normal appearance, PERRL - Respiratory Exam Respiratory Exam: Decreased Breath Sounds, Wheezes (present in majority of lung valentin b/l), NORMAL BREATHING PATTERN. absent: Accessory Muscle Use, Prolonged Expiratory Phase, Rales, Rhonchi, Respiratory Distress, Stridor - Cardiovascular Exam Cardiovascular Exam: RRR, +S1, +S2. absent: Gallop, Rubs - GI/Abdominal Exam GI & Abdominal Exam: Soft, Normal Bowel Sounds. absent: Firm, Guarding, Rigid, Tenderness - Extremities Exam Extremities Exam: Full ROM. absent: Calf Tenderness, Tenderness - Back Exam Back Exam: NORMAL INSPECTION. absent: CVA tenderness (L), CVA tenderness (R) - Neurological Exam Neurological Exam: Alert, Awake, Oriented x3 - Psychiatric Exam Psychiatric exam: Anxious - Skin Skin Exam: Dry, Warm Assessment and Plan - Assessment and Plan (Free Text) Assessment: 62 year old male with a past medical history significant for CAD s/p CABG, systolic CHF, HTN, DM2, esophageal ulcer with esophagitis, gastritis, duodenitis, schizophrenia and anxiety who presented after a fall. Patient was originally admitted to ICU for closer monitoring. Today, Patient is hemodynamically stable. Plan: Status-Post Fall - Bilateral Knee X-Ray were unremarkable - CT Head and CT Cervical Spine were unremarkable except showing heavily calcified carotid bifurcation - Continue fall precautions - Physical Therapy consulted - please evaluate and treat Rhabdomyolysis, Improved - CPK trended down - Troponins trended down - Cr. Trending down Acute Renal Failure, Improving - Likely secondary to rhabdomyolysis - BUN/Creatinine still up-trending to 61/8.2 (05/20) - Monitor urine output - Continue Gan with urine output monitoring: improved from yesterday 1250cc output in past 24 hours) - Renal US - unremarkable - Nephrology consulted; (Dr. Pearce) Recommendations appreciated Hypoalbuminemia, improving - Albumin=2.9 - Nephrology consulted (Dr. Elizabeth); recommends 25% albumin if albumin < 3 - Monitor daily CMP SIRS - Patient met SIRS criteria in ED - No clear source or evidence of bacterial infection - Today: Patient afebrile and resolved leukocytosis, resolved lactic acidosis - CT Abdomen/Pelvis, Chest X-Ray and UA negative for sources of infection - Coagulase negative staph in blood cx, probably contamination - Urine cultures negative for growth - ESR elevated at 39 - Flu negative - Low dose Tylenol Q6 PRN for fevers - Echocardiogram 05/17: LV normal size, borderline to mild concentric LVH, systolic function mildly impaired, LV diastolic function is normal. Mitral regurgitation is mild. Mild tricuspid regurg. There is mild pulmonary HTN. No vegetation seen. - ID consulted, all recommendations appreciated - abx discontinued per ID - Monitor Dysphagia - GI (Dr. Nieves) consulted; recommendations appreciated - Endoscopy completed 05/17: gastritis and esophagitis History of CAD s/p CABG - Continue Lopressor - Holding ASA (anemia and +FOBT), LEROY inhibitor (ARF) and Statin (elevated LFT's) - Cardiology consulted, all recommendations appreciated Chronic Systolic CHF - Echocardiogram 05/17: LV normal size, borderline to mild concentric LVH, systolic function mildly impaired, LV diastolic function is normal. Mitral regurgitation is mild. Mild tricuspid regurg. There is mild pulmonary HTN. No vegetation seen. - Chest X-Ray (05/19) showed mild CHF, subsegmental atelectasis with possible superimposed PNA - Continue Lopressor - Cardiology consulted (Dr. King); Recommendations appreciated Transaminitis, resolved - Continue to monitor Microcytic Anemia - H/H stable on most recent CBC - +FOBT on 05/15 - Protonix 40mg IVP Q12 - GI (Dr. Nieves) consulted; recommendations appreciated - Anemia 2/2 hypoproliferative erythroid response 2/2 to renal disease and iron deficiency - Chronic GI blood loss - esophagitis and gastritis - Recommend starting IV iron - Monolconal protein w/u sent - Monitor History of DM2 - Continue SSI-Low and Accuchecks ACHS - Continue Levemir 5u HS - Continue Humalog 4u AC - A1c: 11.2 - Carbohydrate consistent diet Carotid Calcification - See CT Cervical Spine - Carotid/Vertebral Doppler US: 60-79 % prox R ICA stenosis; 40-59 % prox L ICA stenosis; Antegrade flow in both vertebral arties. Cholelithiasis - See GB US and CT Abdomen/Pelvis reports - Will recommend general surgery follow up as an outpatient Claudication - Mildly abnormal resting MATTI's and bilateral popliteal, trifurcation and/or tibial disease - Continue to monitor for signs of necrosis PPx: - GI: Protonix 40IVP Q12 and Carafate - DVT: SCD's Diet: Heart Healthy Moderate Carbohydrate Consistency Patient seen and case discussed with Attending Physician Dr. Zuly Bernstein PGY1 <Merlyn Caruso - Last Filed: 05/23/18 12:28> Objective - Vital Signs/Intake and Output Vital Signs (last 24 hours): Temp Pulse Resp BP Pulse Ox 99.4 F 84 19 138/70 91 L 05/23/18 07:00 05/23/18 07:00 05/23/18 07:00 05/23/18 09:22 05/23/18 07:00 Intake and Output: 05/23/18 05/23/18 06:59 18:59 Intake Total 720 Output Total 0 Balance 720 - Medications Medications: Current Medications Acetaminophen (Tylenol 325mg Tab) 325 mg PO Q6H PRN PRN Reason: Fever >100.4 F Last Admin: 05/23/18 11:46 Dose: 325 mg Albuterol/Ipratropium (Duoneb 3 Mg/0.5 Mg (3 Ml) Ud) 3 ml IH [id number] [facility] Last Admin: 05/23/18 07:26 Dose: 3 ml Calcium Acetate (Phoslo) 667 mg PO WM [facility] Last Admin: 05/23/18 11:46 Dose: 667 mg Clonazepam (Klonopin) 2 mg PO BID [facility]; Protocol Last Admin: 05/23/18 09:20 Dose: 2 mg Darbepoetin Will (Aranesp) 100 mcg SC QWK [facility] Last Admin: 05/18/18 09:55 Dose: 100 mcg Diphenhydramine HCl (Benadryl) 25 mg PO HS PRN PRN Reason: Insomnia Last Admin: 05/22/18 21:27 Dose: 25 mg Haloperidol (Haldol) 5 mg PO HS PRN; Protocol PRN Reason: hallucinations/agitation/insom Last Admin: 05/22/18 21:30 Dose: 5 mg Hydralazine HCl (Apresoline) 10 mg PO QID PRN PRN Reason: for sbp >160 Iron Sucrose 200 mg/ Sodium (Chloride) 110 mls @ 110 mls/hr IVPB DAILY [facility] Stop: 05/25/18 14:31 Last Admin: 05/23/18 09:22 Dose: 110 mls/hr Insulin Detemir (Levemir) 5 unit SC HS [facility] Last Admin: 05/22/18 21:22 Dose: 5 unit Insulin Human Lispro (Humalog) 4 units SC AC [facility] Last Admin: 05/23/18 11:44 Dose: 4 units Insulin Human Regular (Humulin R Low) 0 units SC ACHS [facility]; Protocol Last Admin: 05/23/18 11:44 Dose: Not Given Lorazepam (Ativan) 1 mg IVP Q6H PRN; Protocol PRN Reason: Anxiety Last Admin: 05/23/18 11:06 Dose: 1 mg Metoprolol Tartrate (Lopressor) 50 mg PO BID [facility] Last Admin: 05/23/18 09:22 Dose: 50 mg Pantoprazole Sodium (Protonix Inj) 40 mg IVP Q12 [facility] Last Admin: 05/23/18 09:22 Dose: 40 mg Vitamin B Complex/Vit C/Folic Acid (Nephro-Lydia) 1 tab PO 0800 [facility] Last Admin: 05/23/18 09:20 Dose: 1 tab Zaleplon (Sonata) 5 mg PO HS PRN PRN Reason: Insomnia - Labs Labs: 05/23/18 08:00 05/23/18 08:00 PT 12.8 SECONDS (9.4-12.5) H 05/15/18 01:30 INR 1.11 05/15/18 01:30 APTT 27.0 Seconds (25.1-36.5) 05/14/18 13:30 Attending/Attestation - Attestation I have personally seen and examined this patient.: Yes I have fully participated in the care of the patient.: Yes I have reviewed all pertinent clinical information, including history, physical exam and plan: Yes Notes (Text): 05/23/18 12:26 Attending note; Patient seen and examined with the resident . Patient is alert and awake. oriented to place and time. not in any acute distress. Denies any chest pain, shortness of breath. Denies any nausea, vomiting. tolerating liquid diet. Patient is a 62-year-old male with past medical history significant for artery disease status post CABG, systolic CHF, hypertension, schizophrenia, anxiety, GI bleed, esophageal ulcer, and type 2 diabetes that presented to the emergency room status post a fall. 1. Status post fall; CT head is negative. CT cervical spine is negative. Sepsis is resolved. Patient is currently afebrile and nontoxic. Leukocytosis resolved. One blood culture positive for coag negative staph, likely contaminant. Second blood culture with no growth. Urine culture with no growth. on IV cefepime. ID evaluation appreciated. Echocardiogram is negative for vegetations. CT abdomen and pelvis showed no acute intra-abdominal findings. Gallbladder ultrasound radiologist showed 1.3 cm gallstone, no evidence of cholecystitis. 2. Acute renal failure. Likely secondary to rhabdomyolysis and dehydration. Creatinine is trending down. Urine output is increasing. Continue IV Lasix. 3. Rhabdomyolysis. CPK down trending. 4. Elevated troponins; mostly secondary to rhabdomyolysis. trending down. Cardiology recommendations appreciated. LEROY inhibitor held secondary to acute renal failure. Continue Lopressor. 5. Chronic systolic CHF. Chest x-ray did not show any congestion. Continue with Lopressor. 6. Transaminitis. Secondary to rhabdomyolysis. Down trending. 7. Anemia. History of GI bleed. Stool for occult blood positive. s/p endoscopy. continue protonix. Endoscopy showed esophagitis and gastritis. monitor hemoglobin. Iron deficiency anemia. Will start IV iron. hematology evaluation appreciated. 8. Type 2 diabetes; Continue with insulin sliding scale. Continue Levemirand Humalog before meals. 9. Schizophrenia; psychiatric evaluation appreciated. Continue clonazepam. physical therapy evaluation requested. Out of bed to chair. Possible transfer to medical floor. Upon discharge the patient will follow up with PMD Dr. Carpenter. 05/23/18 12:27
--- NOTE | 2018-05-21 14:44 | CP.PCM.PN ---
Subjective - Date & Time of Evaluation Date of Evaluation: 05/21/18 Time of Evaluation: 14:43 - Subjective Subjective: RENAL NOTE UOP >1 L/day pt denies CP/SOB. noted overnight events pe: vs reviewed gen: nad sclera: anicteric op: clear, poor dentition neck supple no thyromegaly cv: +S1+s2 no rub abd: soft nt nd no organomegaly lungs wbilateral air entry equal, few basal rale ext: no edema neuro: awake alert psych: flat. limited insight skin bruising on b/l knees labs and imaging reviewed Imp: ARF/ Rhabdomylosis/ Anemia/ ? sepsis/hyperphos/ATN/PUD plan: HONG - likely from combination of rhabdo +/ - developing sirs / sepsis. lasix 80 mg/day and monitor UOP which is better hence will defer dialysis initiation unless cr continue to rise. had d/w sister at pt request and consent for HD obtained. pt close to need for dialysis initiation but hopefully can avoid as anticipate spontaneous renal recovery electrolytes are ok at this point f/u cultures - abx per primary team - dose for reduced eGFR started weekly aransep, iron, MVI and phos binders. gave one dose of Vit D. PRBC as needed work up as ordered continue with PPI. but avoid carafate/al and mag based laxatives/antacid. no fleet enemas d/w team Objective - Vital Signs/Intake and Output Vital Signs (last 24 hours): Temp Pulse Resp BP Pulse Ox 98.6 F 82 26 H 144/75 98 05/20/18 21:00 05/21/18 10:00 05/20/18 17:00 05/21/18 09:15 05/20/18 08:49 - Medications Medications: Current Medications Acetaminophen (Tylenol 325mg Tab) 325 mg PO Q6H PRN PRN Reason: Fever >100.4 F Last Admin: 05/21/18 05:54 Dose: 325 mg Albuterol/Ipratropium (Duoneb 3 Mg/0.5 Mg (3 Ml) Ud) 3 ml IH [id number] [facility] Last Admin: 05/21/18 13:41 Dose: 3 ml Calcium Acetate (Phoslo) 667 mg PO WM [facility] Last Admin: 05/21/18 13:31 Dose: Not Given Clonazepam (Klonopin) 2 mg PO Q12H [facility]; Protocol Last Admin: 05/21/18 09:15 Dose: 2 mg Darbepoetin Will (Aranesp) 100 mcg SC QWK [facility] Last Admin: 05/18/18 09:55 Dose: 100 mcg Diphenhydramine HCl (Benadryl) 25 mg PO HS PRN PRN Reason: Insomnia Last Admin: 05/20/18 21:27 Dose: 25 mg Furosemide (Lasix) 80 mg IVP DAILY [facility] Stop: 05/22/18 10:01 Last Admin: 05/21/18 09:14 Dose: 80 mg Haloperidol (Haldol) 5 mg PO HS PRN; Protocol PRN Reason: hallucinations/agitation/insom Hydralazine HCl (Apresoline) 10 mg PO QID PRN PRN Reason: for sbp >160 Iron Sucrose 200 mg/ Sodium (Chloride) 110 mls @ 110 mls/hr IVPB DAILY [facility] Stop: 05/25/18 14:31 Last Admin: 05/21/18 09:13 Dose: 110 mls/hr Insulin Detemir (Levemir) 5 unit SC HS [facility] Last Admin: 05/20/18 21:28 Dose: 5 unit Insulin Human Lispro (Humalog) 4 units SC AC [facility] Last Admin: 05/21/18 12:00 Dose: Not Given Insulin Human Regular (Humulin R Low) 0 units SC [facility]; Protocol Last Admin: 05/21/18 12:00 Dose: Not Given Lorazepam (Ativan) 1 mg IVP Q6H PRN; Protocol PRN Reason: Anxiety Last Admin: 05/21/18 05:53 Dose: 1 mg Metoprolol Tartrate (Lopressor) 50 mg PO BID [facility] Last Admin: 05/21/18 09:15 Dose: 50 mg Pantoprazole Sodium (Protonix Inj) 40 mg IVP Q12 [facility] Last Admin: 05/21/18 09:15 Dose: 40 mg Vitamin B Complex/Vit C/Folic Acid (Nephro-Lydia) 1 tab PO 0800 [facility] Last Admin: 05/21/18 08:07 Dose: 1 tab Zaleplon (Sonata) 5 mg PO HS PRN PRN Reason: Insomnia - Labs Labs: 05/21/18 05:30 05/21/18 05:30 PT 12.8 SECONDS (9.4-12.5) H 05/15/18 01:30 INR 1.11 05/15/18 01:30 APTT 27.0 Seconds (25.1-36.5) 05/14/18 13:30
--- NOTE | 2018-05-21 20:38 | PN ---
DATE: 05/21/2018 SUBJECTIVE: Briefly, the patient is a 62-year-old male who was admitted in ICU, status post fall. The patient has long history of schizophrenia, was followed up by [facility] PACT team. The patient is on injectable form of haloperidol 100 mg monthly. The patient seems to be compliant with the medications, due time for Haldol was on 05/17/2018, but the patient was in ICU, had rhabdomyolysis and has multiple medical issues that is why injection was not given to the patient. This telegraphic typewriter operator was observing the patient on the medical side. The patient was downgraded to the medical floor today. The patient was followed up and examined. The patient presented to be disengaged, some psychomotor retardation. Overall, the patient denied hearing voices, denied seeing things. Denied paranoid ideations. Discussed with PACT team, [place], please see initial consultation note for more detailed information. As per collateral information from the staff, the patient does not exhibit any aggressive or agitated behavior. The patient is compliant with the treatment. No psychosis. OBJECTIVE: VITAL SIGNS: Stable. MENTAL STATUS EXAM: The patient presented to be alert and oriented, somewhat disengaged in catatonic stage. Mood described as not good. Affect was flat. Thought process concrete. Thought content, the patient denied any psychotic symptoms and does not present to be internally preoccupied, but withdrawn. The patient denied thoughts of harming himself or others. Denied intent or plan. Insight and judgment seems to be fair. Impulses are well controlled. MEDICATIONS: Reviewed. This telegraphic typewriter operator will add on haloperidol 5 mg at the nighttime as needed for agitation as well as possible hallucinations and Dr. Bourgeois will follow up on this patient over the weekend. This telegraphic typewriter operator also resume Klonopin 2 mg twice a day and we will continue that. LABORATORY DATA: Reviewed. Microbiology reviewed. Reports reviewed. IMPRESSION: Long history of schizophrenia, history of alcohol use disorder. At present moment, the patient seems to be in delirium stage, but this is hypoactive delirium. PLAN: Continue Klonopin, continue haloperidol 5 mg at the nighttime, no aggression, and no agitation. Dr. Bourgeois will follow up on this patient over the weekend. Discussed with PACT team. Should you have any questions, give me a call back. Rosalva Griffin MD [facility] # [phone]
[2018-05-21] MEDS: Insulin Detemir 100 units/ml Vial (Levemir) SC SCH (21:53)
--- NOTE | 2018-05-22 01:47 | PN ---
DATE: 05/21/2018 LOCATION: The patient in ICU 128, bed 2. REASON FOR CONSULTATION AND FOLLOWUP: Coronary artery disease, history of bypass surgery, COPD, elevated troponin, rhabdomyolysis status post fall, borderline troponin positive secondary to rhabdomyolysis, renal failure. SUBJECTIVE: The patient denies any chest pain, shortness of breath or palpitation. PHYSICAL EXAMINATION: VITAL SIGNS: Blood pressure 144/75, pulse 82, the patient is afebrile, respirations 20. HEENT: Head is normocephalic. Eyes, pupils normal. Conjunctivae slightly pale. NECK: JVP low. Carotid equal. THORAX: AP diameter normal. LUNGS: No rales. CARDIOVASCULAR: S1, S2. ABDOMEN: Soft, nontender. No organomegaly. Bowel sounds normal. EXTREMITIES: No clubbing. No cyanosis. LABORATORY DATA: WBC 4.2, hemoglobin 7.7, hematocrit 26.6, platelets 138. Sodium 135; potassium 3.5; BUN 61; creatinine 7.6, yesterday creatinine was 8.2, so compared to yesterday this is slight improvement in the creatinine level; random sugar 126, 135; calcium 8.5. Chest x-ray repeated today is clear lungs. Echo on 05/17/2018 showed mildly impaired LV function with ejection fraction 42%. RV systolic pressure 42 mmHg, very mild; pulmonary hypertension; moderate mitral regurgitation; mild tricuspid regurgitation. DIAGNOSES: 1. Sight troponin elevation probably secondary to rhabdomyolysis because CPK was markedly elevated. 2. Renal failure related to rhabdomyolysis. 3. Schizophrenia. 4. Cardiomyopathy with mild reduction in left ventricular systolic function with ejection fraction 42%. 5. Chronic obstructive pulmonary disease. 6. Coronary artery disease. 7. History of coronary artery bypass surgery. The patient had cardiac catheterization in 2017, medical treatment was recommended. PLAN: Clinically, cardiac status is stable and the patient is being followed by nephrology and being monitored closely for possibility of dialysis, but today his creatinine shows slight improvement. Potassium is low, but BUN and creatinine is significantly high, so we will monitor and we will continue furosemide 80 mg IV daily, metoprolol 50 mg b.i.d. The patient already received one dose of potassium 20 p.o. stat today. The patient also getting IV iron for his anemia; we will continue present therapy and we will follow the lab in the morning. We will follow with you. Maurice Stephen MD [facility] # [phone]
[2018-05-22] MEDS: Albuterol-Ipratrop 3 mg / 0.5 (3 ml) UD IH SCH ×4 (02:30→19:20)
[2018-05-22 06:50] LABS: BASO # 0.01 K/mm3 (0.0-2.0); BASO % 0.2 % (0.0-3.0); EOS # 0.2 (0.0-0.7); EOS % 4.4 % (1.5-5.0); GRAN # 2.52 (1.4-6.5); GRAN % 58.7 % (50.0-68.0); HEMOGLOBIN 7.4 g/dL (14.0-18.0); LYMPH # 1.2 (1.2-3.4); LYMPH % 27.2 % (22.0-35.0); MEAN CELL VOLUME 64.6 fl (80.0-105.0); MEAN CORPUSCULAR HEMOGLOBIN 18.5 pg (25.0-35.0); MEAN CORPUSCULAR HGB CONC 28.6 g/dl (31.0-37.0); MEAN PLATELET VOLUME 8.8 fl (7.0-11.0); MONO # 0.4 (0.1-0.6); MONO % 9.5 % (1.0-6.0); RBC 4.01 10^6/uL (3.5-6.1); RED CELL DISTRIBUTION WIDTH 19.4 % (11.5-14.5); WHITE BLOOD COUNT 4.3 10^3/uL (4.5-11.0)
[2018-05-22 07:38] LABS: ALB/GLOB RATIO 1.1 (1.1-1.8); ALBUMIN 3.2 g/dL (3.0-4.8); CALCIUM 8.5 mg/dL (8.4-10.5)
[2018-05-22] MEDS: Insulin Reg-LOW-Coverage SC SCH ×3 (08:51→17:00)
[2018-05-22] MEDS: Insulin Lispro 1 UNITS/0.01 ML SC SCH ×3 (09:23→17:00)
[2018-05-22] MEDS: Multivitamin Vitamin B Complex (Nephro-Vite) Tab PO SCH (09:27)
--- NOTE | 2018-05-22 09:54 | CP.PCM.PN ---
Subjective - Date & Time of Evaluation Date of Evaluation: 05/22/18 Time of Evaluation: 09:05 - Subjective Subjective: Comfortable, afebrile. Objective - Vital Signs/Intake and Output Vital Signs (last 24 hours): Temp Pulse Resp BP Pulse Ox 98.6 F 82 26 H 144/75 98 05/20/18 21:00 05/21/18 10:00 05/20/18 17:00 05/21/18 09:15 05/20/18 08:49 - Medications Medications: Current Medications Acetaminophen (Tylenol 325mg Tab) 325 mg PO Q6H PRN PRN Reason: Fever >100.4 F Last Admin: 05/21/18 05:54 Dose: 325 mg Albuterol/Ipratropium (Duoneb 3 Mg/0.5 Mg (3 Ml) Ud) 3 ml IH [id number] [facility] Last Admin: 05/21/18 07:01 Dose: 3 ml Calcium Acetate (Phoslo) 667 mg PO WM [facility] Last Admin: 05/21/18 08:07 Dose: 667 mg Clonazepam (Klonopin) 2 mg PO Q12H [facility]; Protocol Last Admin: 05/21/18 09:15 Dose: 2 mg Darbepoetin Will (Aranesp) 100 mcg SC QWK [facility] Last Admin: 05/18/18 09:55 Dose: 100 mcg Diphenhydramine HCl (Benadryl) 25 mg PO HS PRN PRN Reason: Insomnia Last Admin: 05/20/18 21:27 Dose: 25 mg Furosemide (Lasix) 80 mg IVP DAILY [facility] Stop: 05/22/18 10:01 Last Admin: 05/21/18 09:14 Dose: 80 mg Hydralazine HCl (Apresoline) 10 mg PO QID PRN PRN Reason: for sbp >160 Iron Sucrose 200 mg/ Sodium (Chloride) 110 mls @ 110 mls/hr IVPB DAILY [facility] Stop: 05/25/18 14:31 Last Admin: 05/21/18 09:13 Dose: 110 mls/hr Insulin Detemir (Levemir) 5 unit SC HS [facility] Last Admin: 05/20/18 21:28 Dose: 5 unit Insulin Human Lispro (Humalog) 4 units SC AC [facility] Last Admin: 05/21/18 08:07 Dose: 4 u Insulin Human Regular (Humulin R Low) 0 units SC ACHS [facility]; Protocol Last Admin: 05/21/18 07:30 Dose: Not Given Lorazepam (Ativan) 1 mg IVP Q6H PRN; Protocol PRN Reason: Anxiety Last Admin: 05/21/18 05:53 Dose: 1 mg Metoprolol Tartrate (Lopressor) 50 mg PO BID [facility] Last Admin: 05/21/18 09:15 Dose: 50 mg Pantoprazole Sodium (Protonix Inj) 40 mg IVP Q12 [facility] Last Admin: 05/21/18 09:15 Dose: 40 mg Vitamin B Complex/Vit C/Folic Acid (Nephro-Lydia) 1 tab PO 0800 [facility] Last Admin: 05/21/18 08:07 Dose: 1 tab Zaleplon (Sonata) 5 mg PO HS PRN PRN Reason: Insomnia - Labs Labs: 05/21/18 05:30 05/21/18 05:30 PT 12.8 SECONDS (9.4-12.5) H 05/15/18 01:30 INR 1.11 05/15/18 01:30 APTT 27.0 Seconds (25.1-36.5) 05/14/18 13:30 - Constitutional Appears: Chronically Ill - Head Exam Head Exam: NORMAL INSPECTION - Respiratory Exam Respiratory Exam: Decreased Breath Sounds - Cardiovascular Exam Cardiovascular Exam: +S1, +S2 - GI/Abdominal Exam GI & Abdominal Exam: Soft. absent: Tenderness Assessment and Plan - Assessment and Plan (Free Text) Plan: Assessment systemic inflammatory response syndrome with rhabdomyolysis R/O NSTEMI, no clear source or evidence of bacterial infection coagulase negative staph in blood cx, probably contamination schizophrenia anxiety dementia CAD DM history of esophageal ulcers chronic anemia deafness mental disability Plan Cultures have been negative; will continue to monitor off antibiotics since he is at risk for nosocomial infections and observe
--- NOTE | 2018-05-22 15:03 | CP.PCM.PN ---
<Teddy Turner - Last Filed: 05/22/18 14:59> Subjective - Date & Time of Evaluation Date of Evaluation: 05/22/18 Time of Evaluation: 09:50 - Subjective Subjective: Medicine Progress Note for Hospitalist Service, Dr. Lou Turner, DO PGY-1 Pt seen and examined at bedside this am. Denies any acute complaints, resting comfortably at bedside. No acute events reported overnight by staff. Pt denies headache, fever, chills, chest pain, shortness of breath, n/v/d/c, abd pain, urinary complaints, or other symptoms. Objective - Vital Signs/Intake and Output Vital Signs (last 24 hours): Temp Pulse Resp BP Pulse Ox 99.3 F 89 18 138/64 93 L 05/22/18 07:59 05/22/18 07:59 05/22/18 07:59 05/22/18 09:27 05/22/18 07:59 Intake and Output: 05/22/18 05/22/18 06:59 18:59 Intake Total 120 Balance 120 - Medications Medications: Current Medications Acetaminophen (Tylenol 325mg Tab) 325 mg PO Q6H PRN PRN Reason: Fever >100.4 F Last Admin: 05/21/18 05:54 Dose: 325 mg Albuterol/Ipratropium (Duoneb 3 Mg/0.5 Mg (3 Ml) Ud) 3 ml IH [id number] [facility] Last Admin: 05/22/18 13:28 Dose: 3 ml Calcium Acetate (Phoslo) 667 mg PO WM [facility] Last Admin: 05/22/18 14:19 Dose: 667 mg Clonazepam (Klonopin) 2 mg PO BID [facility]; Protocol Last Admin: 05/22/18 09:24 Dose: 2 mg Darbepoetin Will (Aranesp) 100 mcg SC QWK [facility] Last Admin: 05/18/18 09:55 Dose: 100 mcg Diphenhydramine HCl (Benadryl) 25 mg PO HS PRN PRN Reason: Insomnia Last Admin: 05/20/18 21:27 Dose: 25 mg Haloperidol (Haldol) 5 mg PO HS PRN; Protocol PRN Reason: hallucinations/agitation/insom Hydralazine HCl (Apresoline) 10 mg PO QID PRN PRN Reason: for sbp >160 Iron Sucrose 200 mg/ Sodium (Chloride) 110 mls @ 110 mls/hr IVPB DAILY [facility] Stop: 05/25/18 14:31 Last Admin: 05/22/18 10:35 Dose: 110 mls/hr Insulin Detemir (Levemir) 5 unit SC HS [facility] Last Admin: 05/21/18 21:53 Dose: 5 unit Insulin Human Lispro (Humalog) 4 units SC AC [facility] Last Admin: 05/22/18 14:18 Dose: 4 units Insulin Human Regular (Humulin R Low) 0 units SC ACHS [facility]; Protocol Last Admin: 05/22/18 13:11 Dose: Not Given Lorazepam (Ativan) 1 mg IVP Q6H PRN; Protocol PRN Reason: Anxiety Last Admin: 05/21/18 05:53 Dose: 1 mg Metoprolol Tartrate (Lopressor) 50 mg PO BID [facility] Last Admin: 05/22/18 09:27 Dose: 50 mg Pantoprazole Sodium (Protonix Inj) 40 mg IVP Q12 [facility] Last Admin: 05/22/18 09:27 Dose: 40 mg Vitamin B Complex/Vit C/Folic Acid (Nephro-Kala) 1 tab PO 0800 [facility] Last Admin: 05/22/18 09:27 Dose: 1 tab Zaleplon (Sonata) 5 mg PO HS PRN PRN Reason: Insomnia - Labs Labs: 05/22/18 06:30 05/22/18 06:30 PT 12.8 SECONDS (9.4-12.5) H 05/15/18 01:30 INR 1.11 05/15/18 01:30 APTT 27.0 Seconds (25.1-36.5) 05/14/18 13:30 - Constitutional Appears: Non-toxic, No Acute Distress - Head Exam Head Exam: ATRAUMATIC, NORMOCEPHALIC - Eye Exam Eye Exam: EOMI, Normal appearance, PERRL - ENT Exam ENT Exam: Mucous Membranes Moist - Neck Exam Neck Exam: Full ROM, Normal Inspection. absent: Tenderness - Respiratory Exam Respiratory Exam: Clear to Ausculation Bilateral, NORMAL BREATHING PATTERN. absent: Rales, Rhonchi, Wheezes - Cardiovascular Exam Cardiovascular Exam: REGULAR RHYTHM, +S1, +S2. absent: Gallop, Rubs, Murmur - GI/Abdominal Exam GI & Abdominal Exam: Soft, Normal Bowel Sounds. absent: Distended, Guarding, Tenderness - Extremities Exam Extremities Exam: Normal Capillary Refill. absent: Calf Tenderness, Tenderness - Neurological Exam Neurological Exam: Alert, Awake, CN II-XII Intact, Oriented x3 - Skin Skin Exam: Dry, Intact, Warm Assessment and Plan - Assessment and Plan (Free Text) Assessment: 62 year old male with a past medical history significant for CAD s/p CABG, systolic CHF, HTN, DM2, esophageal ulcer with esophagitis, gastritis, duodenitis, schizophrenia and anxiety who presented after a fall. Found to have rhabdomyolysis, HONG, elevated troponin, and leukocytosis. Patient was admitted to ICU for closer monitoring, downgraded to Med/Surg floor. Plan: S/p fall - Bilateral Knee X-Rays unremarkable - CT Head and CT Cervical Spine unremarkable except showing heavily calcified carotid bifurcation - Continue fall precautions - PT eval, recommend RAUL for discharge Rhabdomyolysis, Improved - CPK trending down, last level 1179 on 05/19 - Troponins trending down, most recent level 0.74 on 05/14 - Cr 6.5 currently, improving, elevated from admission (Cr 2.2) Acute Renal Failure, Improving - Likely secondary to rhabdomyolysis - BUN/Creatinine 56/6.5 today - Monitor urine output - Renal US 05/18 - unremarkable - Nephrology consulted (Dr. Elizabeth), recs appreciated, dialysis deferred as per nephro at this time unless Cr continues to rise Hypoalbuminemia - resolved - Albumin 3.2 today - Nephrology consulted; recommends 25% albumin if albumin < 3 - Will continue to monitor daily CMP SIRS - Patient met SIRS criteria in ED - No clear source or evidence of bacterial infection - Today: Patient afebrile and resolved leukocytosis, resolved lactic acidosis - CT Abdomen/Pelvis, Chest X-Ray and UA negative for sources of infection - Coagulase negative staph in blood cx, probably contamination - Urine cultures negative for growth - ESR elevated at 39 - Flu negative - Low dose Tylenol Q6 PRN for fevers - Echocardiogram 05/17: LV normal size, borderline to mild concentric LVH, systolic function mildly impaired, LV diastolic function is normal. Mitral regurgitation is mild. Mild tricuspid regurg. There is mild pulmonary HTN. No vegetation seen. - ID consulted, all recommendations appreciated - abx discontinued per ID - Monitor Dysphagia - GI (Dr. Nieves) consulted; recommendations appreciated - Endoscopy completed 05/17: gastritis and esophagitis History of CAD s/p CABG - Continue Lopressor - Holding ASA (anemia and +FOBT), LEROY inhibitor (ARF) and Statin (elevated LFT's) - Cardiology consulted, all recommendations appreciated Chronic Systolic CHF - Echocardiogram 05/17: LV normal size, borderline to mild concentric LVH, systolic function mildly impaired, LV diastolic function is normal. Mitral regurgitation is mild. Mild tricuspid regurg. There is mild pulmonary HTN. No vegetation seen. - Chest X-Ray (05/19) showed mild CHF, subsegmental atelectasis with possible superimposed PNA - Continue Lopressor 50 mg bid - Cardiology consulted (Dr. King); recs appreciated Transaminitis - resolved - Continue to monitor Microcytic Anemia - H/H today 7.4/25.9 - +FOBT on 05/15 - Protonix 40mg IVP Q12 - GI (Dr. Nieves) consulted; recommendations appreciated - Anemia 2/2 hypoproliferative erythroid response 2/2 to renal disease and iron deficiency - Chronic GI blood loss - esophagitis and gastritis - Dr. Holder consulted (Heme/Onc): Recommend starting IV iron, Monoclonal protein w/u sent History of DM2 - Continue SSI-Low and Accuchecks ACHS - Continue Levemir 5u HS - Continue Humalog 4u AC - A1c: 11.2 - Carbohydrate consistent diet Carotid Calcification - CT Cervical Spine 05/14: unremarkable - Carotid/Vertebral Doppler US 05/16: 60-79 % prox R ICA stenosis; 40-59 % prox L ICA stenosis; Anterograde flow in both vertebral arteries. Cholelithiasis - GB US 05/15: 1.3 cm gallstone, no evidence of cholecystitis - CT Abdomen/Pelvis 05/14: no acute intra-abdominal findings - Recommend general surgery follow up as an outpatient Claudication - Mildly abnormal resting MATTI's and bilateral popliteal, trifurcation and/or tibial disease - Continue to monitor for signs of necrosis PPx: - GI: Protonix 40IVP Q12 and Carafate - DVT: SCD's Diet: HHD Pt seen, examined with, and plan discussed with Dr. Serrano, attending physician. Teddy Turner DO PGY-1, [employer] Pager #[phone] <Lou Serrano R - Last Filed: 05/23/18 15:50> Objective - Vital Signs/Intake and Output Vital Signs (last 24 hours): Temp Pulse Resp BP Pulse Ox 99.4 F 84 19 138/70 92 L 05/23/18 07:00 05/23/18 07:00 05/23/18 07:00 05/23/18 09:22 05/23/18 13:13 Intake and Output: 05/23/18 05/23/18 06:59 18:59 Intake Total 720 Output Total 0 Balance 720 - Medications Medications: Current Medications Acetaminophen (Tylenol 325mg Tab) 325 mg PO Q6H PRN PRN Reason: Fever >100.4 F Last Admin: 05/23/18 11:46 Dose: 325 mg Albuterol/Ipratropium (Duoneb 3 Mg/0.5 Mg (3 Ml) Ud) 3 ml IH [id number] [facility] Last Admin: 05/23/18 13:51 Dose: 3 ml Calcium Acetate (Phoslo) 667 mg PO WM [facility] Last Admin: 05/23/18 11:46 Dose: 667 mg Clonazepam (Klonopin) 2 mg PO BID [facility]; Protocol Last Admin: 05/23/18 09:20 Dose: 2 mg Darbepoetin Will (Aranesp) 100 mcg SC QWK [facility] Last Admin: 05/18/18 09:55 Dose: 100 mcg Diphenhydramine HCl (Benadryl) 25 mg PO HS PRN PRN Reason: Insomnia Last Admin: 05/22/18 21:27 Dose: 25 mg Haloperidol (Haldol) 5 mg PO HS PRN; Protocol PRN Reason: hallucinations/agitation/insom Last Admin: 05/22/18 21:30 Dose: 5 mg Hydralazine HCl (Apresoline) 10 mg PO QID PRN PRN Reason: for sbp >160 Iron Sucrose 200 mg/ Sodium (Chloride) 110 mls @ 110 mls/hr IVPB DAILY [facility] Stop: 05/25/18 14:31 Last Admin: 05/23/18 09:22 Dose: 110 mls/hr Insulin Detemir (Levemir) 5 unit SC HS [facility] Last Admin: 05/22/18 21:22 Dose: 5 unit Insulin Human Lispro (Humalog) 4 units SC AC [facility] Last Admin: 05/23/18 11:44 Dose: 4 units Insulin Human Regular (Humulin R Low) 0 units SC ACHS [facility]; Protocol Last Admin: 05/23/18 11:44 Dose: Not Given Lorazepam (Ativan) 1 mg IVP Q6H PRN; Protocol PRN Reason: Anxiety Last Admin: 05/23/18 11:06 Dose: 1 mg Metoprolol Tartrate (Lopressor) 50 mg PO BID [facility] Last Admin: 05/23/18 09:22 Dose: 50 mg Pantoprazole Sodium (Protonix Inj) 40 mg IVP Q12 [facility] Last Admin: 05/23/18 09:22 Dose: 40 mg Vitamin B Complex/Vit C/Folic Acid (Nephro-Kala) 1 tab PO 0800 [facility] Last Admin: 05/23/18 09:20 Dose: 1 tab Zaleplon (Sonata) 5 mg PO HS PRN PRN Reason: Insomnia - Labs Labs: 05/23/18 08:00 05/23/18 08:00 PT 12.8 SECONDS (9.4-12.5) H 05/15/18 01:30 INR 1.11 05/15/18 01:30 APTT 27.0 Seconds (25.1-36.5) 05/14/18 13:30 Attending/Attestation - Attestation I have personally seen and examined this patient.: Yes I have fully participated in the care of the patient.: Yes I have reviewed all pertinent clinical information, including history, physical exam and plan: Yes Notes (Text): Patient seen and examined by me with resident at 10:35 AM on 05/22/18. Case including HPI, physical exam, and assessment and plan discussed with resident. Agree with above with following additions/corrections. Patient is a 62-year-old male with past medical history significant for artery disease status post CABG, systolic CHF, hypertension, schizophrenia, anxiety, GI bleed, esophageal ulcer, and type 2 diabetes that presented to the emergency room status post a fall. Patient states he is feeling ok. Patient feels his knees feel better. States he has difficulty urinating but denies pain with urination. Patient denies chest pain or shortness of breath. No fevers or chills. No headaches or dizziness. No nausea, vomiting, or abdominal pain. Physical exam: General: Awake and alert sitting up in bed in no acute distress HEENT: Normocephalic, atraumatic. Extraocular muscles intact, pupils equal and reactive, no scleral icterus. Oropharynx is pink and moist. Neck is supple. Cardiovascular: Regular rhythm. Normal S1 and S2. No murmurs, rubs, or gallops appreciated Pulmonary: Normal respiratory effort. No rales, rhonchi, or wheezing appreciated. Gastrointestinal: Soft, nondistended. Nontender. Positive bowel sounds all 4 quadrants. No guarding. Positive globular abdomen Musculoskeletal: Moves all extremities. No calf tenderness. Bilateral knees with healing abrasions. Central nervous system: AAOx3 Dermatologic: Skin warm and dry. Positive improving ecchymosis on forehead and healing abrasions on face. Assessment and plan: Patient is a 62-year-old male with past medical history significant for artery disease status post CABG, systolic CHF, hypertension, schizophrenia, anxiety, GI bleed, esophageal ulcer, and type 2 diabetes that presented to the emergency room status post a fall. 1. Acute renal failure. Likely secondary to rhabdomyolysis and SIRS. Creatinine downtrending. Improved urine output. Continue Lasix. Continue Phoslo. Continue nephron-kala. Nephrology following, recommendations appreciated. Continue to monitor urine output. Renal ultrasound per radiologist showed unremarkable renal sonogram. 2. SIRS. Patient afebrile. With leukopenia. Blood cultures with no growth. Urine culture with no growth. Pro-calcitonin elevated at 6.35. Lactic acid was 3.1 improved to 1.9. ID following, recommendations appreciated. S/P treatment with Maxipime. CT abdomen and pelvis per radiologist showed no acute intra-abdominal findings. Gallbladder ultrasound radiologist showed 1.3 cm gallstone, no evidence of cholecystitis. Chest x-ray per radiologist showed no active disease. 3. Rhabdomyolysis. Likely secondary to fall. Resolving. 4. Elevated troponins in a patient with a history of coronary artery disease. Patient with no chest pain. Elevated troponins likely secondary to rhabdomyolysis and acute renal failure. Troponins down trended. Cardiology fo llowing, recommendations appreciated. LEROY inhibitor held secondary to acute renal failure. Continue Lopressor. No aspirin secondary to anemia and stool for occult blood being positive. 5. Chronic systolic CHF. LEROY inhibitor held for now secondary to acute renal failure. Continue with Lopressor. Continue Lasix. Cardiology following, recommendations appreciated. 6. Transaminitis. Secondary to rhabdomyolysis. Resolved. Continue to monitor. 7. Anemia. History of GI bleed. Stool for occult blood positive. GI following, recommendations appreciated. Continue Carafate. Continue Protonix. Hem/onc fol lowing, recommendations appreciated. Continue IV iron. Continue to monitor CBC. S/P endoscopy which showed esophagitis and gastritis. 8. Hypoalbuminemia. Resolved. Continue to monitor. 9. Dysphagia. GI following, recommendations appreciated. Speech and swallow following, recommendations appreciated. Continue with dysphagia diet. Continue aspiration precautions. 10. Type 2 diabetes. Continue with insulin sliding scale. Continue Levemir5 units subcutaneous at bedtime and Humalog 4 units before meals. Continue to monitor Accu-Cheks. HgbA1c 11.2 11. Carotid calcification. Carotid ultrasound per radiologist showed 60-79% proximal right ICA stenosis, 40-59% left ICA stenosis, antegrade flow in both vertebral arteries. Will need to start statin prior to discharge. 12. Cholelithiasis. Gallbladder ultrasound radiologist showed 1.3 cm gallstone, no evidence of cholecystitis. Patient to follow up outpatient. 13. Status post fall. Bilateral knee x-rays per radiologist showed normal radiographs of the right and left knee. CT cervical spine per radiologist was unremarkable. Head CT per radiologist showed no acute intracranial findings. Continue fall precautions. Continue PT. 14. Anxiety/agitation. Continue Klonopin. Continue Haldol prn. Continue Ativan prn. 15. GI/DVT prophylaxis. Continue protonix/SCDs Case was discussed in detail with the patient regarding current diagnosis and treatment plan. All questions answered.
--- NOTE | 2018-05-22 16:53 | CP.PCM.PN ---
Subjective - Date & Time of Evaluation Date of Evaluation: 05/22/18 Time of Evaluation: 16:52 - Subjective Subjective: RENAL NOTE pt denies CP/SOB. noted overnight events pe: vs reviewed gen: nad sclera: anicteric op: clear, poor dentition neck supple no thyromegaly cv: +S1+s2 no rub abd: soft nt nd no organomegaly lungs wbilateral air entry equal, few basal rale ext: no edema neuro: awake alert psych: flat. limited insight skin bruising on b/l knees Imp: ARF/ Rhabdomylosis/ Anemia/ ? sepsis/hyperphos/ATN/PUD plan: HONG - likely from combination of rhabdo +/ - developing sirs / sepsis. cr slightly better today lasix 80 mg/day and monitor UOP which is better hence will defer dialysis initiation unless cr continue to rise. had d/w sister at pt request and consent for HD obtained. pt close to need for dialysis initiation but hopefully can avoid as anticipate spontaneous renal recovery electrolytes are ok f/u cultures - abx per primary team - dose for reduced eGFR continue weekly aransep, iron, MVI and phos binders. gave one dose of Vit D. PRBC as needed continue with PPI. but avoid carafate/al and mag based laxatives/antacid. no fle et enemas Objective - Vital Signs/Intake and Output Vital Signs (last 24 hours): Temp Pulse Resp BP Pulse Ox 99.3 F 89 18 138/64 93 L 05/22/18 07:59 05/22/18 07:59 05/22/18 07:59 05/22/18 09:27 05/22/18 07:59 Intake and Output: 05/22/18 05/22/18 06:59 18:59 Intake Total 120 Balance 120 - Medications Medications: Current Medications Acetaminophen (Tylenol 325mg Tab) 325 mg PO Q6H PRN PRN Reason: Fever >100.4 F Last Admin: 05/21/18 05:54 Dose: 325 mg Albuterol/Ipratropium (Duoneb 3 Mg/0.5 Mg (3 Ml) Ud) 3 ml IH [id number] [facility] Last Admin: 05/22/18 13:28 Dose: 3 ml Calcium Acetate (Phoslo) 667 mg PO WM [facility] Last Admin: 05/22/18 14:19 Dose: 667 mg Clonazepam (Klonopin) 2 mg PO BID [facility]; Protocol Last Admin: 05/22/18 09:24 Dose: 2 mg Darbepoetin Will (Aranesp) 100 mcg SC QWK [facility] Last Admin: 05/18/18 09:55 Dose: 100 mcg Diphenhydramine HCl (Benadryl) 25 mg PO HS PRN PRN Reason: Insomnia Last Admin: 05/20/18 21:27 Dose: 25 mg Haloperidol (Haldol) 5 mg PO HS PRN; Protocol PRN Reason: hallucinations/agitation/insom Hydralazine HCl (Apresoline) 10 mg PO QID PRN PRN Reason: for sbp >160 Iron Sucrose 200 mg/ Sodium (Chloride) 110 mls @ 110 mls/hr IVPB DAILY [facility] Stop: 05/25/18 14:31 Last Admin: 05/22/18 10:35 Dose: 110 mls/hr Insulin Detemir (Levemir) 5 unit SC HS [facility] Last Admin: 05/21/18 21:53 Dose: 5 unit Insulin Human Lispro (Humalog) 4 units SC AC [facility] Last Admin: 05/22/18 14:18 Dose: 4 units Insulin Human Regular (Humulin R Low) 0 units SC ACHS [facility]; Protocol Last Admin: 05/22/18 13:11 Dose: Not Given Lorazepam (Ativan) 1 mg IVP Q6H PRN; Protocol PRN Reason: Anxiety Last Admin: 05/21/18 05:53 Dose: 1 mg Metoprolol Tartrate (Lopressor) 50 mg PO BID [facility] Last Admin: 05/22/18 09:27 Dose: 50 mg Pantoprazole Sodium (Protonix Inj) 40 mg IVP Q12 [facility] Last Admin: 05/22/18 09:27 Dose: 40 mg Vitamin B Complex/Vit C/Folic Acid (Nephro-Lydia) 1 tab PO 0800 [facility] Last Admin: 05/22/18 09:27 Dose: 1 tab Zaleplon (Sonata) 5 mg PO HS PRN PRN Reason: Insomnia - Labs Labs: 05/22/18 06:30 05/22/18 06:30 PT 12.8 SECONDS (9.4-12.5) H 05/15/18 01:30 INR 1.11 05/15/18 01:30 APTT 27.0 Seconds (25.1-36.5) 05/14/18 13:30
--- NOTE | 2018-05-22 21:04 | CP.PCM.PN ---
Subjective - Date & Time of Evaluation Date of Evaluation: 05/21/18 Time of Evaluation: 11:00 - Subjective Subjective: Reports to being thirsty Objective - Vital Signs/Intake and Output Vital Signs (last 24 hours): Temp Pulse Resp BP Pulse Ox 98.7 F 83 20 140/70 98 05/22/18 14:00 05/22/18 14:00 05/22/18 14:00 05/22/18 18:59 05/22/18 17:00 - Medications Medications: Current Medications Acetaminophen (Tylenol 325mg Tab) 325 mg PO Q6H PRN PRN Reason: Fever >100.4 F Last Admin: 05/21/18 05:54 Dose: 325 mg Albuterol/Ipratropium (Duoneb 3 Mg/0.5 Mg (3 Ml) Ud) 3 ml IH [id number] [facility] Last Admin: 05/22/18 19:20 Dose: 3 ml Calcium Acetate (Phoslo) 667 mg PO WM [facility] Last Admin: 05/22/18 17:23 Dose: 667 mg Clonazepam (Klonopin) 2 mg PO BID [facility]; Protocol Last Admin: 05/22/18 17:23 Dose: 2 mg Darbepoetin Will (Aranesp) 100 mcg SC QWK [facility] Last Admin: 05/18/18 09:55 Dose: 100 mcg Diphenhydramine HCl (Benadryl) 25 mg PO HS PRN PRN Reason: Insomnia Last Admin: 05/20/18 21:27 Dose: 25 mg Haloperidol (Haldol) 5 mg PO HS PRN; Protocol PRN Reason: hallucinations/agitation/insom Hydralazine HCl (Apresoline) 10 mg PO QID PRN PRN Reason: for sbp >160 Iron Sucrose 200 mg/ Sodium (Chloride) 110 mls @ 110 mls/hr IVPB DAILY [facility] Stop: 05/25/18 14:31 Last Admin: 05/22/18 10:35 Dose: 110 mls/hr Insulin Detemir (Levemir) 5 unit SC HS [facility] Last Admin: 05/21/18 21:53 Dose: 5 unit Insulin Human Lispro (Humalog) 4 units SC AC [facility] Last Admin: 05/22/18 17:00 Dose: 4 units Insulin Human Regular (Humulin R Low) 0 units SC ACHS [facility]; Protocol Last Admin: 05/22/18 17:00 Dose: Not Given Lorazepam (Ativan) 1 mg IVP Q6H PRN; Protocol PRN Reason: Anxiety Last Admin: 05/21/18 05:53 Dose: 1 mg Metoprolol Tartrate (Lopressor) 50 mg PO BID [facility] Last Admin: 05/22/18 18:59 Dose: 50 mg Pantoprazole Sodium (Protonix Inj) 40 mg IVP Q12 [facility] Last Admin: 05/22/18 09:27 Dose: 40 mg Vitamin B Complex/Vit C/Folic Acid (Nephro-Lydia) 1 tab PO 0800 [facility] Last Admin: 05/22/18 09:27 Dose: 1 tab Zaleplon (Sonata) 5 mg PO HS PRN PRN Reason: Insomnia - Labs Labs: 05/22/18 06:30 05/22/18 06:30 PT 12.8 SECONDS (9.4-12.5) H 05/15/18 01:30 INR 1.11 05/15/18 01:30 APTT 27.0 Seconds (25.1-36.5) 05/14/18 13:30 - Head Exam Head Exam: ATRAUMATIC - Eye Exam Eye Exam: Normal appearance - ENT Exam ENT Exam: Mucous Membranes Dry - Respiratory Exam Respiratory Exam: NORMAL BREATHING PATTERN - Cardiovascular Exam Cardiovascular Exam: +S1, +S2 - GI/Abdominal Exam GI & Abdominal Exam: Normal Bowel Sounds Assessment and Plan (1) Anemia Assessment & Plan: iron deficiency and CKD Venfor and HECTOR consider increasing HECTOR dose for goal hgb ~ 10 monoclonal protein w/u pending Status: Acute (2) Leukopenia Assessment & Plan: mild no neutropenia Status: Acute
--- NOTE | 2018-05-22 21:05 | CP.PCM.PN ---
Subjective - Date & Time of Evaluation Date of Evaluation: 05/22/18 Time of Evaluation: 16:00 - Subjective Subjective: No complaints. Objective - Vital Signs/Intake and Output Vital Signs (last 24 hours): Temp Pulse Resp BP Pulse Ox 98.7 F 83 20 140/70 98 05/22/18 14:00 05/22/18 14:00 05/22/18 14:00 05/22/18 18:59 05/22/18 17:00 - Medications Medications: Current Medications Acetaminophen (Tylenol 325mg Tab) 325 mg PO Q6H PRN PRN Reason: Fever >100.4 F Last Admin: 05/21/18 05:54 Dose: 325 mg Albuterol/Ipratropium (Duoneb 3 Mg/0.5 Mg (3 Ml) Ud) 3 ml IH [id number] [facility] Last Admin: 05/22/18 19:20 Dose: 3 ml Calcium Acetate (Phoslo) 667 mg PO WM [facility] Last Admin: 05/22/18 17:23 Dose: 667 mg Clonazepam (Klonopin) 2 mg PO BID [facility]; Protocol Last Admin: 05/22/18 17:23 Dose: 2 mg Darbepoetin Will (Aranesp) 100 mcg SC QWK [facility] Last Admin: 05/18/18 09:55 Dose: 100 mcg Diphenhydramine HCl (Benadryl) 25 mg PO HS PRN PRN Reason: Insomnia Last Admin: 05/20/18 21:27 Dose: 25 mg Haloperidol (Haldol) 5 mg PO HS PRN; Protocol PRN Reason: hallucinations/agitation/insom Hydralazine HCl (Apresoline) 10 mg PO QID PRN PRN Reason: for sbp >160 Iron Sucrose 200 mg/ Sodium (Chloride) 110 mls @ 110 mls/hr IVPB DAILY [facility] Stop: 05/25/18 14:31 Last Admin: 05/22/18 10:35 Dose: 110 mls/hr Insulin Detemir (Levemir) 5 unit SC HS [facility] Last Admin: 05/21/18 21:53 Dose: 5 unit Insulin Human Lispro (Humalog) 4 units SC AC [facility] Last Admin: 05/22/18 17:00 Dose: 4 units Insulin Human Regular (Humulin R Low) 0 units SC ACHS [facility]; Protocol Last Admin: 05/22/18 17:00 Dose: Not Given Lorazepam (Ativan) 1 mg IVP Q6H PRN; Protocol PRN Reason: Anxiety Last Admin: 05/21/18 05:53 Dose: 1 mg Metoprolol Tartrate (Lopressor) 50 mg PO BID [facility] Last Admin: 05/22/18 18:59 Dose: 50 mg Pantoprazole Sodium (Protonix Inj) 40 mg IVP Q12 [facility] Last Admin: 05/22/18 09:27 Dose: 40 mg Vitamin B Complex/Vit C/Folic Acid (Nephro-Lydia) 1 tab PO 0800 [facility] Last Admin: 05/22/18 09:27 Dose: 1 tab Zaleplon (Sonata) 5 mg PO HS PRN PRN Reason: Insomnia - Labs Labs: 05/22/18 06:30 05/22/18 06:30 PT 12.8 SECONDS (9.4-12.5) H 05/15/18 01:30 INR 1.11 05/15/18 01:30 APTT 27.0 Seconds (25.1-36.5) 05/14/18 13:30 - Head Exam Head Exam: ATRAUMATIC - Eye Exam Eye Exam: Normal appearance - ENT Exam ENT Exam: Mucous Membranes Dry - Respiratory Exam Respiratory Exam: NORMAL BREATHING PATTERN - Cardiovascular Exam Cardiovascular Exam: +S1, +S2 - GI/Abdominal Exam GI & Abdominal Exam: Normal Bowel Sounds Assessment and Plan (1) Anemia Assessment & Plan: iron deficiency and CKD Venofer and Aranesp transfusion support PRN monoclonal protein w/u pending Status: Acute (2) Leukopenia Assessment & Plan: mild no neutropenia Status: Acute
[2018-05-22] MEDS: Insulin Detemir 100 units/ml Vial (Levemir) SC SCH (21:22)
[2018-05-23] MEDS: Albuterol-Ipratrop 3 mg / 0.5 (3 ml) UD IH SCH ×4 (01:04→19:15)
[2018-05-23] MEDS: Insulin Reg-LOW-Coverage SC SCH ×4 (01:42→17:03)
[2018-05-23 08:50] LABS: BASO # 0.01 K/mm3 (0.0-2.0); BASO % 0.3 % (0.0-3.0); EOS # 0.1 (0.0-0.7); EOS % 2.9 % (1.5-5.0); GRAN # 2.39 (1.4-6.5); GRAN % 62.3 % (50.0-68.0); HEMOGLOBIN 7.3 g/dL (14.0-18.0); LYMPH % 26.1 % (22.0-35.0); MEAN CORPUSCULAR HEMOGLOBIN 18.5 pg (25.0-35.0); MEAN CORPUSCULAR HGB CONC 28.5 g/dl (31.0-37.0); MEAN PLATELET VOLUME 8.5 fl (7.0-11.0); MONO # 0.3 (0.1-0.6); MONO % 8.4 % (1.0-6.0); RBC 3.94 10^6/uL (3.5-6.1); RED CELL DISTRIBUTION WIDTH 19.7 % (11.5-14.5); WHITE BLOOD COUNT 3.8 10^3/uL (4.5-11.0)
[2018-05-23 09:04] LABS: ALBUMIN 3.2 g/dL (3.0-4.8); CALCIUM 8.5 mg/dL (8.4-10.5)
[2018-05-23] MEDS: Multivitamin Vitamin B Complex (Nephro-Vite) Tab PO SCH (09:20)
[2018-05-23] MEDS: Insulin Lispro 1 UNITS/0.01 ML SC SCH ×3 (09:21→17:02)
--- NOTE | 2018-05-23 16:01 | CP.PCM.PN ---
Subjective - Date & Time of Evaluation Date of Evaluation: 05/23/18 Time of Evaluation: 10:20 - Subjective Subjective: Medicine Progress Note for Hospitalist Service, Dr. Zuly Turner, DO PGY-1 Pt seen and examined at bedside. States his back hurts currently from sleeping in bed, otherwise in no acute distress. Denies headache, fever, chills, chest pain, sob, n/v/d/c, abd pain, urinary complaints, or other symptoms. No acute e vents reported overnight by staff. Objective - Vital Signs/Intake and Output Vital Signs (last 24 hours): Temp Pulse Resp BP Pulse Ox 97.8 F 82 18 132/108 H 96 05/23/18 14:00 05/23/18 14:00 05/23/18 14:00 05/23/18 14:00 05/23/18 14:00 Intake and Output: 05/23/18 05/23/18 06:59 18:59 Intake Total 720 Output Total 0 Balance 720 - Medications Medications: Current Medications Acetaminophen (Tylenol 325mg Tab) 325 mg PO Q6H PRN PRN Reason: Fever >100.4 F Last Admin: 05/23/18 11:46 Dose: 325 mg Albuterol/Ipratropium (Duoneb 3 Mg/0.5 Mg (3 Ml) Ud) 3 ml IH [id number] [facility] Last Admin: 05/23/18 13:51 Dose: 3 ml Calcium Acetate (Phoslo) 667 mg PO WM [facility] Last Admin: 05/23/18 11:46 Dose: 667 mg Clonazepam (Klonopin) 2 mg PO BID [facility]; Protocol Last Admin: 05/23/18 09:20 Dose: 2 mg Darbepoetin Will (Aranesp) 100 mcg SC QWK [facility] Last Admin: 05/18/18 09:55 Dose: 100 mcg Diphenhydramine HCl (Benadryl) 25 mg PO HS PRN PRN Reason: Insomnia Last Admin: 05/22/18 21:27 Dose: 25 mg Haloperidol (Haldol) 5 mg PO HS PRN; Protocol PRN Reason: hallucinations/agitation/insom Last Admin: 05/22/18 21:30 Dose: 5 mg Hydralazine HCl (Apresoline) 10 mg PO QID PRN PRN Reason: for sbp >160 Iron Sucrose 200 mg/ Sodium (Chloride) 110 mls @ 110 mls/hr IVPB DAILY [facility] Stop: 05/25/18 14:31 Last Admin: 05/23/18 09:22 Dose: 110 mls/hr Insulin Detemir (Levemir) 5 unit SC HS [facility] Last Admin: 05/22/18 21:22 Dose: 5 unit Insulin Human Lispro (Humalog) 4 units SC AC [facility] Last Admin: 05/23/18 11:44 Dose: 4 units Insulin Human Regular (Humulin R Low) 0 units SC ACHS [facility]; Protocol Last Admin: 05/23/18 11:44 Dose: Not Given Lorazepam (Ativan) 1 mg IVP Q6H PRN; Protocol PRN Reason: Anxiety Last Admin: 05/23/18 11:06 Dose: 1 mg Metoprolol Tartrate (Lopressor) 50 mg PO BID [facility] Last Admin: 05/23/18 09:22 Dose: 50 mg Pantoprazole Sodium (Protonix Inj) 40 mg IVP Q12 [facility] Last Admin: 05/23/18 09:22 Dose: 40 mg Vitamin B Complex/Vit C/Folic Acid (Nephro-Lydia) 1 tab PO 0800 [facility] Last Admin: 05/23/18 09:20 Dose: 1 tab Zaleplon (Sonata) 5 mg PO HS PRN PRN Reason: Insomnia - Labs Labs: 05/23/18 08:00 05/23/18 08:00 PT 12.8 SECONDS (9.4-12.5) H 05/15/18 01:30 INR 1.11 05/15/18 01:30 APTT 27.0 Seconds (25.1-36.5) 05/14/18 13:30 - Constitutional Appears: Non-toxic, No Acute Distress, Chronically Ill - Head Exam Head Exam: ATRAUMATIC, NORMOCEPHALIC - Eye Exam Eye Exam: EOMI, Normal appearance, PERRL - ENT Exam ENT Exam: Mucous Membranes Moist - Respiratory Exam Respiratory Exam: Clear to Ausculation Bilateral, NORMAL BREATHING PATTERN. absent: Rales, Rhonchi, Wheezes - Cardiovascular Exam Cardiovascular Exam: REGULAR RHYTHM, +S1, +S2. absent: Gallop, Rubs, Murmur - GI/Abdominal Exam GI & Abdominal Exam: Soft, Normal Bowel Sounds. absent: Distended, Guarding, Tenderness, Organomegaly - Extremities Exam Extremities Exam: Normal Capillary Refill, Pedal Edema (1+ b/l) - Back Exam Back Exam: Full ROM, NORMAL INSPECTION. absent: paraspinal tenderness - Neurological Exam Neurological Exam: Alert, Awake, CN II-XII Intact, Oriented x3 - Skin Skin Exam: Dry, Intact, Normal Color, Warm Assessment and Plan - Assessment and Plan (Free Text) Assessment: 62 year old male with a past medical history significant for CAD s/p CABG, systolic CHF, HTN, DM2, esophageal ulcer with esophagitis, gastritis, duodenitis, schizophrenia and anxiety who presented after a fall. Found to have rhabdomyolysis, HONG, elevated troponin, and leukocytosis. Patient was admitted t o ICU for closer monitoring, downgraded to Med/Surg floor. Plan: S/p fall - Bilateral Knee X-Rays unremarkable - CT Head and CT Cervical Spine unremarkable except showing heavily calcified carotid bifurcation - Continue fall precautions - PT eval, recommend RAUL for discharge Rhabdomyolysis, Improved - CPK trending down, last level 1179 on 05/19 - Troponins trending down, most recent level 0.74 on 05/14 - Cr 4.8 currently, improving, elevated from admission (Cr 2.2) Acute Renal Failure, Improving - Likely secondary to rhabdomyolysis - BUN/Creatinine 50/4.8 today - Monitor urine output - Renal US 05/18 - unremarkable - Nephrology consulted (Dr. Elizabeth), recs appreciated, dialysis deferred as per nephro at this time unless Cr continues to rise Hypoalbuminemia - resolved - Albumin 3.2 today - Nephrology consulted; recommends 25% albumin if albumin < 3 - Will continue to monitor daily CMP SIRS - Patient met SIRS criteria in ED - No clear source or evidence of bacterial infection - Today: Patient afebrile and resolved leukocytosis, resolved lactic acidosis - CT Abdomen/Pelvis, Chest X-Ray and UA negative for sources of infection - Coagulase negative staph in blood cx, probably contamination - Urine cultures negative for growth - ESR elevated at 39 - Flu negative - Low dose Tylenol Q6 PRN for fevers - Echocardiogram 05/17: LV normal size, borderline to mild concentric LVH, systolic function mildly impaired, LV diastolic function is normal. Mitral regurgitation is mild. Mild tricuspid regurg. There is mild pulmonary HTN. No vegetation seen. - ID consulted, all recommendations appreciated - abx discontinued per ID - Monitor Dysphagia - GI (Dr. Nieves) consulted; recommendations appreciated - Endoscopy completed 05/17: gastritis and esophagitis History of CAD s/p CABG - Continue Lopressor - Holding ASA (anemia and +FOBT), LEROY inhibitor (ARF) and Statin (elevated LFT 's) - Cardiology consulted, all recommendations appreciated Chronic Systolic CHF - Echocardiogram 05/17: LV normal size, borderline to mild concentric LVH, systolic function mildly impaired, LV diastolic function is normal. Mitral regurgitation is mild. Mild tricuspid regurg. There is mild pulmonary HTN. No vegetation seen. - Chest X-Ray (05/19) showed mild CHF, subsegmental atelectasis with possible superimposed PNA - Continue Lopressor 50 mg bid - Cardiology consulted (Dr. King); recs appreciated Transaminitis - resolved - Continue to monitor Microcytic Anemia - H/H today 7.3/25.6 - +FOBT on 05/15 - Protonix 40mg IVP Q12 - GI (Dr. Nieves) consulted; recommendations appreciated - Anemia 2/2 hypoproliferative erythroid response 2/2 to renal disease and iron deficiency - Chronic GI blood loss - esophagitis and gastritis - Dr. Holder consulted (Heme/Onc): Recommend starting IV iron, Monoclonal protein w/u sent History of DM2 - Continue SSI-Low and Accuchecks ACHS - Continue Levemir 5u HS - Continue Humalog 4u AC - A1c: 11.2 - Carbohydrate consistent diet Carotid Calcification - CT Cervical Spine 05/14: unremarkable - Carotid/Vertebral Doppler US 05/16: 60-79 % prox R ICA stenosis; 40-59 % prox L ICA stenosis; Anterograde flow in both vertebral arteries. Cholelithiasis - GB US 05/15: 1.3 cm gallstone, no evidence of cholecystitis - CT Abdomen/Pelvis 05/14: no acute intra-abdominal findings - Recommend general surgery follow up as an outpatient Claudication - Mildly abnormal resting MATTI's and bilateral popliteal, trifurcation and/or tibial disease - Continue to monitor for signs of necrosis PPx: - GI: Protonix 40IVP Q12 and Carafate - DVT: SCD's Diet: HHD Pt seen, examined with, and plan discussed with Dr. Caruso, attending physician. Teddy Turner DO PGY-1, [employer] Pager #[phone]
--- NOTE | 2018-05-23 17:13 | CP.PCM.PN ---
Subjective - Date & Time of Evaluation Date of Evaluation: 05/23/18 Time of Evaluation: 10:30 - Subjective Subjective: Afebrile, non-toxic. Objective - Vital Signs/Intake and Output Vital Signs (last 24 hours): Temp Pulse Resp BP Pulse Ox 99.3 F 89 18 138/64 93 L 05/22/18 07:59 05/22/18 07:59 05/22/18 07:59 05/22/18 09:27 05/22/18 07:59 Intake and Output: 05/22/18 05/22/18 06:59 18:59 Intake Total 120 Balance 120 - Medications Medications: Current Medications Acetaminophen (Tylenol 325mg Tab) 325 mg PO Q6H PRN PRN Reason: Fever >100.4 F Last Admin: 05/21/18 05:54 Dose: 325 mg Albuterol/Ipratropium (Duoneb 3 Mg/0.5 Mg (3 Ml) Ud) 3 ml IH [id number] [facility] Last Admin: 05/22/18 07:52 Dose: 3 ml Calcium Acetate (Phoslo) 667 mg PO WM [facility] Last Admin: 05/22/18 09:24 Dose: 667 mg Clonazepam (Klonopin) 2 mg PO BID [facility]; Protocol Last Admin: 05/22/18 09:24 Dose: 2 mg Darbepoetin Will (Aranesp) 100 mcg SC QWK [facility] Last Admin: 05/18/18 09:55 Dose: 100 mcg Diphenhydramine HCl (Benadryl) 25 mg PO HS PRN PRN Reason: Insomnia Last Admin: 05/20/18 21:27 Dose: 25 mg Furosemide (Lasix) 80 mg IVP DAILY [facility] Stop: 05/22/18 10:01 Last Admin: 05/22/18 09:25 Dose: 80 mg Haloperidol (Haldol) 5 mg PO HS PRN; Protocol PRN Reason: hallucinations/agitation/insom Hydralazine HCl (Apresoline) 10 mg PO QID PRN PRN Reason: for sbp >160 Iron Sucrose 200 mg/ Sodium (Chloride) 110 mls @ 110 mls/hr IVPB DAILY [facility] Stop: 05/25/18 14:31 Last Admin: 05/21/18 09:13 Dose: 110 mls/hr Insulin Detemir (Levemir) 5 unit SC HS [facility] Last Admin: 05/21/18 21:53 Dose: 5 unit Insulin Human Lispro (Humalog) 4 units SC AC [facility] Last Admin: 05/22/18 09:23 Dose: 4 units Insulin Human Regular (Humulin R Low) 0 units SC ACHS [facility]; Protocol Last Admin: 05/22/18 08:51 Dose: Not Given Lorazepam (Ativan) 1 mg IVP Q6H PRN; Protocol PRN Reason: Anxiety Last Admin: 05/21/18 05:53 Dose: 1 mg Metoprolol Tartrate (Lopressor) 50 mg PO BID [facility] Last Admin: 05/22/18 09:27 Dose: 50 mg Pantoprazole Sodium (Protonix Inj) 40 mg IVP Q12 [facility] Last Admin: 05/22/18 09:27 Dose: 40 mg Vitamin B Complex/Vit C/Folic Acid (Nephro-Lydia) 1 tab PO 0800 [facility] Last Admin: 05/22/18 09:27 Dose: 1 tab Zaleplon (Sonata) 5 mg PO HS PRN PRN Reason: Insomnia - Labs Labs: 05/22/18 06:30 05/22/18 06:30 PT 12.8 SECONDS (9.4-12.5) H 05/15/18 01:30 INR 1.11 05/15/18 01:30 APTT 27.0 Seconds (25.1-36.5) 05/14/18 13:30 - Constitutional Appears: Chronically Ill - Head Exam Head Exam: NORMAL INSPECTION - Neck Exam Neck Exam: absent: Meningismus - Respiratory Exam Respiratory Exam: Decreased Breath Sounds - Cardiovascular Exam Cardiovascular Exam: +S1, +S2 - GI/Abdominal Exam GI & Abdominal Exam: Soft. absent: Tenderness Assessment and Plan - Assessment and Plan (Free Text) Plan: Assessment systemic inflammatory response syndrome with rhabdomyolysis R/O NSTEMI, no clear source or evidence of bacterial infection coagulase negative staph in blood cx, probably contamination schizophrenia anxiety dementia CAD DM history of esophageal ulcers chronic anemia deafness mental disability Plan Cultures have been negative; will continue to monitor off antibiotics since he is at risk for hospital-acquired infections and observe
[2018-05-23] MEDS: Insulin Detemir 100 units/ml Vial (Levemir) SC SCH (22:21)
[2018-05-24] MEDS: Albuterol-Ipratrop 3 mg / 0.5 (3 ml) UD IH SCH ×4 (01:10→19:55)
[2018-05-24] MEDS: Insulin Reg-LOW-Coverage SC SCH ×4 (06:04→22:25)
[2018-05-24 07:26] LABS: ALBUMIN 3.3 g/dL (3.0-4.8); CALCIUM 8.9 mg/dL (8.4-10.5)
[2018-05-24 07:31] LABS: BASO # 0.03 K/mm3 (0.0-2.0); BASO % 0.8 % (0.0-3.0); EOS # 0.1 (0.0-0.7); EOS % 3.3 % (1.5-5.0); GRAN # 2.39 (1.4-6.5); GRAN % 60.4 % (50.0-68.0); HEMOGLOBIN 7.5 g/dL (14.0-18.0); LYMPH % 25.1 % (22.0-35.0); MEAN CELL VOLUME 66.4 fl (80.0-105.0); MEAN CORPUSCULAR HEMOGLOBIN 18.9 pg (25.0-35.0); MEAN CORPUSCULAR HGB CONC 28.5 g/dl (31.0-37.0); MEAN PLATELET VOLUME 8.7 fl (7.0-11.0); MONO # 0.4 (0.1-0.6); MONO % 10.4 % (1.0-6.0); RBC 3.96 10^6/uL (3.5-6.1); RED CELL DISTRIBUTION WIDTH 20.6 % (11.5-14.5)
[2018-05-24] MEDS ORDERED: Potassium Chloride 40 mEq/30 ml LIQ UD PO ONE (09:06)
[2018-05-24] MEDS: Insulin Lispro 1 UNITS/0.01 ML SC SCH ×3 (09:28→18:00)
[2018-05-24] MEDS: Multivitamin Vitamin B Complex (Nephro-Vite) Tab PO SCH (09:30)
--- NOTE | 2018-05-24 09:38 | CON ---
DATE: 05/22/2018 HISTORY OF PRESENT ILLNESS: The patient is a 62-year-old male with a history of schizophrenia, who is being seen by Psychiatry on the medical floor, though he is followed on the outside by . Dr. Griffin has been following up with the patient, I have reviewed her consultation as well as recent medical notes and nursing notes, and met the patient at bedside today. I agreed Dr. Griffin, though the patient is cooperative, he does show some PMR and some disengagement as well as saw blocking, though overall his responses are relevant to questioning. He is oriented to location, months, and year. He denies having any depression or anxiety. He denies having any depression or hallucinations or paranoia. The patient does admit to having anxiety, but he does not know about the source of anxiety is. He appears to be a little anxious with constricted affect, mild fatness. The patient reports that medications have been beneficial keeping him calmer. The patient has been compliant with treatment, though does not appear today having any behavioral issues on the med floor thus far. Vital signs and labs are reviewed. RELEVANT PSYCHIATRIC MEDICATIONS: Include Klonopin 2 mg p.o. b.i.d., which the patient indicates has been beneficial, Sonata 5 mg at bedtime p.r.n., and Haldol 5 mg at bedtime p.r.n. which the patient has not received thus far or has not required thus far. IMPRESSION: Long history of schizophrenia as well as disorder. The patient appears to be in and out of hypoactive delirium, although this is improving. PLAN: We will continue Klonopin as well as Haldol and Sonata p.r.n. There is no acute indication of change in medications at this time. There is no indication of overt psychosis or disorganization either. Psychiatry will sign out, please re-consult p.r.n. Yenny Bourgeois MD
--- NOTE | 2018-05-24 13:22 | CP.PCM.PN ---
Subjective - Date & Time of Evaluation Date of Evaluation: 05/24/18 Time of Evaluation: 08:35 - Subjective Subjective: Afebrile, not in distress. Objective - Vital Signs/Intake and Output Vital Signs (last 24 hours): Temp Pulse Resp BP Pulse Ox 97.8 F 82 18 134/98 H 96 05/23/18 14:00 05/23/18 14:00 05/23/18 14:00 05/23/18 17:04 05/23/18 14:00 Intake and Output: 05/23/18 05/23/18 06:59 18:59 Intake Total 720 Output Total 0 Balance 720 - Medications Medications: Current Medications Acetaminophen (Tylenol 325mg Tab) 325 mg PO Q6H PRN PRN Reason: Fever >100.4 F Last Admin: 05/23/18 11:46 Dose: 325 mg Albuterol/Ipratropium (Duoneb 3 Mg/0.5 Mg (3 Ml) Ud) 3 ml IH [id number] [facility] Last Admin: 05/23/18 13:51 Dose: 3 ml Calcium Acetate (Phoslo) 667 mg PO WM [facility] Last Admin: 05/23/18 17:02 Dose: 667 mg Clonazepam (Klonopin) 2 mg PO BID [facility]; Protocol Last Admin: 05/23/18 17:04 Dose: 2 mg Darbepoetin Will (Aranesp) 100 mcg SC QWK [facility] Last Admin: 05/18/18 09:55 Dose: 100 mcg Diphenhydramine HCl (Benadryl) 25 mg PO HS PRN PRN Reason: Insomnia Last Admin: 05/22/18 21:27 Dose: 25 mg Haloperidol (Haldol) 5 mg PO HS PRN; Protocol PRN Reason: hallucinations/agitation/insom Last Admin: 05/22/18 21:30 Dose: 5 mg Hydralazine HCl (Apresoline) 10 mg PO QID PRN PRN Reason: for sbp >160 Iron Sucrose 200 mg/ Sodium (Chloride) 110 mls @ 110 mls/hr IVPB DAILY [facility] Stop: 05/25/18 14:31 Last Admin: 05/23/18 09:22 Dose: 110 mls/hr Insulin Detemir (Levemir) 5 unit SC HS [facility] Last Admin: 05/22/18 21:22 Dose: 5 unit Insulin Human Lispro (Humalog) 4 units SC AC [facility] Last Admin: 05/23/18 17:02 Dose: 4 units Insulin Human Regular (Humulin R Low) 0 units SC ACHS [facility]; Protocol Last Admin: 05/23/18 17:03 Dose: Not Given Lorazepam (Ativan) 1 mg IVP Q6H PRN; Protocol PRN Reason: Anxiety Last Admin: 05/23/18 11:06 Dose: 1 mg Metoprolol Tartrate (Lopressor) 50 mg PO BID [facility] Last Admin: 05/23/18 17:04 Dose: 50 mg Pantoprazole Sodium (Protonix Inj) 40 mg IVP Q12 [facility] Last Admin: 05/23/18 09:22 Dose: 40 mg Vitamin B Complex/Vit C/Folic Acid (Nephro-Lydia) 1 tab PO 0800 [facility] Last Admin: 05/23/18 09:20 Dose: 1 tab Zaleplon (Sonata) 5 mg PO HS PRN PRN Reason: Insomnia - Labs Labs: 05/23/18 08:00 05/23/18 08:00 PT 12.8 SECONDS (9.4-12.5) H 05/15/18 01:30 INR 1.11 05/15/18 01:30 APTT 27.0 Seconds (25.1-36.5) 05/14/18 13:30 - Constitutional Appears: Chronically Ill - Head Exam Head Exam: NORMAL INSPECTION - Respiratory Exam Respiratory Exam: Decreased Breath Sounds - Cardiovascular Exam Cardiovascular Exam: +S1, +S2 - GI/Abdominal Exam GI & Abdominal Exam: Soft. absent: Tenderness Assessment and Plan - Assessment and Plan (Free Text) Plan: Assessment systemic inflammatory response syndrome with rhabdomyolysis R/O NSTEMI, no clear source or evidence of bacterial infection coagulase negative staph in blood cx, probably contamination schizophrenia anxiety dementia CAD DM history of esophageal ulcers chronic anemia deafness mental disability Plan Cultures have been negative; will continue to monitor off antibiotics since he is at risk for healthcare-associated infections and observe
--- NOTE | 2018-05-24 14:29 | CP.PCM.PN ---
<Teddy Turner - Last Filed: 05/24/18 14:37> Subjective - Date & Time of Evaluation Date of Evaluation: 05/24/18 Time of Evaluation: 07:45 - Subjective Subjective: Medicine Progress Note for Hospitalist Service, Dr. Lou Turner, DO PGY-1, Director Financial Planning Pt seen and examined at bedside this am. States he does not feel good all over. No acute events reported overnight by staff. Pt denies any pain. Further ROS unobtainable due to pt's current mental status. Objective - Vital Signs/Intake and Output Vital Signs (last 24 hours): Temp Pulse Resp BP Pulse Ox 98.7 F 94 H 20 150/76 96 05/24/18 06:00 05/24/18 06:00 05/24/18 06:00 05/24/18 09:35 05/24/18 06:00 Intake and Output: 05/24/18 05/24/18 06:59 18:59 Intake Total 200 Balance 200 - Medications Medications: Current Medications Acetaminophen (Tylenol 325mg Tab) 325 mg PO Q6H PRN PRN Reason: Fever >100.4 F Last Admin: 05/23/18 11:46 Dose: 325 mg Albuterol/Ipratropium (Duoneb 3 Mg/0.5 Mg (3 Ml) Ud) 3 ml IH [id number] [facility] Last Admin: 05/24/18 14:24 Dose: 3 ml Atorvastatin Calcium (Lipitor) 10 mg PO DIN [facility] Clonazepam (Klonopin) 2 mg PO BID [facility]; Protocol Last Admin: 05/24/18 09:28 Dose: 2 mg Darbepoetin Will (Aranesp) 100 mcg SC QWK [facility] Last Admin: 05/18/18 09:55 Dose: 100 mcg Diphenhydramine HCl (Benadryl) 25 mg PO HS PRN PRN Reason: Insomnia Last Admin: 05/22/18 21:27 Dose: 25 mg Haloperidol (Haldol) 5 mg PO HS PRN; Protocol PRN Reason: hallucinations/agitation/insom Last Admin: 05/24/18 13:05 Dose: 5 mg Hydralazine HCl (Apresoline) 10 mg PO QID PRN PRN Reason: for sbp >160 Iron Sucrose 200 mg/ Sodium (Chloride) 110 mls @ 110 mls/hr IVPB DAILY [facility] Stop: 05/25/18 14:31 Last Admin: 05/24/18 09:06 Dose: 110 mls/hr Insulin Detemir (Levemir) 5 unit SC HS [facility] Last Admin: 05/23/18 22:21 Dose: 5 unit Insulin Human Lispro (Humalog) 4 units SC AC [facility] Last Admin: 05/24/18 13:05 Dose: 4 units Insulin Human Regular (Humulin R Low) 0 units SC ACHS [facility]; Protocol Last Admin: 05/24/18 13:06 Dose: Not Given Lorazepam (Ativan) 1 mg IVP Q6H PRN; Protocol PRN Reason: Anxiety Last Admin: 05/23/18 11:06 Dose: 1 mg Metoprolol Tartrate (Lopressor) 50 mg PO BID [facility] Last Admin: 05/24/18 09:35 Dose: 50 mg Pantoprazole Sodium (Protonix Inj) 40 mg IVP Q12 [facility] Last Admin: 05/24/18 09:30 Dose: 40 mg Vitamin B Complex/Vit C/Folic Acid (Nephro-Lydia) 1 tab PO 0800 [facility] Last Admin: 05/24/18 09:30 Dose: 1 tab Zaleplon (Sonata) 5 mg PO HS PRN PRN Reason: Insomnia - Labs Labs: 05/24/18 06:30 05/24/18 06:30 PT 12.8 SECONDS (9.4-12.5) H 05/15/18 01:30 INR 1.11 05/15/18 01:30 APTT 27.0 Seconds (25.1-36.5) 05/14/18 13:30 - Constitutional Appears: Non-toxic, No Acute Distress - Head Exam Head Exam: ATRAUMATIC, NORMOCEPHALIC - Eye Exam Eye Exam: EOMI, Normal appearance, PERRL - ENT Exam ENT Exam: Mucous Membranes Moist - Respiratory Exam Respiratory Exam: Clear to Ausculation Bilateral, NORMAL BREATHING PATTERN. absent: Rales, Rhonchi, Wheezes - Cardiovascular Exam Cardiovascular Exam: REGULAR RHYTHM, +S1, +S2. absent: Gallop, Rubs, Murmur - GI/Abdominal Exam GI & Abdominal Exam: Soft, Normal Bowel Sounds. absent: Distended, Guarding, Tenderness, Organomegaly - Extremities Exam Extremities Exam: Normal Capillary Refill, Normal Inspection, Pedal Edema (1+ b/l) - Neurological Exam Neurological Exam: Alert, Awake (Oriented x2), CN II-XII Intact - Psychiatric Exam Psychiatric exam: Flat Affect - Skin Skin Exam: Dry, Intact, Warm Assessment and Plan - Assessment and Plan (Free Text) Assessment: 62 year old male with a past medical history significant for CAD s/p CABG, systolic CHF, HTN, DM2, esophageal ulcer with esophagitis, gastritis, duodenitis, schizophrenia and anxiety who presented after a fall. Found to have rhabdomyolysis, HONG, elevated troponin, and leukocytosis. Patient was admitted to ICU for closer monitoring, downgraded to Med/Surg floor. Plan: S/p fall - Bilateral Knee X-Rays unremarkable - CT Head and CT Cervical Spine unremarkable except showing heavily calcified carotid bifurcation - Continue fall precautions - PT eval, recommend RAUL for discharge Rhabdomyolysis, Improved - CPK trending down, last level 1179 on 05/19 - Troponins trending down, most recent level 0.74 on 05/14 - Cr 3.7 currently, improving, elevated from admission (Cr 2.2) Acute Renal Failure, Improving - Likely secondary to rhabdomyolysis - BUN/Creatinine 41/3.7 today - Monitor urine output - Renal US 05/18 - unremarkable - Nephrology consulted (Dr. Elizabeth), recs appreciated, dialysis deferred as per nephro at this time unless Cr continues to rise; pt cleared by Nephro for d/c at this time Hypoalbuminemia - resolved - Albumin 3.3 today - Nephrology consulted; recommends 25% albumin if albumin < 3 - Will continue to monitor daily CMP SIRS - Patient met SIRS criteria in ED - No clear source or evidence of bacterial infection - Today: Patient afebrile and resolved leukocytosis, resolved lactic acidosis - CT Abdomen/Pelvis, Chest X-Ray and UA negative for sources of infection - Coagulase negative staph in blood cx, probably contamination - Urine cultures negative for growth - ESR elevated at 39 - Flu negative - Low dose Tylenol Q6 PRN for fevers - Echocardiogram 05/17: LV normal size, borderline to mild concentric LVH, systolic function mildly impaired, LV diastolic function is normal. Mitral regurgitation is mild. Mild tricuspid regurg. There is mild pulmonary HTN. No vegetation seen. - ID consulted, all recommendations appreciated - abx discontinued per ID - Monitor Dysphagia - GI (Dr. Nieves) consulted; recommendations appreciated - Endoscopy completed 05/17: gastritis and esophagitis History of CAD s/p CABG - Continue Lopressor - Holding ASA (anemia and +FOBT), LEROY inhibitor (ARF) and Statin (elevated LFT's) - Cardiology consulted, all recommendations appreciated Chronic Systolic CHF - Echocardiogram 05/17: LV normal size, borderline to mild concentric LVH, systolic function mildly impaired, LV diastolic function is normal. Mitral regurgitation is mild. Mild tricuspid regurg. There is mild pulmonary HTN. No vegetation seen. - Chest X-Ray (05/19) showed mild CHF, subsegmental atelectasis with possible superimposed PNA - Continue Lopressor 50 mg bid - Cardiology consulted (Dr. King); recs appreciated Transaminitis - resolved - Continue to monitor Microcytic Anemia - H/H today 7.5/26.3 - To be transfused 1 U PRBC today, consent obtained over phone with RN as witness from pt's sister, Lay Sharma; f/u repeat H/H - +FOBT on 05/15 - Protonix 40mg IVP Q12 - GI (Dr. Nieves) consulted; recommendations appreciated - Anemia 2/2 hypoproliferative erythroid response 2/2 to renal disease and iron deficiency - Chronic GI blood loss - esophagitis and gastritis - Dr. Holder consulted (Heme/Onc): Recommend starting IV iron, Monoclonal protein w/u sent History of DM2 - Continue SSI-Low and Accuchecks ACHS - Continue Levemir 5u HS - Continue Humalog 4u AC - A1c: 11.2 - Carbohydrate consistent diet Carotid Calcification - CT Cervical Spine 05/14: unremarkable - Carotid/Vertebral Doppler US 05/16: 60-79 % prox R ICA stenosis; 40-59 % prox L ICA stenosis; Anterograde flow in both vertebral arteries. Cholelithiasis - GB US 05/15: 1.3 cm gallstone, no evidence of cholecystitis - CT Abdomen/Pelvis 05/14: no acute intra-abdominal findings - Recommend general surgery follow up as an outpatient Claudication - Mildly abnormal resting MATTI's and bilateral popliteal, trifurcation and/or tibial disease - Continue to monitor for signs of necrosis PPx: - GI: Protonix 40IVP Q12 and Carafate - DVT: SCD's Diet: HHD Dispo: To be transfused 1 U PRBC today; will be discharged to acute rehab facility tomorrow Pt seen, examined with, and plan discussed with Dr. Serrano, attending physician. Teddy Turner DO PGY-1, Director Financial Planning Pager #[phone] <Lou Serrano R - Last Filed: 05/24/18 20:12> Objective - Vital Signs/Intake and Output Vital Signs (last 24 hours): Temp Pulse Resp BP Pulse Ox 98.6 F 72 18 138/76 96 05/24/18 16:31 05/24/18 16:31 05/24/18 16:31 05/24/18 18:01 05/24/18 16:47 Intake and Output: 05/24/18 05/25/18 18:59 06:59 Intake Total 250 Balance 250 - Medications Medications: Current Medications Acetaminophen (Tylenol 325mg Tab) 325 mg PO Q6H PRN PRN Reason: Fever >100.4 F Last Admin: 05/23/18 11:46 Dose: 325 mg Albuterol/Ipratropium (Duoneb 3 Mg/0.5 Mg (3 Ml) Ud) 3 ml IH [id number] [facility] Last Admin: 05/24/18 19:55 Dose: 3 ml Atorvastatin Calcium (Lipitor) 10 mg PO DIN [facility] Last Admin: 05/24/18 18:01 Dose: 10 mg Clonazepam (Klonopin) 2 mg PO BID [facility]; Protocol Last Admin: 05/24/18 18:00 Dose: 2 mg Darbepoetin Wlil (Aranesp) 100 mcg SC QWK [facility] Last Admin: 05/18/18 09:55 Dose: 100 mcg Diphenhydramine HCl (Benadryl) 25 mg PO HS PRN PRN Reason: Insomnia Last Admin: 05/22/18 21:27 Dose: 25 mg Haloperidol (Haldol) 5 mg PO HS PRN; Protocol PRN Reason: hallucinations/agitation/insom Last Admin: 05/24/18 13:05 Dose: 5 mg Hydralazine HCl (Apresoline) 10 mg PO QID PRN PRN Reason: for sbp >160 Insulin Detemir (Levemir) 5 unit SC HS [facility] Last Admin: 05/23/18 22:21 Dose: 5 unit Insulin Human Lispro (Humalog) 4 units SC AC [facility] Last Admin: 05/24/18 18:00 Dose: 4 units Insulin Human Regular (Humulin R Low) 0 units SC ACHS [facility]; Protocol Last Admin: 05/24/18 13:06 Dose: Not Given Lorazepam (Ativan) 1 mg IVP Q6H PRN; Protocol PRN Reason: Anxiety Last Admin: 05/23/18 11:06 Dose: 1 mg Metoprolol Tartrate (Lopressor) 50 mg PO BID [facility] Last Admin: 05/24/18 18:01 Dose: 50 mg Pantoprazole Sodium (Protonix Inj) 40 mg IVP Q12 [facility] Last Admin: 05/24/18 09:30 Dose: 40 mg Vitamin B Complex/Vit C/Folic Acid (Nephro-Lydia) 1 tab PO 0800 [facility] Last Admin: 05/24/18 09:30 Dose: 1 tab Zaleplon (Sonata) 5 mg PO HS PRN PRN Reason: Insomnia - Labs Labs: 05/24/18 06:30 05/24/18 06:30 PT 12.8 SECONDS (9.4-12.5) H 05/15/18 01:30 INR 1.11 05/15/18 01:30 APTT 27.0 Seconds (25.1-36.5) 05/14/18 13:30 Attending/Attestation - Attestation I have personally seen and examined this patient.: Yes I have fully participated in the care of the patient.: Yes I have reviewed all pertinent clinical information, including history, physical exam and plan: Yes Notes (Text): Patient seen and examined by me with resident at 9:50 AM on 05/24/18. Case including HPI, physical exam, and assessment and plan discussed with resident. Agree with above with following additions/corrections. Patient is a 62-year-old male with past medical history significant for artery disease status post CABG, systolic CHF, hypertension, schizophrenia, anxiety, GI bleed, esophageal ulcer, and type 2 diabetes that presented to the emergency room status post a fall. Patient states he is not feeling good today. Patient is unable to explain why he is not feeling well. States he does not want to do physical therapy today and will do it tomorrow. Patient denies chest pain or shortness of breath. No fevers or chills. No headaches or dizziness. No nausea, vomiting, or abdominal pain. No dysuria. Physical exam: General: Awake and alert lying in bed in no acute distress HEENT: Normocephalic, atraumatic. Extraocular muscles intact, pupils equal and reactive, no scleral icterus. Oropharynx is pink and moist. Neck is supple. Cardiovascular: Regular rhythm. Normal S1 and S2. No murmurs, rubs, or gallops appreciated Pulmonary: Normal respiratory effort. No rales, rhonchi, or wheezing appr eciated. Gastrointestinal: Soft, nondistended. Nontender. Positive bowel sounds all 4 quadrants. No guarding. Positive globular abdomen Musculoskeletal: Moves all extremities. No calf tenderness. Bilateral knees with healing abrasions. Central nervous system: AAOx3 with periods of confusion. Dermatologic: Skin warm and dry. Resolving ecchymosis on forehead and healing abrasions on face. Assessment and plan: Patient is a 62-year-old male with past medical history significant for artery disease status post CABG, systolic CHF, hypertension, schizophrenia, anxiety, GI bleed, esophageal ulcer, and type 2 diabetes that presented to the emergency room status post a fall. 1. Acute renal failure. Likely secondary to rhabdomyolysis and SIRS. Creatinine continues to down trend. S/P treatment with Lasix. Continue nephrovite. Nephrology following, recommendations appreciated. Renal ultrasound per radiologist showed unremarkable renal sonogram. Case discussed with leather cartridge belt maker Dr. Pearce, patient cleared for discharge. 2. Anemia. H&H stable. History of GI bleed. Stool for occult blood positive. GI following, recommendations appreciated. Continue Protonix. Hem/onc following, recommendations appreciated. Continue to monitor CBC. S/P endoscopy which showed esophagitis and gastritis. Case discussed with hem/onc Dr. Holder. IV iron stopped. Patient to receive one unit PRBC. Patient cleared for discharge after blood transfusion per hem/onc. 3. SIRS. Patient afebrile. With leukopenia. Blood cultures with no growth. Urine culture with no growth. S/P treatment with Maxipime. Pro-calcitonin elevated at 6.35. Lactic acid was 3.1 improved to 1.9. ID following, recommendations appreciated. CT abdomen and pelvis per radiologist showed no acute intra- abdominal findings. Gallbladder ultrasound radiologist showed 1.3 cm gallstone, no evidence of cholecystitis. Chest x-ray per radiologist showed no active disease. 4. Rhabdomyolysis. Likely secondary to fall. Resolving. 5. Elevated troponins in a patient with a history of coronary artery disease. Patient with no chest pain. Elevated troponins likely secondary to rhabdomyolysis and acute renal failure. Troponins down trended. Cardiology foll owing, recommendations appreciated. LEROY inhibitor held secondary to acute renal failure. Continue Lopressor. Continue Lipitor. 6. Chronic systolic CHF. LEROY inhibitor held for now secondary to acute renal failure. Continue with Lopressor. Cardiology following, recommendations appreciated. 7. Transaminitis. Secondary to rhabdomyolysis. Resolved. Continue to monitor. 8. Hypoalbuminemia. Resolved. Continue to monitor. 9. Dysphagia. GI following, recommendations appreciated. Speech and swallow following, recommendations appreciated. Continue with dysphagia diet. Continue aspiration precautions. 10. Type 2 diabetes. Continue with insulin sliding scale. Continue Levemir5 units subcutaneous at bedtime and Humalog 4 units before meals. Continue to monitor Accu-Cheks. HgbA1c 11.2 11. Carotid calcification. Carotid ultrasound per radiologist showed 60-79% proximal right ICA stenosis, 40-59% left ICA stenosis, antegrade flow in both vertebral arteries. Continue Lipitor 12. Cholelithiasis. Gallbladder ultrasound radiologist showed 1.3 cm gallstone, no evidence of cholecystitis. Patient to follow up outpatient. 13. Status post fall. Bilateral knee x-rays per radiologist showed normal radiographs of the right and left knee. CT cervical spine per radiologist was unremarkable. Head CT per radiologist showed no acute intracranial findings. Continue fall precautions. Continue PT. Patient for RAUL 14. Anxiety/agitation. Continue Klonopin. Continue Haldol prn. Continue Ativan prn. 15. GI/DVT prophylaxis. Continue protonix/SCDs Case was discussed in detail with the patient regarding current diagnosis and treatment plan. All questions answered. Case also discussed with nephrology Dr. Pearce and hem/onc Dr. Holder
--- NOTE | 2018-05-24 14:33 | CP.PCM.PN ---
Subjective - Date & Time of Evaluation Date of Evaluation: 05/24/18 Time of Evaluation: 14:31 - Subjective Subjective: RENAL NOTE pt denies CP/SOB. noted overnight events pe: vs reviewed gen: nad sclera: anicteric op: clear, poor dentition neck supple no thyromegaly cv: +S1+s2 no rub abd: soft nt nd no organomegaly lungs wbilateral air entry equal, few basal rale ext: no edema neuro: awake alert psych: flat. limited insight skin bruising on b/l knees labs and imaging reviewed Imp: ARF/ Rhabdomylosis/ Anemia/ ? sepsis/hyperphos/ATN/PUD plan: HONG - likely from combination of rhabdo +/ - developing sirs / sepsis: IMPROVING No need for dialysis initiation as pt with spontaneous renal recovery. cr trending down well started weekly aransep, iron, MVI and phos binders. gave one dose of Vit D. PRBC as needed continue with PPI. but avoid carafate/al and mag based laxatives/antacid. no fleet enemas pt stable for d/c from renal perspective when planned with 1 week outpt renal follow up d/c phoslo. supplement lytes as needed had d/w team Objective - Vital Signs/Intake and Output Vital Signs (last 24 hours): Temp Pulse Resp BP Pulse Ox 98.7 F 94 H 20 150/76 96 05/24/18 06:00 05/24/18 06:00 05/24/18 06:00 05/24/18 09:35 05/24/18 06:00 Intake and Output: 05/24/18 05/24/18 06:59 18:59 Intake Total 200 Balance 200 - Medications Medications: Current Medications Acetaminophen (Tylenol 325mg Tab) 325 mg PO Q6H PRN PRN Reason: Fever >100.4 F Last Admin: 05/23/18 11:46 Dose: 325 mg Albuterol/Ipratropium (Duoneb 3 Mg/0.5 Mg (3 Ml) Ud) 3 ml IH [id number] [facility] Last Admin: 05/24/18 14:24 Dose: 3 ml Atorvastatin Calcium (Lipitor) 10 mg PO DIN [facility] Clonazepam (Klonopin) 2 mg PO BID [facility]; Protocol Last Admin: 05/24/18 09:28 Dose: 2 mg Darbepoetin Will (Aranesp) 100 mcg SC QWK [facility] Last Admin: 05/18/18 09:55 Dose: 100 mcg Diphenhydramine HCl (Benadryl) 25 mg PO HS PRN PRN Reason: Insomnia Last Admin: 05/22/18 21:27 Dose: 25 mg Haloperidol (Haldol) 5 mg PO HS PRN; Protocol PRN Reason: hallucinations/agitation/insom Last Admin: 05/24/18 13:05 Dose: 5 mg Hydralazine HCl (Apresoline) 10 mg PO QID PRN PRN Reason: for sbp >160 Iron Sucrose 200 mg/ Sodium (Chloride) 110 mls @ 110 mls/hr IVPB DAILY [facility] Stop: 05/25/18 14:31 Last Admin: 05/24/18 09:06 Dose: 110 mls/hr Insulin Detemir (Levemir) 5 unit SC HS [facility] Last Admin: 05/23/18 22:21 Dose: 5 unit Insulin Human Lispro (Humalog) 4 units SC AC [facility] Last Admin: 05/24/18 13:05 Dose: 4 units Insulin Human Regular (Humulin R Low) 0 units SC ACHS [facility]; Protocol Last Admin: 05/24/18 13:06 Dose: Not Given Lorazepam (Ativan) 1 mg IVP Q6H PRN; Protocol PRN Reason: Anxiety Last Admin: 05/23/18 11:06 Dose: 1 mg Metoprolol Tartrate (Lopressor) 50 mg PO BID [facility] Last Admin: 05/24/18 09:35 Dose: 50 mg Pantoprazole Sodium (Protonix Inj) 40 mg IVP Q12 [facility] Last Admin: 05/24/18 09:30 Dose: 40 mg Vitamin B Complex/Vit C/Folic Acid (Nephro-Lydia) 1 tab PO 0800 [facility] Last Admin: 05/24/18 09:30 Dose: 1 tab Zaleplon (Sonata) 5 mg PO HS PRN PRN Reason: Insomnia - Labs Labs: 05/24/18 06:30 05/24/18 06:30 PT 12.8 SECONDS (9.4-12.5) H 05/15/18 01:30 INR 1.11 05/15/18 01:30 APTT 27.0 Seconds (25.1-36.5) 05/14/18 13:30
--- NOTE | 2018-05-24 21:18 | PN ---
DATE: 05/24/2018 SEX OF THE PATIENT: Male. AGE OF THE PATIENT: 62. TYPE OF DICTATION: Progress note. REFERRING PHYSICIAN: Juan Ramon Capellan MD REASON FOR CONSULTATION: Followup of coronary artery disease, history of coronary artery bypass, COPD, rhabdomyolysis, fall secondary to rhabdomyolysis, acute kidney injury. SUBJECTIVE: The patient denies any chest pain, shortness of breath, or any palpitation. OBJECTIVE: GENERAL: Not in any apparent distress. PHYSICAL EXAMINATION: As follows: VITAL SIGNS: Temperature afebrile, heart rate 74, and blood pressure 140/72. HEENT: PERRLA. Extraocular muscles intact. NECK: Supple. No carotid bruit or thyromegaly. CHEST: Clear to auscultation. HEART: S1 and S2 are regular. ABDOMEN: Soft. EXTREMITIES: Clubbing and cyanosis negative. LABORATORY DATA: Blood workup as follows: WBC 4, hemoglobin 7.9, hematocrit 26.3, and platelet count 177. Chemistry shows sodium 141, potassium 3.3, chloride 104, carbon dioxide 27, anion gap of 13, BUN 41, and creatinine 3.7. IMPRESSION: A 62-year-old male with past medical history significant for coronary artery disease, coronary artery bypass graft, status post fall, acute rhabdomyolysis, acute kidney injury, requiring dialysis, no recovery. The patient had positive troponin secondary to rhabdomyolysis but CPK-MB was normal, so is not in myocardial infarction. Creatinine climbed up to 8.1, troponin was negative, but MB fraction was low. Now presents for renal function recovery. The patient is asymptomatic from cardiology point of view. The patient has some decreased left ventricular ejection fraction 40%. Possibly this combination of rhabdomyolysis and rhabdomyolysis sepsis related syndrome and acute kidney injury secondary to rhabdomyolysis. RECOMMENDATION: Continue metoprolol as tolerated. Continue atorvastatin. Avoid nephrotoxic medication. Continue hydralazine. Since renal function is recovering, today creatinine improved up to 3.7, monitor closely. We will follow with you. Thank you Dr. Caruso for providing us the opportunity in taking care of the patient, Jose Carty. We will follow with you. Repeat the lab in the morning. Maurice King MD
[2018-05-24] MEDS: Insulin Detemir 100 units/ml Vial (Levemir) SC SCH (23:42)
[2018-05-25 00:02] LABS: ALBUMIN (PEP) 2.7 g/dL (3.8-4.8); ALPHA-1-GLOBULIN (PEP) 0.4 g/dL (0.2-0.3)
[2018-05-25] MEDS: Albuterol-Ipratrop 3 mg / 0.5 (3 ml) UD IH SCH ×4 (01:13→20:23)
[2018-05-25] MEDS: Insulin Reg-LOW-Coverage SC SCH ×4 (07:30→23:15)
[2018-05-25] MEDS: Insulin Lispro 1 UNITS/0.01 ML SC SCH ×3 (07:30→16:40)
--- NOTE | 2018-05-25 07:40 | CP.PCM.PN ---
Subjective - Date & Time of Evaluation Date of Evaluation: 05/25/18 Time of Evaluation: 06:30 - Subjective Subjective: Awake, lying in bed, no distress Reason for consultation and follow up: Cardiac evaluation and follow up of coronary artery disease, post CABG, history of COPD, rhabdomyolyis, post fall,acute kidney injury Seen and examined by me and Dr. King Objective - Vital Signs/Intake and Output Vital Signs (last 24 hours): Temp Pulse Resp BP Pulse Ox 98.6 F 72 18 138/76 96 05/24/18 16:31 05/24/18 16:31 05/24/18 16:31 05/24/18 18:01 05/24/18 16:47 - Medications Medications: Current Medications Acetaminophen (Tylenol 325mg Tab) 325 mg PO Q6H PRN PRN Reason: Fever >100.4 F Last Admin: 05/23/18 11:46 Dose: 325 mg Albuterol/Ipratropium (Duoneb 3 Mg/0.5 Mg (3 Ml) Ud) 3 ml IH [id number] [facility] Last Admin: 05/25/18 01:13 Dose: 3 ml Aspirin (Aspirin Chewable) 81 mg PO DAILY [facility] Atorvastatin Calcium (Lipitor) 10 mg PO DIN [facility] Last Admin: 05/24/18 18:01 Dose: 10 mg Clonazepam (Klonopin) 2 mg PO BID [facility]; Protocol Last Admin: 05/24/18 18:00 Dose: 2 mg Darbepoetin Will (Aranesp) 100 mcg SC QWK [facility] Last Admin: 05/18/18 09:55 Dose: 100 mcg Diphenhydramine HCl (Benadryl) 25 mg PO HS PRN PRN Reason: Insomnia Last Admin: 05/22/18 21:27 Dose: 25 mg Haloperidol (Haldol) 5 mg PO HS PRN; Protocol PRN Reason: hallucinations/agitation/insom Last Admin: 05/24/18 13:05 Dose: 5 mg Hydralazine HCl (Apresoline) 10 mg PO QID PRN PRN Reason: for sbp >160 Insulin Detemir (Levemir) 5 unit SC HS [facility] Last Admin: 05/24/18 23:42 Dose: 5 unit Insulin Human Lispro (Humalog) 4 units SC AC [facility] Last Admin: 05/24/18 18:00 Dose: 4 units Insulin Human Regular (Humulin R Low) 0 units SC ACHS [facility]; Protocol Last Admin: 05/24/18 22:25 Dose: Not Given Lorazepam (Ativan) 1 mg IVP Q6H PRN; Protocol PRN Reason: Anxiety Last Admin: 05/23/18 11:06 Dose: 1 mg Metoprolol Tartrate (Lopressor) 50 mg PO BID [facility] Last Admin: 05/24/18 18:01 Dose: 50 mg Pantoprazole Sodium (Protonix Inj) 40 mg IVP Q12 [facility] Last Admin: 05/24/18 22:00 Dose: 40 mg Vitamin B Complex/Vit C/Folic Acid (Nephro-Lydia) 1 tab PO 0800 [facility] Last Admin: 05/24/18 09:30 Dose: 1 tab Zaleplon (Sonata) 5 mg PO HS PRN PRN Reason: Insomnia - Labs Labs: 05/24/18 06:30 05/24/18 06:30 PT 12.8 SECONDS (9.4-12.5) H 05/15/18 01:30 INR 1.11 05/15/18 01:30 APTT 27.0 Seconds (25.1-36.5) 05/14/18 13:30 - Constitutional Appears: Non-toxic, No Acute Distress - Head Exam Head Exam: NORMAL INSPECTION, NORMOCEPHALIC - Eye Exam Eye Exam: Normal appearance Pupil Exam: NORMAL ACCOMODATION - ENT Exam ENT Exam: Mucous Membranes Moist, Normal Exam - Respiratory Exam Respiratory Exam: Decreased Breath Sounds, Clear to Ausculation Bilateral, NORMAL BREATHING PATTERN - Cardiovascular Exam Cardiovascular Exam: +S1, +S2 - GI/Abdominal Exam GI & Abdominal Exam: Soft, Normal Bowel Sounds - Extremities Exam Extremities Exam: Full ROM, Normal Capillary Refill - Neurological Exam Neurological Exam: Alert, Awake - Psychiatric Exam Psychiatric exam: Normal Affect, Normal Mood - Skin Skin Exam: Dry, Normal Color, Warm Assessment and Plan - Assessment and Plan (Free Text) Assessment: A 62 year old male who came to the ER due to fall. History of coronary artery disease, post CABG, status post fall, acute rhabdomyolysis,acute kidney injury,requiring dialysis, positive troponin secondary rhabdomyolysis but CPK-MB was normal, rule out acute myocardial infaction. History of Hypertension, Schizophrenia, Anxiety, GI bleed, Diabetes Mellitus Type 2, Esophageal Ulcer. Cardiac status stable. Renal status improving Plan: Denies chest pain or shortness of breath Cardiac status stable Heart rate and blood pressure controlled On ASA 81 mg daily, Lipitor 10 mg daily, Lopressor 50 mg BID Continue current treatment Continue current medications Will follow up Discharge planning Plan and treatment discussed with Dr. King
[2018-05-25 07:58] LABS: HEMOGLOBIN 8.4 g/dL (14.0-18.0); MEAN CELL VOLUME 69.2 fl (80.0-105.0); MEAN CORPUSCULAR HEMOGLOBIN 19.9 pg (25.0-35.0); MEAN CORPUSCULAR HGB CONC 28.8 g/dl (31.0-37.0); MEAN PLATELET VOLUME 8.7 fl (7.0-11.0); RBC 4.22 10^6/uL (3.5-6.1); RED CELL DISTRIBUTION WIDTH 22.3 % (11.5-14.5)
[2018-05-25 08:13] LABS: ALB/GLOB RATIO 1.1 (1.1-1.8); ALBUMIN 3.4 g/dL (3.0-4.8)
[2018-05-25 08:38] VITALS: RESP 20
[2018-05-25] MEDS ORDERED: Magnesium Sulfate 2 gm/50 ml 2 GM/50 ML BAG IVPB ONE (10:50)
--- NOTE | 2018-05-25 12:07 | CP.PCM.DIS ---
<Teddy Turner - Last Filed: 05/25/18 14:29> Provider - Provider Date of Admission: 05/14/18 16:14 Attending physician: Merlyn Caruso MD Primary care physician: Russ Carpenter MD Consults: 05/14/18 18:18 Infectious Disease Consult Routine Comment: Consulting Provider: Eladio Kendrick Consulting Physician: Eladio Kendrick Reason for Consult: code sepsis, no clear source of infection 05/14/18 18:50 Cardiology Consult Routine Comment: Consulting Provider: Maurice King Consulting Physician: Maurice King Reason for Consult: CABG hx, elevated troponins(prob 2/2 rhabdo and mohan) 05/14/18 22:38 Social Work Referral Routine Comment: none Physician Instructions: none Reason For Exam: discharge planning 05/15/18 11:08 Consult [Physician Consult] Routine Comment: Consulting Provider: Janes Nieves V Consulting Physician: Janes Nieves V Reason for Consult: +FOBT, h/o GIB, black stool 05/15/18 18:13 Nephrology Consult Routine Comment: Consulting Provider: Chelsea Elizabeth Consulting Physician: Chelsea Elizabeth Reason for Consult: Worsening renal function + Rhabdo 05/17/18 09:30 Consult [Physician Consult] Routine Comment: Consulting Provider: Rosalva Griffin Consulting Physician: Rosalva Griffin Reason for Consult: schizophrenia, now rhabdo--restart meds 05/19/18 08:18 Consult [Physician Consult] Routine Comment: Consulting Provider: Earnest Holder Consulting Physician: Earnest Holder Reason for Consult: anemia 05/20/18 17:45 Dysphagia Evaluation (CALL PERSON) ONCE Comment: Physician Instructions: Reason For Exam: Stroke Evaluation Time Spent in preparation of Discharge (in minutes): 45 Diagnosis - Discharge Diagnosis (1) Schizophrenia Status: Chronic (2) Status post fall Status: Resolved (3) Hypoalbuminemia Status: Resolved (4) SIRS (systemic inflammatory response syndrome) Status: Resolved (5) Gastritis Status: Chronic (6) MOHAN (acute kidney injury) Status: Resolved (7) Rhabdomyolysis Status: Resolved (8) Anemia Status: Acute (9) Dysphagia Status: Chronic Hospital Course - Lab Results Lab Results: Micro Results 05/17/18 05:40 Blood Blood Culture - Final NO GROWTH AFTER 5 DAYS 05/17/18 05:40 Blood Gram Stain - Final TEST NOT PERFORMED 05/17/18 05:20 Blood Blood Culture - Final NO GROWTH AFTER 5 DAYS 05/17/18 05:20 Blood Gram Stain - Final TEST NOT PERFORMED 05/14/18 14:00 Blood Blood Culture - Final NO GROWTH AFTER 5 DAYS 05/14/18 14:00 Blood Gram Stain - Final TEST NOT PERFORMED 05/14/18 13:20 Blood S.aureus & Coag-Neg Staph PNA FISH - Final 05/14/18 13:20 Blood Blood Culture - Final Coagulase Neg Staphylococcus 05/14/18 13:20 Blood Gram Stain - Final 05/14/18 19:54 Nose MRSA Culture (Admit) - Final MRSA NOT DETECTED 05/14/18 15:30 Urine,Catheterized Urine Culture - Final No Growth (<1,000 CFU/ML) Most Recent Lab Values WBC 5.0 10^3/uL (4.5-11.0) D 05/25/18 07:15 RBC 4.22 10^6/uL (3.5-6.1) 05/25/18 07:15 Hgb 8.4 g/dL (14.0-18.0) L 05/25/18 07:15 Hct 29.2 % (42.0-52.0) L 05/25/18 07:15 MCV 69.2 fl (80.0-105.0) L 05/25/18 07:15 MCH 19.9 pg (25.0-35.0) L 05/25/18 07:15 MCHC 28.8 g/dl (31.0-37.0) L 05/25/18 07:15 RDW 22.3 % (11.5-14.5) H 05/25/18 07:15 Plt Count 186 10^3/uL (120.0-450.0) 05/25/18 07:15 MPV 8.7 fl (7.0-11.0) 05/25/18 07:15 Gran % 60.4 % (50.0-68.0) 05/24/18 06:30 Lymph % (Auto) 25.1 % (22.0-35.0) 05/24/18 06:30 [place] % (Auto) 10.4 % (1.0-6.0) H 05/24/18 06:30 Eos % (Auto) 3.3 % (1.5-5.0) 05/24/18 06:30 Baso % (Auto) 0.8 % (0.0-3.0) 05/24/18 06:30 Gran # 2.39 (1.4-6.5) 05/24/18 06:30 Lymph # (Auto) 1.0 (1.2-3.4) L 05/24/18 06:30 [place] # (Auto) 0.4 (0.1-0.6) 05/24/18 06:30 Eos # (Auto) 0.1 (0.0-0.7) 05/24/18 06:30 Baso # (Auto) 0.03 K/mm3 (0.0-2.0) 05/24/18 06:30 Neutrophils % (Manual) 88 % (50.0-70.0) H 05/14/18 13:30 Band Neutrophils % 4 % (0-2) H 05/14/18 13:30 Lymphocytes % (Manual) 5 % (22.0-35.0) L 05/14/18 13:30 Monocytes % (Manual) 3 % (1.0-6.0) 05/14/18 13:30 Polychromasia Slight 05/14/18 13:30 Hypochromasia Slight 05/14/18 13:30 Poikilocytosis (manual Slight 05/14/18 13:30 Anisocytosis (manual) Slight 05/14/18 13:30 Microcytosis (manual) 2+ 05/14/18 13:30 Ovalocytes Slight 05/14/18 13:30 Schistocytes Slight 05/14/18 13:30 ESR 39 mm/hr (0.00-15.0) H 05/16/18 13:14 Retic Count 2.04 % (0.5-1.5) H 05/14/18 19:00 PT 12.8 SECONDS (9.4-12.5) H 05/15/18 01:30 INR 1.11 05/15/18 01:30 APTT 27.0 Seconds (25.1-36.5) 05/14/18 13:30 pO2 62 mm/Hg (30-55) H 05/19/18 12:40 VBG pH 7.32 (7.32-7.43) 05/19/18 12:40 VBG pCO2 43.0 (40-60) 05/19/18 12:40 VBG HCO3 22.2 mmol/l (21-28) 05/19/18 12:40 VBG Total CO2 22.2 mmol.L (22-28) 05/18/18 11:04 VBG O2 Sat (Calc) 94.1 % (40-65) H 05/19/18 12:40 VBG Base Excess -3.9 mmol/L (0.0-2.0) L 05/19/18 12:40 VBG Potassium 4.2 mmol/L (3.6-5.2) 05/18/18 11:04 Sodium 131.0 mmol/L (132-148) L 05/18/18 11:04 Chloride 101.0 mmol/L (98-107) 05/18/18 11:04 Glucose 216 mg/dl (75-110) H 05/18/18 11:04 Lactate 1.7 mmol/L (0.7-2.1) 05/18/18 11:04 FiO2 21.0 % 05/18/18 11:04 Sodium 141 mmol/L (132-148) 05/25/18 07:15 Potassium 3.7 mmol/L (3.6-5.0) 05/25/18 07:15 Chloride 107 mmol/L (98-107) 05/25/18 07:15 Carbon Dioxide 24 mmol/L (21-33) 05/25/18 07:15 Anion Gap 14 (10-20) 05/25/18 07:15 BUN 33 mg/dL (7-21) H 05/25/18 07:15 Creatinine 2.7 mg/dl (0.8-1.5) H 05/25/18 07:15 Est GFR ( Amer) 29 05/25/18 07:15 Est GFR (Non-Af Amer) 24 05/25/18 07:15 POC Glucose (mg/dL) 142 mg/dL (65-110) H 05/25/18 11:32 Random Glucose 122 mg/dL (70-110) H 05/25/18 07:15 Hemoglobin A1c 11.2 % (4.2-6.5) H D 05/15/18 10:33 Lactic Acid 1.7 mmol/L (0.7-2.1) 05/14/18 19:00 Calcium 9.0 mg/dL (8.4-10.5) 05/25/18 07:15 Phosphorus 4.2 mg/dL (2.5-4.5) 05/25/18 07:15 Magnesium 1.2 mg/dL (1.7-2.2) L 05/25/18 07:15 Iron 12 ug/dL (45-180) L 05/14/18 19:00 TIBC 380 ug/dL (261-462) 05/14/18 19:00 % Saturation 3 % (20-55) L 05/14/18 19:00 Ferritin 50.7 ng/mL 05/18/18 09:39 Total Bilirubin 0.7 mg/dL (0.2-1.3) 05/25/18 07:15 AST 33 U/L (17-59) 05/25/18 07:15 ALT 37 U/L (7-56) 05/25/18 07:15 Alkaline Phosphatase 70 U/L (38-126) 05/25/18 07:15 Ammonia < 9 umol/L (9-33) L 05/17/18 05:20 Total Creatine Kinase 1179 U/L (35-230) H 05/19/18 05:20 CK-MB (CK-2) 2.2 ng/mL (0.0-3.6) 05/18/18 08:00 CK-MB (CK-2) % 0.0 % (2.5-3.0) L 05/15/18 16:20 Troponin I 0.14 ng/mL H* D 05/19/18 05:20 C-React Prot High Sens > 15.00 mg/L (1.00-3.00) H 05/16/18 13:14 Total Protein 6.5 g/dL (5.8-8.3) 05/25/18 07:15 Total Protein (PEP) 5.0 g/dL (6.1-8.1) L 05/19/18 05:20 Albumin 3.4 g/dL (3.0-4.8) 05/25/18 07:15 Albumin (PEP) 2.7 g/dL (3.8-4.8) L 05/19/18 05:20 Globulin 3.1 gm/dL 05/25/18 07:15 Albumin/Globulin Ratio 1.1 (1.1-1.8) 05/25/18 07:15 Ixotz-9-Lthnevylp 0.4 g/dL (0.2-0.3) H 05/19/18 05:20 Ncfrb-9-Rakalsvxn 0.7 g/dL (0.5-0.9) 05/19/18 05:20 Yror-0-Mjnelpfz 0.3 g/dL (0.4-0.6) L 05/19/18 05:20 Vtxv-6-Euwoowbd 0.3 g/dL (0.2-0.5) 05/19/18 05:20 Gamma Globulins 0.6 g/dL (0.8-1.7) L 05/19/18 05:20 Abnorm Protein Band 1 TEST NOT PERFORMED 05/19/18 05:20 Abnorm Protein Band 2 TEST NOT PERFORMED 05/19/18 05:20 Abnorm Protein Band 3 TEST NOT PERFORMED 05/19/18 05:20 Vitamin B12 455 pg/mL (239-931) 05/18/18 09:39 25-OH Vitamin D Total 30.7 NG/ML (30.0-100.0) 05/19/18 05:20 Procalcitonin 6.35 NG/ML (0.19-0.49) H 05/15/18 06:00 PTH Intact Whole Molec 15 pg/mL (14-64) 05/14/18 19:00 Venous Blood Potassium 4.2 mmol/L (3.6-5.2) 05/18/18 11:04 Urine Color Yellow (YELLOW) 05/18/18 22:43 Urine Appearance Turbid (CLEAR) 05/18/18 22:43 Urine pH 6.0 (4.7-8.0) 05/18/18 22:43 Ur Specific [place] <= 1.005 (1.005-1.035) 05/18/18 22:43 Urine Protein Trace mg/dL (<30 mg/dL) H 05/18/18 22:43 Urine Glucose (UA) Negative mg/dL (NEGATIVE) 05/18/18 22:43 Urine Ketones Negative mg/dL (NEGATIVE) 05/18/18 22:43 Urine Blood Large (NEGATIVE) H 05/18/18 22:43 Urine Nitrate Negative (NEGATIVE) 05/18/18 22:43 Urine Bilirubin Negative (NEGATIVE) 05/18/18 22:43 Urine Urobilinogen 0.2 E.U./dL (<1 E.U./dL) 05/18/18 22:43 Ur Leukocyte Esterase Trace Irvin/uL (NEGATIVE) H 05/18/18 22:43 Urine RBC 25 - 30 /hpf (0-2) 05/18/18 22:43 Urine WBC 1 - 3 /hpf (0-6) 05/18/18 22:43 Ur Epithelial Cells None /hpf (0-5) 05/14/18 15:30 Urine Bacteria Few (NEG) 05/14/18 15:30 Ur Random Creatinine 39 mg/dL (20-320) 05/18/18 22:27 U Random Total Protein 1359 mg/g creat (22-128) H 05/18/18 22:27 Urine Total Volume 2.9 mg/dL 05/18/18 22:27 Microalb/Creat Ratio 74 (<30) H 05/18/18 22:27 Stool Occult Blood Positive (NEGATIVE) H 05/15/18 10:48 Random Vancomycin 16.7 ug/mL (20-40) L 05/17/18 05:20 Urine Opiates Screen Negative (NEGATIVE) 05/14/18 16:30 Urine Methadone Screen Negative (NEGATIVE) 05/14/18 16:30 Ur Barbiturates Screen Negative (NEGATIVE) 05/14/18 16:30 Ur Phencyclidine Scrn Negative (NEGATIVE) 05/14/18 16:30 Ur Amphetamines Screen Negative (NEGATIVE) 05/14/18 16:30 U Benzodiazepines Scrn Negative (NEGATIVE) 05/14/18 16:30 U Oth Cocaine Metabols Negative (NEGATIVE) 05/14/18 16:30 U Cannabinoids Screen Negative (NEGATIVE) 05/14/18 16:30 Alcohol, Quantitative < 10 mg/dL (0-10) 05/14/18 16:00 TONI & SPEP Interp See note 05/19/18 05:20 Serum Immunofixation Not detected (Not Detected) 05/19/18 05:20 Tot [place]/Lambda Ratio 1.82 (1.29-2.55) 05/19/18 05:20 [place] Light Chain Anal 197 mg/dL (176-443) 05/19/18 05:20 Lambda Light Chain Anal 108 mg/dL (91-240) 05/19/18 05:20 Hep Bs Antigen Negative (NEGATIVE) 05/18/18 09:39 Hep Bs Antibody Negative (NEGATIVE) 05/18/18 09:39 Hep B Core IgM Ab Negative (NEGATIVE) 05/18/18 09:39 Hepatitis C Antibody Negative (NEGATIVE) 05/18/18 09:39 HIV 1&2 Ag/Ab, 4th Gen Nonreactive (Nonreactive) 05/15/18 12:00 Influenza Typ A,B (EIA) Negative for flu a/b (NEGATIVE) 05/18/18 22:27 Blood Type O POSITIVE 05/24/18 13:00 Antibody Screen Negative 05/24/18 13:00 Crossmatch See Detail 05/24/18 13:00 BBK History Checked Patient has bt 05/24/18 13:00 - Hospital Course Hospital Course: HPI at time of admission: "62-year-old Male with PMH significant for CAD s/p CABG, EF 40%, Hypertension, S chizophrenia, Anxiety, GI bleed, Diabetes Mellitus Type 2, Esophageal Ulcer, who presents to [facility] ED status-post fall from this AM. Please note: Patient is a poor historian. Patient states that his "leg gave out" and that he was unable to get up after falling. Patient denies hitting his head and/or loss of consciousness. Patient states that his sister called EMS after attempting to reach the Patient over the phone unsuccessfully. Patient was subsequently brought to the ED by EMS. Patient admits to abdominal pain, but otherwise denies lower extremity pain, headache, blurred vision, back pain, dysuria, dizziness, fever, chills, chest pain, and/or shortness of breath." Hospital Course: Found to have rhabdomyolysis, MOHAN, elevated troponin, and leukocytosis. Patient was admitted to ICU for closer monitoring, downgraded to Med/Surg floor prior to discharge to acute rehab facility. Pertinent imaging: Bilateral Knee X-Rays unremarkable CT Head and CT Cervical Spine unremarkable except showing heavily calcified carotid bifurcation CT abd/pelvis neg for acute intraabdominal findings Chest X-Ray (05/19) showed mild CHF, subsegmental atelectasis with possible superimposed PNA Echocardiogram 05/17: LV normal size, borderline to mild concentric LVH, systolic function mildly impaired, LV diastolic function is normal. Mitral regurgitation is mild. Mild tricuspid regurg. There is mild pulmonary HTN. No vegetation seen. Endoscopy completed 05/17: gastritis and esophagitis Carotid/Vertebral Doppler US 05/16: 60-79 % prox R ICA stenosis; 40-59 % prox L ICA stenosis; Anterograde flow in both vertebral arteries Gallbladder U/s 05/15: 1.3 cm gallstone, no evidence of cholecystitis. Recommend that pt follow-up outpatient within 3-5 days of discharge from acute rehab facility with General Surgery. CPK was elevated on admission, troponins elevated as well likely 2/2 to rhabdomyolysis and hx of chronic CHF, both trended down prior to discharge. Cardiology (Dr. King) was consulted for management and titration of medications for cardiac disease and prevention. Pt also had acute kidney injury, likely 2/2 to rhabdomyolysis, which trended down during admission also. Nephrology was consulted (Dr. Elizabeth) who recommended deferment of dialysis since Cr was improving. Pt also had hypoalbuminemia, which was treated and resolved at discharge. Pt also met SIRS criteria in the ED, with no clear source or evidence of bacterial infection determined during course of admission. Coagulase negative staph in blood cx, probably contamination; Urine cultures negative for growth. ESR elevated, Flu negative. ID was consulted (Dr. Kendrick), who recommended discontinuation of antibiotics after negative work-up for source. Pt also had dysphagia during admission; GI (Dr. Nieves) was consulted. Pt had endoscopy on 05/17 which demonstrated esophagitis and gastritis. Pt also had transaminitis which resolved during admission. Pt also had microcytic anemia, etiology likely 2/2 to hypoproliferative erythroid response 2/2 to renal disease and iron deficiency. Pt had positive FOBT on 05/15. Heme/onc was consulted (Dr. Holder) who recommended IV iron therapy. Pt also received 1 unit of PRBCs on 05/24/18 with appropriate correction in H/H. Pt was discharged to [facility] in stable condition on 05/25/18. Continued on inpatient regimen of medication. Recommended to follow-up with psychiatry while in sub-acute rehab within 72 hrs. Instructed to follow-up with his PMD Dr. Carpenter within 3-5 days after discharge from sub-acute rehab. Instructed to follow-up with Nephrology (Dr. Pearce) also, and have repeat blood count 3-5 days after discharge from sub-acute rehab. Instructed to follow-up with outpatient Psychiatrist 3-5 days after discharge from sub-acute rehab. Instructed to follow-up with Dr. King (Cardiology) within 1 week after discharge from sub-acute rehab. Discharge Exam - Head Exam Head Exam: NORMAL INSPECTION, NORMOCEPHALIC - Eye Exam Eye Exam: EOMI, Normal appearance, PERRL - ENT Exam ENT Exam: Mucous Membranes Moist - Respiratory Exam Respiratory Exam: Clear to PA & Lateral, NORMAL BREATHING PATTERN, UNREMARKABLE. absent: Rales, Rhonchi, Wheezes - Cardiovascular Exam Cardiovascular Exam: REGULAR RHYTHM, +S1, +S2. absent: Gallop, Rubs, Systolic Murmur - GI/Abdominal Exam GI & Abdominal Exam: Normal Bowel Sounds, Soft, Unremarkable. absent: Tenderness - Extremities Exam Extremities exam: normal capillary refill, normal inspection, pedal pulses present - Neurological Exam Neurological exam: Alert, CN II-XII Intact, Reflexes Normal Additional comments: Oriented x1 - Skin Skin Exam: Dry, Intact, Normal Color, Warm Discharge Plan - Follow Up Plan Condition: STABLE Disposition: TRANSF TO SNF Instructions: Preventing Falls Additional Instructions: Recommend for patient to follow up with psychiatry within 72 hours while in subacute rehab. You were given shot of Haldol Decanoate on 05/25/18 which is given once a month. Please follow up with your primary medical doctor, Dr. Carpenter, in 3-5 days after discharge from subacute rehab. You will need repeat blood work to monitor your kidney numbers and your hemoglobin for anemia. Please follow up with Dr. Pearce (kidney specialist) to monitor your kidney function as well as blood count in 3-5 days after discharge from subacute rehab. Please follow up with your outpatient Psychiatrist in 3-5 days after discharge from subacute rehab. Please follow up with [facility] Dr. King within one week of discharge from subacute rehab. If your symptoms return, please go to the nearest emergency department. Referrals: Maurice King MD [Staff Provider] - Damian Pearce MD [Staff Provider] - Russ Carpenter MD [Primary Care Provider] - <Lou Serrano R - Last Filed: 05/28/18 07:20> Provider - Provider Date of Admission: 05/14/18 16:14 Attending physician: Merlyn Caruso MD Primary care physician: Russ Carpenter MD Consults: 05/14/18 18:18 Infectious Disease Consult Routine Comment: Consulting Provider: Eladio Kendrick Consulting Physician: Eladio Kendrick Reason for Consult: code sepsis, no clear source of infection 05/14/18 18:50 Cardiology Consult Routine Comment: Consulting Provider: Maurice King Consulting Physician: Maurice King Reason for Consult: CABG hx, elevated troponins(prob 2/2 rhabdo and mohan) 05/14/18 22:38 Social Work Referral Routine Comment: none Physician Instructions: none Reason For Exam: discharge planning 05/15/18 11:08 Consult [Physician Consult] Routine Comment: Consulting Provider: Janes Nieves V Consulting Physician: Janes Nieves V Reason for Consult: +FOBT, h/o GIB, black stool 05/15/18 18:13 Nephrology Consult Routine Comment: Consulting Provider: Chelsea Elizabeth Consulting Physician: Chelsea Elizabeth Reason for Consult: Worsening renal function + Rhabdo 05/17/18 09:30 Consult [Physician Consult] Routine Comment: Consulting Provider: Rosalva Griffin Consulting Physician: Rosalva Griffin Reason for Consult: schizophrenia, now rhabdo--restart meds 05/19/18 08:18 Consult [Physician Consult] Routine Comment: Consulting Provider: Earnest Holder Consulting Physician: Earnest Holder Reason for Consult: anemia 05/20/18 17:45 Dysphagia Evaluation (CALL PERSON) ONCE Comment: Physician Instructions: Reason For Exam: Stroke Evaluation Hospital Course - Lab Results Lab Results: Micro Results 05/17/18 05:40 Blood Blood Culture - Final NO GROWTH AFTER 5 DAYS 05/17/18 05:40 Blood Gram Stain - Final TEST NOT PERFORMED 05/17/18 05:20 Blood Blood Culture - Final NO GROWTH AFTER 5 DAYS 05/17/18 05:20 Blood Gram Stain - Final TEST NOT PERFORMED 05/14/18 14:00 Blood Blood Culture - Final NO GROWTH AFTER 5 DAYS 05/14/18 14:00 Blood Gram Stain - Final TEST NOT PERFORMED 05/14/18 13:20 Blood S.aureus & Coag-Neg Staph PNA FISH - Final 05/14/18 13:20 Blood Blood Culture - Final Coagulase Neg Staphylococcus 05/14/18 13:20 Blood Gram Stain - Final 05/14/18 19:54 Nose MRSA Culture (Admit) - Final MRSA NOT DETECTED 05/14/18 15:30 Urine,Catheterized Urine Culture - Final No Growth (<1,000 CFU/ML) Most Recent Lab Values WBC 5.0 10^3/uL (4.5-11.0) D 05/25/18 07:15 RBC 4.22 10^6/uL (3.5-6.1) 05/25/18 07:15 Hgb 8.4 g/dL (14.0-18.0) L 05/25/18 07:15 Hct 29.2 % (42.0-52.0) L 05/25/18 07:15 MCV 69.2 fl (80.0-105.0) L 05/25/18 07:15 MCH 19.9 pg (25.0-35.0) L 05/25/18 07:15 MCHC 28.8 g/dl (31.0-37.0) L 05/25/18 07:15 RDW 22.3 % (11.5-14.5) H 05/25/18 07:15 Plt Count 186 10^3/uL (120.0-450.0) 05/25/18 07:15 MPV 8.7 fl (7.0-11.0) 05/25/18 07:15 Gran % 60.4 % (50.0-68.0) 05/24/18 06:30 Lymph % (Auto) 25.1 % (22.0-35.0) 05/24/18 06:30 [place] % (Auto) 10.4 % (1.0-6.0) H 05/24/18 06:30 Eos % (Auto) 3.3 % (1.5-5.0) 05/24/18 06:30 Baso % (Auto) 0.8 % (0.0-3.0) 05/24/18 06:30 Gran # 2.39 (1.4-6.5) 05/24/18 06:30 Lymph # (Auto) 1.0 (1.2-3.4) L 05/24/18 06:30 [place] # (Auto) 0.4 (0.1-0.6) 05/24/18 06:30 Eos # (Auto) 0.1 (0.0-0.7) 05/24/18 06:30 Baso # (Auto) 0.03 K/mm3 (0.0-2.0) 05/24/18 06:30 Neutrophils % (Manual) 88 % (50.0-70.0) H 05/14/18 13:30 Band Neutrophils % 4 % (0-2) H 05/14/18 13:30 Lymphocytes % (Manual) 5 % (22.0-35.0) L 05/14/18 13:30 Monocytes % (Manual) 3 % (1.0-6.0) 05/14/18 13:30 Polychromasia Slight 05/14/18 13:30 Hypochromasia Slight 05/14/18 13:30 Poikilocytosis (manual Slight 05/14/18 13:30 Anisocytosis (manual) Slight 05/14/18 13:30 Microcytosis (manual) 2+ 05/14/18 13:30 Ovalocytes Slight 05/14/18 13:30 Schistocytes Slight 05/14/18 13:30 ESR 39 mm/hr (0.00-15.0) H 05/16/18 13:14 Retic Count 2.04 % (0.5-1.5) H 05/14/18 19:00 PT 12.8 SECONDS (9.4-12.5) H 05/15/18 01:30 INR 1.11 05/15/18 01:30 APTT 27.0 Seconds (25.1-36.5) 05/14/18 13:30 pO2 62 mm/Hg (30-55) H 05/19/18 12:40 VBG pH 7.32 (7.32-7.43) 05/19/18 12:40 VBG pCO2 43.0 (40-60) 05/19/18 12:40 VBG HCO3 22.2 mmol/l (21-28) 05/19/18 12:40 VBG Total CO2 22.2 mmol.L (22-28) 05/18/18 11:04 VBG O2 Sat (Calc) 94.1 % (40-65) H 05/19/18 12:40 VBG Base Excess -3.9 mmol/L (0.0-2.0) L 05/19/18 12:40 VBG Potassium 4.2 mmol/L (3.6-5.2) 05/18/18 11:04 Sodium 131.0 mmol/L (132-148) L 05/18/18 11:04 Chloride 101.0 mmol/L (98-107) 05/18/18 11:04 Glucose 216 mg/dl (75-110) H 05/18/18 11:04 Lactate 1.7 mmol/L (0.7-2.1) 05/18/18 11:04 FiO2 21.0 % 05/18/18 11:04 Sodium 141 mmol/L (132-148) 05/25/18 07:15 Potassium 3.7 mmol/L (3.6-5.0) 05/25/18 07:15 Chloride 107 mmol/L (98-107) 05/25/18 07:15 Carbon Dioxide 24 mmol/L (21-33) 05/25/18 07:15 Anion Gap 14 (10-20) 05/25/18 07:15 BUN 33 mg/dL (7-21) H 05/25/18 07:15 Creatinine 2.7 mg/dl (0.8-1.5) H 05/25/18 07:15 Est GFR ( Amer) 29 05/25/18 07:15 Est GFR (Non-Af Amer) 24 05/25/18 07:15 POC Glucose (mg/dL) 133 mg/dL (65-110) H 05/25/18 21:30 Random Glucose 122 mg/dL (70-110) H 05/25/18 07:15 Hemoglobin A1c 11.2 % (4.2-6.5) H D 05/15/18 10:33 Lactic Acid 1.7 mmol/L (0.7-2.1) 05/14/18 19:00 Calcium 9.0 mg/dL (8.4-10.5) 05/25/18 07:15 Phosphorus 4.2 mg/dL (2.5-4.5) 05/25/18 07:15 Magnesium 1.2 mg/dL (1.7-2.2) L 05/25/18 07:15 Iron 12 ug/dL (45-180) L 05/14/18 19:00 TIBC 380 ug/dL (261-462) 05/14/18 19:00 % Saturation 3 % (20-55) L 05/14/18 19:00 Ferritin 50.7 ng/mL 05/18/18 09:39 Total Bilirubin 0.7 mg/dL (0.2-1.3) 05/25/18 07:15 AST 33 U/L (17-59) 05/25/18 07:15 ALT 37 U/L (7-56) 05/25/18 07:15 Alkaline Phosphatase 70 U/L (38-126) 05/25/18 07:15 Ammonia < 9 umol/L (9-33) L 05/17/18 05:20 Total Creatine Kinase 1179 U/L (35-230) H 05/19/18 05:20 CK-MB (CK-2) 2.2 ng/mL (0.0-3.6) 05/18/18 08:00 CK-MB (CK-2) % 0.0 % (2.5-3.0) L 05/15/18 16:20 Troponin I 0.14 ng/mL H* D 05/19/18 05:20 C-React Prot High Sens > 15.00 mg/L (1.00-3.00) H 05/16/18 13:14 Total Protein 6.5 g/dL (5.8-8.3) 05/25/18 07:15 Total Protein (PEP) 5.0 g/dL (6.1-8.1) L 05/19/18 05:20 Albumin 3.4 g/dL (3.0-4.8) 05/25/18 07:15 Albumin (PEP) 2.7 g/dL (3.8-4.8) L 05/19/18 05:20 Globulin 3.1 gm/dL 05/25/18 07:15 Albumin/Globulin Ratio 1.1 (1.1-1.8) 05/25/18 07:15 Fnkni-1-Mvtuqmjev 0.4 g/dL (0.2-0.3) H 05/19/18 05:20 Dluyh-7-Wycbffkfc 0.7 g/dL (0.5-0.9) 05/19/18 05:20 Urth-0-Mquazave 0.3 g/dL (0.4-0.6) L 05/19/18 05:20 Amak-8-Oznuvmou 0.3 g/dL (0.2-0.5) 05/19/18 05:20 Gamma Globulins 0.6 g/dL (0.8-1.7) L 05/19/18 05:20 Abnorm Protein Band 1 TEST NOT PERFORMED 05/19/18 05:20 Abnorm Protein Band 2 TEST NOT PERFORMED 05/19/18 05:20 Abnorm Protein Band 3 TEST NOT PERFORMED 05/19/18 05:20 Vitamin B12 455 pg/mL (239-931) 05/18/18 09:39 25-OH Vitamin D Total 30.7 NG/ML (30.0-100.0) 05/19/18 05:20 Procalcitonin 6.35 NG/ML (0.19-0.49) H 05/15/18 06:00 PTH Intact Whole Molec 15 pg/mL (14-64) 05/14/18 19:00 Venous Blood Potassium 4.2 mmol/L (3.6-5.2) 05/18/18 11:04 Urine Color Yellow (YELLOW) 05/18/18 22:43 Urine Appearance Turbid (CLEAR) 05/18/18 22:43 Urine pH 6.0 (4.7-8.0) 05/18/18 22:43 Ur Specific [place] <= 1.005 (1.005-1.035) 05/18/18 22:43 Urine Protein Trace mg/dL (<30 mg/dL) H 05/18/18 22:43 Urine Glucose (UA) Negative mg/dL (NEGATIVE) 05/18/18 22:43 Urine Ketones Negative mg/dL (NEGATIVE) 05/18/18 22:43 Urine Blood Large (NEGATIVE) H 05/18/18 22:43 Urine Nitrate Negative (NEGATIVE) 05/18/18 22:43 Urine Bilirubin Negative (NEGATIVE) 05/18/18 22:43 Urine Urobilinogen 0.2 E.U./dL (<1 E.U./dL) 05/18/18 22:43 Ur Leukocyte Esterase Trace Irvin/uL (NEGATIVE) H 05/18/18 22:43 Urine RBC 25 - 30 /hpf (0-2) 05/18/18 22:43 Urine WBC 1 - 3 /hpf (0-6) 05/18/18 22:43 Ur Epithelial Cells None /hpf (0-5) 05/14/18 15:30 Urine Bacteria Few (NEG) 05/14/18 15:30 Ur Random Creatinine 39 mg/dL (20-320) 05/18/18 22:27 U Random Total Protein 1359 mg/g creat (22-128) H 05/18/18 22:27 Urine Total Volume 2.9 mg/dL 05/18/18 22:27 Microalb/Creat Ratio 74 (<30) H 05/18/18 22:27 Stool Occult Blood Positive (NEGATIVE) H 05/15/18 10:48 Random Vancomycin 16.7 ug/mL (20-40) L 05/17/18 05:20 Urine Opiates Screen Negative (NEGATIVE) 05/14/18 16:30 Urine Methadone Screen Negative (NEGATIVE) 05/14/18 16:30 Ur Barbiturates Screen Negative (NEGATIVE) 05/14/18 16:30 Ur Phencyclidine Scrn Negative (NEGATIVE) 05/14/18 16:30 Ur Amphetamines Screen Negative (NEGATIVE) 05/14/18 16:30 U Benzodiazepines Scrn Negative (NEGATIVE) 05/14/18 16:30 U Oth Cocaine Metabols Negative (NEGATIVE) 05/14/18 16:30 U Cannabinoids Screen Negative (NEGATIVE) 05/14/18 16:30 Alcohol, Quantitative < 10 mg/dL (0-10) 05/14/18 16:00 TONI & SPEP Interp See note 05/19/18 05:20 Serum Immunofixation Not detected (Not Detected) 05/19/18 05:20 Tot [place]/Lambda Ratio 1.82 (1.29-2.55) 05/19/18 05:20 [place] Light Chain Anal 197 mg/dL (176-443) 05/19/18 05:20 Lambda Light Chain Anal 108 mg/dL (91-240) 05/19/18 05:20 Hep Bs Antigen Negative (NEGATIVE) 12/11/18 09:39 Hep Bs Antibody Negative (NEGATIVE) 05/18/18 09:39 Hep B Core IgM Ab Negative (NEGATIVE) 05/18/18 09:39 Hepatitis C Antibody Negative (NEGATIVE) 05/18/18 09:39 HIV 1&2 Ag/Ab, 4th Gen Nonreactive (Nonreactive) 05/15/18 12:00 Influenza Typ A,B (EIA) Negative for flu a/b (NEGATIVE) 05/18/18 22:27 Blood Type O POSITIVE 05/24/18 13:00 Antibody Screen Negative 05/24/18 13:00 Crossmatch See Detail 05/24/18 13:00 BBK History Checked Patient has bt 05/24/18 13:00 Attending/Attestation - Attestation I have personally seen and examined this patient.: Yes I have fully participated in the care of the patient.: Yes I have reviewed all pertinent clinical information, including history, physical exam and plan: Yes Notes (Text): Patient seen and examined by me with resident 10:10AM on 05/25/18. Case including discharge plan discussed with resident. Agree with above with following additions/corrections. Patient is a 62-year-old male with past medical history significant for artery disease status post CABG, systolic CHF, hypertension, schizophrenia, anxiety, GI bleed, esophageal ulcer, and type 2 diabetes that presented to the emergency room status post a fall. Please see H&P for full details. Patient was admitted with rhabdomyolysis, elevated troponins, acute kidney injury, hypercalcemia, SIRS, coronary artery disease status post CABG, fall, and history of GI bleed. Patient's CPK on admission was 20,103 which down trended to 1179. Troponins were 0.74, then 2.11, then 1.62, then 0.41, then 0.20, then 0.14. Patient had a WBC count of 23.1 on admission which improved to 5 on discharge. Patient was also febrile and tachycardic. She was placed on cooling blanket with improvement. Pro-calcitonin was 6.35. Lactic acid was 3.1 which improved to 1.9. Blood cultures were negative. Urine culture was negative. CT abdomen and pelvis per radiologist showed no acute intra-abdominal findings. Gallbladder ultrasound radiologist showed 1.3 cm gallstone, no evidence of cholecystitis. Chest x-ray per radiologist showed no active disease. ID was following and patient was treated with Maxipime. Patient was also found to have acute renal failure with a creatinine of 2.2 on admission which up trended to 8.2 at its highest and down trended to 2.7 on discharge. Nephrology was following. Acute renal failure likely secondary to rhabdomyolysis. These were also elevated which resolved. Patient was treated with IV fluids initially. Patient had poor urine output and was therefore placed on Lasix with improvement. Renal ultrasound per radiologist showed unremarkable renal sonogram. Patient was also found to have elevated troponins with a history of coronary artery disease. Patient had no chest pain. Cardiology was following. Elevated troponins likely secondary to rhabdomyolysis and acute renal failure. Patient was continued on Lopressor and Lipitor. Was restarted on baby aspirin prior to discharge after being cleared by gastroenterology. 2-D echo per chain carrier showed left ventricle is normal size, borderline to mild concentric left ventricular hypertrophy, systolic function is mildly impaired, left ventricular diastolic function is normal, mitral regurgitation is mild, mild tricuspid regurgitation, mild pulmonary hypertension, no vegetation seen. Patient was also found to have hypoalbuminemia which resolved with albumin replacement. Patient was also found to have dysphasia and was seen by speech and swallow and was continued on a dysphagia diet and aspiration precautions. Patient was also seen by side trimmer and had EGD which showed esophagitis and gastritis. Patient was also found to have anemia with a stool for occult blood positive. Patient was continued on Protonix. Patient was seen by hematology/oncology. Patient was placed on IV iron. Patient was also transfused 1 unit packed red blood cell prior to discharge. Patient was placed on Levemir 5 units at bedtime and Humalog 4 units before meals for diabetes. Patient was also continued on an insulin sliding scale. Hemoglobin A1c was 11.2. Patient was also found to have carotid calcification. Carotid ultrasound per radiologist showed 60-79% proximal right ICA stenosis and 40-59% left ICA stenosis. Patient to continue aspirin and Lipitor and follow up for repeat imaging as an outpatient. Patient also had a fall at home. Bilateral knee x-rays per radiologist showed normal radiographs of the right and left knee. CT cervical spine per radiologist was unremarkable. Head CT per radiologist showed no acute intracranial findings. Patient was seen by physical therapy who recommended subacute rehabilitation. Patient was continued on Klonopin for anxiety and agitation. Patient was also placed on Haldol and Ativan as needed. Patient was doing better. Case was discussed with all CONSULTANTS. Patient was cleared for discharge by all consultants. Patient was discharged to subacute rehabilitation. On day of discharge, patient stated he was feeling okay. Patient denied any abdominal pain, nausea, or vomiting. No diarrhea or constipation. No chest pain or shortness of breath. No headaches or dizziness. No change in vision. No fevers or chills. No dysuria. Physical exam: General: Awake and alert lying in bed in no acute distress HEENT: Normocephalic, atraumatic. Extraocular muscles intact, pupils equal and reactive, no scleral icterus. Oropharynx is pink and moist. Neck is supple. Cardiovascular: Regular rhythm. Normal S1 and S2. No murmurs, rubs, or gallops appreciated Pulmonary: Normal respiratory effort. No rales, rhonchi, or wheezing appreciated. Gastrointestinal: Soft, nondistended. Nontender. Positive bowel sounds all 4 quadrants. No guarding. Positive globular abdomen Musculoskeletal: Moves all extremities. No calf tenderness. Bilateral knees with healing abrasions. Central nervous system: AAOx3 with periods of confusion. Dermatologic: Skin warm and dry. Resolving ecchymosis on forehead and healing abrasions on face. Please see chart for full details. Follow up instructions: Patient to follow-up with eye care doctor within 3-5 days. Patient to follow-up with psychiatry within 72 hours while in subacute rehabilitation. Patient to have repeat blood work to monitor kidney numbers and hemoglobin for anemia. Patient follow-up with lap hand tool within 3-5 days of discharge. Patient follow-up with chain carrier within 1 week of discharge. All instructions explained to the patient in detail. Patient both understands and agrees to all instructions. Written instructions also given. Time spent in discharging the patient including chart review, medication reconciliation, discussion with the patient, medical billing assistant, consultants, and nursing staff was approximately 45 minutes.
[2018-05-25] MEDS: Multivitamin Vitamin B Complex (Nephro-Vite) Tab PO SCH (12:08)
[2018-05-25] MEDS: Darbepoetin Alfa 100 mcg/ml Inj SC SCH (12:08)
[2018-05-25] MEDS ORDERED: Haloperidol Decanoate 100 mg/ml Inj IM ONE (12:57)
--- NOTE | 2018-05-25 13:26 | CP.PCM.PN ---
Subjective - Date & Time of Evaluation Date of Evaluation: 05/25/18 Time of Evaluation: 07:55 - Subjective Subjective: No fevers, non-toxic. Objective - Vital Signs/Intake and Output Vital Signs (last 24 hours): Temp Pulse Resp BP Pulse Ox 98.7 F 94 H 20 150/76 96 05/24/18 06:00 05/24/18 06:00 05/24/18 06:00 05/24/18 09:35 05/24/18 06:00 Intake and Output: 05/24/18 05/24/18 06:59 18:59 Intake Total 200 Balance 200 - Medications Medications: Current Medications Acetaminophen (Tylenol 325mg Tab) 325 mg PO Q6H PRN PRN Reason: Fever >100.4 F Last Admin: 05/23/18 11:46 Dose: 325 mg Albuterol/Ipratropium (Duoneb 3 Mg/0.5 Mg (3 Ml) Ud) 3 ml IH [id number] REPLACED BY [facility] Last Admin: 05/24/18 07:33 Dose: 3 ml Atorvastatin Calcium (Lipitor) 10 mg PO DIN [facility] Clonazepam (Klonopin) 2 mg PO BID REPLACED BY [facility]; Protocol Last Admin: 05/24/18 09:28 Dose: 2 mg Darbepoetin Will (Aranesp) 100 mcg SC QWK REPLACED BY [facility] Last Admin: 05/18/18 09:55 Dose: 100 mcg Diphenhydramine HCl (Benadryl) 25 mg PO HS PRN PRN Reason: Insomnia Last Admin: 05/22/18 21:27 Dose: 25 mg Haloperidol (Haldol) 5 mg PO HS PRN; Protocol PRN Reason: hallucinations/agitation/insom Last Admin: 05/24/18 13:05 Dose: 5 mg Hydralazine HCl (Apresoline) 10 mg PO QID PRN PRN Reason: for sbp >160 Iron Sucrose 200 mg/ Sodium (Chloride) 110 mls @ 110 mls/hr IVPB DAILY REPLACED BY [facility] Stop: 05/25/18 14:31 Last Admin: 05/24/18 09:06 Dose: 110 mls/hr Insulin Detemir (Levemir) 5 unit SC HS REPLACED BY [facility] Last Admin: 05/23/18 22:21 Dose: 5 unit Insulin Human Lispro (Humalog) 4 units SC AC REPLACED BY [facility] Last Admin: 05/24/18 13:05 Dose: 4 units Insulin Human Regular (Humulin R Low) 0 units SC ACHS [facility]; Protocol Last Admin: 05/24/18 13:06 Dose: Not Given Lorazepam (Ativan) 1 mg IVP Q6H PRN; Protocol PRN Reason: Anxiety Last Admin: 05/23/18 11:06 Dose: 1 mg Metoprolol Tartrate (Lopressor) 50 mg PO BID [facility] Last Admin: 05/24/18 09:35 Dose: 50 mg Pantoprazole Sodium (Protonix Inj) 40 mg IVP Q12 [facility] Last Admin: 05/24/18 09:30 Dose: 40 mg Vitamin B Complex/Vit C/Folic Acid (Nephro-Lydia) 1 tab PO 0800 [facility] Last Admin: 05/24/18 09:30 Dose: 1 tab Zaleplon (Sonata) 5 mg PO HS PRN PRN Reason: Insomnia - Labs Labs: 05/24/18 06:30 05/24/18 06:30 PT 12.8 SECONDS (9.4-12.5) H 05/15/18 01:30 INR 1.11 05/15/18 01:30 APTT 27.0 Seconds (25.1-36.5) 05/14/18 13:30 - Constitutional Appears: Chronically Ill - Head Exam Head Exam: NORMAL INSPECTION - Respiratory Exam Respiratory Exam: Decreased Breath Sounds - Cardiovascular Exam Cardiovascular Exam: +S1, +S2 - GI/Abdominal Exam GI & Abdominal Exam: Soft. absent: Tenderness Assessment and Plan - Assessment and Plan (Free Text) Plan: Assessment systemic inflammatory response syndrome with rhabdomyolysis R/O NSTEMI, no clear source or evidence of bacterial infection coagulase negative staph in blood cx, probably contamination schizophrenia anxiety dementia CAD DM history of esophageal ulcers chronic anemia deafness mental disability Plan Cultures have been negative; will continue to monitor off antibiotics since he is at risk for nosocomial infections and observe
--- NOTE | 2018-05-25 13:49 | CP.PCM.PN ---
Subjective - Date & Time of Evaluation Date of Evaluation: 05/25/18 Time of Evaluation: 13:48 - Subjective Subjective: RENAL NOTE pt denies CP/SOB. noted overnight events c/o headache pe: vs reviewed gen: nad sclera: anicteric op: clear, poor dentition neck supple no thyromegaly cv: +S1+s2 no rub abd: soft nt nd no organomegaly lungs wbilateral air entry equal, few basal rale ext: no edema neuro: awake alert psych: flat. limited insight skin bruising on b/l knees labs and imaging reviewed Imp: ARF/ Rhabdomylosis/ Anemia/ ? sepsis/hyperphos/ATN/PUD plan: HONG - likely from combination of rhabdo +/ - developing sirs / sepsis: IMPROVING No need for dialysis initiation as pt with spontaneous renal recovery. cr trending down well started weekly aransep, iron, MVI and phos binders. gave one dose of Vit D. PRBC as needed continue with PPI. but avoid carafate/al and mag based laxatives/antacid. no fleet enemas pt stable for d/c from renal perspective when planned with 1 week outpt renal follow up d/c phoslo. supplement lytes as needed. ordered for IV mag 2 gram had d/w team Objective - Vital Signs/Intake and Output Vital Signs (last 24 hours): Temp Pulse Resp BP Pulse Ox 98 F 88 20 142/78 96 05/25/18 06:00 05/25/18 06:00 05/25/18 06:00 05/25/18 10:30 05/25/18 06:00 - Medications Medications: Current Medications Acetaminophen (Tylenol 325mg Tab) 325 mg PO Q6H PRN PRN Reason: Fever >100.4 F Last Admin: 05/25/18 12:07 Dose: 325 mg Albuterol/Ipratropium (Duoneb 3 Mg/0.5 Mg (3 Ml) Ud) 3 ml IH [id number] [facility] Last Admin: 05/25/18 13:30 Dose: 3 ml Aspirin (Aspirin Chewable) 81 mg PO DAILY [facility] Last Admin: 05/25/18 10:30 Dose: 81 mg Atorvastatin Calcium (Lipitor) 10 mg PO DIN [facility] Last Admin: 05/24/18 18:01 Dose: 10 mg Clonazepam (Klonopin) 2 mg PO BID [facility]; Protocol Last Admin: 05/25/18 10:30 Dose: 2 mg Darbepoetin Will (Aranesp) 100 mcg SC QWK [facility] Last Admin: 05/25/18 12:08 Dose: 100 mcg Diphenhydramine HCl (Benadryl) 25 mg PO HS PRN PRN Reason: Insomnia Last Admin: 05/22/18 21:27 Dose: 25 mg Haloperidol (Haldol) 5 mg PO HS PRN; Protocol PRN Reason: hallucinations/agitation/insom Last Admin: 05/24/18 13:05 Dose: 5 mg Hydralazine HCl (Apresoline) 10 mg PO QID PRN PRN Reason: for sbp >160 Insulin Detemir (Levemir) 5 unit SC HS [facility] Last Admin: 05/24/18 23:42 Dose: 5 unit Insulin Human Lispro (Humalog) 4 units SC AC [facility] Last Admin: 05/25/18 12:17 Dose: Not Given Insulin Human Regular (Humulin R Low) 0 units SC ACHS [facility]; Protocol Last Admin: 05/25/18 12:17 Dose: Not Given Lorazepam (Ativan) 1 mg IVP Q6H PRN; Protocol PRN Reason: Anxiety Last Admin: 05/23/18 11:06 Dose: 1 mg Metoprolol Tartrate (Lopressor) 50 mg PO BID [facility] Last Admin: 05/25/18 10:30 Dose: 50 mg Pantoprazole Sodium (Protonix Inj) 40 mg IVP Q12 [facility] Last Admin: 05/25/18 10:30 Dose: 40 mg Vitamin B Complex/Vit C/Folic Acid (Nephro-Lydia) 1 tab PO 0800 [facility] Last Admin: 05/25/18 12:08 Dose: 1 tab Zaleplon (Sonata) 5 mg PO HS PRN PRN Reason: Insomnia - Labs Labs: 05/25/18 07:15 05/25/18 07:15 PT 12.8 SECONDS (9.4-12.5) H 05/15/18 01:30 INR 1.11 05/15/18 01:30 APTT 27.0 Seconds (25.1-36.5) 05/14/18 13:30
--- NOTE | 2018-05-25 13:56 | PN ---
DATE: 05/25/2018 REASON FOR CONSULTATION: Coronary artery disease, history of coronary artery bypass surgery, COPD, rhabdomyolysis status post fall, acute kidney injury secondary to rhabdomyolysis. SUBJECTIVE: The patient denies any chest pain, shortness of breath or any palpitation. OBJECTIVE: VITAL SIGNS: Temperature afebrile, heart rate 88, blood pressure 138/76. HEENT: PERRLA, extraocular muscles intact. NECK: Supple. No carotid bruit or thyromegaly. CHEST: Clear to auscultation. HEART: S1 and S2, regular. ABDOMEN: Soft. EXTREMITIES: Clubbing and cyanosis negative. LABORATORY DATA: Blood workup: WBC 5, hemoglobin 8.4, hematocrit 29.2, platelet count 186. Chemistry shows sodium 141, potassium 3, chloride 107, carbon dioxide 24, anion gap of 14, BUN 33, creatinine 2.7. IMPRESSION: A 62-year-old male with past medical history significant for coronary artery disease, coronary artery bypass graft, chronic obstructive pulmonary disease, status post fall, acute kidney disease secondary to rhabdomyolysis. Troponin positive but MB fraction was negative. So, no evidence of acute myocardial infarction. The patient is recovering from acute kidney injury, ejection fraction is 40%. RECOMMENDATIONS: We will start baby aspirin, continue atorvastatin, continue metoprolol. Avoid nephrotoxic medication. Discussed with Dr. Pilo Serrano. Thank you Dr. Serrano for providing us the opportunity in taking care of the patient, Jose Carty. Maurice King MD
[2018-05-25 14:48] VITALS: TEMP 98.4; O2SAT 95
--- NOTE | 2018-05-25 20:07 | CP.PCM.PN ---
Subjective - Date & Time of Evaluation Date of Evaluation: 05/23/18 Time of Evaluation: 17:00 - Subjective Subjective: No complaints. Objective - Vital Signs/Intake and Output Vital Signs (last 24 hours): Temp Pulse Resp BP Pulse Ox 98.4 F 74 20 152/66 H 95 05/25/18 14:00 05/25/18 14:00 05/25/18 14:00 05/25/18 14:00 05/25/18 14:00 Intake and Output: 05/25/18 05/26/18 18:59 06:59 Intake Total 120 Balance 120 - Medications Medications: Current Medications Acetaminophen (Tylenol 325mg Tab) 325 mg PO Q6H PRN PRN Reason: Fever >100.4 F Last Admin: 05/25/18 12:07 Dose: 325 mg Albuterol/Ipratropium (Duoneb 3 Mg/0.5 Mg (3 Ml) Ud) 3 ml IH [id number] [facility] Last Admin: 05/25/18 13:30 Dose: 3 ml Aspirin (Aspirin Chewable) 81 mg PO DAILY [facility] Last Admin: 05/25/18 10:30 Dose: 81 mg Atorvastatin Calcium (Lipitor) 10 mg PO DIN [facility] Last Admin: 05/25/18 17:01 Dose: 10 mg Clonazepam (Klonopin) 2 mg PO BID [facility]; Protocol Last Admin: 05/25/18 17:01 Dose: 2 mg Darbepoetin Will (Aranesp) 100 mcg SC QWK [facility] Last Admin: 05/25/18 12:08 Dose: 100 mcg Diphenhydramine HCl (Benadryl) 25 mg PO HS PRN PRN Reason: Insomnia Last Admin: 05/22/18 21:27 Dose: 25 mg Haloperidol (Haldol) 5 mg PO HS PRN; Protocol PRN Reason: hallucinations/agitation/insom Last Admin: 05/24/18 13:05 Dose: 5 mg Hydralazine HCl (Apresoline) 10 mg PO QID PRN PRN Reason: for sbp >160 Insulin Detemir (Levemir) 5 unit SC HS [facility] Last Admin: 05/24/18 23:42 Dose: 5 unit Insulin Human Lispro (Humalog) 4 units SC [facility] Last Admin: 05/25/18 16:40 Dose: Not Given Insulin Human Regular (Humulin R Low) 0 units SC [facility]; Protocol Last Admin: 05/25/18 16:40 Dose: Not Given Lorazepam (Ativan) 1 mg IVP Q6H PRN; Protocol PRN Reason: Anxiety Last Admin: 05/23/18 11:06 Dose: 1 mg Metoprolol Tartrate (Lopressor) 50 mg PO BID [facility] Last Admin: 05/25/18 17:01 Dose: 50 mg Pantoprazole Sodium (Protonix Inj) 40 mg IVP Q12 [facility] Last Admin: 05/25/18 10:30 Dose: 40 mg Vitamin B Complex/Vit C/Folic Acid (Nephro-Lydia) 1 tab PO 0800 [facility] Last Admin: 05/25/18 12:08 Dose: 1 tab Zaleplon (Sonata) 5 mg PO HS PRN PRN Reason: Insomnia - Labs Labs: 05/25/18 07:15 05/25/18 07:15 PT 12.8 SECONDS (9.4-12.5) H 05/15/18 01:30 INR 1.11 05/15/18 01:30 APTT 27.0 Seconds (25.1-36.5) 05/14/18 13:30 - Head Exam Head Exam: ATRAUMATIC - Eye Exam Eye Exam: Normal appearance - ENT Exam ENT Exam: Mucous Membranes Dry - Respiratory Exam Respiratory Exam: NORMAL BREATHING PATTERN - Cardiovascular Exam Cardiovascular Exam: +S1, +S2 - GI/Abdominal Exam GI & Abdominal Exam: Normal Bowel Sounds Assessment and Plan (1) Anemia Assessment & Plan: iron deficiency and CKD Venofer and Aranesp transfusion support PRN monoclonal protein w/u pending Status: Acute (2) Leukopenia Assessment & Plan: mild no neutropenia Status: Acute
--- NOTE | 2018-05-25 20:08 | CP.PCM.PN ---
Subjective - Date & Time of Evaluation Date of Evaluation: 05/24/18 Time of Evaluation: 10:00 - Subjective Subjective: No complaints. Objective - Vital Signs/Intake and Output Vital Signs (last 24 hours): Temp Pulse Resp BP Pulse Ox 98.4 F 74 20 152/66 H 95 05/25/18 14:00 05/25/18 14:00 05/25/18 14:00 05/25/18 14:00 05/25/18 14:00 Intake and Output: 05/25/18 05/26/18 18:59 06:59 Intake Total 120 Balance 120 - Medications Medications: Current Medications Acetaminophen (Tylenol 325mg Tab) 325 mg PO Q6H PRN PRN Reason: Fever >100.4 F Last Admin: 05/25/18 12:07 Dose: 325 mg Albuterol/Ipratropium (Duoneb 3 Mg/0.5 Mg (3 Ml) Ud) 3 ml IH [id number] [facility] Last Admin: 05/25/18 13:30 Dose: 3 ml Aspirin (Aspirin Chewable) 81 mg PO DAILY [facility] Last Admin: 05/25/18 10:30 Dose: 81 mg Atorvastatin Calcium (Lipitor) 10 mg PO DIN [facility] Last Admin: 05/25/18 17:01 Dose: 10 mg Clonazepam (Klonopin) 2 mg PO BID [facility]; Protocol Last Admin: 05/25/18 17:01 Dose: 2 mg Darbepoetin Will (Aranesp) 100 mcg SC QWK [facility] Last Admin: 05/25/18 12:08 Dose: 100 mcg Diphenhydramine HCl (Benadryl) 25 mg PO HS PRN PRN Reason: Insomnia Last Admin: 05/22/18 21:27 Dose: 25 mg Haloperidol (Haldol) 5 mg PO HS PRN; Protocol PRN Reason: hallucinations/agitation/insom Last Admin: 05/24/18 13:05 Dose: 5 mg Hydralazine HCl (Apresoline) 10 mg PO QID PRN PRN Reason: for sbp >160 Insulin Detemir (Levemir) 5 unit SC HS [facility] Last Admin: 05/24/18 23:42 Dose: 5 unit Insulin Human Lispro (Humalog) 4 units SC AC [facility] Last Admin: 05/25/18 16:40 Dose: Not Given Insulin Human Regular (Humulin R Low) 0 units SC [facility]; Protocol Last Admin: 05/25/18 16:40 Dose: Not Given Lorazepam (Ativan) 1 mg IVP Q6H PRN; Protocol PRN Reason: Anxiety Last Admin: 05/23/18 11:06 Dose: 1 mg Metoprolol Tartrate (Lopressor) 50 mg PO BID [facility] Last Admin: 05/25/18 17:01 Dose: 50 mg Pantoprazole Sodium (Protonix Inj) 40 mg IVP Q12 [facility] Last Admin: 05/25/18 10:30 Dose: 40 mg Vitamin B Complex/Vit C/Folic Acid (Nephro-Lydia) 1 tab PO 0800 [facility] Last Admin: 05/25/18 12:08 Dose: 1 tab Zaleplon (Sonata) 5 mg PO HS PRN PRN Reason: Insomnia - Labs Labs: 05/25/18 07:15 05/25/18 07:15 PT 12.8 SECONDS (9.4-12.5) H 05/15/18 01:30 INR 1.11 05/15/18 01:30 APTT 27.0 Seconds (25.1-36.5) 05/14/18 13:30 - Head Exam Head Exam: ATRAUMATIC - Eye Exam Eye Exam: Normal appearance - ENT Exam ENT Exam: Mucous Membranes Dry - Respiratory Exam Respiratory Exam: NORMAL BREATHING PATTERN - Cardiovascular Exam Cardiovascular Exam: +S1, +S2 - GI/Abdominal Exam GI & Abdominal Exam: Normal Bowel Sounds Assessment and Plan (1) Anemia Assessment & Plan: iron deficiency and CKD Venofer and Aranesp transfusion support PRN monoclonal protein w/u negative Status: Acute (2) Leukopenia Assessment & Plan: mild no neutropenia Status: Acute
--- NOTE | 2018-05-25 20:09 | CP.PCM.PN ---
Subjective - Date & Time of Evaluation Date of Evaluation: 05/25/18 Time of Evaluation: 12:00 - Subjective Subjective: No complaints, s/p 1U PRBC. Objective - Vital Signs/Intake and Output Vital Signs (last 24 hours): Temp Pulse Resp BP Pulse Ox 98.4 F 74 20 152/66 H 95 05/25/18 14:00 05/25/18 14:00 05/25/18 14:00 05/25/18 14:00 05/25/18 14:00 Intake and Output: 05/25/18 05/26/18 18:59 06:59 Intake Total 120 Balance 120 - Medications Medications: Current Medications Acetaminophen (Tylenol 325mg Tab) 325 mg PO Q6H PRN PRN Reason: Fever >100.4 F Last Admin: 05/25/18 12:07 Dose: 325 mg Albuterol/Ipratropium (Duoneb 3 Mg/0.5 Mg (3 Ml) Ud) 3 ml IH [id number] [facility] Last Admin: 05/25/18 13:30 Dose: 3 ml Aspirin (Aspirin Chewable) 81 mg PO DAILY [facility] Last Admin: 05/25/18 10:30 Dose: 81 mg Atorvastatin Calcium (Lipitor) 10 mg PO DIN [facility] Last Admin: 05/25/18 17:01 Dose: 10 mg Clonazepam (Klonopin) 2 mg PO BID [facility]; Protocol Last Admin: 05/25/18 17:01 Dose: 2 mg Darbepoetin Will (Aranesp) 100 mcg SC QWK [facility] Last Admin: 05/25/18 12:08 Dose: 100 mcg Diphenhydramine HCl (Benadryl) 25 mg PO HS PRN PRN Reason: Insomnia Last Admin: 05/22/18 21:27 Dose: 25 mg Haloperidol (Haldol) 5 mg PO HS PRN; Protocol PRN Reason: hallucinations/agitation/insom Last Admin: 05/24/18 13:05 Dose: 5 mg Hydralazine HCl (Apresoline) 10 mg PO QID PRN PRN Reason: for sbp >160 Insulin Detemir (Levemir) 5 unit SC HS [facility] Last Admin: 05/24/18 23:42 Dose: 5 unit Insulin Human Lispro (Humalog) 4 units SC AC [facility] Last Admin: 05/25/18 16:40 Dose: Not Given Insulin Human Regular (Humulin R Low) 0 units SC ACHS [facility]; Protocol Last Admin: 05/25/18 16:40 Dose: Not Given Lorazepam (Ativan) 1 mg IVP Q6H PRN; Protocol PRN Reason: Anxiety Last Admin: 05/23/18 11:06 Dose: 1 mg Metoprolol Tartrate (Lopressor) 50 mg PO BID [facility] Last Admin: 05/25/18 17:01 Dose: 50 mg Pantoprazole Sodium (Protonix Inj) 40 mg IVP Q12 [facility] Last Admin: 05/25/18 10:30 Dose: 40 mg Vitamin B Complex/Vit C/Folic Acid (Nephro-Lydia) 1 tab PO 0800 [facility] Last Admin: 05/25/18 12:08 Dose: 1 tab Zaleplon (Sonata) 5 mg PO HS PRN PRN Reason: Insomnia - Labs Labs: 05/25/18 07:15 05/25/18 07:15 PT 12.8 SECONDS (9.4-12.5) H 05/15/18 01:30 INR 1.11 05/15/18 01:30 APTT 27.0 Seconds (25.1-36.5) 05/14/18 13:30 - Head Exam Head Exam: ATRAUMATIC - Eye Exam Eye Exam: Normal appearance - ENT Exam ENT Exam: Mucous Membranes Dry - Respiratory Exam Respiratory Exam: NORMAL BREATHING PATTERN - Cardiovascular Exam Cardiovascular Exam: +S1, +S2 - GI/Abdominal Exam GI & Abdominal Exam: Normal Bowel Sounds Assessment and Plan (1) Anemia Assessment & Plan: iron deficiency and CKD Venofer and Aranesp transfusion support PRN monoclonal protein w/u negative Status: Acute
--- NOTE | 2018-05-25 20:36 | PN ---
DATE: 05/25/2018 SUBJECTIVE: Medical team requested for followup for this patient because the patient has a long history of mental illness. Currently, he is on Haldol Decanoate. The patient was seen by Dr. Bourgeois. Dr. Bourgeois signed off. Medical team is planning to discharge the patient to subacute rehab, and the reason for followup is initiation of Haldol Decanoate. The patient was seen and examined. The patient presented relatively well. The patient denied any complaints at the present moment. The patient remembered this ticket writer. The patient is willing to get Haldol Decanoate today. This ticket writer had a prolonged conversation with Dr. Serrano. All notes reviewed. There is no medical contraindication for Haldol Decanoate injection today. This ticket writer had a prolonged conversation with PACT team, nurse Teetee. PACT team visited the patient today. PACT team will follow up on this patient in the community after subacute rehab admission. VITAL SIGNS: Going back to the patient's presentation, vital signs seem to be stable. Temperature 98.4, pulse 74, blood pressure 152/66, oxygen saturation 95. MEDICATIONS: Reviewed. Tylenol, DuoNeb, aspirin, Lipitor, Klonopin 2 mg twice a day, Aranesp, Benadryl. Haldol 5 mg as needed for hallucinations and agitation; the patient got three doses. The patient is on Levemir, Humalog, Humulin, Ativan, Lopressor, Protonix and Sonata. Haldol Decanoate was given today. LABORATORY DATA: Reviewed. MENTAL STATUS EXAMINATION: The patient presented to be alert and somewhat withdrawn. Mood described as lousy. Affect was constricted. Thought process concrete. Thought content, the patient denied any perceptual disturbances. The patient appears to be withdrawn, guarded but not acutely psychotic. Insight and judgment seem to be limited but improving. Impulses are well controlled. IMPRESSION: As per history, schizophrenia, history of alcohol use disorder. PLAN: The patient is willing to get Haldol Decanoate injection today. We will continue benzodiazepines and Sonata. Medical team was advised to make sure that the patient will be followed up with psychiatrist in subacute rehab, PACT team involved. The patient remembers PACT team phone number by heart. The patient contracted for safety. The patient denied any suicidal ideation and denied any thoughts of harming himself or others. The patient is willing to get treatment in subacute rehab. Should you have any questions, give me a call back. The patient posed no imminent danger to self or others. This ticket writer will sign off. Should you have any questions, give me a call back. Rosalva Griffin MD MTDD
[2018-05-25] MEDS: Insulin Detemir 100 units/ml Vial (Levemir) SC SCH (22:40)
[2018-05-25 23:27] VITALS: BP 142/63; PULSE 72
== END 2018-05-26 04:06 | DRG 560 ==
LOC: ED 12:26 → ERH 16:14 → ICU 17:11 → 5RNO 05-21 11:23
PROVIDERS: ADMIT Internal Medicine; ATTEND Internal Medicine
PROC: 0DB68ZX Excision of Stomach, Via Natural or Artificial Opening Endoscopic, Diagnostic (ICD-10-PCS; 2018-05-17)
PROC: 05HY33Z Insertion of Infusion Device into Upper Vein, Percutaneous Approach (ICD-10-PCS; 2018-05-17)
PROC: B54MZZA Ultrasonography of Right Upper Extremity Veins, Guidance (ICD-10-PCS; 2018-05-17)
PROC: 0DB58ZX Excision of Esophagus, Via Natural or Artificial Opening Endoscopic, Diagnostic (ICD-10-PCS; principal; 2018-05-17 14:45)
DX: T79.6XXA Traumatic ischemia of muscle, initial encounter (principal); N17.9 Acute kidney failure, unspecified; I50.22 Chronic systolic (congestive) heart failure; R65.10 Systemic inflammatory response syndrome (SIRS) of non-infectious origin without acute organ dysfunction; E11.22 Type 2 diabetes mellitus with diabetic chronic kidney disease; E11.51 Type 2 diabetes mellitus with diabetic peripheral angiopathy without gangrene; E87.6 Hypokalemia; F03.90 Unspecified dementia, unspecified severity, without behavioral disturbance, psychotic disturbance, mood disturbance, and anxiety; F20.9 Schizophrenia, unspecified; I08.1 Rheumatic disorders of both mitral and tricuspid valves; I13.0 Hypertensive heart and chronic kidney disease with heart failure and stage 1 through stage 4 chronic kidney disease, or unspecified chronic kidney disease; I42.9 Cardiomyopathy, unspecified; I65.23 Occlusion and stenosis of bilateral carotid arteries; J98.11 Atelectasis; R57.9 Shock, unspecified; E86.0 Dehydration; N18.9 Chronic kidney disease, unspecified; E11.65 Type 2 diabetes mellitus with hyperglycemia; D50.9 Iron deficiency anemia, unspecified; D72.819 Decreased white blood cell count, unspecified; E78.00 Pure hypercholesterolemia, unspecified; E83.39 Other disorders of phosphorus metabolism; F31.9 Bipolar disorder, unspecified; F41.9 Anxiety disorder, unspecified; G89.29 Other chronic pain; H91.90 Unspecified hearing loss, unspecified ear; I25.10 Atherosclerotic heart disease of native coronary artery without angina pectoris; I27.20 Pulmonary hypertension, unspecified; K22.10 Ulcer of esophagus without bleeding; K27.9 Peptic ulcer, site unspecified, unspecified as acute or chronic, without hemorrhage or perforation; K29.80 Duodenitis without bleeding; K80.20 Calculus of gallbladder without cholecystitis without obstruction; S80.01XA Contusion of right knee, initial encounter; S80.02XA Contusion of left knee, initial encounter; W10.9XXA Fall (on) (from) unspecified stairs and steps, initial encounter; K29.50 Unspecified chronic gastritis without bleeding; E83.51 Hypocalcemia; Z78.1 Physical restraint status; Z79.4 Long term (current) use of insulin; Z79.899 Other long term (current) drug therapy; Z87.01 Personal history of pneumonia (recurrent); Z87.19 Personal history of other diseases of the digestive system; Z87.891 Personal history of nicotine dependence; Z95.1 Presence of aortocoronary bypass graft; Z88.8 Allergy status to other drugs, medicaments and biological substances

== ENCOUNTER 2018-07-07 13:12 | Outpatient (CLI) | payer OTHER | END 2018-07-07 13:13 | disposition home or self-care (01) | LOC: RAD 13:12 | DX: R51 Headache (principal); W19.XXXA Unspecified fall, initial encounter ==

== ENCOUNTER 2018-08-10 10:23 | Outpatient (CLI) | payer OTHER | END 2018-08-10 10:24 | disposition home or self-care (01) | LOC: RAD 10:23 ==

== ENCOUNTER 2018-08-12 09:28 | Emergency (ER) | payer OTHER ==
[2018-08-12 09:28] VITALS: PULSE 67
[2018-08-12 09:42] VITALS: RESP 18
[2018-08-12 09:44] VITALS: BMI 25.1
--- NOTE | 2018-08-12 10:22 | RAD ---
Date of service: 08/12/2018 HISTORY: chest pain COMPARISON: 05/21/2018 FINDINGS: LUNGS: No active pulmonary disease. PLEURA: No significant pleural effusion identified, no pneumothorax apparent. CARDIOVASCULAR: Aortic calcification Normal cardiac size. No pulmonary vascular congestion. OSSEOUS STRUCTURES: Sternal wires VISUALIZED UPPER ABDOMEN: Normal. OTHER FINDINGS: None. IMPRESSION: No active disease.
[2018-08-12 10:32] LABS: BASO # 0.03 K/mm3 (0.0-2.0); BASO % 0.4 % (0.0-3.0); EOS # 0.2 (0.0-0.7); EOS % 2.9 % (1.5-5.0); HEMOGLOBIN 12.8 g/dL (14.0-18.0); LYMPH # 1.8 (1.2-3.4); LYMPH % 23.6 % (22.0-35.0); MEAN CELL VOLUME 81.6 fl (80.0-105.0); MEAN CORPUSCULAR HEMOGLOBIN 27.4 pg (25.0-35.0); MEAN CORPUSCULAR HGB CONC 33.6 g/dl (31.0-37.0); MEAN PLATELET VOLUME 8.6 fl (7.0-11.0); MONO # 0.6 (0.1-0.6); MONO % 7.9 % (1.0-6.0); RBC 4.67 10^6/uL (3.5-6.1); RED CELL DISTRIBUTION WIDTH 18.4 % (11.5-14.5); WHITE BLOOD COUNT 7.6 10^3/uL (4.5-11.0)
[2018-08-12 10:41] LABS: ALB/GLOB RATIO 1.6 (1.1-1.8); ALBUMIN 4.6 g/dL (3.0-4.8); ALT/SGPT 24 U/L (7-56); AST/SGOT 25 U/L (17-59); BLOOD UREA NITROGEN 9 mg/dL (7-21); GFR NON-AFRICAN AMERICAN > 60; INR 1.12; PARTIAL THROMBOPLASTIN TIME 44.1 Seconds (26.9-38.3); PROTHROMBIN TIME 12.6 SECONDS (9.4-12.5)
[2018-08-12 10:53] LABS: B-TYPE NATRIURETIC PEPTIDE 684 pg/mL (0-450); TROPONIN I < 0.01 ng/mL
--- NOTE | 2018-08-12 11:04 | ED PDOC ---
Arrival/HPI - General Chief Complaint: Chest Pain Historian: Patient - History of Present Illness Narrative History of Present Illness (Text): 08/12/18 10:55 Jose Carty is a 63 year old male, with a past medical history of schizophrenia, anxiety, CAD s/p CABG, EF 40%, hypertension, GI bleed, diabetes mellitus type 2, and esophageal ulcer who presents to the emergency department complaining of headache, nausea, chest pain since yesterday. Patient states chest pain radiates to right arm. Patient informs he feels "lousy". Patient was sent from assisted with no procedures done. Patient denies any fevers, chills, dizziness, shortness of breath, dyspnea on exertion, cough, abdominal pain, vomiting, diarrhea, back pain, neck pain, or any other complaint. 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,fall as per pt) Hx Difficulty Chewing: No Hx Epistaxis: No Hx Glaucoma: No Hx Macular Degeneration: No - Renal Hx Renal Disorder: No Hx Kidney Stones: No - Endocrine/Metabolic Hx Hyperthyroidism: No Hx Hypothyroidism: No - Hematological/Oncological Hx Anemia: Yes (1-25-17) - Integumentary Hx Dermatological Disorder: No - Musculoskeletal/Rheumatological Hx Arthritis: No Hx Fractures: No Hx Osteoporosis: No - Gastrointestinal Hx Gastritis: Yes - Genitourinary/Gynecological Hx Sexually Transmitted Diseases: No - Psychiatric Hx Anxiety: Yes Hx Bipolar Disorder: Yes Hx Depression: Yes Hx Schizophrenia: Yes Hx Substance Use: No - Past Surgical History Past Surgical History: Unable to Obtain - Surgical History Hx Coronary Artery Bypass Graft: Yes - Anesthesia Hx Anesthesia: Yes Hx Anesthesia Reactions: No Hx Malignant Hyperthermia: No - Suicidal Assessment Feels Threatened In Home Enviroment: No Family/Social History - Physician Review Nursing Documentation Reviewed: Yes Family/Social History: Unknown Family HX Smoking Status: Former Smoker Hx Alcohol Use: No Hx Substance Use: No Hx Substance Use Treatment: No Allergies/Home Meds Allergies/Adverse Reactions: Allergies zoloft Allergy (Uncoded 05/14/18 13:00) RASH Home Medications: Home Meds Medication Instructions Recorded Confirmed Acetaminophen [Tylenol] 650 mg PO PRN 08/12/18 08/12/18 Arginine/Ascorbate Sod/Lydia AC 1 each PO PRN 08/12/18 08/12/18 [Arginaid Powder] Gemfibrozil [Lopid] 600 mg PO BID 08/12/18 08/12/18 Insulin Regular [HumuLIN R] 0 unit SC 08/12/18 Insulin Glargine,Hum.rec.anlog 5 unit SQ HS 08/12/18 08/12/18 [Basaglar Kwikpen U-100] Insulin Lispro [Admelog] 4 unit SQ TID 08/12/18 08/12/18 Ipratropium/Albuterol Sulfate 3 ml IH PRN PRN 08/12/18 08/12/18 [Iprat-Albut 0.5-3(2.5) mg/3 ml] Magnesium Hydroxide [Milk Of 400 mg PO PRN 08/12/18 08/12/18 Magnesia] Mylanta 30 ml PO PRN PRN 08/12/18 08/12/18 Pantoprazole Sodium [Protonix] 40 mg PO DAILY 08/12/18 08/12/18 Vitamin B Complex/Vit C/Folic 1 tab PO DAILY 08/12/18 08/12/18 [Nephro-Lydia] Zaleplon [Sonata] 5 mg PO HS 08/12/18 08/12/18 clonazePAM [Klonopin] 2 mg PO BID PRN 08/12/18 08/12/18 Review of Systems - Physician Review All systems were reviewed & negative as marked: Yes - Review of Systems Constitutional: absent: Fevers, Night Sweats Respiratory: absent: SOB, Cough Cardiovascular: Chest Pain. absent: METZ Gastrointestinal: Nausea. absent: Abdominal Pain, Diarrhea, Vomiting Musculoskeletal: absent: Back Pain, Neck Pain Neurological: Headache. absent: Dizziness Physical Exam Vital Signs Reviewed: Yes Vital Signs Temp Pulse Resp BP Pulse Ox 08/12/18 09:41 98.7 F 67 18 147/62 100 Temperature: Afebrile Blood Pressure: Normal Pulse: Regular Respiratory Rate: Normal Appearance: Positive for: Well-Appearing, Non-Toxic, Comfortable Pain Distress: None Mental Status: Positive for: Alert and Oriented X 3 - Systems Exam Head: Present: Atraumatic, Normocephalic Pupils: Present: PERRL Extroacular Muscles: Present: EOMI Conjunctiva: Present: Normal Mouth: Present: Dry (Dry mucuous membranes). No: Normal Teeth (poor dentition) Neck: Present: Normal Range of Motion Respiratory/Chest: Present: Good Air Exchange, Decreased Breath Sounds (diminished breath sounds bilaterally). No: Respiratory Distress, Accessory Muscle Use, Wheezes, Rales Cardiovascular: Present: Regular Rate and Rhythm, Normal S1, S2. No: Murmurs Abdomen: No: Tenderness, Distention, Peritoneal Signs Back: Present: Normal Inspection Upper Extremity: Present: Normal Inspection. No: Cyanosis, Edema Lower Extremity: Present: Normal Inspection. No: Edema (no pitting edema) Neurological: Present: GCS=15, CN II-XII Intact, Speech Normal Skin: Present: Warm, Dry, Normal Color. No: Rashes Psychiatric: Present: Alert, Normal Insight, Normal Concentration. No: Oriented x 3 (Oriented x2, person, place, not time) Medical Decision Making ED Course and Treatment: 08/12/18 10:55 Impression: Patient is a 63 year old male who presents to the emergency department brought in from assisted complaining of headache and chest pain since 1 day. Differential Diagnosis included but are not limited to: Plan: -- Labs -- Chest X-ray -- Klonopin -- IV Insertion -- Urinalysis --Zofran -- Reassess and disposition Prior Visits: Notes and results from previous visits were reviewed. Progress Notes: 08/12/18 16:02 Labs reviewed with no leukocytosis, urine negative for bacteria and negative troponin. Patient tolerating PO challenge after Zofran. - Lab Interpretations Lab Results: PT 12.6 SECONDS (9.4-12.5) H 08/12/18 10:15 INR 1.12 08/12/18 10:15 APTT 44.1 Seconds (26.9-38.3) H 08/12/18 10:15 Troponin I < 0.01 ng/mL D 08/12/18 10:15 NT-Pro-B Natriuret Pep 684 pg/mL (0-450) H 08/12/18 10:15 Total Bilirubin 0.4 mg/dL (0.2-1.3) 08/12/18 10:15 AST 25 U/L (17-59) 08/12/18 10:15 ALT 24 U/L (7-56) 08/12/18 10:15 Alkaline Phosphatase 156 U/L (38-126) H D 08/12/18 10:15 Total Protein 7.6 g/dL (5.8-8.3) 08/12/18 10:15 Albumin 4.6 g/dL (3.0-4.8) 08/12/18 10:15 Globulin 3.0 gm/dL 08/12/18 10:15 Albumin/Globulin Ratio 1.6 (1.1-1.8) 08/12/18 10:15 08/12/18 10:15 08/12/18 10:15 Lab Results 08/12/18 13:36: Urine Color Yellow, Urine Appearance Clear, Urine pH 6.0, Ur Specific [place] 1.020, Urine Protein Negative, Urine Glucose (UA) Negative, Urine Ketones Negative, Urine Blood Negative, Urine Nitrate Negative, Urine Bilirubin Negative, Urine Urobilinogen 0.2, Ur Leukocyte Esterase Negative 08/12/18 10:15: Sodium 140, Potassium 4.7, Chloride 105, Carbon Dioxide 27, Anion Gap 13, BUN 9, Creatinine 0.7 L, Est GFR ( Amer) > 60, Est GFR (Non-Af Amer) > 60, Random Glucose 125 H, Calcium 10.0, Magnesium 1.8, Total Bilirubin 0.4, AST 25, ALT 24, Alkaline Phosphatase 156 H D, Troponin I < 0.01 D, NT-Pro-B Natriuret Pep 684 H, Total Protein 7.6, Albumin 4.6, Globulin 3.0, Albumin/Globulin Ratio 1.6 08/12/18 10:15: PT 12.6 H, INR 1.12, APTT 44.1 H 08/12/18 10:15: WBC 7.6 D, RBC 4.67, Hgb 12.8 L D, Hct 38.1 L, MCV 81.6 D, MCH 27.4, MCHC 33.6, RDW 18.4 H, Plt Count 177, MPV 8.6, Neut % (Auto) 65.2, Lymph % (Auto) 23.6, Mitchell % (Auto) 7.9 H, Eos % (Auto) 2.9, Baso % (Auto) 0.4, Lymph # (Auto) 1.8, Mitchell # (Auto) 0.6, Eos # (Auto) 0.2, Baso # (Auto) 0.03, Absolute Neuts (auto) 4.96 I have reviewed the lab results: Yes - RAD Interpretation Narrative RAD Interpretations (Text): 08/12/18 10:18 Reviewed Chest X-Ray, shows: FINDINGS: LUNGS: No active pulmonary disease. PLEURA: No significant pleural effusion identified, no pneumothorax apparent. CARDIOVASCULAR: Aortic calcification Normal cardiac size. No pulmonary vascular congestion. OSSEOUS STRUCTURES: Sternal wires VISUALIZED UPPER ABDOMEN: Normal. OTHER FINDINGS: None. IMPRESSION: No active disease. Radiology Orders: 08/12/18 09:47 CHEST PORTABLE [RAD] Stat Transcripter: Radiologist - EKG Interpretation EKG Interpretation (Text): 08/12/18 09:38 Reviewed EKG, shows: Sinus Bradycardia at 59 BPM. T wave inversions diffusely. Interpreted by ED Physician: Yes Type: 12 lead EKG - Medication Orders Current Medication Orders: Discontinued Medications Clonazepam (Klonopin) 2 mg PO STAT STA; Protocol Stop: 08/12/18 10:41 Last Admin: 08/12/18 10:48 Dose: 2 mg Discontinued Medications Acetaminophen (Tylenol 325mg Tab) 650 mg PO STAT STA Stop: 08/12/18 12:33 Last Admin: 08/12/18 12:59 Dose: 650 mg MAR Pain/Vitals Document 08/12/18 12:59 MAKENZIE (Rec: 08/12/18 12:59 MAKENZIE [id number]) Pain Reassessment Is This A Pain ReAssessment? No Sleep Is patient sleeping during reassessment? No Presence of Pain Presence of Pain Yes Location Description Intermittent Intensity 4 Clonazepam (Klonopin) 2 mg PO STAT STA; Protocol Stop: 08/12/18 10:41 Last Admin: 08/12/18 10:48 Dose: 2 mg Ondansetron HCl (Zofran Inj) 4 mg IVP STAT STA Stop: 08/12/18 14:56 Last Admin: 08/12/18 15:16 Dose: 4 mg IVP Administration Document 08/12/18 15:16 MAKENZIE (Rec: 08/12/18 15:16 MAKENZIE [id number]) Charges for Administration # of IVP Administrations 1 - Scribe Statement The provider has reviewed the documentation as recorded by the Scribe [place] All medical record entries made by the Scribe were at my direction and personally dictated by me. I have reviewed the chart and agree that the record accurately reflects my personal performance of the history, physical exam, medical decision making, and the department course for this patient. I have also personally directed, reviewed, and agree with the discharge instructions and disposition. Disposition/Present on Arrival - Present on Arrival Any Indicators Present on Arrival: No History of DVT/PE: No History of Uncontrolled Diabetes: No Urinary Catheter: No History of Decub. Ulcer: No History Surgical Site Infection Following: None - Disposition Have Diagnosis and Disposition been Completed?: Yes Diagnosis: Nausea & vomiting Disposition: HOME/ ROUTINE Disposition Time: 16:04 Patient Plan: Discharge Condition: STABLE Discharge Instructions (ExitCare): Nausea and Vomiting, Adult (DC) Print Language: DJIBOUTIAN Additional Instructions: All medical record entries made by the Scribe were at my direction and personally dictated by me. I have reviewed the chart and agree that the record accurately reflects my personal performance of the history, physical exam, medical decision making, and the department course for this patient. I have also personally directed, reviewed, and agree with the discharge instructions and disposition. Referrals: Anna Wong MD [Medical Doctor] - Follow up with primary [facility] [place] [Outside] - Follow up with primary Forms: [employer] (Czech)
[2018-08-12 13:56] LABS: URINE BILIRUBIN NEGATIVE (NEGATIVE); URINE BLOOD NEGATIVE (NEGATIVE); URINE GLUCOSE (UA) NEGATIVE (NEGATIVE); URINE LEUKOCYTE ESTERASE NEGATIVE Leu/uL (NEGATIVE); URINE PROTEIN NEGATIVE mg/dL (<30 mg/dL); URINE UROBILINOGEN 0.2 E.U./dL (<1 E.U./dL)
[2018-08-12 13:58] LABS: URINE APPEARANCE CLEAR (CLEAR); URINE COLOR YELLOW (YELLOW)
[2018-08-12 15:14] VITALS: PULSE 80
[2018-08-12 17:33] VITALS: BP 139/80; TEMP 98.4; O2SAT 98
--- NOTE | 2018-08-12 19:11 | CARD ---
APPROVED REPORT Date of service: 08/12/2018 EKG Measurement Heart [id number] <Conclusion> Sinus bradycardia T wave abnormality, consider inferolateral ischemia Abnormal ECG
== END 2018-08-12 18:56 | disposition home or self-care (01) ==
LOC: ED 09:28
DX: R11.2 Nausea with vomiting, unspecified (principal); E11.9 Type 2 diabetes mellitus without complications; F20.9 Schizophrenia, unspecified; I25.10 Atherosclerotic heart disease of native coronary artery without angina pectoris; Z95.1 Presence of aortocoronary bypass graft; Z87.891 Personal history of nicotine dependence
CPT/HCPCS: 71045; 80053; 81003; 83735; 83880; 84484; 85025; 85610; 85730; 93005; 96374; 96375; 99285; J1885; J2405